=== PATIENT | male | born 1960 | race Hispanic/Latino ===

== ENCOUNTER 2016-10-03 23:22 | Emergency (ER) | payer MEDICAID ==
[2016-10-03 23:22] VITALS: BMI 39.0
[2016-10-03] MEDS ORDERED: Albuterol-Ipratrop 3 mg / 0.5 (3 ml) UD ONE (23:38)
[2016-10-03] MEDS ORDERED: Magnesium Sulfate 2 gm/50 ml 2 GM/50 ML BAG ONE (23:38)
[2016-10-03] MEDS ORDERED: Albuterol-Ipratrop 3 mg / 0.5 (3 ml) UD INH STA ×2 (23:39)
[2016-10-03] MEDS ORDERED: Magnesium Sulfate 2 gm/50 ml 2 GM/50 ML BAG IVPB ONE (23:44)
[2016-10-04 00:02] LABS: BASO # 0.1 K/uL (0.0-0.2); BASO % 1.3 % (0.0-2.0); EOS # 0.2 K/uL (0.0-0.7); EOS % 2.3 % (0.0-4.0); HEMOGLOBIN 15.8 g/dL (12.0-18.0); LYMPH # 2.9 K/uL (1.0-4.3); MEAN CELL VOLUME 84.5 fl (80.0-94.0); MEAN CORPUSCULAR HEMOGLOBIN 27.9 pg (27.0-31.0); MEAN PLATELET VOLUME 8.1 fl (7.2-11.7); MONO # 0.8 K/uL (0.0-0.8); MONO % 8.1 % (0.0-10.0); NEUT # 6.2 K/uL (1.8-7.0); NEUT % 60.3 % (50.0-75.0); RBC 5.65 Mil/uL (4.40-5.90); RED CELL DISTRIBUTION WIDTH 15.2 % (11.5-14.5); WHITE BLOOD COUNT 10.3 K/uL (4.8-10.8)
[2016-10-04 00:13] LABS: BLOOD UREA NITROGEN 13 mg/dl (9-20); CALCIUM 9.1 mg/dL (8.4-10.2); GFR AFRICAN-AMERICAN > 60; GFR NON-AFRICAN AMERICAN > 60
--- NOTE | 2016-10-04 00:47 | ED PDOC ---
HPI: SOB/CHF/COPD Time Seen by Provider: 10/03/16 23:32 Chief Complaint (Nursing): Respiratory Distress Chief Complaint (Provider): Respiratory Distress History/Exam Limitations: no limitations Current Symptoms Are (Timing): Still Present Additional Complaint(s): Juve Perez is a 56 year old male with previous medical history of emphysema and psychiatric illness, who presents to the emergency department with a complaint of exacerbation of his COPD associated with fever and chills since this morning. Denies any further medical complaints. Patient stated that he is a current smoker and does not get relief from inhaler use. PMD: Anabell Monreal MD Past Medical History Reviewed: Historical Data, Nursing Documentation, Vital Signs Vital Signs: Last Vital Signs Temp 99.6 F 10/03/16 23:24 Pulse 113 H 10/03/16 23:24 Resp 22 10/03/16 23:24 BP 151/83 H 10/03/16 23:24 Pulse Ox 98 10/04/16 00:59 - Medical History PMH: Anxiety, Asthma, Bipolar Disorder, CHF, COPD, Depression, Diabetes, Emphysema, HTN, Hypercholesterolemia, Personality Disorder, Schizophrenia, Sleep Apnea Denies: Hepatitis, HIV, Chronic Kidney Disease, Seizures, Sexually Transmitted Disease - Family History Family History: States: Unknown Family Hx - Social History Current smoker - smoking cessation education provided: Yes - Immunization History Hx Tetanus Toxoid Vaccination: Yes Hx Influenza Vaccination: Yes Hx Pneumococcal Vaccination: No - Home Medications Home Medications: Ambulatory Orders Medication Instructions Recorded Benztropine [Cogentin] 0.5 mg PO BID #60 tab 12/11/15 Gabapentin [Neurontin] 400 mg PO HS #60 cap 12/11/15 Gabapentin [Neurontin] 600 mg PO TID #90 tab 12/11/15 ARIPiprazole [Abilify] 20 mg PO HS #30 tab 01/22/16 Aspirin [Ecotrin] 81 mg PO DAILY #0 tabec 01/22/16 Carvedilol [Coreg] 12.5 mg PO BID #0 tab 01/22/16 Docusate [Colace] 100 mg PO DAILY #0 cap 01/22/16 Doxepin [Sinequan] 10 mg PO HS #30 cap 01/22/16 Folic Acid 1 mg PO DAILY #0 tab 01/22/16 Lactobacillus Acidophilus [Bacid 1 cap PO BID #0 cap 01/22/16 Acidophilus] Losartan [Cozaar] 50 mg PO DAILY #0 tab 01/22/16 Multimineral/Multivitamin 1 tab PO DAILY #0 tab 01/22/16 [Therapeutic-M Tab] Naproxen [Naprosyn Tab] 375 mg PO BID PRN #0 tab 01/22/16 OXcarbazepine [Trileptal] 300 mg PO BID #0 tab 01/22/16 Pramipexole [Mirapex] 1.5 mg PO BID #0 tab 01/22/16 Pravastatin Sodium [Pravachol] 40 mg PO HS #0 tab 01/22/16 Thiamine [Vitamin B1 Tab] 100 mg PO DAILY #0 tab 01/22/16 Venlafaxine [Effexor XR] 150 mg PO DAILY #30 cer 01/22/16 amLODIPine [Norvasc] 5 mg PO HS #0 tab 01/22/16 metFORMIN [glucOPHAGE] 500 mg PO DAILY #0 tab 01/22/16 predniSONE [predniSONE Tab] 60 mg PO DAILY #9 tab 10/04/16 - Allergies Allergies/Adverse Reactions: Allergies Allergy/AdvReac Type Severity Reaction Status Date / Time [place] And Derivatives Allergy ANGIOEDEMA Verified 08/25/15 18:21 Review of Systems ROS Statement: Except As Marked, All Systems Reviewed And Found Negative ( exacerbated) Constitutional: Positive for: Fever, Chills Respiratory: Positive for: Cough Physical Exam - Reviewed Nursing Documentation Reviewed: Yes Vital Signs Reviewed: Yes - Physical Exam Appears: Positive for: Well, Non-toxic, No Acute Distress Head Exam: Positive for: ATRAUMATIC, NORMAL INSPECTION, NORMOCEPHALIC Skin: Positive for: Normal Color, Warm, Dry Eye Exam: Positive for: Normal appearance Neck: Positive for: Normal, Painless ROM, Supple Cardiovascular/Chest: Positive for: Regular Rate, Rhythm Respiratory: Positive for: Wheezing (bilaterally), Respiratory Distress. Negative for: Normal Breath Sounds Gastrointestinal/Abdominal: Positive for: Normal Exam, Bowel Sounds, Soft, Other (obese abdomen). Negative for: Tenderness, Mass Back: Positive for: Normal Inspection. Negative for: L CVA Tenderness, R CVA Tenderness Extremity: Positive for: Normal ROM. Negative for: Pedal Edema Neurologic/Psych: Positive for: Alert, Oriented - Laboratory Results Result Diagrams: 10/03/16 23:42 10/03/16 23:42 - ECG O2 Sat by Pulse Oximetry: 98 (O2 mask) Pulse Ox Interpretation: Normal Medical Decision Making Medical Decision Making: Initial Impression: COPD with exacerbation Initial Plan: * EKG * Drug screen, urine * CXR * Duoneb 3ml INH * Xanax 1mg PO * Magnesium 2gm in 50ml IVPB * Solu-Medrol 125mg IVP * Blood culture * Peak flow pre/post [place] * Urinalysis * Reevaluate 1AM: Pt's wheezing has much improved, no longer c/o of wheezing. Will d/c home on prednisone, encourage f/u with PMD, strict return precautions given. Scribe Attestation: Documented by Palmira Ochoa, acting as a scribe for Raul Cruz MD. Provider Scribe Attestation: All medical record entries made by the Scribe were at my direction and personally dictated by me. I have reviewed the chart and agree that the record accurately reflects my personal performance of the history, physical exam, medical decision making, and the department course for this patient. I have also personally directed, reviewed, and agree with the discharge instructions and disposition. Disposition - Clinical Impression Clinical Impression: COPD (chronic obstructive pulmonary disease) - Patient ED Disposition Is Patient to be Admitted: No - Disposition Disposition: Routine/Home Disposition Time: 01:12 Condition: IMPROVED Prescriptions: predniSONE [predniSONE Tab] 60 mg PO DAILY #9 tab Instructions: Emphysema (ED)
[2016-10-04 01:20] VITALS: BP 136/89; PULSE 110; RESP 20; TEMP 98.7
[2016-10-04 01:23] VITALS: O2SAT 97
--- NOTE | 2016-10-04 07:40 | RAD ---
HISTORY: sob, emphysema COMPARISON: No prior. TECHNIQUE: Chest PA and lateral FINDINGS: LUNGS: No active pulmonary disease. PLEURA: No significant pleural effusion identified. No pneumothorax apparent. CARDIOVASCULAR: Normal. OSSEOUS STRUCTURES: No significant abnormalities. VISUALIZED UPPER ABDOMEN: Normal. OTHER FINDINGS: None. IMPRESSION: No active disease.
--- NOTE | 2016-10-06 07:00 | CARD ---
APPROVED REPORT EKG Measurement Heart [id number] <Conclusion> Sinus tachycardia Otherwise normal ECG
== END 2016-10-04 01:19 | disposition home or self-care (01) ==
LOC: H.ER 23:22
DX: J44.1 Chronic obstructive pulmonary disease with (acute) exacerbation (principal); Z79.84 Long term (current) use of oral hypoglycemic drugs; E11.9 Type 2 diabetes mellitus without complications; F20.9 Schizophrenia, unspecified; F31.9 Bipolar disorder, unspecified; I10 Essential (primary) hypertension

== ENCOUNTER 2016-10-09 02:02 | Inpatient (IN) | payer MEDICAID ==
[2016-10-09 02:02] VITALS: BMI 39.0
[2016-10-09] MEDS ORDERED: Albuterol-Ipratrop 3 mg / 0.5 (3 ml) UD INH STA ×4 (02:29→03:37)
[2016-10-09] MEDS ORDERED: Magnesium Sulfate 2 GM in Sodium Chloride 0.9% 100 ML IV STA (02:33)
[2016-10-09] MEDS ORDERED: Magnesium Sulfate 2 gm/50 ml 2 GM/50 ML BAG ONE (02:37)
--- NOTE | 2016-10-09 02:40 | ED PDOC ---
HPI: SOB/CHF/COPD Time Seen by Provider: 10/09/16 02:11 Chief Complaint (Nursing): Shortness Of Breath Chief Complaint (Provider): Shortness of Breath History Per: Patient History/Exam Limitations: no limitations Onset/Duration Of Symptoms: Days (x3) Current Symptoms Are (Timing): Still Present Quality: Tightness Current Respiratory Medications: Prednisone Associated Symptoms: Chest Pain (chest tightness), Other (wheezing) Recently: Seen In ED (x3 days ago) Additional Complaint(s): 56 year old male presents to ED with complaints of SOB x3 days and has a past medical history of COPD, bipolar disorder, HTN, and DM. States that he was seen in ED x3 days ago for the same complaint and was given multiple nebulizer treatments, magnesium, and steroids with modest improvements. Confirms that he takes prednisone at home but that symptoms still persist. (+) chest tightness and wheezing. PCP: Anabell Monreal Past Medical History Reviewed: Historical Data, Nursing Documentation, Vital Signs Vital Signs: Last Vital Signs Temp 97.8 F 10/10/16 00:33 Pulse 75 10/10/16 01:15 Resp 17 10/10/16 01:15 BP 146/87 10/10/16 01:15 Pulse Ox 95 10/10/16 01:15 - Medical History PMH: Anxiety, Asthma, Bipolar Disorder, CHF, COPD, Depression, Diabetes, Emphysema, HTN, Hypercholesterolemia, Personality Disorder, Schizophrenia, Sleep Apnea Denies: No Chronic Diseases, Hepatitis, HIV, Chronic Kidney Disease, Seizures , Sexually Transmitted Disease - Surgical History Surgical History: No Surg Hx - Family History Family History: States: No Known Family Hx - Social History Current smoker - smoking cessation education provided: Yes (2-3 cigarettes a day ) Ex-Smoker (has not smoked in the last 12 months): No Alcohol: Occasional - Immunization History Hx Tetanus Toxoid Vaccination: Yes Hx Influenza Vaccination: Yes Hx Pneumococcal Vaccination: No - Home Medications Home Medications: Ambulatory Orders Medication Instructions Recorded Benztropine [Cogentin] 0.5 mg PO BID #60 tab 12/11/15 Gabapentin [Neurontin] 400 mg PO HS #60 cap 12/11/15 Gabapentin [Neurontin] 600 mg PO TID #90 tab 12/11/15 ARIPiprazole [Abilify] 20 mg PO HS #30 tab 01/22/16 Aspirin [Ecotrin] 81 mg PO DAILY #0 tabec 01/22/16 Carvedilol [Coreg] 12.5 mg PO BID #0 tab 01/22/16 Docusate [Colace] 100 mg PO DAILY #0 cap 01/22/16 Doxepin [Sinequan] 10 mg PO HS #30 cap 01/22/16 Folic Acid 1 mg PO DAILY #0 tab 01/22/16 Lactobacillus Acidophilus [Bacid 1 cap PO BID #0 cap 01/22/16 Acidophilus] Losartan [Cozaar] 50 mg PO DAILY #0 tab 01/22/16 Multimineral/Multivitamin 1 tab PO DAILY #0 tab 01/22/16 [Therapeutic-M Tab] Naproxen [Naprosyn Tab] 375 mg PO BID PRN #0 tab 01/22/16 OXcarbazepine [Trileptal] 300 mg PO BID #0 tab 01/22/16 Pramipexole [Mirapex] 1.5 mg PO BID #0 tab 01/22/16 Pravastatin Sodium [Pravachol] 40 mg PO HS #0 tab 01/22/16 Thiamine [Vitamin B1 Tab] 100 mg PO DAILY #0 tab 01/22/16 Venlafaxine [Effexor XR] 150 mg PO DAILY #30 cer 01/22/16 amLODIPine [Norvasc] 5 mg PO HS #0 tab 01/22/16 metFORMIN [glucOPHAGE] 500 mg PO DAILY #0 tab 01/22/16 Albuterol 0.083% [Albuterol 0.083% 1 inh INH TID 10/09/16 Inhal Radha (2.5 mg/3 ml) UD] Albuterol HFA [Ventolin HFA 90 1 - 2 puff INH PRN PRN 10/09/16 mcg/actuation (8 g)] Albuterol/Ipratropium [Combivent 1 - 2 puff INH TID 10/09/16 Respimat] Fluticasone/Salmeterol [Advair 1 inh INH DAILY 10/09/16 250-50 Diskus] - Allergies Allergies/Adverse Reactions: Allergies Allergy/AdvReac Type Severity Reaction Status Date / Time [place] And Derivatives Allergy ANGIOEDEMA Verified 08/25/15 18:21 Curb-65 Severity Score - CURB-65 Severity Score Confusion: No Respiratory Rate greater than/equal to 30: No Systolic BP <90 or Diastolic BP less than/equal 60mmHg: No Age >64: No Curb-65 Score: 0 Percentage 30-day mortality: 0.6% Wells Criteria for PE - Wells Criteria for Pulmonary Embolism Clinical Signs and Symptoms of DVT: No P.E is #1 Diagnosis, or Equally Likely: No Heart Rate >100: Yes Immobilization at least 3 days;Surgery previous 4 weeks: No Previous, objectively diagnosed PE or DVT: No Hemoptysis: No Malignancy w/treatment within 6 months, or palliative: No Total Score: 1.5 Review of Systems ROS Statement: Except As Marked, All Systems Reviewed And Found Negative Cardiovascular: Positive for: Chest Pain (chest tightness) Respiratory: Positive for: Shortness of Breath, Wheezing Physical Exam - Reviewed Nursing Documentation Reviewed: Yes Vital Signs Reviewed: Yes - Physical Exam Appears: Positive for: Non-toxic, In Acute Distress (mild distress) Skin: Positive for: Normal Color, Warm, Dry Eye Exam: Positive for: Normal appearance ENT: Positive for: Normal ENT Inspection Neck: Positive for: Normal Cardiovascular/Chest: Positive for: Regular Rate, Rhythm, Tachycardia Respiratory: Positive for: Wheezing (bilateral diffuse expiratory wheezing), Other (decreased air entry). Negative for: Normal Breath Sounds, Respiratory Distress Gastrointestinal/Abdominal: Positive for: Normal Exam, Soft. Negative for: Tenderness Back: Positive for: Normal Inspection Extremity: Positive for: Normal ROM. Negative for: Deformity Neurologic/Psych: Positive for: Alert, Oriented. Negative for: Motor/Sensory Deficits - Laboratory Results Result Diagrams: 10/09/16 02:43 10/09/16 02:43 - ECG O2 Sat by Pulse Oximetry: 94 (RA) Pulse Ox Interpretation: Abnormal - Critical Care Total Time (In Min): 30 Medical Decision Making Medical Decision Makin Initial impression: COPD exacerbation and failure of outpatient treatment Initial plan: * EtOH serum * Labs * UDrug screen * Duonebs 3mL INH x3 * Magnesium Sulfate 2gm IV * Solumedrol 125mg IVP * BCx * Peak flow pre/post Tx x3 [id number] Admission OBS MED/SURG Patient will be admitted under Dr. Moore. 30 minutes of CCT documented. Scribe Attestation: Documented by Radha Orona acting as a scribe for Jin Rios MD. MD Scribe Attestation: All medical record entries made by the Ivy were at my direction and personally dictated by me. I have reviewed the chart and agree that the record accurately reflects my personal performance of the history, physical exam, medical decision making, and the department course for this patient. I have also personally directed, reviewed, and agree with the discharge instructions and disposition. Disposition - Clinical Impression Clinical Impression: COPD (chronic obstructive pulmonary disease) - Patient ED Disposition Is Patient to be Admitted: Yes Discussed With : Damaris Moore Doctor Will See Patient In The: Hospital - Disposition Disposition Time: 02:42 Condition: FAIR - Pt Status Changed To: Hospital Disposition Of: Observation (MED/SURG) - POA Present On Arrival: None
[2016-10-09 03:14] LABS: ALB/GLOB RATIO 1.3 (1.0-2.1); ALBUMIN 4.6 g/dL (3.5-5.0); ALT/SGPT 46 U/L (21-72); AST/SGOT 23 U/L (17-59); BLOOD UREA NITROGEN 13 mg/dl (9-20); CALCIUM 9.1 mg/dL (8.4-10.2); GFR AFRICAN-AMERICAN > 60; GFR NON-AFRICAN AMERICAN > 60
[2016-10-09 03:25] LABS: BASO # 0.1 K/uL (0.0-0.2); BASO % 0.6 % (0.0-2.0); EOS # 0.2 K/uL (0.0-0.7); EOS % 1.2 % (0.0-4.0); HEMOGLOBIN 15.4 g/dL (12.0-18.0); LYMPH # 3.1 K/uL (1.0-4.3); LYMPH % 20.8 % (20.0-40.0); MEAN CELL VOLUME 83.5 fl (80.0-94.0); MEAN CORPUSCULAR HEMOGLOBIN 27.4 pg (27.0-31.0); MEAN CORPUSCULAR HGB CONC 32.8 g/dL (33.0-37.0); MONO # 0.9 K/uL (0.0-0.8); MONO % 6.4 % (0.0-10.0); NEUT # 10.5 K/uL (1.8-7.0); NRBC % 0.1 % (0.0-0.0); RBC 5.63 Mil/uL (4.40-5.90); RED CELL DISTRIBUTION WIDTH 15.1 % (11.5-14.5); WHITE BLOOD COUNT 14.8 K/uL (4.8-10.8)
[2016-10-09] MEDS ORDERED: Albuterol-Ipratrop 3 mg / 0.5 (3 ml) UD ONE (04:12)
[2016-10-09] MEDS: methylPREDNISolone 60 MG in Sodium Chloride 0.9% 50 ML IV SCH ×4 (04:30→22:12)
[2016-10-09] MEDS: Albuterol-Ipratrop 3 mg / 0.5 (3 ml) UD INH SCH ×6 (04:30→23:52)
[2016-10-09] MEDS ORDERED: Albuterol-Ipratrop 3 mg / 0.5 (3 ml) UD INH SCH ×2 (09:00→14:00)
[2016-10-09] MEDS: Fluticasone-Salmeterol 250-50mcg Diskus INH SCH ×2 (09:19→16:51)
[2016-10-09] MEDS: Lactobacillus Acidophilus 500 MU Cap PO SCH ×2 (09:20→16:51)
[2016-10-09] MEDS: Multivitamin With Minerals Tab PO SCH (09:58)
[2016-10-09] MEDS: Venlafaxine 150 mg ER Cap PO SCH (09:58)
[2016-10-09] MEDS: levoFLOXacin 500 MG TAB PO SCH (10:00)
[2016-10-09] MEDS: Enoxaparin 40 mg Syringe SC SCH (10:01)
--- NOTE | 2016-10-09 11:32 | CP.PCM.HP ---
History of Present Illness - History of Present Illness History of Present Illness: CC: SOB History of Present Illness: 56 year old male presents to ED with complaints of SOB x3 days and has a past medical history of COPD, bipolar disorder, HTN, and DM. States that he was seen in ED x3 days ago for the same complaint and was given multiple nebulizer treatments, magnesium, and steroids with modest improvements. Confirms that he takes prednisone at home but that symptoms still persist. (+) chest tightness and wheezing. B/L Leg swellings. Present on Admission - Present on Admission Any Indicators Present on Admission: No History of DVT/PE: No History of Uncontrolled Diabetes: Yes Urinary Catheter: No Decubitus Ulcer Present: No Review of Systems - Review of Systems All systems: reviewed and no additional remarkable complaints except - Cardiovascular Cardiovascular: As Per HPI - Respiratory Respiratory: As Per HPI Past Patient History - Past Medical History & Family History Past Medical History?: Yes Past Family History: Reviewed and not pertinent - Past Social History Smoking Status: Light Smoker < 10 Cigarettes Daily Alcohol: Social Drugs: Denies - CARDIAC Hx Cardiac Disorders: Yes Hx Hypercholesterolemia: Yes Hx Hypertension: Yes - PULMONARY Hx Respiratory Disorders: Yes Hx Asthma: Yes Hx Chronic Obstructive Pulmonary Disease (COPD): Yes Hx Emphysema: Yes Hx Sleep Apnea: Yes - NEUROLOGICAL Hx Neurological Disorder: No Hx Seizures: No - HEENT Hx HEENT Problems: No - RENAL Hx Chronic Kidney Disease: No - ENDOCRINE/METABOLIC Hx Endocrine Disorders: Yes Hx Diabetes Mellitus Type 1: Yes - HEMATOLOGICAL/ONCOLOGICAL Hx Blood Disorders: No Hx AIDS: No Hx Human Immunodeficiency Virus (HIV): No - INTEGUMENTARY Hx Dermatological Problems: No - MUSCULOSKELETAL/RHEUMATOLOGICAL Hx Musculoskeletal Disorders: No Hx Falls: No - GASTROINTESTINAL Hx Gastrointestinal Disorders: No - GENITOURINARY/GYNECOLOGICAL Hx Genitourinary Disorders: No Hx Sexually Transmitted Disorders: No - PSYCHIATRIC Hx Psychophysiologic Disorder: Yes Hx Anxiety: Yes Hx Bipolar Disorder: Yes Hx Depression: Yes Hx Schizophrenia: Yes Hx Substance Use: No - SURGICAL HISTORY Hx Surgeries: No - ANESTHESIA Hx Anesthesia: No Hx Anesthesia Reactions: No Hx Malignant Hyperthermia: No Has any member of the family had a problem w/ anesthesia?: No Meds Allergies/Adverse Reactions: Allergies Allergy/AdvReac Type Severity Reaction Status Date / Time [place] And Derivatives Allergy ANGIOEDEMA Verified 08/25/15 18:21 Physical Exam - Constitutional Appears: Well, No Acute Distress - Head Exam Head Exam: ATRAUMATIC, NORMAL INSPECTION, NORMOCEPHALIC - Eye Exam Eye Exam: EOMI, Normal appearance, PERRL Pupil Exam: NORMAL ACCOMODATION, PERRL - ENT Exam ENT Exam: Mucous Membranes Moist, Normal Exam - Neck Exam Neck exam: Positive for: Full Rom, Normal Inspection - Respiratory Exam Respiratory Exam: Decreased Breath Sounds, Wheezes. absent: Rales - Cardiovascular Exam Cardiovascular Exam: Tachycardia, REGULAR RHYTHM, +S1, +S2 - GI/Abdominal Exam GI & Abdominal Exam: Normal Bowel Sounds, Soft. absent: Tenderness - Extremities Exam Extremities exam: Positive for: full ROM, normal inspection. Negative for: calf tenderness - Back Exam Back exam: FULL ROM, NORMAL INSPECTION - Neurological Exam Neurological exam: Alert, CN II-XII Intact, Normal Gait, Oriented x3, Reflexes Normal - Psychiatric Exam Psychiatric exam: Normal Affect, Normal Mood - Skin Skin Exam: Dry, Intact, Normal Color, Warm Results - Vital Signs Recent Vital Signs: Last Vital Signs Temp 98.2 F 10/09/16 07:47 Pulse 106 H 10/09/16 09:57 Resp 20 10/09/16 07:47 BP 112/62 10/09/16 09:57 Pulse Ox 100 10/09/16 07:47 - Labs Result Diagrams: 10/09/16 02:43 10/09/16 02:43 Labs: Laboratory Results - last 24 hr 10/09/16 10/09/16 10/09/16 02:43 02:43 10:37 WBC 14.8 H RBC 5.63 Hgb 15.4 Hct 47.0 MCV 83.5 MCH 27.4 MCHC 32.8 L RDW 15.1 H Plt Count 319 MPV 8.0 Neut % (Auto) 71.0 Lymph % (Auto) 20.8 [place] % (Auto) 6.4 Eos % (Auto) 1.2 Baso % (Auto) 0.6 Neut # 10.5 H Lymph # 3.1 [place] # 0.9 H Eos # 0.2 Baso # 0.1 Sodium 146 Potassium 3.6 Chloride 108 H Carbon Dioxide 22 Anion Gap 20 BUN 13 Creatinine 1.0 Est GFR ( Amer) > 60 Est GFR (Non-Af Amer) > 60 POC Glucose (mg/dL) 232 H Random Glucose 95 Calcium 9.1 Total Bilirubin 0.3 AST 23 ALT 46 Alkaline Phosphatase 87 Total Protein 8.1 Albumin 4.6 Globulin 3.5 Albumin/Globulin Ratio 1.3 Alcohol, Quantitative 162 H - Imaging and Cardiology Chest x-ray Status: Report reviewed by me Additional comment: 10/05/15 No Acute finding Assessment & Plan (1) COPD exacerbation Assessment and Plan: O2 Via NC Duoneb q4hrs RTC Solumedrol 60mg IV q6 Levaquin 50omg po daily Continue Flovent INH Pulmonary Consult Change Obs to admit Status: Acute
[2016-10-09 11:33] LABS: BARBITURATES, UR NEGATIVE (NEGATIVE); BENZODIAZEPINES, UR NEGATIVE (NEGATIVE); OPIATES, UR NEGATIVE (NEGATIVE); PHENCYCLIDINE, UR NEGATIVE (NEGATIVE)
[2016-10-09] MEDS: Insulin Lispro (humaLOG) 100 Units/ml Inj SC SCH ×3 (12:30→22:22)
[2016-10-09] MEDS ORDERED: Sodium Chloride 3% for Inhalation 4 ML VIAL.NEB IH PRN (13:17)
--- NOTE | 2016-10-09 15:17 | RAD ---
HISTORY: COPD. COMPARISON: 10/03/2016 TECHNIQUE: Chest PA and lateral FINDINGS: LUNGS: No active pulmonary disease. PLEURA: No significant pleural effusion identified. No pneumothorax apparent. CARDIOVASCULAR: Normal. OSSEOUS STRUCTURES: No significant abnormalities. VISUALIZED UPPER ABDOMEN: Normal. OTHER FINDINGS: None. IMPRESSION: No active disease. No significant interval change compared to the prior examination(s).
[2016-10-09] MEDS: Pravastatin Sodium 40 MG TAB PO SCH (22:13)
--- NOTE | 2016-10-09 22:59 | CP.PCM.CON ---
History of Present Illness - History of Present Illness History of Present Illness: 56 y/o PMHx of COPD, DM, HTN, recently in ER for pos sx of exacerbation; treated with nebulized treatments and CAESAR. Now comes in with increase in CHOI. ROS: neg fever, positive sputum, negative hemoptysis. Neg Chest pain. Pos audible wheezing. NKDA 50 pack year smoker. Still smokes 1/4 pack a day. VS See Below. Labs See Below. Head Neg Adeno Pos Cara. Heart RRR, ns1s2, Neg M Lungs: Distant bs, slight wheezing Bilateral No, c,c,e Neuro: GNF X-ray WNL a/p Acute Resp Insuf COPD Ex. Tracheobronchitis Chronic Medical Conditions. Cont Supp O2, maintain O2 Sat > 90. Avoid Hyperoxia. IV steroids with slow taper, abx, check wbc#, temp curve and CEASAR via nebs. Discussed smoking cessation. BiPap at night use. If patient is improved in next 48 hours, may dc on po steroids and po abx, and he can follow up with my at [facility] office: [address], [place] phone: [phone] Please reconsult PRN. Thank you very much for this consult. Past Patient History - Past Medical History & Family History Past Medical History?: Yes Past Family History: Reviewed and not pertinent - Past Social History Smoking Status: Light Smoker < 10 Cigarettes Daily Alcohol: Social Drugs: Denies - CARDIAC Hx Cardiac Disorders: Yes Hx Hypercholesterolemia: Yes Hx Hypertension: Yes - PULMONARY Hx Respiratory Disorders: Yes Hx Asthma: Yes Hx Chronic Obstructive Pulmonary Disease (COPD): Yes Hx Emphysema: Yes Hx Sleep Apnea: Yes - NEUROLOGICAL Hx Neurological Disorder: No Hx Seizures: No - HEENT Hx HEENT Problems: No - RENAL Hx Chronic Kidney Disease: No - ENDOCRINE/METABOLIC Hx Endocrine Disorders: Yes Hx Diabetes Mellitus Type 1: Yes - HEMATOLOGICAL/ONCOLOGICAL Hx Blood Disorders: No Hx AIDS: No Hx Human Immunodeficiency Virus (HIV): No - INTEGUMENTARY Hx Dermatological Problems: No - MUSCULOSKELETAL/RHEUMATOLOGICAL Hx Musculoskeletal Disorders: No Hx Falls: No - GASTROINTESTINAL Hx Gastrointestinal Disorders: No - GENITOURINARY/GYNECOLOGICAL Hx Genitourinary Disorders: No Hx Sexually Transmitted Disorders: No - PSYCHIATRIC Hx Psychophysiologic Disorder: Yes Hx Anxiety: Yes Hx Bipolar Disorder: Yes Hx Depression: Yes Hx Schizophrenia: Yes Hx Substance Use: No - SURGICAL HISTORY Hx Surgeries: No - ANESTHESIA Hx Anesthesia: No Hx Anesthesia Reactions: No Hx Malignant Hyperthermia: No Has any member of the family had a problem w/ anesthesia?: No Meds Allergies/Adverse Reactions: Allergies Allergy/AdvReac Type Severity Reaction Status Date / Time M[place]ulloch And Derivatives Allergy ANGIOEDEMA Verified 08/25/15 18:21 - Medications Medications: Current Medications Albuterol/Ipratropium (Duoneb 3 Mg/0.5 Mg (3 Ml) Ud) 3 ml INH RQ4 [facility] Last Admin: 10/09/16 19:22 Dose: 3 ml Amlodipine Besylate (Norvasc) 5 mg PO HS [facility] Last Admin: 10/09/16 22:32 Dose: 5 mg Aripiprazole (Abilify) 20 mg PO HS [facility] Last Admin: 10/09/16 22:13 Dose: 20 mg Aspirin (Ecotrin) 81 mg PO DAILY [facility] Last Admin: 10/09/16 09:17 Dose: 81 mg Benztropine Mesylate (Cogentin) 0.5 mg PO BID [facility] Last Admin: 10/09/16 16:52 Dose: 0.5 mg Carvedilol (Coreg) 12.5 mg PO BID [facility] Last Admin: 10/09/16 16:52 Dose: 12.5 mg Docusate Sodium (Colace) 100 mg PO DAILY [facility] Last Admin: 10/09/16 09:17 Dose: 100 mg Doxepin HCl (Sinequan) 10 mg PO HS [facility] Last Admin: 10/09/16 22:13 Dose: 10 mg Enoxaparin Sodium (Lovenox) 40 mg SC DAILY [facility] PRN Reason: Protocol Last Admin: 10/09/16 10:01 Dose: 40 mg Famotidine (Pepcid) 20 mg PO BID [facility] Last Admin: 10/09/16 16:54 Dose: 20 mg Folic Acid (Folic Acid) 1 mg PO DAILY [facility] Last Admin: 10/09/16 09:17 Dose: 1 mg Gabapentin (Neurontin) 400 mg PO HS [facility] Last Admin: 10/09/16 22:12 Dose: 400 mg Gabapentin (Neurontin) 600 mg PO TID [facility] Last Admin: 10/09/16 16:52 Dose: 600 mg Methylprednisolone 60 mg/ (Sodium Chloride) 50 mls @ 100 mls/hr IV Q6 [facility] Last Admin: 10/09/16 22:12 Dose: 100 mls/hr Insulin Human Lispro (Humalog) 0 units SC ACHS [facility] PRN Reason: Protocol Last Admin: 10/09/16 22:22 Dose: Not Given Lactobacillus Acidophilus (Bacid Acidophilus) 1 cap PO BID [facility] Last Admin: 10/09/16 16:51 Dose: 1 cap Levofloxacin (Levaquin) 500 mg PO DAILY [facility] Last Admin: 10/09/16 10:00 Dose: 500 mg Losartan Potassium (Cozaar) 50 mg PO DAILY [facility] Last Admin: 10/09/16 09:17 Dose: 50 mg Metformin HCl (Glucophage) 500 mg PO DAILY [facility] Last Admin: 10/09/16 10:01 Dose: 500 mg Multivitamins/Minerals (Therapeutic-M Tab) 1 tab PO DAILY [facility] Last Admin: 10/09/16 09:58 Dose: 1 tab Naproxen (Naprosyn Tab) 375 mg PO BID PRN PRN Reason: Pain, moderate (4-7) Nicotine (Nicoderm Cq) 1 patch TD DAILY [facility] Last Admin: 10/09/16 09:59 Dose: 1 patch Oxcarbazepine (Trileptal) 300 mg PO BID [facility] Last Admin: 10/09/16 16:53 Dose: 300 mg Pramipexole Dihydrochloride (Mirapex) 1.5 mg PO BID [facility] Last Admin: 10/09/16 17:15 Dose: 1.5 mg Pravastatin Sodium (Pravachol) 40 mg PO HS [facility] Last Admin: 10/09/16 22:13 Dose: 40 mg Fluticasone/Salmeterol (Advair Diskus 250/50) 1 puff INH BID [facility] Last Admin: 10/09/16 16:51 Dose: 1 puff Thiamine HCl (Vitamin B1 Tab) 100 mg PO DAILY [facility] Last Admin: 10/09/16 09:59 Dose: 100 mg Venlafaxine HCl (Effexor Xr) 150 mg PO DAILY [facility] Last Admin: 10/09/16 09:58 Dose: 150 mg Results - Vital Signs Recent Vital Signs: Last Vital Signs Temp 97.6 F 10/09/16 16:15 Pulse 76 10/09/16 22:32 Resp 20 10/09/16 16:15 BP 163/86 H 10/09/16 22:32 Pulse Ox 95 10/09/16 16:15 - Labs Result Diagrams: 10/09/16 02:43 10/09/16 02:43 Labs: Laboratory Results - last 24 hr 10/09/16 10/09/16 10/09/16 02:43 02:43 10:37 WBC 14.8 H RBC 5.63 Hgb 15.4 Hct 47.0 MCV 83.5 MCH 27.4 MCHC 32.8 L RDW 15.1 H Plt Count 319 MPV 8.0 Neut % (Auto) 71.0 Lymph % (Auto) 20.8 Gooding % (Auto) 6.4 Eos % (Auto) 1.2 Baso % (Auto) 0.6 Neut # 10.5 H Lymph # 3.1 Gooding # 0.9 H Eos # 0.2 Baso # 0.1 Sodium 146 Potassium 3.6 Chloride 108 H Carbon Dioxide 22 Anion Gap 20 BUN 13 Creatinine 1.0 Est GFR ( Amer) > 60 Est GFR (Non-Af Amer) > 60 POC Glucose (mg/dL) 232 H Random Glucose 95 Calcium 9.1 Total Bilirubin 0.3 AST 23 ALT 46 Alkaline Phosphatase 87 Total Protein 8.1 Albumin 4.6 Globulin 3.5 Albumin/Globulin Ratio 1.3 Urine Opiates Screen Urine Methadone Screen Ur Barbiturates Screen Ur Phencyclidine Scrn Ur Amphetamines Screen U Benzodiazepines Scrn U Oth Cocaine Metabols U Cannabinoids Screen Alcohol, Quantitative 162 H 10/09/16 10/09/16 10/09/16 10:59 16:39 22:06 WBC RBC Hgb Hct MCV MCH MCHC RDW Plt Count MPV Neut % (Auto) Lymph % (Auto) Gooding % (Auto) Eos % (Auto) Baso % (Auto) Neut # Lymph # Gooding # Eos # Baso # Sodium Potassium Chloride Carbon Dioxide Anion Gap BUN Creatinine Est GFR ( Amer) Est GFR (Non-Af Amer) POC Glucose (mg/dL) 108 169 H Random Glucose Calcium Total Bilirubin AST ALT Alkaline Phosphatase Total Protein Albumin Globulin Albumin/Globulin Ratio Urine Opiates Screen Negative Urine Methadone Screen Negative Ur Barbiturates Screen Negative Ur Phencyclidine Scrn Negative Ur Amphetamines Screen Negative U Benzodiazepines Scrn Negative U Oth Cocaine Metabols Negative U Cannabinoids Screen Negative Alcohol, Quantitative
[2016-10-10] MEDS: Albuterol-Ipratrop 3 mg / 0.5 (3 ml) UD INH SCH ×5 (04:32→19:31)
[2016-10-10] MEDS: methylPREDNISolone 60 MG in Sodium Chloride 0.9% 50 ML IV SCH ×4 (04:33→21:23)
[2016-10-10 06:55] LABS: BASO # 0.1 K/uL (0.0-0.2); BASO % 0.5 % (0.0-2.0); EOS % 0.1 % (0.0-4.0); HEMOGLOBIN 14.4 g/dL (12.0-18.0); MEAN CORPUSCULAR HEMOGLOBIN 27.5 pg (27.0-31.0); MEAN CORPUSCULAR HGB CONC 32.4 g/dL (33.0-37.0); MEAN PLATELET VOLUME 8.2 fl (7.2-11.7); MONO # 0.6 K/uL (0.0-0.8); MONO % 3.3 % (0.0-10.0); NEUT # 17.3 K/uL (1.8-7.0); NEUT % 91.1 % (50.0-75.0); PLATELET COUNT 274 K/uL (130-400); RBC 5.22 Mil/uL (4.40-5.90); RED CELL DISTRIBUTION WIDTH 15.2 % (11.5-14.5)
[2016-10-10 07:07] LABS: BLOOD UREA NITROGEN 18 mg/dl (9-20); GFR AFRICAN-AMERICAN > 60; GFR NON-AFRICAN AMERICAN > 60
[2016-10-10] MEDS: Insulin Lispro (humaLOG) 100 Units/ml Inj SC SCH ×4 (07:20→22:00)
[2016-10-10 09:10] LABS: LYMPHOCYTE 6 % (20-50); MONOCYTE 3 % (0-10); NEUTROPHIL 91 % (42-75); TOTAL CELLS COUNTED 100
[2016-10-10 09:11] LABS: PLATELET ESTIMATE NORMAL (NORMAL)
[2016-10-10] MEDS: Fluticasone-Salmeterol 250-50mcg Diskus INH SCH ×2 (09:17→17:16)
[2016-10-10] MEDS: Lactobacillus Acidophilus 500 MU Cap PO SCH ×2 (09:17→17:16)
[2016-10-10] MEDS: Multivitamin With Minerals Tab PO SCH (09:19)
[2016-10-10] MEDS: levoFLOXacin 500 MG TAB PO SCH (09:21)
[2016-10-10] MEDS: Venlafaxine 150 mg ER Cap PO SCH (09:21)
[2016-10-10] MEDS: Enoxaparin 40 mg Syringe SC SCH (09:22)
[2016-10-10 09:56] LABS: ABG ALLEN TEST YES; ARTERIAL BLOOD GAS HCO3 24.9 mmol/L (21-28); ARTERIAL BLOOD GAS HEMOGLOBIN 15.5 g/dL (11.7-17.4); ARTERIAL BLOOD GAS O2 CAPACITY 21.1 mL/dL (16-24); ARTERIAL BLOOD GAS O2 CONTENT 20.3 ML/dL (15-23); ARTERIAL BLOOD GAS O2 SAT 96.2 % (95-98); ARTERIAL BLOOD GAS PCO2 35 mm/Hg (35-45); ARTERIAL BLOOD GAS PH 7.44 (7.35-7.45); ARTERIAL BLOOD GAS PO2 69 mm/Hg (80-100); ARTERIAL BLOOD GAS TCO2 24.9 mmol/L (22-28)
--- NOTE | 2016-10-10 13:33 | CARD ---
APPROVED REPORT EXAM: Two-dimensional and M-mode echocardiogram with Doppler and color Doppler. Other Information Quality : FairRhythm : NSR Technically limited study due to body habitus.,COPD INDICATION Dyspnea 2D DIMENSIONS IVSd1.61 (0.7-1.1cm)LVDd4.27 (3.9-5.9cm) LVOT Diameter2.50 (1.8-2.4cm)PWd1.18 (0.7-1.1cm) IVSs1.75 (0.8-1.2cm)LVDs2.70 (2.5-4.0cm) FS (%) 36.8 %PWs1.12 (0.8-1.2cm) M-Mode DIMENSIONS Left Atrium (MM)2.81 (2.5-4.0cm)IVSd1.65 (0.7-1.1cm) Aortic Root4.00 (2.2-3.7cm)LVDd4.86 (4.0-5.6cm) Aortic Cusp Exc.2.55 (1.5-2.0cm)PWd1.19 (0.7-1.1cm) IVSs1.92 cmFS (%) 43 % LVDs2.78 (2.0-3.8cm)PWs1.75 cm Mitral Valve MV E Pvbpmhps22.2cm/sMV DECEL [id number] A Qulxijyw78.8cm/s MV [id number]/A ratio1.0MVA (PHT)3.03cm2 TDI E/Lateral E'0.0E/Medial E'0.0 LEFT VENTRICLE The left ventricle is normal size. There is normal left ventricular wall thickness. The left ventricular function is normal. The left ventricular ejection fraction is within the normal range. The Ejection Fraction is 55-60%. There is normal LV segmental wall motion. The left ventricular diastolic function is normal. No left ventricle thrombus noted on this study. There is no mass noted in the left ventricle. RIGHT VENTRICLE The right ventricle is normal size. There is normal right ventricular wall thickness. The right ventricular systolic function is normal. ATRIA The left atrium size is normal. The right atrium size is normal. The interatrial septum is intact with no evidence for an atrial septal defect. AORTIC VALVE The aortic valve is normal in structure and function. No aortic regurgitation is present. There is no aortic valvular stenosis. There is no aortic valvular vegetation. MITRAL VALVE The mitral valve is normal in structure and function. There is no evidence of mitral valve prolapse. There is no mitral valve stenosis. There is no mitral valve regurgitation noted. TRICUSPID VALVE The tricuspid valve is normal in structure and function. There is no tricuspid valve regurgitation noted. There is no tricuspid valve prolapse or vegetation. There is no tricuspid valve stenosis. PULMONIC VALVE The pulmonary valve is normal in structure and function. There is no pulmonic valvular regurgitation. There is no pulmonic valvular stenosis. GREAT VESSELS The aortic root is normal in size. The IVC is normal in size and collapses >50% with inspiration. PERICARDIAL EFFUSION The pericardium appears normal. There is no pleural effusion. <Conclusion> The left ventricle is normal size. The left ventricular function is normal. The left ventricular ejection fraction is within the normal range. The Ejection Fraction is 55-60%.
[2016-10-10] MEDS ORDERED: Acetylcysteine 10% 4 ML IH SCH (14:00)
[2016-10-10] MEDS: Acetylcysteine 10% 4 ML IH SCH (19:32)
[2016-10-10] MEDS: Pravastatin Sodium 40 MG TAB PO SCH (21:24)
[2016-10-11] MEDS: Albuterol-Ipratrop 3 mg / 0.5 (3 ml) UD INH SCH ×7 (00:15→23:31)
[2016-10-11] MEDS: methylPREDNISolone 60 MG in Sodium Chloride 0.9% 50 ML IV SCH ×4 (04:27→21:26)
[2016-10-11] MEDS: Insulin Lispro (humaLOG) 100 Units/ml Inj SC SCH ×4 (07:30→21:35)
[2016-10-11] MEDS: Acetylcysteine 10% 4 ML IH SCH ×2 (07:54→19:59)
[2016-10-11 08:17] LABS: HEMOGLOBIN 14.1 g/dL (12.0-18.0); MEAN CELL VOLUME 85.4 fl (80.0-94.0); MEAN CORPUSCULAR HEMOGLOBIN 27.6 pg (27.0-31.0); MEAN CORPUSCULAR HGB CONC 32.3 g/dL (33.0-37.0); RBC 5.13 Mil/uL (4.40-5.90); RED CELL DISTRIBUTION WIDTH 14.7 % (11.5-14.5); WHITE BLOOD COUNT 18.2 K/uL (4.8-10.8)
[2016-10-11] MEDS: Fluticasone-Salmeterol 250-50mcg Diskus INH SCH ×2 (08:49→16:21)
[2016-10-11] MEDS: Lactobacillus Acidophilus 500 MU Cap PO SCH ×2 (08:51→16:21)
[2016-10-11] MEDS: Multivitamin With Minerals Tab PO SCH (08:56)
[2016-10-11] MEDS: Enoxaparin 40 mg Syringe SC SCH (09:01)
[2016-10-11] MEDS: levoFLOXacin 500 MG TAB PO SCH (09:01)
[2016-10-11] MEDS: Venlafaxine 150 mg ER Cap PO SCH (09:04)
[2016-10-11] MEDS: Pravastatin Sodium 40 MG TAB PO SCH (21:25)
--- NOTE | 2016-10-11 23:49 | CP.PCM.PN ---
Subjective - Date & Time of Evaluation Date of Evaluation: 10/11/16 Time of Evaluation: 19:00 - Subjective Subjective: Seen and examined at the bed side. Still c/O Dyspnea at rest and wheezing. Denies chest pain or fever. Denies chest pain or Palpitation. Objective - Vital Signs/Intake and Output Vital Signs (last 24 hours): Temp Pulse Resp BP Pulse Ox 97.5 F L 79 20 137/81 93 L 10/11/16 16:58 10/11/16 23:32 10/11/16 16:58 10/11/16 21:26 10/11/16 16:58 - Medications Medications: Current Medications Acetylcysteine (Mucomyst 10% 4ml) 3 ml IH [id number]@0200,0700,1900 [facility] Last Admin: 10/11/16 19:59 Dose: 3 ml Albuterol/Ipratropium (Duoneb 3 Mg/0.5 Mg (3 Ml) Ud) 3 ml INH RQ4 [facility] Last Admin: 10/11/16 23:31 Dose: 3 ml Amlodipine Besylate (Norvasc) 5 mg PO HS [facility] Last Admin: 10/11/16 21:26 Dose: 5 mg Aripiprazole (Abilify) 20 mg PO HS [facility] Last Admin: 10/11/16 21:25 Dose: 20 mg Aspirin (Ecotrin) 81 mg PO DAILY [facility] Last Admin: 10/11/16 08:55 Dose: 81 mg Benztropine Mesylate (Cogentin) 0.5 mg PO BID [facility] Last Admin: 10/11/16 16:23 Dose: 0.5 mg Carvedilol (Coreg) 12.5 mg PO BID [facility] Last Admin: 10/11/16 16:22 Dose: 12.5 mg Docusate Sodium (Colace) 100 mg PO DAILY [facility] Last Admin: 10/11/16 08:56 Dose: 100 mg Doxepin HCl (Sinequan) 10 mg PO HS [facility] Last Admin: 10/11/16 21:25 Dose: 10 mg Enoxaparin Sodium (Lovenox) 40 mg SC DAILY [facility] PRN Reason: Protocol Last Admin: 10/11/16 09:01 Dose: 40 mg Famotidine (Pepcid) 20 mg PO BID [facility] Last Admin: 10/11/16 16:22 Dose: 20 mg Folic Acid (Folic Acid) 1 mg PO DAILY [facility] Last Admin: 10/11/16 09:01 Dose: 1 mg Gabapentin (Neurontin) 400 mg PO HS [facility] Last Admin: 10/11/16 21:26 Dose: 400 mg Gabapentin (Neurontin) 600 mg PO TID [facility] Last Admin: 10/11/16 16:25 Dose: 600 mg Methylprednisolone 60 mg/ (Sodium Chloride) 50 mls @ 100 mls/hr IV Q6 [facility] Last Admin: 10/11/16 21:26 Dose: 100 mls/hr Insulin Human Lispro (Humalog) 0 units SC ACHS [facility] PRN Reason: Protocol Last Admin: 10/11/16 21:35 Dose: Not Given Lactobacillus Acidophilus (Bacid Acidophilus) 1 cap PO BID [facility] Last Admin: 10/11/16 16:21 Dose: 1 cap Levofloxacin (Levaquin) 500 mg PO DAILY [facility] Last Admin: 10/11/16 09:01 Dose: 500 mg Losartan Potassium (Cozaar) 50 mg PO DAILY [facility] Last Admin: 10/11/16 08:53 Dose: 50 mg Metformin HCl (Glucophage) 500 mg PO DAILY [facility] Last Admin: 10/11/16 08:53 Dose: 500 mg Multivitamins/Minerals (Therapeutic-M Tab) 1 tab PO DAILY [facility] Last Admin: 10/11/16 08:56 Dose: 1 tab Naproxen (Naprosyn Tab) 375 mg PO BID PRN PRN Reason: Pain, moderate (4-7) Nicotine (Nicoderm Cq) 1 patch TD DAILY [facility] Last Admin: 10/11/16 08:53 Dose: 1 patch Oxcarbazepine (Trileptal) 300 mg PO BID [facility] Last Admin: 10/11/16 16:27 Dose: 300 mg Pramipexole Dihydrochloride (Mirapex) 1.5 mg PO BID [facility] Last Admin: 10/11/16 16:23 Dose: 1.5 mg Pravastatin Sodium (Pravachol) 40 mg PO HS [facility] Last Admin: 10/11/16 21:25 Dose: 40 mg Fluticasone/Salmeterol (Advair Diskus 250/50) 1 puff INH BID [facility] Last Admin: 10/11/16 16:21 Dose: 1 puff Thiamine HCl (Vitamin B1 Tab) 100 mg PO DAILY [facility] Last Admin: 10/11/16 09:03 Dose: 100 mg Venlafaxine HCl (Effexor Xr) 150 mg PO DAILY [facility] Last Admin: 10/11/16 09:04 Dose: 150 mg - Labs Labs: 10/11/16 06:00 - Constitutional Appears: In Acute Distress - Head Exam Head Exam: ATRAUMATIC - Eye Exam Eye Exam: EOMI, Normal appearance, PERRL Pupil Exam: NORMAL ACCOMODATION, PERRL - ENT Exam ENT Exam: Mucous Membranes Moist, Normal Exam - Neck Exam Neck Exam: Full ROM, Normal Inspection. absent: Lymphadenopathy - Respiratory Exam Respiratory Exam: Accessory Muscle Use, Prolonged Expiratory Phase, Wheezes, NORMAL BREATHING PATTERN. absent: Rales - Cardiovascular Exam Cardiovascular Exam: REGULAR RHYTHM, +S1, +S2. absent: Murmur - GI/Abdominal Exam GI & Abdominal Exam: Soft, Normal Bowel Sounds. absent: Tenderness - Extremities Exam Extremities Exam: Full ROM, Normal Capillary Refill, Normal Inspection. absent : Joint Swelling, Pedal Edema - Back Exam Back Exam: NORMAL INSPECTION - Neurological Exam Neurological Exam: Alert, Awake, CN II-XII Intact, Normal Gait, Oriented x3 Neuro motor strength exam: Left Upper Extremity: 5, Right Upper Extremity: 5, Left Lower Extremity: 5, Right Lower Extremity: 5 - Psychiatric Exam Psychiatric exam: Normal Affect, Normal Mood - Skin Skin Exam: Dry, Intact, Normal Color, Warm Assessment and Plan (1) COPD exacerbation Assessment & Plan: O2 Via NC Duoneb q4hrs RTC Solumedrol 60mg IV q6 Levaquin 500 mg po daily Continue Flovent INH Pulmonary input appreciated. Mucomyst NEB q6hrs PRN Status: Acute
[2016-10-12] MEDS: methylPREDNISolone 60 MG in Sodium Chloride 0.9% 50 ML IV SCH ×4 (04:50→21:38)
[2016-10-12] MEDS: Albuterol-Ipratrop 3 mg / 0.5 (3 ml) UD INH SCH ×6 (04:56→23:24)
[2016-10-12] MEDS: Insulin Lispro (humaLOG) 100 Units/ml Inj SC SCH ×3 (07:30→18:05)
[2016-10-12] MEDS: Acetylcysteine 10% 4 ML IH SCH ×2 (07:57→20:55)
[2016-10-12] MEDS: Fluticasone-Salmeterol 250-50mcg Diskus INH SCH ×2 (08:27→18:03)
[2016-10-12] MEDS: Lactobacillus Acidophilus 500 MU Cap PO SCH ×2 (08:27→18:04)
[2016-10-12] MEDS: levoFLOXacin 500 MG TAB PO SCH (08:32)
[2016-10-12] MEDS: Multivitamin With Minerals Tab PO SCH (08:32)
[2016-10-12] MEDS: Venlafaxine 150 mg ER Cap PO SCH (08:33)
--- NOTE | 2016-10-12 16:51 | CP.PCM.PN ---
Subjective - Date & Time of Evaluation Date of Evaluation: 10/12/16 Time of Evaluation: 16:50 - Subjective Subjective: Seen and examined at the bed side. Still c/O Dyspnea at rest and wheezing. Denies chest pain or fever. Denies chest pain or Palpitation. Objective - Vital Signs/Intake and Output Vital Signs (last 24 hours): Temp Pulse Resp BP Pulse Ox 98.5 F 70 20 140/85 94 L 10/12/16 07:50 10/12/16 07:50 10/12/16 07:50 10/12/16 07:50 10/12/16 07:50 - Medications Medications: Current Medications Acetylcysteine (Mucomyst 10% 4ml) 3 ml IH RTID@0200,0700,1900 [facility] Last Admin: 10/12/16 07:57 Dose: 3 ml Albuterol/Ipratropium (Duoneb 3 Mg/0.5 Mg (3 Ml) Ud) 3 ml INH RQ4 [facility] Last Admin: 10/12/16 16:45 Dose: 3 ml Amlodipine Besylate (Norvasc) 5 mg PO [facility] Last Admin: 10/11/16 21:26 Dose: 5 mg Aripiprazole (Abilify) 20 mg PO [facility] Last Admin: 10/11/16 21:25 Dose: 20 mg Aspirin (Ecotrin) 81 mg PO DAILY [facility] Last Admin: 10/12/16 08:32 Dose: 81 mg Benztropine Mesylate (Cogentin) 0.5 mg PO BID [facility] Last Admin: 10/12/16 08:32 Dose: 0.5 mg Carvedilol (Coreg) 12.5 mg PO BID [facility] Last Admin: 10/12/16 08:28 Dose: 12.5 mg Docusate Sodium (Colace) 100 mg PO DAILY [facility] Last Admin: 10/12/16 08:33 Dose: Not Given Doxepin HCl (Sinequan) 10 mg PO [facility] Last Admin: 10/11/16 21:25 Dose: 10 mg Famotidine (Pepcid) 20 mg PO BID [facility] Last Admin: 10/12/16 08:31 Dose: 20 mg Folic Acid (Folic Acid) 1 mg PO DAILY [facility] Last Admin: 10/12/16 08:31 Dose: 1 mg Gabapentin (Neurontin) 400 mg PO [facility] Last Admin: 10/11/16 21:26 Dose: 400 mg Gabapentin (Neurontin) 600 mg PO TID [facility] Last Admin: 10/12/16 12:26 Dose: 600 mg Methylprednisolone 60 mg/ (Sodium Chloride) 50 mls @ 100 mls/hr IV Q6 [facility] Last Admin: 10/12/16 09:00 Dose: 100 mls/hr Insulin Human Lispro (Humalog) 0 units SC ACHS [facility] PRN Reason: Protocol Last Admin: 10/12/16 12:26 Dose: 1 units Lactobacillus Acidophilus (Bacid Acidophilus) 1 cap PO BID [facility] Last Admin: 10/12/16 08:27 Dose: 1 cap Levofloxacin (Levaquin) 500 mg PO DAILY [facility] Last Admin: 10/12/16 08:32 Dose: 500 mg Losartan Potassium (Cozaar) 50 mg PO DAILY [facility] Last Admin: 10/12/16 08:32 Dose: 50 mg Metformin HCl (Glucophage) 500 mg PO DAILY [facility] Last Admin: 10/12/16 08:31 Dose: 500 mg Multivitamins/Minerals (Therapeutic-M Tab) 1 tab PO DAILY [facility] Last Admin: 10/12/16 08:32 Dose: 1 tab Naproxen (Naprosyn Tab) 375 mg PO BID PRN PRN Reason: Pain, moderate (4-7) Nicotine (Nicoderm Cq) 1 patch TD DAILY [facility] Last Admin: 10/12/16 08:28 Dose: 1 patch Oxcarbazepine (Trileptal) 300 mg PO BID [facility] Last Admin: 10/12/16 08:32 Dose: 300 mg Pramipexole Dihydrochloride (Mirapex) 1.5 mg PO BID [facility] Last Admin: 10/12/16 08:31 Dose: 1.5 mg Pravastatin Sodium (Pravachol) 40 mg PO HS [facility] Last Admin: 10/11/16 21:25 Dose: 40 mg Fluticasone/Salmeterol (Advair Diskus 250/50) 1 puff INH BID [facility] Last Admin: 10/12/16 08:27 Dose: 1 puff Thiamine HCl (Vitamin B1 Tab) 100 mg PO DAILY [facility] Last Admin: 10/12/16 08:34 Dose: 100 mg Venlafaxine HCl (Effexor Xr) 150 mg PO DAILY [facility] Last Admin: 10/12/16 08:33 Dose: 150 mg - Labs Labs: 10/11/16 06:00 - Constitutional Appears: Well, In Acute Distress - Head Exam Head Exam: ATRAUMATIC, NORMAL INSPECTION, NORMOCEPHALIC - Eye Exam Eye Exam: EOMI, Normal appearance, PERRL Pupil Exam: NORMAL ACCOMODATION, PERRL - ENT Exam ENT Exam: Mucous Membranes Dry, Normal Exam - Neck Exam Neck Exam: Full ROM, Normal Inspection. absent: Lymphadenopathy - Respiratory Exam Respiratory Exam: Decreased Breath Sounds, Prolonged Expiratory Phase, Wheezes - Cardiovascular Exam Cardiovascular Exam: Tachycardia, REGULAR RHYTHM, +S1, +S2. absent: Murmur - GI/Abdominal Exam GI & Abdominal Exam: Soft, Normal Bowel Sounds. absent: Tenderness - Extremities Exam Extremities Exam: Full ROM, Normal Capillary Refill, Normal Inspection. absent : Joint Swelling, Pedal Edema - Back Exam Back Exam: CVA tenderness (R), Full ROM, NORMAL INSPECTION - Neurological Exam Neurological Exam: Alert, Awake, CN II-XII Intact, Normal Gait, Oriented x3 Neuro motor strength exam: Left Upper Extremity: 5, Right Upper Extremity: 5, Left Lower Extremity: 5, Right Lower Extremity: 5 - Psychiatric Exam Psychiatric exam: Normal Affect, Normal Mood - Skin Skin Exam: Dry, Intact, Normal Color, Warm Assessment and Plan (1) COPD exacerbation Assessment & Plan: O2 Via [place] Duoneb q4hrs RTC Solumedrol 60mg IV q6 Levaquin 500 mg po daily Continue Flovent INH Pulmonary input appreciated. Mucomyst NEB q6hrs PRN Status: Acute
[2016-10-12] MEDS: Pravastatin Sodium 40 MG TAB PO SCH (21:36)
[2016-10-13] MEDS: Insulin Lispro (humaLOG) 100 Units/ml Inj SC SCH ×4 (00:20→18:43)
[2016-10-13] MEDS: Albuterol-Ipratrop 3 mg / 0.5 (3 ml) UD INH SCH ×6 (03:55→23:50)
[2016-10-13] MEDS: methylPREDNISolone 60 MG in Sodium Chloride 0.9% 50 ML IV SCH ×4 (04:36→21:43)
[2016-10-13] MEDS: Acetylcysteine 10% 4 ML IH SCH ×2 (07:56→19:06)
[2016-10-13] MEDS: Fluticasone-Salmeterol 250-50mcg Diskus INH SCH (10:35)
[2016-10-13] MEDS: levoFLOXacin 500 MG TAB PO SCH (10:40)
[2016-10-13] MEDS: Multivitamin With Minerals Tab PO SCH (10:42)
[2016-10-13] MEDS: Venlafaxine 150 mg ER Cap PO SCH (10:43)
--- NOTE | 2016-10-13 10:54 | PQF GENQUE ---
Dr. Moore, Is there an associated diagnosis(es) to go along with the following clinical lab and V/S findings? Pulse:114-> 104->104->104->106->106->106 WBC:14.8->19.0->18.2 OR: Disagree OR: Other explanation of clinical finding ER: COPD exacerbation and failure of outpatient treatment H and P:PMH:COPD, bipolar disorder, HTN, and DM; seen in ED x3 days ago for the same complaint: multiple nebulizer treatments, magnesium, and steroids with modest improvements: takes prednisone at home but that symptoms still persist. ( +) chest tightness and wheezing. B/L Leg swellings. Imp:(1) COPD exacerbation :O2 Via NC Duoneb q4hrs RTC Solumedrol 60mg IV q6 Levaquin 50omg po daily Continue Flovent INH Pulmonary Consult Pulmonary consult:Acute Resp Insuf ,COPD Ex.,Tracheobronchitis ,Chronic Medical Conditions. Cont Supp O2, maintain O2 Sat > 90. Avoid Hyperoxia. IV steroids with slow taper , abx, check wbc#,temp curve and CEASAR via nebs. Discussed smoking cessation. BiPap at night use. Blood culture;prelim: x 4 days:no growth sputum: final:normal saprophytic cyndie This form is a permanent part of the medical record Clarification of your documentation is requested to better reflect the severity of illness and intensity of treatment of your patient. Indicators present [] Specify: [] [] Specify: [] [] Specify: [] [] Specify: [] Location in the medical record that reflects the above clinical findings: [] Treatment Provided: [] PHYSICIAN'S RESPONSE Based on your medical judgment of the clinical indicators outlined above please clarify the following: [] Practitioner response [] If unable to determine, please check the box, sign and date. Present On Admission (POA) Indicator: [] Present at the time of admission [] Not present at the time of admission [] Clinically Undetermined In responding to this query, please exercise your independent professional judgment. The fact that a question is asked does not imply that any particular answer is desired or expected. Thank you for your clarification on this documentation. If you have any questions please call. * Thank you, Helen Bell RN BSN ext. #[phone] (ext. #[phone] temporarily out of service) [place]ELY[place]
--- NOTE | 2016-10-13 11:11 | PQF GENQUE ---
Dr. Garcia, Acute or Chronic:Tracheobronchitis? if known OR: Unable to determine OR: Other explanation of clinical finding Pulmonary consult: Acute Resp Insuf ,COPD Ex.,Tracheobronchitis ,Chronic Medical Conditions. Cont Supp O2, maintain O2 Sat > 90. Avoid Hyperoxia.,IV steroids with slow taper , abx, check wbc#, temp curve and CEASAR via nebs.Discussed smoking cessation. BiPap at night use. If patient is improved in next 48 hours, may dc on po steroids and po abx, and he can follow up This form is a permanent part of the medical record Clarification of your documentation is requested to better reflect the severity of illness and intensity of treatment of your patient. Indicators present [] Specify: [] [] Specify: [] [] Specify: [] [] Specify: [] Location in the medical record that reflects the above clinical findings: [] Treatment Provided: [] PHYSICIAN'S RESPONSE Based on your medical judgment of the clinical indicators outlined above please clarify the following: [] Practitioner response [] If unable to determine, please check the box, sign and date. Present On Admission (POA) Indicator: [] Present at the time of admission [] Not present at the time of admission [] Clinically Undetermined In responding to this query, please exercise your independent professional judgment. The fact that a question is asked does not imply that any particular answer is desired or expected. Thank you for your clarification on this documentation. If you have any questions please call. * Thank you, Helen Bell RN BSN ext. #[phone] (ext. [phone] temporarily out of service) EVELYN
--- NOTE | 2016-10-13 11:20 | PQF GENQUE ---
Dr. Moore, In agreement wIth the BMI:41.6; listed in the EMR? if yes: (1) Please include the BMI in the next progress note (2) Are there any associated dxs. to go along with the BMI? OR:Disagree OR: Other explanation of clinical finding EMR:BMI:41.1 6 FT 305 LBS. This form is a permanent part of the medical record Clarification of your documentation is requested to better reflect the severity of illness and intensity of treatment of your patient. Indicators present [] Specify: [] [] Specify: [] [] Specify: [] [] Specify: [] Location in the medical record that reflects the above clinical findings: [] Treatment Provided: [] PHYSICIAN'S RESPONSE Based on your medical judgment of the clinical indicators outlined above please clarify the following: [] Practitioner response [] If unable to determine, please check the box, sign and date. Present On Admission (POA) Indicator: [] Present at the time of admission [] Not present at the time of admission [] Clinically Undetermined In responding to this query, please exercise your independent professional judgment. The fact that a question is asked does not imply that any particular answer is desired or expected. Thank you for your clarification on this documentation. If you have any questions please call. * Thank you, Helen Bell RN BSN ext. #[phone] (ext. #[phone] temporarily out of service) EVELYN
--- NOTE | 2016-10-13 11:36 | PQF GENQUE ---
Dr. Moore In agreement with ER dx.:hx. CHF?; versus other Acuity/Type of CHF?; versus: Disagree? OR: Other explanation of clinical findings Current Echo: The left ventricle is normal size. The left ventricular function is normal. The left ventricular ejection fraction is within the normal range. The Ejection Fraction is 55-60%; see the full report in the EMR receiving coreg: other current dxs. include: HTN This form is a permanent part of the medical record Clarification of your documentation is requested to better reflect the severity of illness and intensity of treatment of your patient. Indicators present [] Specify: [] [] Specify: [] [] Specify: [] [] Specify: [] Location in the medical record that reflects the above clinical findings: [] Treatment Provided: [] PHYSICIAN'S RESPONSE Based on your medical judgment of the clinical indicators outlined above please clarify the following: [] Practitioner response [] If unable to determine, please check the box, sign and date. Present On Admission (POA) Indicator: [] Present at the time of admission [] Not present at the time of admission [] Clinically Undetermined In responding to this query, please exercise your independent professional judgment. The fact that a question is asked does not imply that any particular answer is desired or expected. Thank you for your clarification on this documentation. If you have any questions please call. * Thank you, Helen Bell RN BSN ext. #[phone] (ext. #[phone] temporarily out of service) EVELYN
[2016-10-13] MEDS ORDERED: Sodium Chloride 3% for Inhalation 4 ML VIAL.NEB IH PRN (11:54)
[2016-10-13] MEDS: Lactobacillus Acidophilus 500 MU Cap PO SCH ×2 (14:12→18:41)
--- NOTE | 2016-10-13 17:55 | CP.PCM.PN ---
Subjective - Date & Time of Evaluation Date of Evaluation: 10/13/16 Time of Evaluation: 17:20 - Subjective Subjective: Seen and examined at the bed side. Still C/O SOB with Minimal exertion. +cough. Nic chest pain. Worsening Leukocytosis. Objective - Vital Signs/Intake and Output Vital Signs (last 24 hours): Temp Pulse Resp BP Pulse Ox 97.3 F L 78 18 162/92 H 93 L 10/13/16 16:59 10/13/16 16:59 10/13/16 16:59 10/13/16 16:59 10/13/16 16:59 - Medications Medications: Current Medications Acetylcysteine (Mucomyst 10% 4ml) 3 ml IH RTID@0200,0700,1900 [facility] Last Admin: 10/13/16 07:56 Dose: 3 ml Albuterol/Ipratropium (Duoneb 3 Mg/0.5 Mg (3 Ml) Ud) 3 ml INH RQ4 [facility] Last Admin: 10/13/16 15:19 Dose: 3 ml Amlodipine Besylate (Norvasc) 5 mg PO HS [facility] Last Admin: 10/12/16 21:34 Dose: 5 mg Aripiprazole (Abilify) 20 mg PO HS [facility] Last Admin: 10/12/16 21:33 Dose: 20 mg Aspirin (Ecotrin) 81 mg PO DAILY [facility] Last Admin: 10/13/16 10:38 Dose: 81 mg Benztropine Mesylate (Cogentin) 0.5 mg PO BID [facility] Last Admin: 10/13/16 10:35 Dose: 0.5 mg Carvedilol (Coreg) 12.5 mg PO BID [facility] Last Admin: 10/13/16 10:37 Dose: 12.5 mg Docusate Sodium (Colace) 100 mg PO DAILY [facility] Last Admin: 10/13/16 10:36 Dose: 100 mg Doxepin HCl (Sinequan) 10 mg PO HS [facility] Last Admin: 10/12/16 21:36 Dose: 10 mg Famotidine (Pepcid) 20 mg PO BID [facility] Last Admin: 10/13/16 10:41 Dose: 20 mg Folic Acid (Folic Acid) 1 mg PO DAILY [facility] Last Admin: 10/13/16 10:39 Dose: 1 mg Gabapentin (Neurontin) 400 mg PO HS [facility] Last Admin: 10/12/16 21:34 Dose: 400 mg Gabapentin (Neurontin) 600 mg PO TID [facility] Last Admin: 10/13/16 14:14 Dose: 600 mg Methylprednisolone 60 mg/ (Sodium Chloride) 50 mls @ 100 mls/hr IV Q6 [facility] Last Admin: 10/13/16 10:41 Dose: 100 mls/hr Insulin Human Lispro (Humalog) 0 units SC ACHS [facility] PRN Reason: Protocol Last Admin: 10/13/16 14:13 Dose: 1 units Lactobacillus Acidophilus (Bacid Acidophilus) 1 cap PO BID [facility] Last Admin: 10/13/16 14:12 Dose: 1 cap Levofloxacin (Levaquin) 500 mg PO DAILY [facility] Last Admin: 10/13/16 10:40 Dose: 500 mg Losartan Potassium (Cozaar) 50 mg PO DAILY [facility] Last Admin: 10/13/16 10:37 Dose: 50 mg Metformin HCl (Glucophage) 500 mg PO DAILY [facility] Last Admin: 10/13/16 10:39 Dose: 500 mg Multivitamins/Minerals (Therapeutic-M Tab) 1 tab PO DAILY [facility] Last Admin: 10/13/16 10:42 Dose: 1 tab Naproxen (Naprosyn Tab) 375 mg PO BID PRN PRN Reason: Pain, moderate (4-7) Nicotine (Nicoderm Cq) 1 patch TD DAILY [facility] Last Admin: 10/13/16 10:40 Dose: 1 patch Oxcarbazepine (Trileptal) 300 mg PO BID [facility] Last Admin: 10/13/16 10:42 Dose: 300 mg Pramipexole Dihydrochloride (Mirapex) 1.5 mg PO BID [facility] Last Admin: 10/13/16 10:40 Dose: 1.5 mg Pravastatin Sodium (Pravachol) 40 mg PO HS [facility] Last Admin: 10/12/16 21:36 Dose: 40 mg Fluticasone/Salmeterol (Advair Diskus 250/50) 1 puff INH BID [facility] Last Admin: 10/13/16 10:35 Dose: 1 puff Thiamine HCl (Vitamin B1 Tab) 100 mg PO DAILY [facility] Last Admin: 10/13/16 10:42 Dose: 100 mg Venlafaxine HCl (Effexor Xr) 150 mg PO DAILY [facility] Last Admin: 10/13/16 10:43 Dose: 150 mg - Labs Labs: 10/11/16 06:00 - Constitutional Appears: Well, In Acute Distress - Head Exam Head Exam: ATRAUMATIC, NORMAL INSPECTION, NORMOCEPHALIC - Eye Exam Eye Exam: EOMI, Normal appearance, PERRL Pupil Exam: NORMAL ACCOMODATION, PERRL - ENT Exam ENT Exam: Mucous Membranes Moist, Normal Exam - Neck Exam Neck Exam: Full ROM, Normal Inspection. absent: Lymphadenopathy - Respiratory Exam Respiratory Exam: Decreased Breath Sounds, Prolonged Expiratory Phase, Wheezes - Cardiovascular Exam Cardiovascular Exam: REGULAR RHYTHM, +S1, +S2. absent: Murmur - GI/Abdominal Exam GI & Abdominal Exam: Soft, Normal Bowel Sounds. absent: Tenderness - Extremities Exam Extremities Exam: Full ROM, Normal Capillary Refill, Normal Inspection. absent : Joint Swelling, Pedal Edema - Back Exam Back Exam: NORMAL INSPECTION - Neurological Exam Neurological Exam: Alert, Awake, CN II-XII Intact, Normal Gait, Oriented x3 Neuro motor strength exam: Left Upper Extremity: 5, Right Upper Extremity: 5, Left Lower Extremity: 5, Right Lower Extremity: 5 - Psychiatric Exam Psychiatric exam: Normal Affect, Normal Mood - Skin Skin Exam: Dry, Intact, Normal Color, Warm Assessment and Plan (1) COPD exacerbation Assessment & Plan: Worsening Leukocytosis O2 Via NC Duoneb q4hrs RTC Solumedrol 60mg IV q6 Levaquin 500 mg po daily Continue Flovent INH Mucomyst NEB q6hrs PRN CT Chest with IV Contrast Status: Acute
[2016-10-13] MEDS ORDERED: Iohexol 300 100 ML IJ ONE (18:13)
[2016-10-13] MEDS ORDERED: Sodium Chloride 0.9% 50 ML IV ONE (18:14)
--- NOTE | 2016-10-13 19:03 | CT ---
PROCEDURE: CT Chest with contrast (Pulmonary Angiogram) HISTORY: Shortness of breath. COMPARISON: October 03, 2016 and October 09, 2016 chest radiographs TECHNIQUE: Axial computed tomography images were obtained of the chest in the pulmonary arterial phase of enhancement. Coronal and sagittal reformatted images were created and reviewed. Maximum intensity projection (MIP) reconstructed images in the following planes: Axial only Intravenous contrast dose: 95 cc Omnipaque 300 Mean Hounsfield unit values in the main pulmonary artery: 282.03 Radiation dose: Total exam DLP = 462.95 mGy-cm. This CT exam was performed using one or more of the following dose reduction techniques: Automated exposure control, adjustment of the mA and/or kV according to patient size, and/or use of iterative reconstruction technique. FINDINGS: PULMONARY ARTERIES: Unremarkable. No pulmonary embolism. AORTA: Aneurysmal dilatation ascending aorta 3.8 x 4 cm. Unremarkable arch and descending aorta without evidence of dissection. The origin of the great vessels is unremarkable. LUNGS: Multifocal airspace disease upper lobe perihilar distribution likely pulmonary edema. PLEURAL SPACES: Unremarkable. No effusion or pneuomothorax. HEART: Unremarkable. No cardiomegaly. No significant pericardial effusion. LYMPH NODES: No lymphadenopathy. BONES, CHEST WALL: Unremarkable. No fracture or destructive lesion OTHER FINDINGS: Unremarkable. IMPRESSION: Unremarkable CT pulmonary angiogram. No pulmonary embolus. Mild pulmonary edema.
[2016-10-14] MEDS: Pravastatin Sodium 40 MG TAB PO SCH (00:30)
[2016-10-14] MEDS: Insulin Lispro (humaLOG) 100 Units/ml Inj SC SCH ×3 (00:40→12:06)
[2016-10-14 01:37] VITALS: RESP 20
[2016-10-14] MEDS: methylPREDNISolone 60 MG in Sodium Chloride 0.9% 50 ML IV SCH ×2 (04:29→09:02)
[2016-10-14] MEDS: Albuterol-Ipratrop 3 mg / 0.5 (3 ml) UD INH SCH ×4 (05:08→15:28)
[2016-10-14] MEDS: Acetylcysteine 10% 4 ML IH SCH (07:42)
[2016-10-14] MEDS: Multivitamin With Minerals Tab PO SCH (08:43)
[2016-10-14] MEDS: Venlafaxine 150 mg ER Cap PO SCH (08:44)
[2016-10-14] MEDS: levoFLOXacin 500 MG TAB PO SCH (08:45)
[2016-10-14] MEDS: Lactobacillus Acidophilus 500 MU Cap PO SCH (08:54)
[2016-10-14] MEDS ORDERED: levoFLOXacin 500 mg in D5W 500 MG/100 ML BAG IVPB SCH (11:15)
[2016-10-14 11:38] LABS: MEAN CELL VOLUME 84.1 fl (80.0-94.0); MEAN CORPUSCULAR HEMOGLOBIN 27.6 pg (27.0-31.0); MEAN CORPUSCULAR HGB CONC 32.8 g/dL (33.0-37.0); RBC 5.45 Mil/uL (4.40-5.90); RED CELL DISTRIBUTION WIDTH 15.2 % (11.5-14.5); WHITE BLOOD COUNT 24.6 K/uL (4.8-10.8)
--- NOTE | 2016-10-14 14:49 | CP.PCM.DIS ---
Provider - Provider Date of Admission: 10/10/16 08:58 Attending physician: Damaris Moore MD Primary care physician: Anabell Monreal MD Time Spent in preparation of Discharge (in minutes): 30 Diagnosis - Discharge Diagnosis (1) COPD exacerbation Status: Acute Hospital Course - Lab Results Lab Results: Micro Results 10/10/16 15:47 Sputum Gram Stain - Final 10/10/16 15:47 Sputum Sputum Culture - Final NORMAL SAPROPHYTIC JAX Most Recent Lab Values WBC 24.6 K/uL (4.8-10.8) H 10/14/16 11:20 RBC 5.45 Mil/uL (4.40-5.90) 10/14/16 11:20 Hgb 15.0 g/dL (12.0-18.0) 10/14/16 11:20 Hct 45.9 % (35.0-51.0) 10/14/16 11:20 MCV 84.1 fl (80.0-94.0) 10/14/16 11:20 MCH 27.6 pg (27.0-31.0) 10/14/16 11:20 MCHC 32.8 g/dL (33.0-37.0) L 10/14/16 11:20 RDW 15.2 % (11.5-14.5) H 10/14/16 11:20 Plt Count 280 K/uL (130-400) 10/14/16 11:20 MPV 8.2 fl (7.2-11.7) 10/10/16 06:15 Neut % (Auto) 91.1 % (50.0-75.0) H 10/10/16 06:15 Lymph % (Auto) 5.0 % (20.0-40.0) L 10/10/16 06:15 [place] % (Auto) 3.3 % (0.0-10.0) 10/10/16 06:15 Eos % (Auto) 0.1 % (0.0-4.0) 10/10/16 06:15 Baso % (Auto) 0.5 % (0.0-2.0) 10/10/16 06:15 Neut # 17.3 K/uL (1.8-7.0) H 10/10/16 06:15 Lymph # 1.0 K/uL (1.0-4.3) 10/10/16 06:15 [place] # 0.6 K/uL (0.0-0.8) 10/10/16 06:15 Eos # 0.0 K/uL (0.0-0.7) 10/10/16 06:15 Baso # 0.1 K/uL (0.0-0.2) 10/10/16 06:15 Neutrophils % (Manual) 91 % (42-75) H 10/10/16 06:15 Lymphocytes % (Manual) 6 % (20-50) L 10/10/16 06:15 Monocytes % (Manual) 3 % (0-10) 10/10/16 06:15 Platelet Estimate Normal (NORMAL) 10/10/16 06:15 RBC Morphology Normal (NORMAL) 10/10/16 06:15 pCO2 35 mm/Hg (35-45) 10/10/16 08:58 pO2 69 mm/Hg (80-100) L 10/10/16 08:58 HCO3 24.9 mmol/L (21-28) 10/10/16 08:58 ABG pH 7.44 (7.35-7.45) 10/10/16 08:58 ABG Total CO2 24.9 mmol/L (22-28) 10/10/16 08:58 ABG O2 Saturation 96.2 % (95-98) 10/10/16 08:58 ABG O2 Content 20.3 ML/dL (15-23) 10/10/16 08:58 ABG Base Excess 0.2 mmol/L (-2.0-3.0) 10/10/16 08:58 ABG Hemoglobin 15.5 g/dL (11.7-17.4) 10/10/16 08:58 ABG Carboxyhemoglobin 1.7 % (0.5-1.5) H 10/10/16 08:58 POC ABG HHb (Measured) 3.7 % (0.0-5.0) 10/10/16 08:58 ABG Methemoglobin 1.6 % (0.0-3.0) 10/10/16 08:58 ABG O2 Capacity 21.1 mL/dL (16-24) 10/10/16 08:58 Gaurav Test Yes 10/10/16 08:58 A-a O2 Difference 87.0 mm/Hg 10/10/16 08:58 Hgb O2 Saturation 93.0 % (95.0-98.0) L 10/10/16 08:58 Liter Flow 2 10/10/16 08:58 Vent Mode Nc 10/10/16 08:58 FiO2 28.0 % 10/10/16 08:58 Sodium 137 mmol/l (132-148) 10/10/16 06:15 Potassium 4.2 MMOL/L (3.6-5.0) 10/10/16 06:15 Chloride 104 mmol/L (98-107) 10/10/16 06:15 Carbon Dioxide 23 mmol/L (22-30) 10/10/16 06:15 Anion Gap 15 (10-20) 10/10/16 06:15 BUN 18 mg/dl (9-20) 10/10/16 06:15 Creatinine 0.8 mg/dL (0.8-1.5) 10/10/16 06:15 Est GFR ( Amer) > 60 10/10/16 06:15 Est GFR (Non-Af Amer) > 60 10/10/16 06:15 POC Glucose (mg/dL) 132 mg/dL (65-110) H 10/14/16 11:44 Random Glucose 163 mg/dL (75-110) H 10/10/16 06:15 Hemoglobin A1c 6.2 % (4.2-6.5) 10/10/16 06:15 Calcium 9.0 mg/dL (8.4-10.2) 10/10/16 06:15 Total Bilirubin 0.3 mg/dl (0.2-1.3) 10/09/16 02:43 AST 23 U/L (17-59) 10/09/16 02:43 ALT 46 U/L (21-72) 10/09/16 02:43 Alkaline Phosphatase 87 U/L (38-126) 10/09/16 02:43 Total Protein 8.1 G/DL (6.3-8.2) 10/09/16 02:43 Albumin 4.6 g/dL (3.5-5.0) 10/09/16 02:43 Globulin 3.5 gm/dL (2.2-3.9) 10/09/16 02:43 Albumin/Globulin Ratio 1.3 (1.0-2.1) 10/09/16 02:43 Urine Opiates Screen Negative (NEGATIVE) 10/09/16 10:59 Urine Methadone Screen Negative (NEGATIVE) 10/09/16 10:59 Ur Barbiturates Screen Negative (NEGATIVE) 10/09/16 10:59 Ur Phencyclidine Scrn Negative (NEGATIVE) 10/09/16 10:59 Ur Amphetamines Screen Negative (NEGATIVE) 10/09/16 10:59 U Benzodiazepines Scrn Negative (NEGATIVE) 10/09/16 10:59 U Oth Cocaine Metabols Negative (NEGATIVE) 10/09/16 10:59 U Cannabinoids Screen Negative (NEGATIVE) 10/09/16 10:59 Alcohol, Quantitative 162 mg/dl (0-10) H 10/09/16 02:43 Discharge Exam - Head Exam Head Exam: ATRAUMATIC, NORMAL INSPECTION, NORMOCEPHALIC - Eye Exam Eye Exam: EOMI, Normal appearance, PERRL Pupil Exam: NORMAL ACCOMODATION, PERRL - ENT Exam ENT Exam: Mucous Membranes Moist - Neck Exam Neck exam: Full Rom, Normal Inspection - Respiratory Exam Respiratory Exam: Clear to PA & Lateral, Prolonged Expiratory Phase, Wheezes, NORMAL BREATHING PATTERN - Cardiovascular Exam Cardiovascular Exam: REGULAR RHYTHM, +S1, +S2 - GI/Abdominal Exam GI & Abdominal Exam: Firm, Normal Bowel Sounds - Extremities Exam Extremities exam: full ROM, normal capillary refill - Back Exam Back exam: NORMAL INSPECTION. absent: CVA tenderness (L), CVA tenderness (R) - Neurological Exam Neurological exam: Alert, CN II-XII Intact, Normal Gait, Oriented x3, Reflexes Normal - Psychiatric Exam Psychiatric exam: Normal Affect, Normal Mood - Skin Skin Exam: Dry, Intact, Normal Color, Warm Discharge Plan - Discharge Medications Prescriptions: levoFLOXacin 500 mg in D5W [Levaquin 500MG] 500 mg IVPB DAILY #7 bag cefTRIAXone 1 gm [Rocephin 1 gram IVPB] 1 gm IVPB DAILY #7 bag methylPREDNISolone [Solu-MEDROL] 40 mg IV Q8 #9 ml - Follow Up Plan Condition: FAIR Disposition: REHAB FACILITY/REHAB UNIT Instructions: Diabetes Mellitus Type 2 in Adults (DC), COPD (Chronic Obstructive Pulmonary Disease) (DC), Hypertension (DC), Hypertension (GEN) Additional Instructions: patient cleared for discharge to TCU today cleared by / f/u with , , cont. Rocephin/ Levaquin, solumedrol taper f/u cxray Referrals: Keanu Armas MD [Staff Provider] - Darrell Herbert MD [Staff Provider] - Anabell Monreal MD [Primary Care Provider] -
[2016-10-14 16:10] VITALS: BP 152/80; PULSE 90; TEMP 97.5; O2SAT 95
[2016-10-14] MEDS ORDERED: methylPREDNISolone 60 MG in Sodium Chloride 0.9% 50 ML IV SCH (17:00)
--- NOTE | 2016-10-15 10:06 | CARD ---
APPROVED REPORT EKG Measurement Heart [id number] <Conclusion> Sinus tachycardia Otherwise normal ECG
== END 2016-10-14 17:03 | DRG 88 ==
LOC: H.ER 02:02 → H.ERHOLD 02:42 → H.MEDSURG1 05:07 → OBSVTOIN 10-10 08:58
PROVIDERS: ADMIT Internal Medicine; ATTEND Internal Medicine
PROC: 5A09457 Assistance with Respiratory Ventilation, 24-96 Consecutive Hours, Continuous Positive Airway Pressure (ICD-10-PCS; principal; 2016-10-10)
DX: J44.1 Chronic obstructive pulmonary disease with (acute) exacerbation (principal); I10 Essential (primary) hypertension; Z68.41 Body mass index [BMI] 40.0-44.9, adult; F31.9 Bipolar disorder, unspecified; D72.829 Elevated white blood cell count, unspecified; E10.9 Type 1 diabetes mellitus without complications; E66.01 Morbid (severe) obesity due to excess calories; J40 Bronchitis, not specified as acute or chronic; T38.0X5A Adverse effect of glucocorticoids and synthetic analogues, initial encounter

== ENCOUNTER 2016-10-14 15:59 | Inpatient (IN) | payer MEDICAID ==
[2016-10-14 16:59] VITALS: BMI 41.3
[2016-10-14] MEDS ORDERED: Sodium Chloride 3% for Inhalation 4 ML VIAL.NEB IH PRN (17:01)
[2016-10-14 17:28] VITALS: RESP 20
[2016-10-14] MEDS: Albuterol-Ipratrop 3 mg / 0.5 (3 ml) UD INH SCH ×2 (19:22→23:21)
[2016-10-14] MEDS: Pravastatin Sodium 40 MG TAB PO SCH (21:12)
[2016-10-15] MEDS: methylPREDNISolone 40 MG in Sodium Chloride 0.9% 50 ML IVPB SCH ×3 (00:03→16:40)
[2016-10-15] MEDS ORDERED: MethylPREDNISolone 40 mg Vial IV SCH (01:00)
[2016-10-15] MEDS: Albuterol-Ipratrop 3 mg / 0.5 (3 ml) UD INH SCH ×6 (04:55→23:52)
[2016-10-15] MEDS: Fluticasone-Salmeterol 250-50mcg Diskus INH SCH (08:27)
[2016-10-15] MEDS: Lactobacillus Acidophilus 500 MU Cap PO SCH ×2 (08:28→17:23)
[2016-10-15] MEDS: Venlafaxine 150 mg ER Cap PO SCH (08:30)
[2016-10-15] MEDS: levoFLOXacin 500 mg in D5W 500 MG/100 ML BAG IVPB SCH ×2 (08:31→16:40)
[2016-10-15] MEDS: Multivitamin With Minerals Tab PO SCH (08:32)
[2016-10-15] MEDS ORDERED: ALBUTEROL INH SCH (09:00)
[2016-10-15] MEDS ORDERED: cefTRIAXone IV 1 gm in Dextros 50 ML BAG IVPB SCH (09:00)
[2016-10-15] MEDS ORDERED: IPRATROPIUM INH SCH (09:00)
[2016-10-15] MEDS: Pravastatin Sodium 40 MG TAB PO SCH (21:56)
[2016-10-16] MEDS: methylPREDNISolone 40 MG in Sodium Chloride 0.9% 50 ML IVPB SCH ×3 (00:20→17:20)
[2016-10-16] MEDS: Albuterol-Ipratrop 3 mg / 0.5 (3 ml) UD INH SCH ×5 (04:49→19:36)
--- NOTE | 2016-10-16 08:25 | CP.PCM.HP ---
History of Present Illness - History of Present Illness History of Present Illness: CC: Shortness of breath, Wheezing and Worsening Leukocytosis History of Present Illness: A 56 year old male admitted from ED for COPD Exacerbation, and treated with High dose of steroid, Duoneb Neb RTC, steroid INH and IV antibiotics. Slight Improvement but still unable to ambulate more than 4-5 step. (+) chest tightness and wheezing. Denies fever or chills. Present on Admission - Present on Admission Any Indicators Present on Admission: No History of DVT/PE: No History of Uncontrolled Diabetes: Yes Urinary Catheter: No Decubitus Ulcer Present: No Review of Systems - Review of Systems All systems: reviewed and no additional remarkable complaints except Past Patient History - Infectious Disease Hx of Infectious Diseases: None - Past Medical History & Family History Past Medical History?: Yes Past Family History: Reviewed and not pertinent - Past Social History Smoking Status: Former Smoker Alcohol: Occasional Drugs: Denies - CARDIAC Hx Congestive Heart Failure: Yes Hx Hypercholesterolemia: Yes Hx Hypertension: Yes - PULMONARY Hx Chronic Obstructive Pulmonary Disease (COPD): Yes - NEUROLOGICAL Hx Seizures: No - HEENT Hx HEENT Problems: No - RENAL Hx Chronic Kidney Disease: No - ENDOCRINE/METABOLIC Hx Endocrine Disorders: Yes Hx Diabetes Mellitus Type 1: Yes - HEMATOLOGICAL/ONCOLOGICAL Hx Human Immunodeficiency Virus (HIV): No - INTEGUMENTARY Hx Dermatological Problems: No - MUSCULOSKELETAL/RHEUMATOLOGICAL Hx Musculoskeletal Disorders: No Hx Falls: No - GASTROINTESTINAL Hx Gastrointestinal Disorders: No - GENITOURINARY/GYNECOLOGICAL Hx Sexually Transmitted Disorders: No - PSYCHIATRIC Hx Anxiety: Yes Hx Bipolar Disorder: Yes Hx Depression: Yes Hx Schizophrenia: Yes - SURGICAL HISTORY Hx Surgeries: No - ANESTHESIA Hx Anesthesia: No Hx Anesthesia Reactions: No Hx Malignant Hyperthermia: No Has any member of the family had a problem w/ anesthesia?: No Meds Allergies/Adverse Reactions: Allergies Allergy/AdvReac Type Severity Reaction Status Date / Time [place] And Derivatives Allergy ANGIOEDEMA Verified 08/25/15 18:21 Physical Exam - Constitutional Appears: No Acute Distress, Older Than Stated Age - Head Exam Head Exam: ATRAUMATIC, NORMAL INSPECTION, NORMOCEPHALIC - Eye Exam Eye Exam: EOMI, Normal appearance, PERRL Pupil Exam: NORMAL ACCOMODATION, PERRL - ENT Exam ENT Exam: Mucous Membranes Moist, Normal Exam - Neck Exam Neck exam: Positive for: Normal Inspection - Respiratory Exam Respiratory Exam: Decreased Breath Sounds, Prolonged Expiratory Phase, Wheezes. absent: Rales - Cardiovascular Exam Cardiovascular Exam: REGULAR RHYTHM, +S1, +S2 - GI/Abdominal Exam GI & Abdominal Exam: Normal Bowel Sounds, Soft. absent: Guarding, Tenderness - Extremities Exam Extremities exam: Positive for: full ROM, normal capillary refill, normal inspection - Back Exam Back exam: NORMAL INSPECTION. absent: CVA tenderness (L), CVA tenderness (R) - Neurological Exam Neurological exam: Alert, CN II-XII Intact, Normal Gait, Oriented x3, Reflexes Normal - Psychiatric Exam Psychiatric exam: Normal Affect, Normal Mood - Skin Skin Exam: Dry, Intact, Normal Color, Warm Results - Vital Signs Recent Vital Signs: Last Vital Signs Temp 97.7 F 10/15/16 21:47 Pulse 66 10/16/16 04:52 Resp 20 10/15/16 21:47 BP 125/79 10/15/16 21:55 Pulse Ox 95 10/15/16 21:47 - Labs Labs: Laboratory Results - last 24 hr 10/15/16 10/15/16 10/15/16 10:49 16:17 21:02 POC Glucose (mg/dL) 120 H 131 H 143 H 10/16/16 04:50 POC Glucose (mg/dL) 138 H - Imaging and Cardiology CT Chest Angio (10/13/16): Status: Report reviewed by me Additional comment: IMPRESSION: Unremarkable CT pulmonary angiogram. No pulmonary embolus. Mild pulmonary edema. Echocardiogram: Status: Report reviewed by me Additional comment: Normal study with EF 55-60%. Assessment & Plan (1) COPD exacerbation Assessment and Plan: Acute Bronchitis Morbid Obesity with Possible BEE and Hypoventilation Syndrome Continue Duoneb RTC Solumedrol IV IV Levaquin and IV Rocephin 2L O2 Via NC Status: Acute (2) Morbid obesity Assessment and Plan: Counselled about weight Loss Status: Chronic (3) Schizoaffective disorder Assessment and Plan: Continue Home Medications Status: Chronic
[2016-10-16] MEDS: Fluticasone-Salmeterol 250-50mcg Diskus INH SCH (08:37)
[2016-10-16] MEDS: Lactobacillus Acidophilus 500 MU Cap PO SCH ×2 (08:38→17:22)
[2016-10-16] MEDS: Venlafaxine 150 mg ER Cap PO SCH (08:40)
[2016-10-16] MEDS: Multivitamin With Minerals Tab PO SCH (08:41)
--- NOTE | 2016-10-16 15:20 | CP.PCM.CON ---
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 due to persistent leukocytosis in the setting of COPD on steroids PMH- Depression, obesity, HTN, obstructive sleep apnea, OA, COPD SH- current smoker x many yrs FH - + Ca lung allergy- citrus Review of Systems - Constitutional Constitutional: Daytime Sleepiness, Fatigue, Lethargy, Snoring, Sleep Apnea - EENT Eyes: absent: As Per HPI, Blind Spots, Blurred Vision, Change in Vision, Decreased Night Vision, Diplopia, Discharge, Dry Eye, Exophthalmos, Floaters, Irritation, Itchy Eyes, Loss of Peripheral Vision, Pain, Photophobia, Requires Corrective Lenses, Sees Flashes, Spots in Vision, Tunnel Vision, Other Visual Disturbances, Loss of Vision, Other Ears: absent: As Per HPI, Decreased Hearing, Ear Discharge, Ear Pain, Tinnitus, Abnormal Hearing, Disequilibrium, Dizziness, Other Nose/Mouth/Throat: absent: As Per HPI, Epistaxis, Nasal Congestion, Nasal Discharge, Nasal Obstruction, Nasal Trauma, Nose Pain, Post Nasal Drip, Sinus Pain, Sinus Pressure, Bleeding Gums, Change in Voice, Dental Pain, Dry Mouth, Dysphagia, Halitosis, Hoarsness, Lip Swelling, Mouth Lesions, Mouth Pain, Odynophagia, Sore Throat, Throat Swelling, Tongue Swelling, Facial Pain, Neck Pain, Neck Mass, Other - Cardiovascular Cardiovascular: absent: As Per HPI, Acrocyanosis, Chest Pain, Chest Pain at Rest , Chest Pain with Activity, Claudication, Diaphoresis, Dyspnea, Dyspnea on Exertion, Edema, Irregular Heart Rhythm, Pain Radiating to Arm/Neck/Jaw, Leg Edema, Leg Ulcers, Lightheadedness, Orthopnea, Palpitations, Paroxysmal Nocturnal Dyspnea, Pedal Edema, Radiating Pain, Rapid Heart Rate, Slow Heart Rate, Syncope, Other - Respiratory Respiratory: As Per HPI, Cough, Dyspnea, Dyspnea on Exertion, Wheezing, Snoring , Chest Congestion. absent: Hemoptysis - Gastrointestinal Gastrointestinal: absent: As Per HPI, Abdominal Pain, Belching, Bloating, Change in Bowel Habits, Change in Stool Character, Coffee Ground Emesis, Constipation, Cramping, Diarrhea, Dyspepsia, Dysphagia, Early Satiety, Excessive Flatus, Fecal Incontinence, Heartburn, Hematemesis, Hematochezia, Loose Stools, Melena, Nausea, Odynophagia, Temesmus, Vomiting, Other - Musculoskeletal Musculoskeletal: absent: As Per HPI, Abnormal Gait, Arthralgias, Atrophy, Back Pain, Deformity, Joint Swelling, Limited Range of Motion, Loss of Height, Muscle Cramps, Muscle Weakness, Myalgias, Neck Pain, Numbness, Radiating Pain into Limb, Stiffness, Tingling, Other - Integumentary Integumentary: absent: As Per HPI, Acne, Alopecia, Bleeding Lesions, Change in Hair, Change in Nails, Change in Pigmentation, Changing Lesions, Dry Skin, Erythema, Furuncle, Hirsutism, Lesions, New Lesions, Non-Healing Lesions, Photosensitivity, Pruritus, Rash, Skin Pain, Skin Ulcer, Sores, Striae, Swelling , Unusual Bruising, Wounds, Jaundice, Other - Neurological Neurological: absent: As Per HPI, Abnormal Gait, Abnormal Hearing, Abnormal Movements, Abnormal Speech, Behavioral Changes, Burning Sensations, Confusion, Convulsions, Disequilibrium, Dizziness, Numbness, Focal Weakness, Frequent Falls , Headaches, Lack of Coordination, Loss of Vision, Memory Loss, Paresthesias, Radicular Pain, Restless Legs, Sensory Deficit, Syncope, Tingling, Tremor, Vertigo, Weakness, Other Visual Disturbances, Other - Psychiatric Psychiatric: absent: As Per HPI, Abnormal Sleep Pattern, Anhedonia, Anxiety, Auditory Hallucinations, Behavioral Changes, Change in Appetite, Change in Libido, Confusion, Depression, Difficulty Concentrating, Hallucinations, Homicidal Ideation, Hopelessness, Irritability, Memory Loss, Mood Swings, Panic Attacks, Paranoia, Suicidal Ideation, Visual Hallucinations, Tactile Hallucinations, Other - Endocrine Endocrine: absent: As Per HPI, Change in Body Appearance, Change in Libido, Cold Intolorance, Deepening of Voice, Excessive Sweating, Fatigue, Flushing, Heat Intolorance, Increase in Ring/Shoe/Hat Size, Palpitations, Polydipsia, Polyphagia, Polyuria, Other - Hematologic/Lymphatic Hematologic: As Per HPI Past Patient History - Infectious Disease Hx of Infectious Diseases: None - Past Medical History & Family History Past Medical History?: Yes Past Family History: Reviewed and not pertinent - Past Social History Smoking Status: Former Smoker Alcohol: Occasional Drugs: Denies - CARDIAC Hx Congestive Heart Failure: Yes Hx Hypercholesterolemia: Yes Hx Hypertension: Yes - PULMONARY Hx Chronic Obstructive Pulmonary Disease (COPD): Yes - NEUROLOGICAL Hx Seizures: No - HEENT Hx HEENT Problems: No - RENAL Hx Chronic Kidney Disease: No - ENDOCRINE/METABOLIC Hx Endocrine Disorders: Yes Hx Diabetes Mellitus Type 1: Yes - HEMATOLOGICAL/ONCOLOGICAL Hx Human Immunodeficiency Virus (HIV): No - INTEGUMENTARY Hx Dermatological Problems: No - MUSCULOSKELETAL/RHEUMATOLOGICAL Hx Musculoskeletal Disorders: No Hx Falls: No - GASTROINTESTINAL Hx Gastrointestinal Disorders: No - GENITOURINARY/GYNECOLOGICAL Hx Sexually Transmitted Disorders: No - PSYCHIATRIC Hx Anxiety: Yes Hx Bipolar Disorder: Yes Hx Depression: Yes Hx Schizophrenia: Yes - SURGICAL HISTORY Hx Surgeries: No - ANESTHESIA Hx Anesthesia: No Hx Anesthesia Reactions: No Hx Malignant Hyperthermia: No Has any member of the family had a problem w/ anesthesia?: No Meds Allergies/Adverse Reactions: Allergies Allergy/AdvReac Type Severity Reaction Status Date / Time [place] And Derivatives Allergy ANGIOEDEMA Verified 08/25/15 18:21 - Medications Medications: Current Medications Albuterol/Ipratropium (Duoneb 3 Mg/0.5 Mg (3 Ml) Ud) 3 ml INH RQ4 [facility] Last Admin: 10/16/16 11:15 Dose: 3 ml Amlodipine Besylate (Norvasc) 5 mg PO HS [facility] Last Admin: 10/15/16 21:55 Dose: 5 mg Aripiprazole (Abilify) 20 mg PO HS [facility] Last Admin: 10/15/16 21:53 Dose: 20 mg Aspirin (Ecotrin) 81 mg PO DAILY [facility] Last Admin: 10/16/16 08:39 Dose: 81 mg Benztropine Mesylate (Cogentin) 0.5 mg PO BID [facility] Last Admin: 10/16/16 08:38 Dose: 0.5 mg Carvedilol (Coreg) 12.5 mg PO BID [facility] Last Admin: 10/16/16 08:39 Dose: 12.5 mg Docusate Sodium (Colace) 100 mg PO DAILY [facility] Last Admin: 10/16/16 08:39 Dose: 100 mg Doxepin HCl (Sinequan) 10 mg PO HS [facility] Last Admin: 10/15/16 21:56 Dose: 10 mg Famotidine (Pepcid) 20 mg PO BID [facility] Last Admin: 10/16/16 08:41 Dose: 20 mg Folic Acid (Folic Acid) 1 mg PO DAILY [facility] Last Admin: 10/16/16 08:40 Dose: 1 mg Gabapentin (Neurontin) 400 mg PO HS [facility] Last Admin: 10/15/16 22:47 Dose: 400 mg Gabapentin (Neurontin) 600 mg PO TID [facility] Last Admin: 10/16/16 12:36 Dose: 600 mg Ceftriaxone Sodium 1 gm/ (Sodium Chloride) 100 mls @ 100 mls/hr IVPB DAILY@ 1700 [facility] Last Admin: 10/15/16 16:40 Dose: 100 mls/hr Levofloxacin/Dextrose (Levaquin 500mg) 500 mg in 100 mls @ 100 mls/hr IVPB DAILY@1700 [facility] Last Admin: 10/15/16 16:40 Dose: 100 mls/hr Methylprednisolone 40 mg/ (Sodium Chloride) 50 mls @ 100 mls/hr IVPB Q8H [facility] Last Admin: 10/16/16 08:41 Dose: 100 mls/hr Lactobacillus Acidophilus (Bacid Acidophilus) 1 cap PO BID [facility] Last Admin: 10/16/16 08:38 Dose: 1 cap Losartan Potassium (Cozaar) 50 mg PO DAILY [facility] Last Admin: 10/16/16 08:39 Dose: 50 mg Metformin HCl (Glucophage) 500 mg PO DAILY [facility] Last Admin: 10/16/16 08:40 Dose: 500 mg Multivitamins/Minerals (Therapeutic-M Tab) 1 tab PO DAILY [facility] Last Admin: 10/16/16 08:41 Dose: 1 tab Naproxen (Naprosyn Tab) 375 mg PO BID PRN PRN Reason: Pain, moderate (4-7) Nicotine (Nicoderm Cq) 1 patch TD DAILY [facility] Last Admin: 10/16/16 08:40 Dose: 1 patch Oxcarbazepine (Trileptal) 300 mg PO BID [facility] Last Admin: 10/16/16 08:41 Dose: 300 mg Pramipexole Dihydrochloride (Mirapex) 1.5 mg PO BID [facility] Last Admin: 10/16/16 08:40 Dose: 1.5 mg Pravastatin Sodium (Pravachol) 40 mg PO [facility] Last Admin: 10/15/16 21:56 Dose: 40 mg Fluticasone/Salmeterol (Advair Diskus 250/50) 1 puff INH DAILY [facility] Last Admin: 10/16/16 08:37 Dose: 1 puff Thiamine HCl (Vitamin B1 Tab) 100 mg PO DAILY [facility] Last Admin: 10/16/16 08:41 Dose: 100 mg Venlafaxine HCl (Effexor Xr) 150 mg PO DAILY [facility] Last Admin: 10/16/16 08:40 Dose: 150 mg Physical Exam - Constitutional Appears: Non-toxic, Chronically Ill - Head Exam Head Exam: ATRAUMATIC, NORMAL INSPECTION, NORMOCEPHALIC - Eye Exam Eye Exam: EOMI, PERRL. absent: Scleral icterus Pupil Exam: NORMAL ACCOMODATION - ENT Exam ENT Exam: Mucous Membranes Dry, Normal External Ear Exam, Normal Oropharynx - Neck Exam Neck exam: Negative for: Lymphadenopathy, Thyromegaly - Respiratory Exam Respiratory Exam: Decreased Breath Sounds, Prolonged Expiratory Phase, Rhonchi, Wheezes - Cardiovascular Exam Cardiovascular Exam: REGULAR RHYTHM, +S1, +S2. absent: Systolic Murmur - GI/Abdominal Exam GI & Abdominal Exam: Diminished Bowel Sounds, Distended, Soft. absent: Tenderness - Rectal Exam Rectal Exam: Deferred - Exam Exam: NORMAL INSPECTION - Extremities Exam Extremities exam: Positive for: pedal pulses present. Negative for: calf tenderness, pedal edema, tenderness - Back Exam Back exam: absent: CVA tenderness (L), CVA tenderness (R), paraspinal tenderness - Neurological Exam Neurological exam: Alert, CN II-XII Intact, Oriented x3, Reflexes Normal - Psychiatric Exam Psychiatric exam: Normal Mood - Skin Skin Exam: Dry, Intact Results - Vital Signs Recent Vital Signs: Last Vital Signs Temp 96.8 F L 10/16/16 08:34 Pulse 67 10/16/16 08:39 Resp 20 10/16/16 08:34 BP 140/79 10/16/16 08:39 Pulse Ox 94 L 10/16/16 08:34 - Labs Labs: Laboratory Results - last 24 hr 10/15/16 10/15/16 10/16/16 16:17 21:02 04:50 POC Glucose (mg/dL) 131 H 143 H 138 H 10/16/16 11:19 POC Glucose (mg/dL) 132 H Assessment & Plan (1) Morbid obesity Status: Chronic (2) Alcohol abuse Status: Acute (3) Bipolar 1 disorder Status: Acute (4) COPD (chronic obstructive pulmonary disease) Status: Acute (5) Depression Status: Acute (6) Hypertension Status: Acute - Assessment and Plan (Free Text) Assessment: leukocytosis likely multifactorial will repeat cultures if pt spikes will need smoking cessation cont resp rx bronchodilators poor prognosis
[2016-10-16] MEDS: levoFLOXacin 500 mg in D5W 500 MG/100 ML BAG IVPB SCH (17:22)
--- NOTE | 2016-10-16 23:45 | CP.PCM.PN ---
Subjective - Date & Time of Evaluation Date of Evaluation: 10/16/16 Time of Evaluation: 16:15 - Subjective Subjective: Still C/O dyspnea with Minimal exertion and generalized weakness. +cough but less. Denies fever or chills. Objective - Vital Signs/Intake and Output Vital Signs (last 24 hours): Temp Pulse Resp BP Pulse Ox 97.5 F L 65 20 132/68 98 10/16/16 21:31 10/16/16 21:31 10/16/16 21:31 10/16/16 21:57 10/16/16 21:31 - Medications Medications: Current Medications Albuterol/Ipratropium (Duoneb 3 Mg/0.5 Mg (3 Ml) Ud) 3 ml INH RQ4 [facility] Last Admin: 10/16/16 19:36 Dose: 3 ml Amlodipine Besylate (Norvasc) 5 mg PO HS [facility] Last Admin: 10/16/16 21:57 Dose: 5 mg Aripiprazole (Abilify) 20 mg PO [facility] Last Admin: 10/16/16 21:56 Dose: 20 mg Aspirin (Ecotrin) 81 mg PO DAILY [facility] Last Admin: 10/16/16 08:39 Dose: 81 mg Benztropine Mesylate (Cogentin) 0.5 mg PO BID [facility] Last Admin: 10/16/16 17:22 Dose: 0.5 mg Carvedilol (Coreg) 12.5 mg PO BID [facility] Last Admin: 10/16/16 17:23 Dose: 12.5 mg Docusate Sodium (Colace) 100 mg PO DAILY [facility] Last Admin: 10/16/16 08:39 Dose: 100 mg Doxepin HCl (Sinequan) 10 mg PO [facility] Last Admin: 10/15/16 21:56 Dose: 10 mg Famotidine (Pepcid) 20 mg PO BID [facility] Last Admin: 10/16/16 17:24 Dose: 20 mg Folic Acid (Folic Acid) 1 mg PO DAILY [facility] Last Admin: 10/16/16 08:40 Dose: 1 mg Gabapentin (Neurontin) 400 mg PO HS [facility] Last Admin: 10/16/16 21:55 Dose: 400 mg Gabapentin (Neurontin) 600 mg PO TID [facility] Last Admin: 10/16/16 17:23 Dose: 600 mg Ceftriaxone Sodium 1 gm/ (Sodium Chloride) 100 mls @ 100 mls/hr IVPB DAILY@ 1700 [facility] Last Admin: 10/16/16 17:21 Dose: 100 mls/hr Levofloxacin/Dextrose (Levaquin 500mg) 500 mg in 100 mls @ 100 mls/hr IVPB DAILY@1700 [facility] Last Admin: 10/16/16 17:22 Dose: 100 mls/hr Methylprednisolone 40 mg/ (Sodium Chloride) 50 mls @ 100 mls/hr IVPB Q8H [facility] Last Admin: 10/16/16 17:20 Dose: 100 mls/hr Lactobacillus Acidophilus (Bacid Acidophilus) 1 cap PO BID [facility] Last Admin: 10/16/16 17:22 Dose: 1 cap Losartan Potassium (Cozaar) 50 mg PO DAILY [facility] Last Admin: 10/16/16 08:39 Dose: 50 mg Metformin HCl (Glucophage) 500 mg PO DAILY [facility] Last Admin: 10/16/16 08:40 Dose: 500 mg Multivitamins/Minerals (Therapeutic-M Tab) 1 tab PO DAILY [facility] Last Admin: 10/16/16 08:41 Dose: 1 tab Naproxen (Naprosyn Tab) 375 mg PO BID PRN PRN Reason: Pain, moderate (4-7) Last Admin: 10/16/16 22:00 Dose: 375 mg Nicotine (Nicoderm Cq) 1 patch TD DAILY [facility] Last Admin: 10/16/16 08:40 Dose: 1 patch Oxcarbazepine (Trileptal) 300 mg PO BID [facility] Last Admin: 10/16/16 17:24 Dose: 300 mg Pramipexole Dihydrochloride (Mirapex) 1.5 mg PO BID [facility] Last Admin: 10/16/16 17:23 Dose: 1.5 mg Pravastatin Sodium (Pravachol) 40 mg PO HS [facility] Last Admin: 10/15/16 21:56 Dose: 40 mg Fluticasone/Salmeterol (Advair Diskus 250/50) 1 puff INH DAILY [facility] Last Admin: 10/16/16 08:37 Dose: 1 puff Thiamine HCl (Vitamin B1 Tab) 100 mg PO DAILY [facility] Last Admin: 10/16/16 08:41 Dose: 100 mg Venlafaxine HCl (Effexor Xr) 150 mg PO DAILY [facility] Last Admin: 10/16/16 08:40 Dose: 150 mg - Constitutional Appears: Well - Head Exam Head Exam: ATRAUMATIC, NORMAL INSPECTION, NORMOCEPHALIC - Eye Exam Eye Exam: EOMI, Normal appearance, PERRL Pupil Exam: NORMAL ACCOMODATION, PERRL - ENT Exam ENT Exam: Mucous Membranes Moist, Normal Exam - Neck Exam Neck Exam: Full ROM, Normal Inspection. absent: Lymphadenopathy - Respiratory Exam Respiratory Exam: Decreased Breath Sounds, Prolonged Expiratory Phase, Wheezes - Cardiovascular Exam Cardiovascular Exam: REGULAR RHYTHM, +S1, +S2. absent: Murmur - GI/Abdominal Exam GI & Abdominal Exam: Soft, Normal Bowel Sounds. absent: Tenderness Additional comments: obese - Exam External exam: NORMAL EXTERNAL EXAM Speculum exam: NORMAL SPECULUM EXAM - Extremities Exam Extremities Exam: Full ROM, Normal Capillary Refill, Normal Inspection. absent : Joint Swelling, Pedal Edema - Back Exam Back Exam: NORMAL INSPECTION - Neurological Exam Neurological Exam: Alert, Awake, CN II-XII Intact, Normal Gait, Oriented x3 - Psychiatric Exam Psychiatric exam: Normal Affect, Normal Mood - Skin Skin Exam: Dry, Intact, Normal Color, Warm Assessment and Plan (1) COPD exacerbation Assessment & Plan: Acute Bronchitis Morbid Obesity with Possible BEE and Hypoventilation Syndrome Continue Duoneb RTC Solumedrol IV IV Levaquin and IV Rocephin 2L O2 Via [place] Status: Acute (2) Morbid obesity Assessment and Plan: Counselled about weight Loss Status: Chronic (3) Schizoaffective disorder Assessment and Plan: Continue Home Medications Status: Acute
[2016-10-17] MEDS: Albuterol-Ipratrop 3 mg / 0.5 (3 ml) UD INH SCH ×6 (00:09→20:31)
[2016-10-17] MEDS: Pravastatin Sodium 40 MG TAB PO SCH ×2 (00:50→22:01)
[2016-10-17] MEDS: methylPREDNISolone 40 MG in Sodium Chloride 0.9% 50 ML IVPB SCH ×3 (02:17→20:42)
[2016-10-17 06:45] LABS: BASO % 0.1 % (0.0-2.0); EOS % 0.1 % (0.0-4.0); HEMOGLOBIN 15.1 g/dL (12.0-18.0); LYMPH # 1.1 K/uL (1.0-4.3); MEAN CELL VOLUME 85.6 fl (80.0-94.0); MEAN CORPUSCULAR HEMOGLOBIN 27.4 pg (27.0-31.0); MEAN PLATELET VOLUME 7.9 fl (7.2-11.7); MONO # 0.9 K/uL (0.0-0.8); MONO % 4.5 % (0.0-10.0); NEUT # 19.2 K/uL (1.8-7.0); NEUT % 90.3 % (50.0-75.0); PLATELET COUNT 275 K/uL (130-400); RBC 5.51 Mil/uL (4.40-5.90); WHITE BLOOD COUNT 21.2 K/uL (4.8-10.8)
[2016-10-17 07:00] LABS: ALB/GLOB RATIO 1.2 (1.0-2.1); ALBUMIN 3.5 g/dL (3.5-5.0); ALT/SGPT 36 U/L (21-72); AST/SGOT 18 U/L (17-59); BLOOD UREA NITROGEN 23 mg/dl (9-20); CALCIUM 8.9 mg/dL (8.4-10.2); GFR AFRICAN-AMERICAN > 60; GFR NON-AFRICAN AMERICAN > 60
[2016-10-17 09:21] LABS: EOSINOPHIL 1 % (0-7); LYMPHOCYTE 9 % (20-50); MONOCYTE 3 % (0-10); NEUTROPHIL 87 % (42-75); TOTAL CELLS COUNTED 100
[2016-10-17 09:24] LABS: ANISOCYTOSIS SLIGHT; PLATELET ESTIMATE NORMAL (NORMAL); TEARDROP CELLS SLIGHT
[2016-10-17] MEDS: Multivitamin With Minerals Tab PO SCH (09:36)
[2016-10-17] MEDS: Fluticasone-Salmeterol 250-50mcg Diskus INH SCH (09:36)
[2016-10-17] MEDS: Venlafaxine 150 mg ER Cap PO SCH (09:37)
[2016-10-17] MEDS: Lactobacillus Acidophilus 500 MU Cap PO SCH ×2 (09:42→17:27)
--- NOTE | 2016-10-17 12:53 | CP.PCM.PN ---
Subjective - Date & Time of Evaluation Date of Evaluation: 10/17/16 Time of Evaluation: 08:00 - Subjective Subjective: iv rx in progress wbc elevated still will folllow Objective - Vital Signs/Intake and Output Vital Signs (last 24 hours): Temp Pulse Resp BP Pulse Ox 97.9 F 64 20 146/87 98 10/17/16 08:24 10/17/16 09:38 10/17/16 08:24 10/17/16 09:38 10/17/16 08:24 - Medications Medications: Current Medications Albuterol/Ipratropium (Duoneb 3 Mg/0.5 Mg (3 Ml) Ud) 3 ml INH RQ4 [facility] Last Admin: 10/17/16 11:27 Dose: 3 ml Amlodipine Besylate (Norvasc) 5 mg PO HS [facility] Last Admin: 10/16/16 21:57 Dose: 5 mg Aripiprazole (Abilify) 20 mg PO HS [facility] Last Admin: 10/16/16 21:56 Dose: 20 mg Aspirin (Ecotrin) 81 mg PO DAILY [facility] Last Admin: 10/17/16 09:38 Dose: 81 mg Benztropine Mesylate (Cogentin) 0.5 mg PO BID [facility] Last Admin: 10/17/16 09:38 Dose: 0.5 mg Carvedilol (Coreg) 12.5 mg PO BID [facility] Last Admin: 10/17/16 09:38 Dose: 12.5 mg Docusate Sodium (Colace) 100 mg PO DAILY [facility] Last Admin: 10/17/16 09:38 Dose: 100 mg Doxepin HCl (Sinequan) 10 mg PO HS [facility] Last Admin: 10/17/16 00:52 Dose: 10 mg Famotidine (Pepcid) 20 mg PO BID [facility] Last Admin: 10/17/16 09:39 Dose: 20 mg Folic Acid (Folic Acid) 1 mg PO DAILY [facility] Last Admin: 10/17/16 09:37 Dose: 1 mg Gabapentin (Neurontin) 400 mg PO HS [facility] Last Admin: 10/16/16 21:55 Dose: 400 mg Gabapentin (Neurontin) 600 mg PO TID [facility] Last Admin: 10/17/16 09:37 Dose: 600 mg Ceftriaxone Sodium 1 gm/ (Sodium Chloride) 100 mls @ 100 mls/hr IVPB DAILY@ 1700 [facility] Last Admin: 10/16/16 17:21 Dose: 100 mls/hr Levofloxacin/Dextrose (Levaquin 500mg) 500 mg in 100 mls @ 100 mls/hr IVPB DAILY@1700 [facility] Last Admin: 10/16/16 17:22 Dose: 100 mls/hr Methylprednisolone 40 mg/ (Sodium Chloride) 50 mls @ 100 mls/hr IVPB Q12 [facility] Lactobacillus Acidophilus (Bacid Acidophilus) 1 cap PO BID [facility] Last Admin: 10/17/16 09:42 Dose: 1 cap Losartan Potassium (Cozaar) 50 mg PO DAILY [facility] Last Admin: 10/17/16 09:37 Dose: 50 mg Metformin HCl (Glucophage) 500 mg PO DAILY [facility] Last Admin: 10/17/16 09:37 Dose: 500 mg Multivitamins/Minerals (Therapeutic-M Tab) 1 tab PO DAILY [facility] Last Admin: 10/17/16 09:36 Dose: 1 tab Naproxen (Naprosyn Tab) 375 mg PO BID PRN PRN Reason: Pain, moderate (4-7) Last Admin: 10/16/16 22:00 Dose: 375 mg Nicotine (Nicoderm Cq) 1 patch TD DAILY [facility] Last Admin: 10/17/16 09:37 Dose: 1 patch Oxcarbazepine (Trileptal) 300 mg PO BID [facility] Last Admin: 10/17/16 09:36 Dose: 300 mg Pramipexole Dihydrochloride (Mirapex) 1.5 mg PO BID [facility] Last Admin: 10/17/16 09:36 Dose: 1.5 mg Pravastatin Sodium (Pravachol) 40 mg PO HS [facility] Last Admin: 10/17/16 00:50 Dose: 40 mg Fluticasone/Salmeterol (Advair Diskus 250/50) 1 puff INH DAILY [facility] Last Admin: 10/17/16 09:36 Dose: 1 puff Thiamine HCl (Vitamin B1 Tab) 100 mg PO DAILY [facility] Last Admin: 10/17/16 09:36 Dose: 100 mg Venlafaxine HCl (Effexor Xr) 150 mg PO DAILY [facility] Last Admin: 10/17/16 09:37 Dose: 150 mg - Labs Labs: 10/17/16 05:30 10/17/16 05:30 Assessment and Plan (1) Morbid obesity Status: Chronic (2) Alcohol abuse Status: Acute (3) Bipolar 1 disorder Status: Acute (4) COPD (chronic obstructive pulmonary disease) Status: Acute (5) Depression Status: Acute (6) Hypertension Status: Acute
[2016-10-17] MEDS: levoFLOXacin 500 mg in D5W 500 MG/100 ML BAG IVPB SCH (17:25)
--- NOTE | 2016-10-17 23:45 | CP.PCM.PN ---
Subjective - Date & Time of Evaluation Date of Evaluation: 10/17/16 Time of Evaluation: 23:45 - Subjective Subjective: Seen and examined at the bed side. states feeling better but has similar complaint. Objective - Vital Signs/Intake and Output Vital Signs (last 24 hours): Temp Pulse Resp BP Pulse Ox 97.5 F L 72 20 140/71 96 10/17/16 21:26 10/17/16 22:02 10/17/16 21:26 10/17/16 22:02 10/17/16 21:26 - Medications Medications: Current Medications Albuterol/Ipratropium (Duoneb 3 Mg/0.5 Mg (3 Ml) Ud) 3 ml INH RQ4 [facility] Last Admin: 10/17/16 20:31 Dose: 3 ml Amlodipine Besylate (Norvasc) 5 mg PO HS [facility] Last Admin: 10/17/16 22:02 Dose: 5 mg Aripiprazole (Abilify) 20 mg PO HS [facility] Last Admin: 10/17/16 22:02 Dose: 20 mg Aspirin (Ecotrin) 81 mg PO DAILY [facility] Last Admin: 10/17/16 09:38 Dose: 81 mg Benztropine Mesylate (Cogentin) 0.5 mg PO BID [facility] Last Admin: 10/17/16 17:26 Dose: 0.5 mg Carvedilol (Coreg) 12.5 mg PO BID [facility] Last Admin: 10/17/16 17:27 Dose: 12.5 mg Docusate Sodium (Colace) 100 mg PO DAILY [facility] Last Admin: 10/17/16 09:38 Dose: 100 mg Doxepin HCl (Sinequan) 10 mg PO HS [facility] Last Admin: 10/17/16 22:02 Dose: 10 mg Famotidine (Pepcid) 20 mg PO BID [facility] Last Admin: 10/17/16 17:26 Dose: 20 mg Folic Acid (Folic Acid) 1 mg PO DAILY [facility] Last Admin: 10/17/16 09:37 Dose: 1 mg Gabapentin (Neurontin) 400 mg PO HS [facility] Last Admin: 10/17/16 22:01 Dose: 400 mg Gabapentin (Neurontin) 600 mg PO TID [facility] Last Admin: 10/17/16 17:24 Dose: 600 mg Ceftriaxone Sodium 1 gm/ (Sodium Chloride) 100 mls @ 100 mls/hr IVPB DAILY@ 1700 [facility] Last Admin: 10/17/16 17:27 Dose: 100 mls/hr Levofloxacin/Dextrose (Levaquin 500mg) 500 mg in 100 mls @ 100 mls/hr IVPB DAILY@1700 [facility] Last Admin: 10/17/16 17:25 Dose: 100 mls/hr Methylprednisolone 40 mg/ (Sodium Chloride) 50 mls @ 100 mls/hr IVPB Q12 [facility] Last Admin: 10/17/16 20:42 Dose: 100 mls/hr Lactobacillus Acidophilus (Bacid Acidophilus) 1 cap PO BID [facility] Last Admin: 10/17/16 17:27 Dose: 1 cap Losartan Potassium (Cozaar) 50 mg PO DAILY [facility] Last Admin: 10/17/16 09:37 Dose: 50 mg Metformin HCl (Glucophage) 500 mg PO DAILY [facility] Last Admin: 10/17/16 09:37 Dose: 500 mg Multivitamins/Minerals (Therapeutic-M Tab) 1 tab PO DAILY [facility] Last Admin: 10/17/16 09:36 Dose: 1 tab Naproxen (Naprosyn Tab) 375 mg PO BID PRN PRN Reason: Pain, moderate (4-7) Last Admin: 10/16/16 22:00 Dose: 375 mg Nicotine (Nicoderm Cq) 1 patch TD DAILY [facility] Last Admin: 10/17/16 09:37 Dose: 1 patch Oxcarbazepine (Trileptal) 300 mg PO BID [facility] Last Admin: 10/17/16 17:26 Dose: 300 mg Pramipexole Dihydrochloride (Mirapex) 1.5 mg PO BID [facility] Last Admin: 10/17/16 17:25 Dose: 1.5 mg Pravastatin Sodium (Pravachol) 40 mg PO HS [facility] Last Admin: 10/17/16 22:01 Dose: 40 mg Fluticasone/Salmeterol (Advair Diskus 250/50) 1 puff INH DAILY [facility] Last Admin: 10/17/16 09:36 Dose: 1 puff Thiamine HCl (Vitamin B1 Tab) 100 mg PO DAILY [facility] Last Admin: 10/17/16 09:36 Dose: 100 mg Venlafaxine HCl (Effexor Xr) 150 mg PO DAILY [facility] Last Admin: 10/17/16 09:37 Dose: 150 mg - Labs Labs: 10/17/16 05:30 10/17/16 05:30 - Head Exam Head Exam: ATRAUMATIC, NORMAL INSPECTION, NORMOCEPHALIC - Eye Exam Eye Exam: EOMI, Normal appearance, PERRL Pupil Exam: NORMAL ACCOMODATION, PERRL - ENT Exam ENT Exam: Mucous Membranes Moist, Normal Exam - Neck Exam Neck Exam: Full ROM, Normal Inspection. absent: Lymphadenopathy - Respiratory Exam Respiratory Exam: Clear to Ausculation Bilateral, NORMAL BREATHING PATTERN - Cardiovascular Exam Cardiovascular Exam: REGULAR RHYTHM, +S1, +S2. absent: Murmur - GI/Abdominal Exam GI & Abdominal Exam: Soft, Normal Bowel Sounds. absent: Tenderness - Extremities Exam Extremities Exam: Full ROM, Normal Capillary Refill, Normal Inspection. absent : Joint Swelling, Pedal Edema - Back Exam Back Exam: NORMAL INSPECTION - Neurological Exam Neurological Exam: Alert, Awake, CN II-XII Intact, Normal Gait, Oriented x3 - Psychiatric Exam Psychiatric exam: Normal Affect, Normal Mood - Skin Skin Exam: Dry, Intact, Normal Color, Warm Assessment and Plan (1) COPD exacerbation Assessment & Plan: Acute Bronchitis Morbid Obesity with Possible BEE and Hypoventilation Syndrome Continue Duoneb RTC Solumedrol IV IV Levaquin and IV Rocephin 2L O2 Via [place] Status: Acute (2) Morbid obesity Assessment and Plan: Counselled about weight Loss Status: Chronic (3) Schizoaffective disorder Assessment and Plan: Continue Home Medications Status: Acute
[2016-10-18] MEDS: Albuterol-Ipratrop 3 mg / 0.5 (3 ml) UD INH SCH ×7 (00:01→23:32)
[2016-10-18] MEDS: Multivitamin With Minerals Tab PO SCH (09:25)
[2016-10-18] MEDS: Lactobacillus Acidophilus 500 MU Cap PO SCH ×2 (09:27→17:11)
[2016-10-18] MEDS: Venlafaxine 150 mg ER Cap PO SCH (09:28)
[2016-10-18] MEDS: Fluticasone-Salmeterol 250-50mcg Diskus INH SCH (09:28)
[2016-10-18] MEDS: methylPREDNISolone 40 MG in Sodium Chloride 0.9% 50 ML IVPB SCH ×2 (10:14→21:16)
[2016-10-18 15:06] LABS: BASO % 0.2 % (0.0-2.0); EOS # 0.1 K/uL (0.0-0.7); EOS % 0.3 % (0.0-4.0); HEMOGLOBIN 14.8 g/dL (12.0-18.0); LYMPH # 1.2 K/uL (1.0-4.3); LYMPH % 5.8 % (20.0-40.0); MEAN CORPUSCULAR HEMOGLOBIN 27.5 pg (27.0-31.0); MEAN CORPUSCULAR HGB CONC 32.3 g/dL (33.0-37.0); MEAN PLATELET VOLUME 7.6 fl (7.2-11.7); MONO # 1.4 K/uL (0.0-0.8); MONO % 6.9 % (0.0-10.0); NEUT # 17.2 K/uL (1.8-7.0); NEUT % 86.8 % (50.0-75.0); NRBC % 0.1 % (0.0-0.0); RBC 5.39 Mil/uL (4.40-5.90); RED CELL DISTRIBUTION WIDTH 14.9 % (11.5-14.5); WHITE BLOOD COUNT 19.8 K/uL (4.8-10.8)
[2016-10-18 15:20] LABS: BLOOD UREA NITROGEN 22 mg/dl (9-20); CALCIUM 8.7 mg/dL (8.4-10.2); GFR AFRICAN-AMERICAN > 60; GFR NON-AFRICAN AMERICAN > 60
[2016-10-18] MEDS: levoFLOXacin 500 mg in D5W 500 MG/100 ML BAG IVPB SCH (17:13)
[2016-10-18] MEDS: Pravastatin Sodium 40 MG TAB PO SCH (21:20)
--- NOTE | 2016-10-18 23:18 | CP.PCM.PN ---
Subjective - Date & Time of Evaluation Date of Evaluation: 10/18/16 Time of Evaluation: 22:00 - Subjective Subjective: Seen and examined at the bed side. CHOI. +Cough, occasional. Objective - Vital Signs/Intake and Output Vital Signs (last 24 hours): Temp Pulse Resp BP Pulse Ox 97.3 F L 71 20 131/73 94 L 10/18/16 19:55 10/18/16 21:21 10/18/16 19:55 10/18/16 21:21 10/18/16 19:55 - Medications Medications: Current Medications Albuterol/Ipratropium (Duoneb 3 Mg/0.5 Mg (3 Ml) Ud) 3 ml INH RQ4 [facility] Last Admin: 10/18/16 19:01 Dose: 3 ml Amlodipine Besylate (Norvasc) 5 mg PO HS [facility] Last Admin: 10/18/16 21:21 Dose: 5 mg Aripiprazole (Abilify) 20 mg PO HS [facility] Last Admin: 10/18/16 21:19 Dose: 20 mg Aspirin (Ecotrin) 81 mg PO DAILY [facility] Last Admin: 10/18/16 09:26 Dose: 81 mg Benztropine Mesylate (Cogentin) 0.5 mg PO BID [facility] Last Admin: 10/18/16 17:14 Dose: 0.5 mg Carvedilol (Coreg) 12.5 mg PO BID [facility] Last Admin: 10/18/16 17:11 Dose: 12.5 mg Docusate Sodium (Colace) 100 mg PO DAILY [facility] Last Admin: 10/18/16 09:27 Dose: 100 mg Doxepin HCl (Sinequan) 10 mg PO HS [facility] Last Admin: 10/18/16 21:20 Dose: 10 mg Famotidine (Pepcid) 20 mg PO BID [facility] Last Admin: 10/18/16 17:12 Dose: 20 mg Folic Acid (Folic Acid) 1 mg PO DAILY [facility] Last Admin: 10/18/16 09:27 Dose: 1 mg Gabapentin (Neurontin) 400 mg PO HS [facility] Last Admin: 10/18/16 21:19 Dose: 400 mg Gabapentin (Neurontin) 600 mg PO TID [facility] Last Admin: 10/18/16 17:11 Dose: 600 mg Ceftriaxone Sodium 1 gm/ (Sodium Chloride) 100 mls @ 100 mls/hr IVPB DAILY@ 1700 [facility] Last Admin: 10/18/16 17:12 Dose: 100 mls/hr Levofloxacin/Dextrose (Levaquin 500mg) 500 mg in 100 mls @ 100 mls/hr IVPB DAILY@1700 [facility] Last Admin: 10/18/16 17:13 Dose: 100 mls/hr Methylprednisolone 40 mg/ (Sodium Chloride) 50 mls @ 100 mls/hr IVPB Q12 [facility] Last Admin: 10/18/16 21:16 Dose: 100 mls/hr Lactobacillus Acidophilus (Bacid Acidophilus) 1 cap PO BID [facility] Last Admin: 10/18/16 17:11 Dose: 1 cap Losartan Potassium (Cozaar) 50 mg PO DAILY [facility] Last Admin: 10/18/16 09:28 Dose: 50 mg Metformin HCl (Glucophage) 500 mg PO DAILY [facility] Last Admin: 10/18/16 09:28 Dose: 500 mg Multivitamins/Minerals (Therapeutic-M Tab) 1 tab PO DAILY [facility] Last Admin: 10/18/16 09:25 Dose: 1 tab Naproxen (Naprosyn Tab) 375 mg PO BID PRN PRN Reason: Pain, moderate (4-7) Last Admin: 10/16/16 22:00 Dose: 375 mg Nicotine (Nicoderm Cq) 1 patch TD DAILY [facility] Last Admin: 10/18/16 09:26 Dose: 1 patch Oxcarbazepine (Trileptal) 300 mg PO BID [facility] Last Admin: 10/18/16 17:11 Dose: 300 mg Pramipexole Dihydrochloride (Mirapex) 1.5 mg PO BID [facility] Last Admin: 10/18/16 17:14 Dose: 1.5 mg Pravastatin Sodium (Pravachol) 40 mg PO HS [facility] Last Admin: 10/18/16 21:20 Dose: 40 mg Fluticasone/Salmeterol (Advair Diskus 250/50) 1 puff INH DAILY [facility] Last Admin: 10/18/16 09:28 Dose: 1 puff Thiamine HCl (Vitamin B1 Tab) 100 mg PO DAILY [facility] Last Admin: 10/18/16 09:27 Dose: 100 mg Venlafaxine HCl (Effexor Xr) 150 mg PO DAILY [facility] Last Admin: 10/18/16 09:28 Dose: 150 mg - Labs Labs: 10/18/16 14:10 10/18/16 14:10 - Constitutional Appears: No Acute Distress - Head Exam Head Exam: ATRAUMATIC, NORMAL INSPECTION, NORMOCEPHALIC - Eye Exam Eye Exam: EOMI, Normal appearance, PERRL Pupil Exam: NORMAL ACCOMODATION, PERRL - ENT Exam ENT Exam: Mucous Membranes Moist, Normal Exam - Neck Exam Neck Exam: Full ROM, Normal Inspection. absent: Lymphadenopathy - Respiratory Exam Respiratory Exam: Decreased Breath Sounds, Prolonged Expiratory Phase, Wheezes - Cardiovascular Exam Cardiovascular Exam: REGULAR RHYTHM, +S1, +S2. absent: Murmur - GI/Abdominal Exam GI & Abdominal Exam: Soft, Normal Bowel Sounds. absent: Tenderness - Extremities Exam Extremities Exam: Full ROM, Normal Capillary Refill, Normal Inspection. absent : Joint Swelling, Pedal Edema - Back Exam Back Exam: NORMAL INSPECTION - Neurological Exam Neurological Exam: Alert, Awake, CN II-XII Intact, Normal Gait, Oriented x3 - Psychiatric Exam Psychiatric exam: Normal Affect, Normal Mood - Skin Skin Exam: Dry, Intact, Normal Color, Warm Assessment and Plan (1) COPD exacerbation Assessment & Plan: Acute Bronchitis Morbid Obesity with Possible BEE and Hypoventilation Syndrome Continue Duoneb RTC Solumedrol IV IV Levaquin and IV Rocephin 2L O2 Via [place] Status: Acute (2) Morbid obesity Assessment and Plan: Counselled about weight Loss Status: Chronic (3) Schizoaffective disorder Assessment and Plan: Continue Home Medications Status: Acute
[2016-10-19] MEDS: Albuterol-Ipratrop 3 mg / 0.5 (3 ml) UD INH SCH ×6 (04:50→23:35)
[2016-10-19] MEDS: Fluticasone-Salmeterol 250-50mcg Diskus INH SCH (08:31)
[2016-10-19] MEDS: Multivitamin With Minerals Tab PO SCH (08:32)
[2016-10-19] MEDS: Venlafaxine 150 mg ER Cap PO SCH (08:32)
[2016-10-19] MEDS: Lactobacillus Acidophilus 500 MU Cap PO SCH ×2 (08:38→17:08)
[2016-10-19] MEDS: methylPREDNISolone 40 MG in Sodium Chloride 0.9% 50 ML IVPB SCH ×2 (08:39→21:39)
[2016-10-19] MEDS: levoFLOXacin 500 mg in D5W 500 MG/100 ML BAG IVPB SCH (17:09)
[2016-10-19] MEDS: Pravastatin Sodium 40 MG TAB PO SCH (21:40)
--- NOTE | 2016-10-19 23:42 | CP.PCM.PN ---
Subjective - Date & Time of Evaluation Date of Evaluation: 10/19/16 Time of Evaluation: 12:50 - Subjective Subjective: States feeling better. Tolerating exertion better. Only occasional cough. Objective - Vital Signs/Intake and Output Vital Signs (last 24 hours): Temp Pulse Resp BP Pulse Ox 97.7 F 76 20 130/68 95 10/19/16 21:45 10/19/16 21:45 10/19/16 21:45 10/19/16 21:45 10/19/16 21:45 - Medications Medications: Current Medications Albuterol/Ipratropium (Duoneb 3 Mg/0.5 Mg (3 Ml) Ud) 3 ml INH RQ4 [facility] Last Admin: 10/19/16 23:35 Dose: 3 ml Amlodipine Besylate (Norvasc) 5 mg PO HS [facility] Last Admin: 10/19/16 21:40 Dose: 5 mg Aripiprazole (Abilify) 20 mg PO HS [facility] Last Admin: 10/19/16 21:39 Dose: 20 mg Aspirin (Ecotrin) 81 mg PO DAILY [facility] Last Admin: 10/19/16 08:33 Dose: 81 mg Benztropine Mesylate (Cogentin) 0.5 mg PO BID [facility] Last Admin: 10/19/16 17:07 Dose: 0.5 mg Carvedilol (Coreg) 12.5 mg PO BID [facility] Last Admin: 10/19/16 17:07 Dose: 12.5 mg Docusate Sodium (Colace) 100 mg PO DAILY [facility] Last Admin: 10/19/16 08:34 Dose: 100 mg Doxepin HCl (Sinequan) 10 mg PO HS [facility] Last Admin: 10/19/16 21:39 Dose: 10 mg Famotidine (Pepcid) 20 mg PO BID [facility] Last Admin: 10/19/16 17:07 Dose: 20 mg Folic Acid (Folic Acid) 1 mg PO DAILY [facility] Last Admin: 10/19/16 08:32 Dose: 1 mg Gabapentin (Neurontin) 400 mg PO HS [facility] Last Admin: 10/19/16 21:39 Dose: 400 mg Gabapentin (Neurontin) 600 mg PO TID [facility] Last Admin: 10/19/16 17:07 Dose: 600 mg Ceftriaxone Sodium 1 gm/ (Sodium Chloride) 100 mls @ 100 mls/hr IVPB DAILY@ 1700 [facility] Last Admin: 10/19/16 17:08 Dose: 100 mls/hr Levofloxacin/Dextrose (Levaquin 500mg) 500 mg in 100 mls @ 100 mls/hr IVPB DAILY@1700 [facility] Last Admin: 10/19/16 17:09 Dose: 100 mls/hr Methylprednisolone 40 mg/ (Sodium Chloride) 50 mls @ 100 mls/hr IVPB Q12 [facility] Last Admin: 10/19/16 21:39 Dose: 100 mls/hr Lactobacillus Acidophilus (Bacid Acidophilus) 1 cap PO BID [facility] Last Admin: 10/19/16 17:08 Dose: 1 cap Losartan Potassium (Cozaar) 50 mg PO DAILY [facility] Last Admin: 10/19/16 08:33 Dose: 50 mg Metformin HCl (Glucophage) 500 mg PO DAILY [facility] Last Admin: 10/19/16 08:32 Dose: 500 mg Multivitamins/Minerals (Therapeutic-M Tab) 1 tab PO DAILY [facility] Last Admin: 10/19/16 08:32 Dose: 1 tab Naproxen (Naprosyn Tab) 375 mg PO BID PRN PRN Reason: Pain, moderate (4-7) Last Admin: 10/16/16 22:00 Dose: 375 mg Nicotine (Nicoderm Cq) 1 patch TD DAILY [facility] Last Admin: 10/19/16 08:31 Dose: 1 patch Oxcarbazepine (Trileptal) 300 mg PO BID [facility] Last Admin: 10/19/16 17:07 Dose: 300 mg Pramipexole Dihydrochloride (Mirapex) 1.5 mg PO BID [facility] Last Admin: 10/19/16 17:07 Dose: 1.5 mg Pravastatin Sodium (Pravachol) 40 mg PO HS [facility] Last Admin: 10/19/16 21:40 Dose: 40 mg Fluticasone/Salmeterol (Advair Diskus 250/50) 1 puff INH DAILY [facility] Last Admin: 10/19/16 08:31 Dose: 1 puff Thiamine HCl (Vitamin B1 Tab) 100 mg PO DAILY [facility] Last Admin: 10/19/16 08:34 Dose: 100 mg Venlafaxine HCl (Effexor Xr) 150 mg PO DAILY [facility] Last Admin: 10/19/16 08:32 Dose: 150 mg - Labs Labs: 10/18/16 14:10 10/18/16 14:10 - Constitutional Appears: Well - Head Exam Head Exam: ATRAUMATIC, NORMAL INSPECTION, NORMOCEPHALIC - Eye Exam Eye Exam: EOMI, Normal appearance, PERRL Pupil Exam: NORMAL ACCOMODATION, PERRL - ENT Exam ENT Exam: Mucous Membranes Moist, Normal Exam - Neck Exam Neck Exam: Full ROM, Normal Inspection. absent: Lymphadenopathy - Respiratory Exam Respiratory Exam: Decreased Breath Sounds, NORMAL BREATHING PATTERN - Cardiovascular Exam Cardiovascular Exam: REGULAR RHYTHM, +S1, +S2. absent: Murmur - GI/Abdominal Exam GI & Abdominal Exam: Soft, Normal Bowel Sounds. absent: Tenderness - Extremities Exam Extremities Exam: Full ROM, Normal Capillary Refill, Normal Inspection. absent : Joint Swelling, Pedal Edema - Back Exam Back Exam: NORMAL INSPECTION - Neurological Exam Neurological Exam: Alert, Awake, CN II-XII Intact, Normal Gait, Oriented x3 - Psychiatric Exam Psychiatric exam: Normal Affect, Normal Mood - Skin Skin Exam: Dry, Intact, Normal Color, Warm Assessment and Plan (1) COPD exacerbation Assessment & Plan: Acute Bronchitis- Improving Morbid Obesity with Possible BEE and Hypoventilation Syndrome Continue Duoneb RTC Solumedrol IV IV Levaquin and IV Rocephin 2L O2 Via [place] For Possible D/C in 2 days Status: Acute (2) Morbid obesity Assessment and Plan: Counselled about weight Loss Status: Chronic (3) Schizoaffective disorder Assessment and Plan: Continue Home Medications Status: Acute
[2016-10-20] MEDS: Albuterol-Ipratrop 3 mg / 0.5 (3 ml) UD INH SCH ×5 (04:50→19:21)
[2016-10-20] MEDS: methylPREDNISolone 40 MG in Sodium Chloride 0.9% 50 ML IVPB SCH ×2 (08:13→21:00)
[2016-10-20] MEDS: Fluticasone-Salmeterol 250-50mcg Diskus INH SCH (08:14)
[2016-10-20] MEDS: Venlafaxine 150 mg ER Cap PO SCH (08:18)
[2016-10-20] MEDS: Multivitamin With Minerals Tab PO SCH (08:20)
[2016-10-20] MEDS: Lactobacillus Acidophilus 500 MU Cap PO SCH ×2 (08:29→17:29)
[2016-10-20] MEDS: levoFLOXacin 500 mg in D5W 500 MG/100 ML BAG IVPB SCH (17:32)
[2016-10-20] MEDS: Pravastatin Sodium 40 MG TAB PO SCH (22:19)
--- NOTE | 2016-10-20 23:11 | CP.PCM.PN ---
Subjective - Date & Time of Evaluation Date of Evaluation: 10/20/16 Time of Evaluation: 14:45 - Subjective Subjective: States feeling better. Tolerating exertion better. Only occasional cough. Objective - Vital Signs/Intake and Output Vital Signs (last 24 hours): Temp Pulse Resp BP Pulse Ox 98.8 F 83 20 130/74 96 10/20/16 21:09 10/20/16 22:18 10/20/16 21:09 10/20/16 22:18 10/20/16 21:09 - Medications Medications: Current Medications Albuterol/Ipratropium (Duoneb 3 Mg/0.5 Mg (3 Ml) Ud) 3 ml INH RQ4 [facility] Last Admin: 10/20/16 19:21 Dose: 3 ml Amlodipine Besylate (Norvasc) 5 mg PO HS [facility] Last Admin: 10/20/16 22:18 Dose: 5 mg Aripiprazole (Abilify) 20 mg PO HS [facility] Last Admin: 10/20/16 22:17 Dose: 20 mg Aspirin (Ecotrin) 81 mg PO DAILY [facility] Last Admin: 10/20/16 08:21 Dose: 81 mg Benztropine Mesylate (Cogentin) 0.5 mg PO BID [facility] Last Admin: 10/20/16 17:30 Dose: 0.5 mg Carvedilol (Coreg) 12.5 mg PO BID [facility] Last Admin: 10/20/16 17:30 Dose: 12.5 mg Docusate Sodium (Colace) 100 mg PO DAILY [facility] Last Admin: 10/20/16 08:21 Dose: 100 mg Doxepin HCl (Sinequan) 10 mg PO HS [facility] Last Admin: 10/20/16 22:19 Dose: 10 mg Famotidine (Pepcid) 20 mg PO BID [facility] Last Admin: 10/20/16 17:30 Dose: 20 mg Folic Acid (Folic Acid) 1 mg PO DAILY [facility] Last Admin: 10/20/16 08:18 Dose: 1 mg Gabapentin (Neurontin) 400 mg PO HS [facility] Last Admin: 10/20/16 22:17 Dose: 400 mg Gabapentin (Neurontin) 600 mg PO TID [facility] Last Admin: 10/20/16 17:31 Dose: 600 mg Levofloxacin/Dextrose (Levaquin 500mg) 500 mg in 100 mls @ 100 mls/hr IVPB DAILY@1700 [facility] Last Admin: 10/20/16 17:32 Dose: 100 mls/hr Methylprednisolone 40 mg/ (Sodium Chloride) 50 mls @ 100 mls/hr IVPB Q12 [facility] Last Admin: 10/20/16 21:00 Dose: 100 mls/hr Lactobacillus Acidophilus (Bacid Acidophilus) 1 cap PO BID [facility] Last Admin: 10/20/16 17:29 Dose: 1 cap Losartan Potassium (Cozaar) 50 mg PO DAILY [facility] Last Admin: 10/20/16 08:20 Dose: 50 mg Metformin HCl (Glucophage) 500 mg PO DAILY [facility] Last Admin: 10/20/16 08:20 Dose: 500 mg Multivitamins/Minerals (Therapeutic-M Tab) 1 tab PO DAILY [facility] Last Admin: 10/20/16 08:20 Dose: 1 tab Naproxen (Naprosyn Tab) 375 mg PO BID PRN PRN Reason: Pain, moderate (4-7) Last Admin: 10/16/16 22:00 Dose: 375 mg Nicotine (Nicoderm Cq) 1 patch TD DAILY [facility] Last Admin: 10/20/16 08:20 Dose: 1 patch Oxcarbazepine (Trileptal) 300 mg PO BID [facility] Last Admin: 10/20/16 17:30 Dose: 300 mg Pramipexole Dihydrochloride (Mirapex) 1.5 mg PO BID [facility] Last Admin: 10/20/16 17:30 Dose: 1.5 mg Pravastatin Sodium (Pravachol) 40 mg PO HS [facility] Last Admin: 10/20/16 22:19 Dose: 40 mg Fluticasone/Salmeterol (Advair Diskus 250/50) 1 puff INH DAILY [facility] Last Admin: 10/20/16 08:14 Dose: 1 puff Thiamine HCl (Vitamin B1 Tab) 100 mg PO DAILY [facility] Last Admin: 10/20/16 08:18 Dose: 100 mg Venlafaxine HCl (Effexor Xr) 150 mg PO DAILY [facility] Last Admin: 10/20/16 08:18 Dose: 150 mg - Labs Labs: 10/18/16 14:10 10/18/16 14:10 - Constitutional Appears: No Acute Distress - Head Exam Head Exam: ATRAUMATIC, NORMAL INSPECTION, NORMOCEPHALIC - Eye Exam Eye Exam: EOMI, Normal appearance, PERRL Pupil Exam: NORMAL ACCOMODATION, PERRL - ENT Exam ENT Exam: Mucous Membranes Moist, Normal Exam - Neck Exam Neck Exam: Full ROM, Normal Inspection. absent: Lymphadenopathy - Respiratory Exam Respiratory Exam: Decreased Breath Sounds, NORMAL BREATHING PATTERN. absent: Rales, Wheezes - Cardiovascular Exam Cardiovascular Exam: REGULAR RHYTHM, +S1, +S2. absent: Murmur - GI/Abdominal Exam GI & Abdominal Exam: Soft, Normal Bowel Sounds. absent: Tenderness - Extremities Exam Extremities Exam: Full ROM, Normal Capillary Refill, Normal Inspection. absent : Joint Swelling, Pedal Edema - Back Exam Back Exam: NORMAL INSPECTION - Neurological Exam Neurological Exam: Alert, Awake, CN II-XII Intact, Normal Gait, Oriented x3 - Psychiatric Exam Psychiatric exam: Normal Affect, Normal Mood - Skin Skin Exam: Dry, Intact, Normal Color, Warm Assessment and Plan (1) COPD exacerbation Assessment & Plan: Acute Bronchitis- Improved Morbid Obesity with Possible BEE and Hypoventilation Syndrome Continue Duoneb q6hrs PRN Solumedrol IV IV Levaquin and IV Rocephin 2L O2 Via [place] Status: Acute (2) Morbid obesity Assessment and Plan: Counselled about weight Loss Status: Chronic (3) Schizoaffective disorder Assessment and Plan: Continue Home Medications Status: Acute
[2016-10-21] MEDS: Albuterol-Ipratrop 3 mg / 0.5 (3 ml) UD INH SCH ×4 (00:33→11:05)
[2016-10-21 07:59] VITALS: BP 125/74; PULSE 92; TEMP 97.2; O2SAT 95
[2016-10-21] MEDS: Multivitamin With Minerals Tab PO SCH (09:14)
[2016-10-21] MEDS: Fluticasone-Salmeterol 250-50mcg Diskus INH SCH (09:16)
[2016-10-21] MEDS: Venlafaxine 150 mg ER Cap PO SCH (09:16)
[2016-10-21] MEDS: Lactobacillus Acidophilus 500 MU Cap PO SCH (09:17)
[2016-10-21] MEDS: methylPREDNISolone 40 MG in Sodium Chloride 0.9% 50 ML IVPB SCH (09:18)
--- NOTE | 2016-10-21 16:51 | CP.PCM.DIS ---
Provider - Provider Date of Admission: 10/14/16 16:59 Attending physician: Damaris Moore MD Primary care physician: Anabell Monreal MD Time Spent in preparation of Discharge (in minutes): 20 Diagnosis - Discharge Diagnosis (1) COPD exacerbation Status: Resolved Hospital Course - Lab Results Lab Results: Most Recent Lab Values WBC 19.8 K/uL (4.8-10.8) H 10/18/16 14:10 RBC 5.39 Mil/uL (4.40-5.90) 10/18/16 14:10 Hgb 14.8 g/dL (12.0-18.0) 10/18/16 14:10 Hct 45.9 % (35.0-51.0) 10/18/16 14:10 MCV 85.0 fl (80.0-94.0) 10/18/16 14:10 MCH 27.5 pg (27.0-31.0) 10/18/16 14:10 MCHC 32.3 g/dL (33.0-37.0) L 10/18/16 14:10 RDW 14.9 % (11.5-14.5) H 10/18/16 14:10 Plt Count 282 K/uL (130-400) 10/18/16 14:10 MPV 7.6 fl (7.2-11.7) 10/18/16 14:10 Neut % (Auto) 86.8 % (50.0-75.0) H 10/18/16 14:10 Lymph % (Auto) 5.8 % (20.0-40.0) L 10/18/16 14:10 Pettis % (Auto) 6.9 % (0.0-10.0) 10/18/16 14:10 Eos % (Auto) 0.3 % (0.0-4.0) 10/18/16 14:10 Baso % (Auto) 0.2 % (0.0-2.0) 10/18/16 14:10 Neut # 17.2 K/uL (1.8-7.0) H 10/18/16 14:10 Lymph # 1.2 K/uL (1.0-4.3) 10/18/16 14:10 Pettis # 1.4 K/uL (0.0-0.8) H 10/18/16 14:10 Eos # 0.1 K/uL (0.0-0.7) 10/18/16 14:10 Baso # 0.0 K/uL (0.0-0.2) 10/18/16 14:10 Neutrophils % (Manual) 87 % (42-75) H 10/17/16 05:30 Lymphocytes % (Manual) 9 % (20-50) L 10/17/16 05:30 Monocytes % (Manual) 3 % (0-10) 10/17/16 05:30 Eosinophils % (Manual) 1 % (0-7) 10/17/16 05:30 Platelet Estimate Normal (NORMAL) 10/17/16 05:30 Anisocytosis (manual) Slight 10/17/16 05:30 Tear Drop Cells Slight 10/17/16 05:30 Sodium 138 mmol/l (132-148) 10/18/16 14:10 Potassium 4.3 MMOL/L (3.6-5.0) 10/18/16 14:10 Chloride 100 mmol/L (98-107) 10/18/16 14:10 Carbon Dioxide 31 mmol/L (22-30) H 10/18/16 14:10 Anion Gap 11 (10-20) 10/18/16 14:10 BUN 22 mg/dl (9-20) H 10/18/16 14:10 Creatinine 0.8 mg/dL (0.8-1.5) 10/18/16 14:10 Est GFR ( Amer) > 60 10/18/16 14:10 Est GFR (Non-Af Amer) > 60 10/18/16 14:10 POC Glucose (mg/dL) 116 mg/dL (65-110) H 10/21/16 11:00 Random Glucose 111 mg/dL (75-110) H 10/18/16 14:10 Calcium 8.7 mg/dL (8.4-10.2) 10/18/16 14:10 Total Bilirubin 0.5 mg/dl (0.2-1.3) 10/17/16 05:30 AST 18 U/L (17-59) 10/17/16 05:30 ALT 36 U/L (21-72) 10/17/16 05:30 Alkaline Phosphatase 72 U/L (38-126) 10/17/16 05:30 Total Protein 6.4 G/DL (6.3-8.2) 10/17/16 05:30 Albumin 3.5 g/dL (3.5-5.0) D 10/17/16 05:30 Globulin 2.9 gm/dL (2.2-3.9) 10/17/16 05:30 Albumin/Globulin Ratio 1.2 (1.0-2.1) 10/17/16 05:30 - Hospital Course Hospital Course: Improved with IV Levaquin, Rocephin and Solumedrol, and Duoneb and Rehab, and discharged on Medrol Pack and Patient's Home Medication Discharge Exam - Head Exam Head Exam: ATRAUMATIC, NORMAL INSPECTION, NORMOCEPHALIC - Eye Exam Eye Exam: EOMI, Normal appearance, PERRL Pupil Exam: NORMAL ACCOMODATION, PERRL - ENT Exam ENT Exam: Mucous Membranes Moist, Normal Exam - Neck Exam Neck exam: Full Rom, Normal Inspection - GI/Abdominal Exam GI & Abdominal Exam: Normal Bowel Sounds - Rectal Exam Rectal Exam: NORMAL INSPECTION - Exam Exam: Circumcision, NORMAL INSPECTION External exam: NORMAL EXTERNAL EXAM Speculum exam: NORMAL SPECULUM EXAM Bimanual exam: NORMAL BIMANUAL EXAM - Neurological Exam Neurological exam: Alert, CN II-XII Intact, Normal Gait, Oriented x3, Reflexes Normal - Psychiatric Exam Psychiatric exam: Normal Affect, Normal Mood - Skin Skin Exam: Dry, Intact, Normal Color, Warm Discharge Plan - Discharge Medications Prescriptions: Methylprednisolone [Medrol] 4 mg PO DAILY #21 tab - Follow Up Plan Condition: GOOD Disposition: HOME/ ROUTINE Instructions: COPD (Chronic Obstructive Pulmonary Disease) (DC), Fall Prevention (DC), Heart Failure (DC), Heart Failure (GEN), Pacemaker (DC), Pacemaker (GEN), Pulmonary Edema (DC), Pulmonary Edema (GEN), Ascites (DC), Ascites (GEN), Depression (DC), Obesity (DC), Obesity (GEN), Weakness (GEN) Additional Instructions: discharge patient home today, followup Dr. Moore, call for appointment. Referrals: Anabell Monreal MD [Primary Care Provider] -
== END 2016-10-21 13:40 | disposition home or self-care (01) | DRG 88 ==
LOC: H.TCU 16:59
PROVIDERS: ADMIT Internal Medicine; ATTEND Internal Medicine
PROC: 3E0F7GC Introduction of Other Therapeutic Substance into Respiratory Tract, Via Natural or Artificial Opening (ICD-10-PCS; principal; 2016-10-14)
PROC: F08Z4FZ Home Management Treatment using Assistive, Adaptive, Supportive or Protective Equipment (ICD-10-PCS; 2016-10-15)
PROC: F07M6FZ Therapeutic Exercise Treatment of Musculoskeletal System - Whole Body using Assistive, Adaptive, Supportive or Protective Equipment (ICD-10-PCS; 2016-10-15)
DX: J44.0 Chronic obstructive pulmonary disease with (acute) lower respiratory infection (principal); I11.0 Hypertensive heart disease with heart failure; I50.9 Heart failure, unspecified; F25.9 Schizoaffective disorder, unspecified; E66.01 Morbid (severe) obesity due to excess calories; E10.9 Type 1 diabetes mellitus without complications; Z79.4 Long term (current) use of insulin; E78.00 Pure hypercholesterolemia, unspecified; F10.10 Alcohol abuse, uncomplicated; F17.200 Nicotine dependence, unspecified, uncomplicated; F31.9 Bipolar disorder, unspecified; G47.33 Obstructive sleep apnea (adult) (pediatric); J20.9 Acute bronchitis, unspecified; J44.1 Chronic obstructive pulmonary disease with (acute) exacerbation; Z85.118 Personal history of other malignant neoplasm of bronchus and lung; F41.9 Anxiety disorder, unspecified; Z68.39 Body mass index [BMI] 39.0-39.9, adult

== ENCOUNTER 2016-11-01 18:53 | Emergency (ER) | payer MEDICAID ==
[2016-11-01 18:53] VITALS: BMI 41.3
[2016-11-01 18:58] VITALS: BP 136/85; PULSE 127; RESP 16; TEMP 99.6; O2SAT 95
[2016-11-01] MEDS ORDERED: Albuterol-Ipratrop 3 mg / 0.5 (3 ml) UD INH STA (19:36)
[2016-11-01 19:59] LABS: BASO # 0.1 K/uL (0.0-0.2); BASO % 0.8 % (0.0-2.0); EOS # 0.2 K/uL (0.0-0.7); EOS % 2.4 % (0.0-4.0); HEMATOCRIT 42.4 % (35.0-51.0); LYMPH # 2.5 K/uL (1.0-4.3); LYMPH % 26.8 % (20.0-40.0); MEAN CELL VOLUME 84.3 fl (80.0-94.0); MEAN CORPUSCULAR HEMOGLOBIN 27.7 pg (27.0-31.0); MEAN CORPUSCULAR HGB CONC 32.9 g/dL (33.0-37.0); MEAN PLATELET VOLUME 7.6 fl (7.2-11.7); MONO # 0.5 K/uL (0.0-0.8); MONO % 5.4 % (0.0-10.0); NEUT # 6.1 K/uL (1.8-7.0); NEUT % 64.6 % (50.0-75.0); RED CELL DISTRIBUTION WIDTH 15.2 % (11.5-14.5); WHITE BLOOD COUNT 9.4 K/uL (4.8-10.8)
[2016-11-01 20:08] LABS: BLOOD UREA NITROGEN 9 mg/dl (9-20); CALCIUM 8.9 mg/dL (8.4-10.2); CARBON DIOXIDE 23 mmol/L (22-30); CHLORIDE 110 mmol/L (98-107); GFR AFRICAN-AMERICAN > 60; GLUCOSE,RANDOM 102 mg/dL (75-110); POTASSIUM 3.5 MMOL/L (3.6-5.0); SODIUM 143 mmol/l (132-148)
--- NOTE | 2016-11-01 21:40 | ED PDOC ---
HPI: SOB/CHF/COPD Time Seen by Provider: 11/01/16 19:13 Chief Complaint (Nursing): Chest Pain Chief Complaint (Provider): Difficulty Breathing History/Exam Limitations: no limitations Current Symptoms Are (Timing): Constant Additional Complaint(s): Juve Perez, a 56 year old male, who has a past medical history of COPD presents to the ED complaining of difficulty breathing x5 days. The patient also states that she is experiencing some radiating chest pain that started today. Patient states she is coughing more than usual. Denies fevers. Patient states she is currently taking CPAP and using nebulizer but is not getting nay better. PMD: Jennifer Blair Past Medical History Reviewed: Historical Data, Nursing Documentation, Vital Signs Vital Signs: Last Vital Signs Temp 99.6 F 11/01/16 18:55 Pulse 127 H 11/01/16 18:55 Resp 16 11/01/16 18:55 BP 136/85 11/01/16 18:55 Pulse Ox 95 11/01/16 21:44 - Medical History PMH: Anxiety, Asthma, Bipolar Disorder, CHF, COPD, Depression, Diabetes, Emphysema, HTN, Hypercholesterolemia, Personality Disorder, Schizophrenia, Sleep Apnea Denies: HIV, Chronic Kidney Disease, Seizures, Sexually Transmitted Disease - Surgical History Surgical History: No Surg Hx - Family History Family History: States: Unknown Family Hx - Immunization History Hx Tetanus Toxoid Vaccination: Yes Hx Influenza Vaccination: Yes Hx Pneumococcal Vaccination: No - Home Medications Home Medications: Ambulatory Orders Medication Instructions Recorded Benztropine [Cogentin] 0.5 mg PO BID #60 tab 12/11/15 Gabapentin [Neurontin] 400 mg PO HS #60 cap 12/11/15 Gabapentin [Neurontin] 600 mg PO TID #90 tab 12/11/15 ARIPiprazole [Abilify] 20 mg PO HS #30 tab 01/22/16 Aspirin [Ecotrin] 81 mg PO DAILY #0 tabec 01/22/16 Carvedilol [Coreg] 12.5 mg PO BID #0 tab 01/22/16 Docusate [Colace] 100 mg PO DAILY #0 cap 01/22/16 Doxepin [Sinequan] 10 mg PO HS #30 cap 01/22/16 Folic Acid 1 mg PO DAILY #0 tab 01/22/16 Lactobacillus Acidophilus [Bacid 1 cap PO BID #0 cap 01/22/16 Acidophilus] Losartan [Cozaar] 50 mg PO DAILY #0 tab 01/22/16 Multimineral/Multivitamin 1 tab PO DAILY #0 tab 01/22/16 [Therapeutic-M Tab] Naproxen [Naprosyn Tab] 375 mg PO BID PRN #0 tab 01/22/16 OXcarbazepine [Trileptal] 300 mg PO BID #0 tab 01/22/16 Pramipexole [Mirapex] 1.5 mg PO BID #0 tab 01/22/16 Pravastatin Sodium [Pravachol] 40 mg PO HS #0 tab 01/22/16 Thiamine [Vitamin B1 Tab] 100 mg PO DAILY #0 tab 01/22/16 Venlafaxine [Effexor XR] 150 mg PO DAILY #30 cer 01/22/16 amLODIPine [Norvasc] 5 mg PO HS #0 tab 01/22/16 metFORMIN [glucOPHAGE] 500 mg PO DAILY #0 tab 01/22/16 Albuterol/Ipratropium [Combivent 1 - 2 puff INH TID 10/09/16 Respimat] Fluticasone/Salmeterol [Advair 1 inh INH DAILY 10/09/16 250-50 Diskus] Albuterol/Ipratropium [Duoneb 3 3 ml INH RQ4 10/14/16 mg/0.5 mg (3 ml) UD] Famotidine [Pepcid] 20 mg PO BID tab 10/14/16 Nicotine 21 mg/24 hr [Nicoderm Cq] 1 patch TD DAILY patch 10/14/16 Sodium Chloride for Inhalation 4 ml IH ONCE PRN 10/14/16 [Sodium Chloride 3% for Inhalation] Sodium Chloride for Inhalation 4 ml IH ONCE PRN 10/14/16 [Sodium Chloride 3% for Inhalation] levoFLOXacin 500 mg in D5W 500 mg IVPB DAILY #7 bag 10/14/16 [Levaquin 500MG] Methylprednisolone [Medrol] 4 mg PO DAILY #21 tab 10/21/16 Montelukast Sodium [Singulair] 10 mg PO DAILY #30 tablet 10/29/16 predniSONE [predniSONE Tab] 2 tab PO DAILY #10 tab 10/29/16 Albuterol HFA [Ventolin HFA 90 2 puff IH Q4 PRN #1 inh 11/01/16 mcg/actuation (8 g)] Prednisone 50 mg PO DAILY #5 tab 11/01/16 - Allergies Allergies/Adverse Reactions: Allergies Allergy/AdvReac Type Severity Reaction Status Date / Time [place] And Derivatives Allergy ANGIOEDEMA Verified 11/01/16 18:54 Review of Systems ROS Statement: Except As Marked, All Systems Reviewed And Found Negative Constitutional: Negative for: Fever Cardiovascular: Positive for: Chest Pain (Radiating chest pain) Respiratory: Positive for: Cough, Other (Difficulty breathing) Physical Exam - Reviewed Nursing Documentation Reviewed: Yes Vital Signs Reviewed: Yes - Physical Exam Appears: Positive for: Non-toxic, No Acute Distress Head Exam: Positive for: ATRAUMATIC, NORMAL INSPECTION, NORMOCEPHALIC Skin: Positive for: Normal Color, Warm, Dry Eye Exam: Positive for: Normal appearance, EOMI, PERRL ENT: Positive for: Normal ENT Inspection Neck: Positive for: Normal, Painless ROM, Supple Cardiovascular/Chest: Positive for: Regular Rate, Rhythm, Chest Non Tender. Negative for: Tachycardia Respiratory: Positive for: Wheezing (Wheezing bilaterally.). Negative for: Respiratory Distress Gastrointestinal/Abdominal: Positive for: Normal Exam Back: Positive for: Normal Inspection Extremity: Positive for: Normal ROM. Negative for: Pedal Edema, Deformity, Swelling Neurologic/Psych: Positive for: Alert, Oriented, Gait - Laboratory Results Result Diagrams: 11/01/16 19:55 11/01/16 19:55 - ECG O2 Sat by Pulse Oximetry: 95 (RA) Pulse Ox Interpretation: Normal Medical Decision Making Medical Decision Makin Initial Impression: 56 year old male presenting with COPD exacerbation Initial Plan: * ABG * EKG * B-type natriuretic peptide * Basic Metabolic Panel * Troponin * CBC * D-dimer * Chest Xray * Duoneb 3ml INH * Solu-medrol 125 mg IVP * Peak flow pre/post tx .pre/post treatment * Reevaluation Scribe Attestation Documented by Adeline Su acting as a scribe for Dre Singletary MD. Provider Attestation All medical record entries made by the Scribe were at my direction and personally dictated by me. I have reviewed the chart and agree that the record accurately reflects my personal performance of the history, physical exam, medical decision making, and the department course for this patient. I have also personally directed, reviewed, and agree with the discharge instructions and disposition. Disposition - Clinical Impression Clinical Impression: Chest pain, COPD (chronic obstructive pulmonary disease), Left against medical advice - Patient ED Disposition Is Patient to be Admitted: No Counseled Patient/Family Regarding: Studies Performed, Diagnosis - Disposition Referrals: Anabell Monreal MD [Family Provider] - Disposition: Against Medical Advice Disposition Time: 21:00 Condition: GOOD Additional Instructions: Follow up with your PCP in 2-3 days. Return for worsening. Prescriptions: Albuterol HFA [Ventolin HFA 90 mcg/actuation (8 g)] 2 puff IH Q4 PRN #1 inh PRN Reason: Wheezing Prednisone 50 mg PO DAILY #5 tab Instructions: COPD (Chronic Obstructive Pulmonary Disease) (ED), Against Medical Advice (ED) Forms: Auth0 (Yoruba)
--- NOTE | 2016-11-02 09:40 | RAD ---
PROCEDURE: CHEST RADIOGRAPH, 1 VIEW HISTORY: dyspnea COMPARISON: None available. FINDINGS: LUNGS: Clear. PLEURA: No pneumothorax or pleural fluid seen. CARDIOVASCULAR: Normal. OSSEOUS STRUCTURES: No significant abnormalities. VISUALIZED UPPER ABDOMEN: Normal. OTHER FINDINGS: None. IMPRESSION: No active disease.
--- NOTE | 2016-11-02 13:13 | CARD ---
APPROVED REPORT EKG Measurement Heart [id number] <Conclusion> Sinus tachycardia Nonspecific T wave abnormality Abnormal ECG
== END 2016-11-01 21:21 | disposition left against medical advice (07) ==
LOC: H.ER 18:53
DX: J44.1 Chronic obstructive pulmonary disease with (acute) exacerbation (principal); E11.9 Type 2 diabetes mellitus without complications; E78.00 Pure hypercholesterolemia, unspecified; F20.9 Schizophrenia, unspecified; F31.9 Bipolar disorder, unspecified; F41.9 Anxiety disorder, unspecified; I11.0 Hypertensive heart disease with heart failure; I50.9 Heart failure, unspecified; Z79.82 Long term (current) use of aspirin; Z79.84 Long term (current) use of oral hypoglycemic drugs

== ENCOUNTER 2017-03-09 11:06 | Inpatient (IN) | payer MEDICAID ==
[2017-03-09] MEDS ORDERED: Albuterol-Ipratrop 3 mg / 0.5 (3 ml) UD IH STA ×3 (11:29→12:28)
--- NOTE | 2017-03-09 11:33 | ED PDOC ---
HPI: SOB/CHF/COPD Time Seen by Provider: 03/09/17 11:11 History Per: Patient Onset/Duration Of Symptoms: Days (3) Current Symptoms Are (Timing): Still Present Current Respiratory Medications: See Home Med List Severity: Moderate Pain Scale Rating Of: 1 Associated Symptoms: Leg/Calf Pain, Ankle/Leg Swelling. denies: Fever Additional Complaint(s): SOB, wheezing assoc with nonproductive cough x 3days. No fever or chest pain. H/ o COPD. still smokes. Also with swelling LLE x 1 weeks. No trauma. Past Medical History Vital Signs: Last Vital Signs Temp 98.1 F 03/09/17 11:32 Pulse 85 03/09/17 11:32 Resp 18 03/09/17 13:00 BP 150/84 03/09/17 11:32 Pulse Ox 97 03/09/17 12:52 - Medical History PMH: Anxiety, Asthma, Bipolar Disorder, CHF, COPD, Depression, Diabetes, Emphysema, HTN, Hypercholesterolemia, Personality Disorder, Schizophrenia, Sleep Apnea Denies: HIV, Chronic Kidney Disease, Seizures, Sexually Transmitted Disease - Family History Family History: States: Unknown Family Hx - Immunization History Hx Tetanus Toxoid Vaccination: Yes Hx Influenza Vaccination: Yes Hx Pneumococcal Vaccination: No - Home Medications Home Medications: Ambulatory Orders Medication Instructions Recorded Benztropine [Cogentin] 0.5 mg PO BID #60 tab 12/11/15 Gabapentin [Neurontin] 400 mg PO HS #60 cap 12/11/15 Gabapentin [Neurontin] 600 mg PO TID #90 tab 12/11/15 ARIPiprazole [Abilify] 20 mg PO HS #30 tab 01/22/16 Aspirin [Ecotrin] 81 mg PO DAILY #0 tabec 01/22/16 Carvedilol [Coreg] 12.5 mg PO BID #0 tab 01/22/16 Docusate [Colace] 100 mg PO DAILY #0 cap 01/22/16 Doxepin [Sinequan] 10 mg PO HS #30 cap 01/22/16 Folic Acid 1 mg PO DAILY #0 tab 01/22/16 Lactobacillus Acidophilus [Bacid 1 cap PO BID #0 cap 01/22/16 Acidophilus] Losartan [Cozaar] 50 mg PO DAILY #0 tab 01/22/16 Multimineral/Multivitamin 1 tab PO DAILY #0 tab 01/22/16 [Therapeutic-M Tab] Naproxen [Naprosyn Tab] 375 mg PO BID PRN #0 tab 01/22/16 OXcarbazepine [Trileptal] 300 mg PO BID #0 tab 01/22/16 Pramipexole [Mirapex] 1.5 mg PO BID #0 tab 01/22/16 Pravastatin Sodium [Pravachol] 40 mg PO HS #0 tab 01/22/16 Thiamine [Vitamin B1 Tab] 100 mg PO DAILY #0 tab 01/22/16 Venlafaxine [Effexor XR] 150 mg PO DAILY #30 cer 01/22/16 amLODIPine [Norvasc] 5 mg PO HS #0 tab 01/22/16 metFORMIN [glucOPHAGE] 500 mg PO DAILY #0 tab 01/22/16 Albuterol/Ipratropium [Combivent 1 - 2 puff INH TID 10/09/16 Respimat] Fluticasone/Salmeterol [Advair 1 inh INH DAILY 10/09/16 250-50 Diskus] Albuterol/Ipratropium [Duoneb 3 3 ml INH RQ4 10/14/16 mg/0.5 mg (3 ml) UD] Famotidine [Pepcid] 20 mg PO BID tab 10/14/16 Nicotine 21 mg/24 hr [Nicoderm Cq] 1 patch TD DAILY patch 10/14/16 Sodium Chloride for Inhalation 4 ml IH ONCE PRN 10/14/16 [Sodium Chloride 3% for Inhalation] Sodium Chloride for Inhalation 4 ml IH ONCE PRN 10/14/16 [Sodium Chloride 3% for Inhalation] levoFLOXacin 500 mg in D5W 500 mg IVPB DAILY #7 bag 10/14/16 [Levaquin 500MG] Methylprednisolone [Medrol] 4 mg PO DAILY #21 tab 10/21/16 Montelukast Sodium [Singulair] 10 mg PO DAILY #30 tablet 10/29/16 predniSONE [predniSONE Tab] 2 tab PO DAILY #10 tab 10/29/16 Albuterol HFA [Ventolin HFA 90 2 puff IH Q4 PRN #1 inh 11/01/16 mcg/actuation (8 g)] Prednisone 50 mg PO DAILY #5 tab 11/01/16 - Allergies Allergies/Adverse Reactions: Allergies Allergy/AdvReac Type Severity Reaction Status Date / Time [place] And Derivatives Allergy ANGIOEDEMA Verified 11/01/16 18:54 Review of Systems ROS Statement: Except As Marked, All Systems Reviewed And Found Negative Constitutional: Negative for: Fever Respiratory: Positive for: Cough, Shortness of Breath, Wheezing Musculoskeletal: Positive for: Leg Pain Physical Exam - Reviewed Nursing Documentation Reviewed: Yes Vital Signs Reviewed: Yes - Physical Exam Appears: Positive for: Non-toxic, No Acute Distress Head Exam: Positive for: ATRAUMATIC, NORMAL INSPECTION, NORMOCEPHALIC Skin: Positive for: Normal Color, Warm, DRY Eye Exam: Positive for: EOMI, Normal appearance, PERRL ENT: Positive for: Normal ENT Inspection Neck: Positive for: Normal, Painless ROM Cardiovascular/Chest: Positive for: Regular Rate, Rhythm Respiratory: Positive for: Rhonchi, Wheezing. Negative for: Respiratory Distress Pulses-Post. Tibialis (L): 1+ Pulses-Post. Tibialis (R): 1+ Gastrointestinal/Abdominal: Positive for: Normal Exam, Bowel Sounds, Soft Back: Positive for: Normal Inspection Extremity: Positive for: Calf Tenderness, Swelling, Other (Erythema distal fibula with mild swelling. No calf tenderness. No warmth) Neurologic/Psych: Positive for: Alert, Oriented - Laboratory Results Result Diagrams: 03/09/17 11:46 03/09/17 11:46 Disposition - Clinical Impression Clinical Impression: COPD exacerbation, Cellulitis - Patient ED Disposition Is Patient to be Admitted: Yes - Disposition Disposition Time: 15:10 Condition: FAIR - Pt Status Changed To: Hospital Disposition Of: Observation - POA Present On Arrival: None
[2017-03-09 11:51] LABS: BASO # 0.1 K/uL (0.0-0.2); EOS # 0.2 K/uL (0.0-0.7); EOS % 1.5 % (0.0-4.0); HEMATOCRIT 43.7 % (35.0-51.0); LYMPH # 1.7 K/uL (1.0-4.3); LYMPH % 17.5 % (20.0-40.0); MEAN CELL VOLUME 81.3 fl (80.0-94.0); MEAN CORPUSCULAR HEMOGLOBIN 26.7 pg (27.0-31.0); MEAN CORPUSCULAR HGB CONC 32.9 g/dL (33.0-37.0); MEAN PLATELET VOLUME 7.8 fl (7.2-11.7); MONO # 0.6 K/uL (0.0-0.8); MONO % 6.4 % (0.0-10.0); NEUT # 7.3 K/uL (1.8-7.0); NEUT % 73.6 % (50.0-75.0); NRBC % 0.1 % (0.0-0.0); RED CELL DISTRIBUTION WIDTH 14.8 % (11.5-14.5); WHITE BLOOD COUNT 9.9 K/uL (4.8-10.8)
[2017-03-09 11:54] LABS: VENOUS BLOOD GAS BASE EXCESS 2.9 mmol/L (0.0-2.0); VENOUS BLOOD GAS PCO2 54 mmHg (40-60); VENOUS BLOOD PH 7.35 (7.32-7.43)
[2017-03-09] MEDS ORDERED: Albuterol-Ipratrop 3 mg / 0.5 (3 ml) UD ONE (11:56)
[2017-03-09 12:03] LABS: ALB/GLOB RATIO 1.5 (1.0-2.1); ALKALINE PHOSPHATASE 96 U/L (38-126); ALT/SGPT 36 U/L (21-72); AST/SGOT 21 U/L (17-59); BILIRUBIN,TOTAL 0.2 mg/dl (0.2-1.3); BLOOD UREA NITROGEN 8 mg/dl (9-20); CALCIUM 8.7 mg/dL (8.4-10.2); CARBON DIOXIDE 27 mmol/L (22-30); CHLORIDE 103 mmol/L (98-107); GFR AFRICAN-AMERICAN > 60; GLUCOSE,RANDOM 109 mg/dL (75-110); POTASSIUM 3.9 MMOL/L (3.6-5.0); SODIUM 141 mmol/l (132-148); TOTAL PROTEIN 7.1 G/DL (6.3-8.2)
--- NOTE | 2017-03-09 14:13 | US ---
HISTORY: swollen left LLE . PRIORS: None. FINDINGS: 2-D, color and duplex Doppler analysis of the lower extremity venous circulation using routine protocol from the femoral veins through the popliteal veins. Venous compressibility: Normal. Flow and augmentation patterns: Normal. Visualized veins upper third of calf: Normal. Maxwell cyst: None. IMPRESSION: No sonographic or Doppler evidence for DVT in left lower extremity.
--- NOTE | 2017-03-09 14:59 | RAD ---
HISTORY: SOB COMPARISON: 11/01/2016 TECHNIQUE: Chest PA and lateral FINDINGS: LUNGS: No active pulmonary disease. PLEURA: No significant pleural effusion identified. No pneumothorax apparent. CARDIOVASCULAR: No radiographic findings to suggest acute or significant cardiovascular disease. OSSEOUS STRUCTURES: No significant abnormalities. VISUALIZED UPPER ABDOMEN: Normal. OTHER FINDINGS: None. IMPRESSION: No active disease. No significant interval change compared to the prior examination(s).
[2017-03-09] MEDS: Clindamycin 600mg/50ml NS 600 MG/50 ML BAG IVPB SCH (17:00)
[2017-03-09] MEDS ORDERED: Albuterol-Ipratrop 3 mg / 0.5 (3 ml) UD INH PRN (18:27)
[2017-03-09] MEDS ORDERED: Potassium Chloride 20 MEQ in Sodium Chloride 0.45% 1,000 ML IV SCH ×2 (20:30→21:00)
[2017-03-09] MEDS: Pravastatin Sodium 40 MG TAB PO SCH (23:03)
[2017-03-10] MEDS: Fluticasone-Salmeterol 250-50mcg Diskus IH SCH ×3 (00:05→22:02)
[2017-03-10] MEDS: HCTZ/Losartan 12.5/50 Tab PO SCH ×2 (00:28→08:45)
[2017-03-10] MEDS: Albuterol-Ipratrop 3 mg / 0.5 (3 ml) UD INH SCH ×4 (01:05→19:21)
[2017-03-10] MEDS: Clindamycin 600mg/50ml NS 600 MG/50 ML BAG IVPB SCH ×3 (01:55→16:21)
[2017-03-10 05:40] LABS: BASO % 0.2 % (0.0-2.0); EOS % 0.1 % (0.0-4.0); HEMATOCRIT 45.9 % (35.0-51.0); LYMPH # 0.7 K/uL (1.0-4.3); LYMPH % 4.7 % (20.0-40.0); MEAN CELL VOLUME 83.1 fl (80.0-94.0); MEAN CORPUSCULAR HEMOGLOBIN 26.5 pg (27.0-31.0); MEAN CORPUSCULAR HGB CONC 31.9 g/dL (33.0-37.0); MEAN PLATELET VOLUME 8.3 fl (7.2-11.7); MONO # 0.2 K/uL (0.0-0.8); MONO % 1.4 % (0.0-10.0); NEUT # 13.6 K/uL (1.8-7.0); NEUT % 93.6 % (50.0-75.0); NRBC % 0.1 % (0.0-0.0); PLATELET COUNT 293 K/uL (130-400); RED CELL DISTRIBUTION WIDTH 14.6 % (11.5-14.5); WHITE BLOOD COUNT 14.6 K/uL (4.8-10.8)
[2017-03-10 06:18] LABS: BLOOD UREA NITROGEN 11 mg/dl (9-20); CALCIUM 9.1 mg/dL (8.4-10.2); CARBON DIOXIDE 27 mmol/L (22-30); CHLORIDE 104 mmol/L (98-107); GFR AFRICAN-AMERICAN > 60; GLUCOSE,RANDOM 144 mg/dL (75-110); POTASSIUM 4.6 MMOL/L (3.6-5.0); SODIUM 141 mmol/l (132-148)
[2017-03-10] MEDS ORDERED: Pneumococcal 23-Valent Vaccine IM ONE (07:42)
[2017-03-10] MEDS: Enoxaparin 40 mg Syringe SC SCH (08:45)
--- NOTE | 2017-03-10 10:18 | CP.PCM.CON ---
History of Present Illness - History of Present Illness History of Present Illness: Psychiatry consult CC: "I need to get back on my medicines." HPI: 56 yo male w/ history of schizoaffective disorder and multiple previous psychiatric admissions, presented w/ SOB, wheezing and non-productive cough x 3 days, also w/ LLE swelling x 1 week. Patient reports that he has been non- compliant w/ any psychiatric treatment for a year. He reports that he feels that he is decompensating. He reports mood lability, irritability, intermittent feelings of depression and anxiety as well as intermittent auditory hallucinations, last heard 1 day ago. He reports that they has been command in nature in the past, but he denies current ideation to harm himself or others. Patient would like to restart Abilify and Effexor and is agreeable to inpatient psychiatric admission at this time. PPHx: History of multiple psychiatric admissions for schizoaffective disorder, last on 01/19. He has not followed up with psychiatric care since that time. He was discharged on Abilify 20 mg PO Daily, Effexor XR 150 mg PO Daily, Neurontin 400 mg PO TID, Doxepin 10 mg PO HS, Trileptal 300 mg PO BID PMHx: Anxiety, Asthma, Bipolar Disorder, CHF, COPD, Depression, Diabetes, Emphysema, HTN, Hypercholesterolemia, Sleep Apnea ALL: [place] and derivatives SHx: +Alcohol use, last drank "a few beers" 3 days ago, denies current alcohol abuse, denies drug abuse, smokes 1-2 cig per day and would like nicotine replacement. MSE: A + O x 3, calm, cooperative, mood "irritable", affect "broad", thought process-linear/coherent, thought content- no delusions, +Recent AH, denies current AH, no VH, no paranoia, I/J fair, NO SI/HI. Impression: 56 yo male w/ schizoaffective disorder acutely decompensated in the context of non-compliance w/ medications. Patient would benefit from inpatient psychiatric admission when he is medically stable. -Start Abilify 10 mg PO Daily -Start Effexor XR 75 mg PO Daily -Nicotine patch 7 mg Past Patient History - Infectious Disease Hx of Infectious Diseases: None - Past Medical History & Family History Past Medical History?: Yes - Past Social History Smoking Status: Light Smoker < 10 Cigarettes Daily - CARDIAC Hx Cardiac Disorders: Yes (HTN, HIGH CHOLESTEROL) - PULMONARY Hx Respiratory Disorders: Yes (ASTHMA, EMPHYSEMA, COPD, SLEEP APNEA) - NEUROLOGICAL Hx Seizures: No - HEENT Hx HEENT Problems: No - RENAL Hx Chronic Kidney Disease: No - ENDOCRINE/METABOLIC Hx Endocrine Disorders: Yes Hx Diabetes Mellitus Type 1: Yes - HEMATOLOGICAL/ONCOLOGICAL Hx Human Immunodeficiency Virus (HIV): No - INTEGUMENTARY Hx Dermatological Problems: No - MUSCULOSKELETAL/RHEUMATOLOGICAL Hx Musculoskeletal Disorders: No Hx Falls: No - GASTROINTESTINAL Hx Gastrointestinal Disorders: No - GENITOURINARY/GYNECOLOGICAL Hx Sexually Transmitted Disorders: No - PSYCHIATRIC Hx Psychophysiologic Disorder: Yes (ANXIETY, SCHIZO, BIPOLAR,DEPRESSION) - SURGICAL HISTORY Hx Surgeries: No - ANESTHESIA Hx Anesthesia: No Hx Anesthesia Reactions: No Hx Malignant Hyperthermia: No Meds Allergies/Adverse Reactions: Allergies Allergy/AdvReac Type Severity Reaction Status Date / Time [place] And Derivatives Allergy ANGIOEDEMA Verified 11/01/16 18:54 - Medications Medications: Current Medications Acetaminophen (Tylenol 325mg Tab) 650 mg PO Q6 PRN PRN Reason: Pain, Mild (1-3) Albuterol/Ipratropium (Duoneb 3 Mg/0.5 Mg (3 Ml) Ud) 3 ml INH RQ4 PRN PRN Reason: Shortness of Breath Albuterol/Ipratropium (Duoneb 3 Mg/0.5 Mg (3 Ml) Ud) 3 ml INH RQ6 ANNE Last Admin: 03/10/17 08:19 Dose: 3 ml Amlodipine Besylate (Norvasc) 5 mg PO DAILY [facility] Last Admin: 03/10/17 08:48 Dose: 5 mg Aspirin (Aspirin Chewable) 81 mg PO DAILY [facility] Last Admin: 03/10/17 08:43 Dose: 81 mg Docusate Sodium (Colace) 100 mg PO DAILY [facility] Last Admin: 03/10/17 08:44 Dose: 100 mg Enoxaparin Sodium (Lovenox) 40 mg SC DAILY [facility] PRN Reason: Protocol Last Admin: 03/10/17 08:45 Dose: 40 mg Famotidine (Pepcid) 20 mg IVP BID PRN PRN Reason: Indigestion / Heartburn Gabapentin (Neurontin) 200 mg PO [facility] Last Admin: 03/10/17 00:02 Dose: 200 mg HCTZ/Losartan Potassium (Hyzaar 12.5 Mg-50 Mg) 1 tab PO DAILY [facility] Last Admin: 03/10/17 08:45 Dose: 1 tab Clindamycin Phosphate (Cleocin In Normal Saline) 600 mg in 50 mls @ 50 mls/hr IVPB Q8 ANNE PRN Reason: Protocol Last Admin: 03/10/17 08:43 Dose: 50 mls/hr Potassium Chloride 20 meq/ (Sodium Chloride) 1,010 mls @ 75 mls/hr IV .[id number] ANNE Stop: 03/10/17 20:47 Last Admin: 03/10/17 00:32 Dose: 75 mls/hr Metformin HCl (Glucophage) 500 mg PO BID [facility] Methylprednisolone (Solu-Medrol) 125 mg IVP Q6 [facility] Last Admin: 03/10/17 04:10 Dose: 125 mg Pramipexole Dihydrochloride (Mirapex) 1.5 mg PO BID [facility] Last Admin: 03/10/17 08:46 Dose: 1.5 mg Pravastatin Sodium (Pravachol) 40 mg PO HS [facility] Last Admin: 03/09/17 23:03 Dose: 40 mg Fluticasone/Salmeterol (Advair Diskus 250/50) 1 puff IH Q12 [facility] Last Admin: 03/10/17 00:05 Dose: Not Given Zolpidem Tartrate (Ambien) 5 mg PO HS PRN PRN Reason: Insomnia Last Admin: 03/10/17 00:03 Dose: 5 mg Results - Vital Signs Recent Vital Signs: Last Vital Signs Temp 97.3 F L 03/10/17 08:00 Pulse 98 H 03/10/17 08:00 Resp 18 03/10/17 08:00 BP 130/87 03/10/17 08:00 Pulse Ox 95 03/10/17 08:00 - Labs Result Diagrams: 03/10/17 04:15 03/10/17 04:15 Labs: Laboratory Results - last 24 hr 03/09/17 03/09/17 03/09/17 11:45 11:46 11:46 WBC 9.9 RBC 5.37 Hgb 14.4 Hct 43.7 MCV 81.3 D MCH 26.7 L MCHC 32.9 L RDW 14.8 H Plt Count 285 MPV 7.8 Neut % (Auto) 73.6 Lymph % (Auto) 17.5 L [place] % (Auto) 6.4 Eos % (Auto) 1.5 Baso % (Auto) 1.0 Neut # 7.3 H Lymph # 1.7 [place] # 0.6 Eos # 0.2 Baso # 0.1 D-Dimer, Quantitative pO2 26 L VBG pH 7.35 VBG pCO2 54 VBG HCO3 25.7 VBG Total CO2 31.5 H VBG O2 Sat (Calc) 54.2 VBG Base Excess 2.9 H VBG Potassium 4.1 Sodium 134.0 141 Chloride 102.0 103 Glucose 109 Lactate 1.9 FiO2 21.0 Potassium 3.9 Carbon Dioxide 27 Anion Gap 15 BUN 8 L Creatinine 0.8 Est GFR ( Amer) > 60 Est GFR (Non-Af Amer) > 60 POC Glucose (mg/dL) Random Glucose 109 Calcium 8.7 Total Bilirubin 0.2 AST 21 ALT 36 Alkaline Phosphatase 96 Total Protein 7.1 Albumin 4.2 Globulin 2.9 Albumin/Globulin Ratio 1.5 Venous Blood Potassium 4.1 03/09/17 03/10/17 03/10/17 11:46 04:15 04:15 WBC 14.6 H RBC 5.53 Hgb 14.6 Hct 45.9 MCV 83.1 MCH 26.5 L MCHC 31.9 L RDW 14.6 H Plt Count 293 MPV 8.3 Neut % (Auto) 93.6 H Lymph % (Auto) 4.7 L [place] % (Auto) 1.4 Eos % (Auto) 0.1 Baso % (Auto) 0.2 Neut # 13.6 H Lymph # 0.7 L [place] # 0.2 Eos # 0.0 Baso # 0.0 D-Dimer, Quantitative 334 H pO2 VBG pH VBG pCO2 VBG HCO3 VBG Total CO2 VBG O2 Sat (Calc) VBG Base Excess VBG Potassium Sodium 141 Chloride 104 Glucose Lactate FiO2 Potassium 4.6 Carbon Dioxide 27 Anion Gap 15 BUN 11 Creatinine 0.8 Est GFR ( Amer) > 60 Est GFR (Non-Af Amer) > 60 POC Glucose (mg/dL) Random Glucose 144 H Calcium 9.1 Total Bilirubin AST ALT Alkaline Phosphatase Total Protein Albumin Globulin Albumin/Globulin Ratio Venous Blood Potassium 03/10/17 06:50 WBC RBC Hgb Hct MCV MCH MCHC RDW Plt Count MPV Neut % (Auto) Lymph % (Auto) [place] % (Auto) Eos % (Auto) Baso % (Auto) Neut # Lymph # [place] # Eos # Baso # D-Dimer, Quantitative pO2 VBG pH VBG pCO2 VBG HCO3 VBG Total CO2 VBG O2 Sat (Calc) VBG Base Excess VBG Potassium Sodium Chloride Glucose Lactate FiO2 Potassium Carbon Dioxide Anion Gap BUN Creatinine Est GFR ( Amer) Est GFR (Non-Af Amer) POC Glucose (mg/dL) 138 H Random Glucose Calcium Total Bilirubin AST ALT Alkaline Phosphatase Total Protein Albumin Globulin Albumin/Globulin Ratio Venous Blood Potassium
--- NOTE | 2017-03-10 11:08 | CARD ---
APPROVED REPORT EKG Measurement Heart [id number] <Conclusion> Normal sinus rhythm Normal ECG
[2017-03-10 12:13] LABS: NEUTROPHIL 90 % (42-75); TOTAL CELLS COUNTED 100
[2017-03-10] MEDS: Venlafaxine 75 mg ER Cap PO SCH (13:34)
[2017-03-10] MEDS: MethylPREDNISolone 40 mg Vial IVP SCH ×2 (16:14→22:04)
[2017-03-10 17:16] LABS: RBC URINE < 1 /hpf (0-3); URINE BILIRUBIN NEGATIVE (NEGATIVE); URINE BLOOD NEGATIVE (NEGATIVE); URINE COLOR STRAW (YELLOW); URINE GLUCOSE (UA) NEG (Normal); URINE KETONE NEGATIVE (NEGATIVE); URINE LEUKOCYTE ESTERASE NEG Leu/uL (Negative); URINE PROTEIN NEGATIVE (NEGATIVE); URINE UROBILINOGEN 0.2-1.0 mg/dL (0.2-1.0); WBC URINE < 1 /hpf (0-5)
[2017-03-10] MEDS: Pravastatin Sodium 40 MG TAB PO SCH (22:03)
--- NOTE | 2017-03-10 23:43 | CP.PCM.PN ---
Subjective - Date & Time of Evaluation Date of Evaluation: 03/10/17 Time of Evaluation: 14:00 - Subjective Subjective: Patient c/o 6/10 SOB on exertion but less wheezing today; c/o left heel pain on ambulation Vital Signs Stable Lungs- dec. breath sounds b/l with expiratory wheeze Heart- regular S1, S2, 1/6 mulu Abd.- +BS, soft, nontender Ext.- erythema of LLE to mid severino; tenderness left heel; + distal pulses 1. COPD exacerbation 2. Cellulitis 3. HTN 4. Pre-diabetic 5. Restless leg syndrome Solumedrol decreases to 60mg tid; continue Duoneb treatments qid; responding to clindamycin 600mg iv tid; CBC and comprehensive metabolic panel ordered for AM Objective - Vital Signs/Intake and Output Vital Signs (last 24 hours): Temp Pulse Resp BP Pulse Ox 97.5 F L 93 H 16 116/70 92 L 03/10/17 20:00 03/10/17 21:00 03/10/17 20:00 03/10/17 20:00 03/10/17 20:00 Intake and Output: 03/10/17 03/11/17 18:59 06:59 Intake Total 2400 Balance 2400 - Medications Medications: Current Medications Acetaminophen (Tylenol 325mg Tab) 650 mg PO Q6 PRN PRN Reason: Pain, Mild (1-3) Last Admin: 03/10/17 13:39 Dose: 650 mg Albuterol/Ipratropium (Duoneb 3 Mg/0.5 Mg (3 Ml) Ud) 3 ml INH RQ4 PRN PRN Reason: Shortness of Breath Albuterol/Ipratropium (Duoneb 3 Mg/0.5 Mg (3 Ml) Ud) 3 ml INH RQ6 ANNE Last Admin: 03/10/17 19:21 Dose: 3 ml Amlodipine Besylate (Norvasc) 5 mg PO DAILY [facility] Last Admin: 03/10/17 08:48 Dose: 5 mg Aripiprazole (Abilify) 10 mg PO DAILY ANEN Last Admin: 03/10/17 13:33 Dose: 10 mg Aspirin (Aspirin Chewable) 81 mg PO DAILY [facility] Last Admin: 03/10/17 08:43 Dose: 81 mg Docusate Sodium (Colace) 100 mg PO DAILY [facility] Last Admin: 03/10/17 08:44 Dose: 100 mg Enoxaparin Sodium (Lovenox) 40 mg SC DAILY ANNE PRN Reason: Protocol Last Admin: 03/10/17 08:45 Dose: 40 mg Famotidine (Pepcid) 20 mg IVP BID PRN PRN Reason: Indigestion / Heartburn Gabapentin (Neurontin) 200 mg PO HS@1999 [facility] Last Admin: 03/10/17 22:02 Dose: 200 mg HCTZ/Losartan Potassium (Hyzaar 12.5 Mg-50 Mg) 1 tab PO DAILY [facility] Last Admin: 03/10/17 08:45 Dose: 1 tab Clindamycin Phosphate (Cleocin In Normal Saline) 600 mg in 50 mls @ 50 mls/hr IVPB Q8 [facility] PRN Reason: Protocol Last Admin: 03/10/17 16:21 Dose: 50 mls/hr Lactulose (Enulose) 20 gm PO DAILY [facility] Last Admin: 03/10/17 22:03 Dose: Not Given Metformin HCl (Glucophage) 500 mg PO BID [facility] Last Admin: 03/10/17 16:13 Dose: 500 mg Methylprednisolone (Solu-Medrol) 80 mg IVP Q6 [facility] Last Admin: 03/10/17 22:04 Dose: 80 mg Nicotine (Nicoderm Cq) 1 patch TD DAILY [facility] Last Admin: 03/10/17 13:35 Dose: 1 patch Pramipexole Dihydrochloride (Mirapex) 1.5 mg PO BID@0900,1999 [facility] Last Admin: 03/10/17 22:03 Dose: 1.5 mg Pravastatin Sodium (Pravachol) 40 mg PO HS [facility] Last Admin: 03/10/17 22:03 Dose: 40 mg Fluticasone/Salmeterol (Advair Diskus 250/50) 1 puff IH Q12 [facility] Last Admin: 03/10/17 22:02 Dose: 1 puff Venlafaxine HCl (Effexor Xr) 75 mg PO DAILY [facility] Last Admin: 03/10/17 13:34 Dose: 75 mg Zolpidem Tartrate (Ambien) 5 mg PO HS PRN PRN Reason: Insomnia Last Admin: 03/10/17 00:03 Dose: 5 mg - Labs Labs: 03/10/17 04:15 03/10/17 04:15
[2017-03-11] MEDS: Albuterol-Ipratrop 3 mg / 0.5 (3 ml) UD INH SCH ×4 (01:01→19:17)
[2017-03-11] MEDS: Clindamycin 600mg/50ml NS 600 MG/50 ML BAG IVPB SCH ×3 (01:14→17:04)
[2017-03-11] MEDS: MethylPREDNISolone 40 mg Vial IVP SCH ×4 (04:06→17:02)
[2017-03-11] MEDS: Fluticasone-Salmeterol 250-50mcg Diskus IH SCH ×2 (10:00→21:47)
[2017-03-11] MEDS: Venlafaxine 75 mg ER Cap PO SCH (10:15)
[2017-03-11] MEDS: Enoxaparin 40 mg Syringe SC SCH (10:16)
[2017-03-11] MEDS: HCTZ/Losartan 12.5/50 Tab PO SCH (10:16)
[2017-03-11 11:45] LABS: BLOOD UREA NITROGEN 18 mg/dl (9-20); CALCIUM 9.2 mg/dL (8.4-10.2); CARBON DIOXIDE 28 mmol/L (22-30); CHLORIDE 98 mmol/L (98-107); GFR AFRICAN-AMERICAN > 60; GLUCOSE,RANDOM 157 mg/dL (75-110); POTASSIUM 4.1 MMOL/L (3.6-5.0); SODIUM 138 mmol/l (132-148)
[2017-03-11] MEDS: Pravastatin Sodium 40 MG TAB PO SCH (21:47)
--- NOTE | 2017-03-11 23:04 | CP.PCM.PN ---
Subjective - Date & Time of Evaluation Date of Evaluation: 03/11/17 Time of Evaluation: 10:00 - Subjective Subjective: Patient feels better today; less SOB and wheezing; notes decreased redness of LLE with improved ambulation Vital Signs Stable Lungs- decreased breath sounds b/l Heart- regular S1, S2, 1/6 mulu Abd.- +BS, soft, NT Ext.- fading erythema LLE from mid severino to foot; + distal pulses 1. Exacerbation of COPD 2. Cellulitis 3. Pre-diabetes 4. HTN reduced solumedrol to 60mg iv tid; plan to switch to prednisone in AM; will also discontinue clindamycin in AM and switch to augmentin 875mg bid for 7 more days Objective - Vital Signs/Intake and Output Vital Signs (last 24 hours): Temp Pulse Resp BP Pulse Ox 98.2 F 104 H 16 138/79 93 L 03/11/17 20:32 03/11/17 20:32 03/11/17 20:32 03/11/17 20:32 03/11/17 20:32 Intake and Output: 03/11/17 03/12/17 18:59 06:59 Intake Total 1400 Balance 1400 - Medications Medications: Current Medications Acetaminophen (Tylenol 325mg Tab) 650 mg PO Q6 PRN PRN Reason: Pain, Mild (1-3) Last Admin: 03/10/17 13:39 Dose: 650 mg Albuterol/Ipratropium (Duoneb 3 Mg/0.5 Mg (3 Ml) Ud) 3 ml INH RQ4 PRN PRN Reason: Shortness of Breath Albuterol/Ipratropium (Duoneb 3 Mg/0.5 Mg (3 Ml) Ud) 3 ml INH RQ6 ANNE Last Admin: 03/11/17 19:17 Dose: 3 ml Amlodipine Besylate (Norvasc) 5 mg PO DAILY [facility] Last Admin: 03/11/17 10:17 Dose: 5 mg Aripiprazole (Abilify) 10 mg PO DAILY [facility] Last Admin: 03/11/17 10:00 Dose: 10 mg Aspirin (Aspirin Chewable) 81 mg PO DAILY [facility] Last Admin: 03/11/17 10:00 Dose: 81 mg Docusate Sodium (Colace) 100 mg PO DAILY [facility] Last Admin: 03/11/17 10:00 Dose: 100 mg Enoxaparin Sodium (Lovenox) 40 mg SC DAILY ANNE PRN Reason: Protocol Last Admin: 03/11/17 10:16 Dose: 40 mg Famotidine (Pepcid) 20 mg IVP BID PRN PRN Reason: Indigestion / Heartburn Gabapentin (Neurontin) 200 mg PO HS@1999 [facility] Last Admin: 03/11/17 21:46 Dose: 200 mg HCTZ/Losartan Potassium (Hyzaar 12.5 Mg-50 Mg) 1 tab PO DAILY [facility] Last Admin: 03/11/17 10:16 Dose: 1 tab Clindamycin Phosphate (Cleocin In Normal Saline) 600 mg in 50 mls @ 50 mls/hr IVPB Q8 ANNE PRN Reason: Protocol Last Admin: 03/11/17 17:04 Dose: 50 mls/hr Lactulose (Enulose) 20 gm PO DAILY [facility] Last Admin: 03/11/17 10:15 Dose: Not Given Metformin HCl (Glucophage) 500 mg PO BID [facility] Last Admin: 03/11/17 17:02 Dose: 500 mg Methylprednisolone (Solu-Medrol) 60 mg IVP TID [facility] Last Admin: 03/11/17 17:02 Dose: 60 mg Nicotine (Nicoderm Cq) 1 patch TD DAILY [facility] Last Admin: 03/11/17 10:16 Dose: 1 patch Pramipexole Dihydrochloride (Mirapex) 1.5 mg PO BID@0900,1999 [facility] Last Admin: 03/11/17 21:46 Dose: 1.5 mg Pravastatin Sodium (Pravachol) 40 mg PO HS [facility] Last Admin: 03/11/17 21:47 Dose: 40 mg Fluticasone/Salmeterol (Advair Diskus 250/50) 1 puff IH Q12 [facility] Last Admin: 03/11/17 21:47 Dose: 1 puff Venlafaxine HCl (Effexor Xr) 75 mg PO DAILY [facility] Last Admin: 03/11/17 10:15 Dose: 75 mg Zolpidem Tartrate (Ambien) 5 mg PO HS PRN PRN Reason: Insomnia Last Admin: 03/11/17 21:47 Dose: 5 mg - Labs Labs: 03/10/17 04:15 03/11/17 10:50
[2017-03-12] MEDS: Albuterol-Ipratrop 3 mg / 0.5 (3 ml) UD INH SCH ×4 (01:01→19:09)
[2017-03-12] MEDS: Clindamycin 600mg/50ml NS 600 MG/50 ML BAG IVPB SCH ×3 (01:27→17:29)
[2017-03-12] MEDS: Fluticasone-Salmeterol 250-50mcg Diskus IH SCH (09:01)
[2017-03-12] MEDS: Venlafaxine 75 mg ER Cap PO SCH (09:02)
[2017-03-12] MEDS: HCTZ/Losartan 12.5/50 Tab PO SCH (09:02)
[2017-03-12] MEDS: Enoxaparin 40 mg Syringe SC SCH (09:03)
[2017-03-12 15:59] VITALS: BP 153/84; PULSE 104; RESP 20; TEMP 97.9; O2SAT 92
--- NOTE | 2017-03-13 08:47 | HP ---
DATE: CHIEF COMPLAINT: Increasing shortness of breath with persistent cough and hoarseness of voice as well as painful left lower extremity at mid-severino to foot. HISTORY OF PRESENT ILLNESS: This is a 56-year-old white male who complained of increasing shortness of breath with persistent cough and hoarseness for 2 weeks prior to admission. He also experienced increased swelling of his left lower extremity for 1 week prior to admission. He also noted increasing redness of his left lower extremity from the mid-severino to his foot with increasing pain on ambulation. He denied any chest pain or palpitations. PAST MEDICAL HISTORY: COPD, abnormal fasting glucose, hypertension, hypercholesterolemia, restless legs syndrome, bipolar disorder. ALLERGIES: NO KNOWN DRUG ALLERGIES. MEDICATIONS: Advair 250/50 one inhalation twice daily, Combivent Respimat one inhalation 4 times daily, Ventolin HFA 1 to 2 inhalations every 4 to 6 hours as needed, aspirin 81 mg daily, carvedilol 12.5 mg twice daily, Avapro 150 mg daily, amlodipine 10 mg daily, pramipexole dihydrochloride 1.5 mg twice daily, pravastatin 40 mg daily, metformin ER 500 mg daily, gabapentin 200 mg at bedtime. SOCIAL HISTORY: The patient has a history of smoking 1 to 2 packs of cigarettes daily for 35 years. He recently has reduced his smoking to approximately 5 cigarettes daily in the last 2 months. He has a history of alcohol abuse. FAMILY HISTORY: Father at the age of 65 due to lung cancer, he was a heavy smoker. Mother has a history of coronary artery disease, S/P coronary artery bypass graft. She has no history of smoking. The patient has 2 sisters who are healthy. The patient also has 6 brothers who are also healthy. REVIEW OF SYSTEMS: Unremarkable except as mentioned above. PHYSICAL EXAMINATION: GENERAL: This is a 56-year-old white male complaining of increasing shortness of breath on exertion with persistent cough productive of white sputum as well as hoarseness of voice. VITAL SIGNS: Blood pressure 150/84 mmHg, pulse rate 85 beats per minute, respirations 18 respirations per minute, pulse ox is 96% on 2 L nasal cannula. SKIN: Warm, dry. HEENT: Atraumatic, normocephalic. Anicteric sclerae. Pupils equal, round, reactive to light and accommodation. Erythema of oropharynx. NECK: Supple. No jugular venous distention. No lymphadenopathy. Full range of motion. LUNGS: Decreased breath sounds bilaterally with inspiratory and expiratory wheeze. HEART: Regular S1, S2, I/ systolic ejection murmur. ABDOMEN: Distended, positive bowel sounds, soft, nontender. EXTREMITIES: No cyanosis, clubbing or edema. 1 to 2+ edema of left lower extremity below the knee with erythema from mid-severino to foot. LABORATORY DATA: WBC 9.9, hemoglobin 14.4, hematocrit 43.7, platelets 285. Sodium 141, potassium 3.9, chloride 103, CO2 of 27, BUN 8, creatinine 0.8, blood sugar 109. ASSESSMENT: 1. Exacerbation of chronic obstructive pulmonary disease. 2. Cellulitis. 3. Hypertension. 4. Abnormal fasting glucose. 5. Hypercholesterolemia. 6. Restless legs syndrome. 7. Bipolar disorder. PLAN: The patient has been started on clindamycin 600 mg IV q. 8 hours. IV hydration with half normal saline plus 20 mEq of KCl 100 mL per hour has also been ordered. Psychiatric consultation has also been ordered for management of bipolar disorder. Venous Doppler of the lower extremities has been ordered to rule out DVT of the left lower extremity. DuoNeb treatments every 6 hours with pre and post peak flow has been ordered. Solu-Medrol 125 mg IV q. 6 hours has been ordered and will be tapered as needed. The patient will continue on 2 L O2 nasal cannula to keep O2 saturation above 90. CBC and comp metabolic panel has been ordered for the a.m. Anabell Monreal MD
== END 2017-03-12 19:20 | DRG 88 ==
LOC: H.ER 11:06 → INTOOBSV 15:11 → UNDOADMIN 15:11 → H.ERHOLD 15:11 → H.TEL 17:28 → OBSVTOIN 03-10 13:27
PROVIDERS: ADMIT Family Medicine Adult Medicine; ATTEND Family Medicine Adult Medicine
PROC: 3E0234Z Introduction of Serum, Toxoid and Vaccine into Muscle, Percutaneous Approach (ICD-10-PCS; principal; 2017-03-10)
DX: J44.1 Chronic obstructive pulmonary disease with (acute) exacerbation (principal); I11.0 Hypertensive heart disease with heart failure; I50.9 Heart failure, unspecified; L03.116 Cellulitis of left lower limb; Z23 Encounter for immunization; Z91.19 Patient's noncompliance with other medical treatment and regimen; Z91.14 Patient's other noncompliance with medication regimen; F31.9 Bipolar disorder, unspecified; G25.81 Restless legs syndrome; E78.00 Pure hypercholesterolemia, unspecified; F17.210 Nicotine dependence, cigarettes, uncomplicated; G47.30 Sleep apnea, unspecified; J45.909 Unspecified asthma, uncomplicated; F41.9 Anxiety disorder, unspecified; R73.09 Other abnormal glucose

== ENCOUNTER 2017-03-12 10:57 | Inpatient (IN) | payer MEDICAID ==
[2017-03-12 20:15] VITALS: BMI 38.0
[2017-03-12] MEDS ORDERED: Magnesium Hydroxide Susp 30 ml UD PO PRN (20:24)
[2017-03-12] MEDS ORDERED: DiphenhydrAMINE 50 mg/ml Inj IM PRN (20:24)
[2017-03-12] MEDS ORDERED: Alum-Mag Hydrox-Simethicone Susp (30 mL) PO PRN (20:24)
--- NOTE | 2017-03-12 20:47 | PCM.BM ---
<Eugene Del Rosario - Last Filed: 03/12/17 20:46> Treatment Plan Problems - Problems identified on initial assessmt Auditory Hallucinations Date Initiated: 03/12/17 Time Initiated: 20:46 Assessment reference: NA Status: Active Medication nonadherence Date Initiated: 03/12/17 Time Initiated: 20:46 Assessment reference: NA Status: Active Treatment assets and liabiliti Patient Assests: cooperative, ADL independent, negotiates basic needs, cognitively intact Patient Liabilities: live alone, financial problems, medical problems - Milieu Protocol Maintain good personal hygiene: daily Encourage regular showers, daily Remind patient to perform daily oral care Conduct patient checks and document Observation sheet: Q15 minutes Maintain personal safety: every shift Educate patient to report safety concerns to staff, every shift Monitor environment for contraband/sharps Medication safety: Monitor for expected outcome, potential side effects: every shift, Assess barriers to learning: every shift, Assess readiness for medication education: every shift <Gauri Jordan - Last Filed: 03/16/17 17:03> Treatment assets and liabiliti Patient Assests: adapts well, cooperative, insightful, resourceful, self-reliant , ADL independent, negotiates basic needs, cognitively intact, good interpersonal skills Patient Liabilities: live alone (couch surfing- homelessness), poor support system, medical problems Family Contact Family involvement: Famliy/SO not involved Family contact: Patient declines to allow family contact at present - Goals for Treatment Patient goals for treatment: Patient to continue stabilization on 3NP through medication management and group/supportive therapy. Patient to be encouraged to attend groups regularly to promote self-awareness, sobriety, and improve insight , coping skills and self-esteem. Patient to be provided with referral for appropriate level of aftercare to reduce risk of future hospitalizations and ensure safety in the community. Discharge/Continuing Care - Education Needs Education Needs: Patient Medication, Patient Coping Skills, Patient Community resources, Patient Aftercare Safety Plan - Discharge Discharge Criteria: Tolerates medication w/o severe side effects, Free of Suicidal thoughts, Normal sleep pattern, Ability to care for self, No longer exhibiting s/s of withdrawal, Reduction of target symptoms Discharge to:: Other - Treatment Team Participation Discussed with Family/SO: Yes Was Patient/Family/SO present at Treatment Team Meeting: Yes <Badr,Amel A - Last Filed: 03/17/17 13:48> - Diagnosis (1) Bipolar 1 disorder, depressed Status: Acute Interventions: 03/17/17 13:48 psychotherapy, pharmacotherapy
[2017-03-12] MEDS: Pravastatin Sodium 40 MG TAB PO SCH (21:38)
[2017-03-12] MEDS: Fluticasone-Salmeterol 250-50mcg Diskus IH SCH (21:39)
[2017-03-13] MEDS: Fluticasone-Salmeterol 250-50mcg Diskus IH SCH ×2 (08:55→21:10)
[2017-03-13] MEDS: Venlafaxine 75 mg ER Cap PO SCH (08:56)
[2017-03-13] MEDS: HCTZ/Losartan 12.5/50 Tab PO SCH (08:57)
[2017-03-13 09:43] LABS: T4 9.71 ug/dl (5.5-11.0)
[2017-03-13 09:57] LABS: THYROID STIMULATING HORMONE 0.68 mIU/ML (0.46-4.68)
[2017-03-13] MEDS: Albuterol-Ipratrop 3 mg / 0.5 (3 ml) UD INH PRN (13:34)
--- NOTE | 2017-03-13 17:37 | PCM.PSYCH ---
Initial Psychiatric Evaluation - Initial Psychiatric Evaluation Type of Admission: Voluntary Legal Status: Capacity Chief Complaint (in patient's own words): i am depressed because I stopped my medicine Patient's Reaction to Hospitalization: pt requested help History of Present Illness and Precipitating Events: 6 yo male w/ history of schizoaffective disorder and multiple previous psychiatric admissions, admitted to medicine due to SOB, wheezing and non- productive cough x 3 days, also w/ LLE swelling x 1 week. Patient reports that he has been non-compliant w/ any psychiatric treatment for a year. He reports that he feels that he is decompensating. He reports mood lability, irritability , intermittent feelings of depression and anxiety as well as intermittent auditory hallucinations,and poor sleep, he denies current ideation to harm himself or others. Patient would like to restart Abilify and Effexor Current Medications: Active Medications Generic Name Dose Route Start Last Admin Trade Name Freq PRN Reason Stop Dose Admin Acetaminophen 650 mg 03/12/17 20:24 Tylenol 325mg Tab PO Q4 PRN pain level 4-7 Al Hydrox/Mg Hydrox/Simethicone 30 ml 03/12/17 20:24 Maalox Plus 30 Ml PO Q4 PRN Dyspepsia Albuterol/Ipratropium 3 ml 03/12/17 20:26 03/13/17 13:34 Duoneb 3 Mg/0.5 Mg (3 Ml) Ud INH 3 ml RQ6 PRN Administration Shortness of Breath Amlodipine Besylate 5 mg 03/13/17 09:00 03/13/17 08:57 Norvasc PO 5 mg DAILY ANNE Administration Aripiprazole 10 mg 03/13/17 09:00 03/13/17 08:55 Abilify PO 10 mg DAILY ANNE Administration Aspirin 81 mg 03/13/17 09:00 03/13/17 08:56 Aspirin Chewable PO 81 mg DAILY ANNE Administration Diphenhydramine HCl 50 mg 03/12/17 20:24 Benadryl IM Q6 PRN Extrapyramidal S/S Unable PO Diphenhydramine HCl 50 mg 03/12/17 20:24 Benadryl PO Q6 PRN Extrapyramidal Symptoms Diphenhydramine HCl 50 mg 03/12/17 20:26 03/12/17 21:43 Benadryl PO 50 mg HS PRN Administration Sleep Docusate Sodium 100 mg 03/13/17 09:00 03/13/17 08:54 Colace PO 100 mg DAILY ANNE Administration Gabapentin 100 mg 03/13/17 13:00 03/13/17 13:32 Neurontin PO 100 mg TID ANNE Administration HCTZ/Losartan Potassium 1 tab 03/13/17 09:00 03/13/17 08:57 Hyzaar 12.5 Mg-50 Mg PO 1 tab DAILY ANNE Administration Haloperidol 5 mg 03/12/17 20:24 Haldol PO Q4 PRN Agitation Haloperidol Lactate 5 mg 03/12/17 20:24 Haldol IM Q4 PRN Agitation, Unable to Take PO Lorazepam 2 mg 03/12/17 20:24 Ativan IM Q4 PRN Anxiety/Agitation,Unable PO Lorazepam 2 mg 03/12/17 20:24 Ativan PO Q4 PRN Anxiety/Agitation Magnesium Hydroxide 30 ml 03/12/17 20:24 Milk Of Magnesia PO HS PRN Constipation Metformin HCl 500 mg 03/13/17 09:00 03/13/17 08:56 Glucophage PO 500 mg BID ANNE Administration Nicotine 1 patch 03/13/17 09:00 03/13/17 08:55 Nicoderm Cq TD 1 patch DAILY ANNE Administration Pramipexole Dihydrochloride 1.5 mg 03/13/17 09:00 03/13/17 08:57 Mirapex PO 1.5 mg BID ANNE Administration Pravastatin Sodium 40 mg 03/12/17 22:00 03/12/17 21:38 Pravachol PO 40 mg HS ANNE Administration Fluticasone/Salmeterol 1 puff 03/12/17 21:00 03/13/17 08:55 Advair Diskus 250/50 IH 1 puff Q12 ANNE Administration Venlafaxine HCl 75 mg 03/13/17 09:00 03/13/17 08:56 Effexor Xr PO 75 mg DAILY ANNE Administration Past Psychiatric History - Past Psychiatric History Explanation of prior treatment: History of multiple psychiatric admissions for schizoaffective disorder, last on 01/19. He has not followed up with psychiatric care since that time. He was discharged on Abilify 20 mg PO Daily, Effexor XR 150 mg PO Daily, Neurontin 400 mg PO TID, Doxepin 10 mg PO HS, Trileptal 300 mg PO BID History of Abuse: denied History of ETOH/Drug Use: history of alcohol use, reported currently abstinent History of Family Illness: denied Pertinent Medical Hx (Current Medical&Sleep Prob, Allergies): Allergies Allergy/AdvReac Type Severity Reaction Status Date / Time Exira And Derivatives Allergy ANGIOEDEMA Verified 11/01/16 18:54 Albuterol 0.042% [Albuterol 0.042% Inhal Radha (1.25mg/3ml) UD] 3 ml IH Q8H PRN Albuterol HFA [Ventolin HFA 90 mcg/actuation (8 g)] 2 puff IH Q4H PRN 03/09/17 Albuterol/Ipratropium [Combivent Respimat] 1 puff IH Q6H PRN 03/09/17 Fluticasone Nasal [Flonase] 1 spray ESTUARDO BID PRN 03/09/17 Fluticasone/Salmeterol [Airduo Respiclick 232-14 Mcg] 1 puff IH Q12H 03/09/17 Gabapentin [Neurontin] 100 mg PO BID 03/09/17 Gabapentin [Neurontin] 200 mg PO HS 03/09/17 Irbesartan 150 mg PO DAILY 03/09/17 Metformin ER [Glucophage XR] 500 mg PO DAILY 03/09/17 Pramipexole Di-HCl [Mirapex] 1.5 mg PO Q12H 03/09/17 amLODIPine [Norvasc] 5 mg PO DAILY 03/09/17 ARIPiprazole [Abilify] 10 mg PO DAILY tab 03/12/17 Amoxicillin/Clavulanate [Augmentin 875 MG-125 MG] 1 tab PO Q12 #10 tab 03/12/17 Aspirin [Aspirin Chewable] 81 mg PO DAILY chew 03/12/17 Enoxaparin [Lovenox] 40 mg SC DAILY syr 03/12/17 HCTZ/Losartan Potassium [Hyzaar 12.5 mg-50 mg] 1 tab PO DAILY tab 03/12/17 Lactulose [Enulose] 20 gm PO DAILY udc 03/12/17 Pravastatin Sodium [Pravachol] 40 mg PO HS tab 03/12/17 Venlafaxine [Effexor XR] 75 mg PO DAILY cer 03/12/17 Zolpidem [Ambien] 5 mg PO HS PRN tab 03/12/17 predniSONE [predniSONE Tab] 60 mg PO DAILY #10 tab 03/12/17 Mental Status Examination - Personal Presentation Personal Presentation: Looks stated age, Looks older than stated age - Affect Affect: Constricted, Depressed - Motor Activity Motor Activity: Calm - Reliability in Providing Information Reliability in Providing Information: Fair - Speech Speech: Relevant - Mood Mood: Depressed, Anxious - Formal Thought Process Formal Thought Process: Circumstantial - Hallucinations/Delusions Additional comments: reported non command auditory hallucinations - Obsessions/Compulsions Obsessions: No Compulsions: No - Cognitive Functions Orientation: Person, Place Sensorium: Alert Attention/Concentration: Attentive Judgement: Imparied, as evidence by: Poor judgement, Imparied, as evidence by: Lack of insight into illness Memory: Recent intact, as evidence by: Ability to recall events of the day - Risk Risk: Suicidal, Diminished functioning - Strength & Assets Inventory Strength & Assets Inventory: Life experience - Limitations Additional comments: poor compliance DSM 5 DX - DSM 5 DSM 5 Diagnosis: schizoaffective disorder depressed - Recommended/Plan of Treatment Projected ELOS: 7 days Prognosis: guarded Discharge Plan and Discharge Criteria: pt mood stable
[2017-03-13] MEDS: Pravastatin Sodium 40 MG TAB PO SCH (21:09)
[2017-03-14] MEDS: Fluticasone-Salmeterol 250-50mcg Diskus IH SCH ×2 (09:18→21:15)
[2017-03-14] MEDS: HCTZ/Losartan 12.5/50 Tab PO SCH (09:20)
[2017-03-14] MEDS: Venlafaxine 75 mg ER Cap PO SCH (09:20)
--- NOTE | 2017-03-14 10:59 | PCM.PYCHPN ---
Psychiatric Progress Note - Psychiatric Progress Note Patient seen today, length of contact: pt seen and evaluated. Patient Chief Complaint: pt remains depressed and anxious and still has been hallucnating and still has poor insight about his depression. DSM 5 Symptoms Update: schizoaffective disorder,depressed type Medication Change: No Medical Record Reviewed: Yes Mental Status Examination - Cognitive Function Orientation: Person, Place Memory: Intact Attention: Poor Concentration: Poor - Mood Mood: Depressed, Anxious - Affect Affect: Constricted, Depressed - Formal Thought Process Formal Thought Process: Hallucinations, Circumstantial - Suicidal Ideation Suicidal Ideation: No - Homicidal Ideation Homicidal Ideation: No Goal/Treatment Plan - Goal/Treatment Plan Progress Toward Problem(s) and Goals/Treatment Plan: will continue to stabilize the pt with abilify and effexor and engage pt in therapy and groups. Disposition planning as per dr monge.
[2017-03-14] MEDS: Albuterol-Ipratrop 3 mg / 0.5 (3 ml) UD INH PRN (14:48)
[2017-03-14] MEDS: Pravastatin Sodium 40 MG TAB PO SCH (21:16)
[2017-03-15] MEDS: Venlafaxine 75 mg ER Cap PO SCH (09:01)
[2017-03-15] MEDS: HCTZ/Losartan 12.5/50 Tab PO SCH (09:02)
[2017-03-15] MEDS: Fluticasone-Salmeterol 250-50mcg Diskus IH SCH ×2 (09:02→21:02)
--- NOTE | 2017-03-15 12:54 | PCM.PYCHPN ---
Psychiatric Progress Note - Psychiatric Progress Note Patient seen today, length of contact: pt seen and evaluated. Patient Chief Complaint: pt remains depressed and anxious and still has been hallucnating and still has poor insight about his depression. Medication Change: No Medical Record Reviewed: Yes Mental Status Examination - Cognitive Function Orientation: Person, Place Memory: Intact Attention: Poor Concentration: Poor - Mood Mood: Depressed, Anxious - Affect Affect: Constricted, Depressed - Formal Thought Process Formal Thought Process: Hallucinations, Circumstantial - Suicidal Ideation Suicidal Ideation: No - Homicidal Ideation Homicidal Ideation: No Goal/Treatment Plan - Goal/Treatment Plan Progress Toward Problem(s) and Goals/Treatment Plan: will continue to stabilize the pt with abilify and effexor and engage pt in therapy and groups. Disposition planning as per dr monge.
[2017-03-15] MEDS: Pravastatin Sodium 40 MG TAB PO SCH (21:02)
[2017-03-16] MEDS: Venlafaxine 75 mg ER Cap PO SCH (09:13)
[2017-03-16] MEDS: HCTZ/Losartan 12.5/50 Tab PO SCH (09:13)
[2017-03-16] MEDS: Fluticasone-Salmeterol 250-50mcg Diskus IH SCH ×2 (09:16→21:04)
[2017-03-16 11:28] LABS: BASO % 0.2 % (0.0-2.0); EOS # 0.3 K/uL (0.0-0.7); EOS % 1.8 % (0.0-4.0); HEMATOCRIT 50.3 % (35.0-51.0); LYMPH # 2.3 K/uL (1.0-4.3); LYMPH % 14.7 % (20.0-40.0); MEAN CELL VOLUME 80.3 fl (80.0-94.0); MEAN CORPUSCULAR HEMOGLOBIN 26.6 pg (27.0-31.0); MEAN CORPUSCULAR HGB CONC 33.1 g/dL (33.0-37.0); MEAN PLATELET VOLUME 7.9 fl (7.2-11.7); MONO # 1.4 K/uL (0.0-0.8); NEUT # 11.7 K/uL (1.8-7.0); NEUT % 74.3 % (50.0-75.0); WHITE BLOOD COUNT 15.8 K/uL (4.8-10.8)
[2017-03-16 11:46] LABS: ALB/GLOB RATIO 1.3 (1.0-2.1); ALKALINE PHOSPHATASE 89 U/L (38-126); ALT/SGPT 46 U/L (21-72); AST/SGOT 25 U/L (17-59); BILIRUBIN,TOTAL 0.9 mg/dl (0.2-1.3); BLOOD UREA NITROGEN 15 mg/dl (9-20); CALCIUM 9.1 mg/dL (8.4-10.2); CARBON DIOXIDE 31 mmol/L (22-30); CHLORIDE 97 mmol/L (98-107); GFR AFRICAN-AMERICAN > 60; GLUCOSE,RANDOM 91 mg/dL (75-110); POTASSIUM 3.7 MMOL/L (3.6-5.0); SODIUM 137 mmol/l (132-148); TOTAL PROTEIN 7.6 G/DL (6.3-8.2)
--- NOTE | 2017-03-16 13:31 | PCM.PYCHPN ---
Psychiatric Progress Note - Psychiatric Progress Note Patient seen today, length of contact: pt seen and evaluated.discussed with team Patient Chief Complaint: I am still depressed Problems Identified/Issues Discussed: pt on evaluation reported partial clearing off of the auditory hallucinations, continues to hear vague non command voices. continues to fel down, denied any current S/H I denied side effects of medications, attending groups DSM 5 Symptoms Update: schizoaffective disorder alcohol use disorder Medication Change: Yes (increase effexor) Medical Record Reviewed: Yes Mental Status Examination - Cognitive Function Orientation: Person, Place Memory: Intact Attention: WNL Concentration: WNL Association: WNL Fund of Knowledge: Poor - Mood Mood: Depressed, Anxious - Affect Affect: Constricted, Depressed - Formal Thought Process Formal Thought Process: Hallucinations, Circumstantial Psychotic Thoughts and Behaviors: pt reported non command auditory hallucinations - Suicidal Ideation Suicidal Ideation: No - Homicidal Ideation Homicidal Ideation: No Goal/Treatment Plan - Goal/Treatment Plan Need for Continued Stay: Severe depression anxiety Progress Toward Problem(s) and Goals/Treatment Plan: increase effexor to 150mg daily continue abilify 10mg with plan to uptitrate neurontin and trazodone group and supportive theraapy Estimated Date of D/C: 03/20/17
[2017-03-16] MEDS: Albuterol-Ipratrop 3 mg / 0.5 (3 ml) UD INH PRN (16:46)
[2017-03-16] MEDS: Pravastatin Sodium 40 MG TAB PO SCH (21:05)
[2017-03-16] MEDS: Amoxicillin-Clav 875-125 mg Tab PO SCH (21:05)
[2017-03-17] MEDS: HCTZ/Losartan 12.5/50 Tab PO SCH (08:44)
[2017-03-17] MEDS: Amoxicillin-Clav 875-125 mg Tab PO SCH ×2 (08:46→21:25)
[2017-03-17] MEDS: Venlafaxine 150 mg ER Cap PO SCH (08:47)
[2017-03-17] MEDS: Fluticasone-Salmeterol 250-50mcg Diskus IH SCH ×2 (09:01→21:23)
--- NOTE | 2017-03-17 13:55 | PCM.PYCHPN ---
Psychiatric Progress Note - Psychiatric Progress Note Patient seen today, length of contact: pt seen and evaluated.discussed with team Patient Chief Complaint: I am feeling better today Problems Identified/Issues Discussed: pt on evaluation reported , better mood, affect appears brighter, partial clearing off of the auditory hallucinations, continues to hear vague non command voices. denied any current S/H I denied side effects of medications, attending groups Medical Problems: hypertension DSM 5 Symptoms Update: alcohol use disorder alcohol induced mood disorder depression hx of bipolar disorder depressed Medication Change: Yes (increase effexor) Medical Record Reviewed: Yes Mental Status Examination - Cognitive Function Orientation: Person, Place Memory: Intact Attention: WNL Concentration: WNL Association: WNL Fund of Knowledge: Poor - Mood Mood: Depressed, Anxious - Affect Affect: Constricted, Depressed - Formal Thought Process Formal Thought Process: Hallucinations, Circumstantial Psychotic Thoughts and Behaviors: pt reported non command auditory hallucinations, with clearing off - Suicidal Ideation Suicidal Ideation: No - Homicidal Ideation Homicidal Ideation: No Goal/Treatment Plan - Goal/Treatment Plan Need for Continued Stay: Severe depression anxiety Progress Toward Problem(s) and Goals/Treatment Plan: continue effexor 150mg daily continue abilify 10mg with plan to uptitrate neurontin and trazodone group and supportive theraapy Estimated Date of D/C: 03/20/17
[2017-03-17] MEDS: Pravastatin Sodium 40 MG TAB PO SCH (21:25)
[2017-03-18] MEDS: Fluticasone-Salmeterol 250-50mcg Diskus IH SCH ×2 (08:44→21:02)
[2017-03-18] MEDS: Amoxicillin-Clav 875-125 mg Tab PO SCH ×2 (08:44→21:01)
[2017-03-18] MEDS: HCTZ/Losartan 12.5/50 Tab PO SCH (08:45)
[2017-03-18] MEDS: Venlafaxine 150 mg ER Cap PO SCH (08:46)
--- NOTE | 2017-03-18 09:48 | CON ---
CHIEF COMPLAINT: Increasing cough, productive of yellow-green sputum. HISTORY OF PRESENT ILLNESS: This is a 56-year-old male complaining of increasing cough productive of green-yellow sputum for a few days. He denies any shortness breath or wheezing today. He was recently discharged from the medical floor at [address] [place] [address] following treatment for exacerbation of COPD as well as cellulitis of the left lower extremity. He had received clindamycin 600 mg IV q. 8 hours for 3 days. Today, it is noted that the redness and swelling of his left lower extremity below the knee has resolved. He denies any pain of his lower extremities on ambulation. Venous Doppler studies of his lower extremities were negative for DVT. The patient denies any chest pain or palpitations. PAST MEDICAL HISTORY: Exacerbation of COPD, cellulitis of the left lower extremity, hypertension, hypercholesterolemia, restless leg syndrome, schizoaffective disorder, abnormal fasting glucose. ALLERGIES: NO KNOWN DRUG ALLERGIES. MEDICATIONS: Advair 250/50 one inhalation twice daily, Combivent one inhalation four times daily, amlodipine 5 mg daily, Avapro 150 mg daily, aspirin 81 mg daily, pramipexole 1.5 mg twice daily, pravastatin 40 mg at bedtime, metformin ER 500 mg daily, albuterol sulfate 1.25 mg/3mL via nebulizer three times a day as needed, carvedilol 12.5 mg twice daily. SOCIAL HISTORY: The patient has a history of smoking 1 to 2 packs of cigarettes daily for approximately 30 years. He has recently reduced his smoking to less than half a pack daily. He has a history of alcohol abuse. FAMILY HISTORY: His father at the age of 50 due to lung cancer; he was a heavy smoker. Mother has a history of coronary artery disease status post coronary artery bypass graft. She has no history of smoking. The patient has three sisters who are healthy and six half brothers who are also healthy. REVIEW OF SYSTEMS: Unremarkable except as mentioned above. PHYSICAL EXAMINATION: GENERAL: This is a 56-year-old white male who is cooperative and pleasant, complaining of cough productive of yellow-green sputum. VITAL SIGNS: Blood pressure 136/84, pulse rate 84 beats per minute, respirations 16 respirations per minute, afebrile. SKIN: Warm, dry. HEENT: Atraumatic, normocephalic. Anicteric sclerae. Pupils equal, round, reactive to light and accommodation. Erythema, oropharynx. NECK: Supple. No jugular venous distention. No lymphadenopathy. LUNGS: Decreased breath sounds bilaterally. HEART: Regular S1, S2, 1/6 systolic ejection murmur. ABDOMEN: Distended, positive bowel sounds, soft, nontender. EXTREMITIES: No cyanosis, clubbing, or edema. IMPRESSION: 1. Upper respiratory tract infection. 2. Chronic obstructive pulmonary disease. 3. Abnormal fasting glucose. 4. Hypertension. 5. Hypercholesterolemia. 6. Restless leg syndrome. 7. Schizoaffective disorder. PLAN: The patient has been started on Augmentin 875 mg twice daily for seven days. DuoNeb nebulizer treatment every 6 hours has been ordered as needed. The patient will continue Advair 250/50 one inhalation twice daily. CBC and comprehensive metabolic panel have been ordered as well as urinalysis, culture and sensitivity. Anabell Monreal MD
--- NOTE | 2017-03-18 13:31 | PCM.PYCHPN ---
Psychiatric Progress Note - Psychiatric Progress Note Patient seen today, length of contact: pt seen and evaluated.discussed with team Patient Chief Complaint: I am feeling a little anxious today Problems Identified/Issues Discussed: pt on evaluation reported , feeling anxious, presenting with restlessness and anxious affect, encouraged pt to attend groups and discussed starting neurontin for anxiety, pt agreed denied any current suicidal or homicidal ideations and reported clearing off of the auditory hallucinations Medical Problems: hypertension, obesity DSM 5 Symptoms Update: schizoaffective disorder bipolar Medication Change: Yes (start neurontin) Medical Record Reviewed: Yes Mental Status Examination - Cognitive Function Orientation: Person, Place Memory: Intact Attention: WNL Concentration: WNL Association: WNL Fund of Knowledge: Poor - Mood Mood: Depressed, Anxious - Affect Affect: Constricted, Depressed - Formal Thought Process Formal Thought Process: Hallucinations, Circumstantial Psychotic Thoughts and Behaviors: pt reported clearing off of the auditory hallucinations - Suicidal Ideation Suicidal Ideation: No - Homicidal Ideation Homicidal Ideation: No Goal/Treatment Plan - Goal/Treatment Plan Need for Continued Stay: Severe depression anxiety Progress Toward Problem(s) and Goals/Treatment Plan: continue effexor 150mg daily continue abilify 10mg with plan to uptitrate start neurontin 100 mg neurontin and trazodone group and supportive theraapy Estimated Date of D/C: 03/20/17
[2017-03-18] MEDS: Pravastatin Sodium 40 MG TAB PO SCH (21:01)
[2017-03-19] MEDS: Amoxicillin-Clav 875-125 mg Tab PO SCH ×2 (09:29→21:06)
[2017-03-19] MEDS: Venlafaxine 150 mg ER Cap PO SCH (09:30)
[2017-03-19] MEDS: HCTZ/Losartan 12.5/50 Tab PO SCH (09:30)
[2017-03-19] MEDS: Fluticasone-Salmeterol 250-50mcg Diskus IH SCH ×2 (09:34→21:06)
--- NOTE | 2017-03-19 11:38 | PCM.PYCHPN ---
Psychiatric Progress Note - Psychiatric Progress Note Patient seen today, length of contact: pt seen and evaluated.discussed with team Patient Chief Complaint: I am feeling a little anxious today Problems Identified/Issues Discussed: pt on evaluation reported , feeling anxious, , worried , indicated early insomnia, mood reported faair, constricted affect, attending groups, no reported side effects of medications denied any current suicidal or homicidal ideations denied perceptual disturbances Medical Problems: hypertension, obesity DSM 5 Symptoms Update: schizoaffective disorder Medication Change: Yes (increase neurontin) Medical Record Reviewed: Yes Mental Status Examination - Cognitive Function Orientation: Person, Place Memory: Intact Attention: WNL Concentration: WNL Association: WN Fund of Knowledge: Poor - Mood Mood: Anxious, Neutral - Affect Affect: Constricted, Depressed - Speech Speech: Soft - Formal Thought Process Formal Thought Process: Circumstantial Psychotic Thoughts and Behaviors: pt reported clearing off of the auditory hallucinations - Suicidal Ideation Suicidal Ideation: No - Homicidal Ideation Homicidal Ideation: No Goal/Treatment Plan - Goal/Treatment Plan Need for Continued Stay: Severe depression anxiety Progress Toward Problem(s) and Goals/Treatment Plan: continue effexor 150mg daily continue abilify 10mg with plan to uptitrate increase neurontin 100 mg po tid prn for anxiety trazodone for insomnia group and supportive theraapy Estimated Date of D/C: 03/20/17
[2017-03-19] MEDS: Pravastatin Sodium 40 MG TAB PO SCH (21:06)
[2017-03-20] MEDS: Amoxicillin-Clav 875-125 mg Tab PO SCH (09:20)
[2017-03-20] MEDS: HCTZ/Losartan 12.5/50 Tab PO SCH (09:20)
[2017-03-20 09:21] VITALS: BP 135/78; PULSE 90; RESP 20; TEMP 97.7
[2017-03-20] MEDS: Venlafaxine 150 mg ER Cap PO SCH (09:21)
[2017-03-20] MEDS: Fluticasone-Salmeterol 250-50mcg Diskus IH SCH (10:06)
--- NOTE | 2017-03-20 11:23 | PCM.PYCHDC ---
Mental Status Examination - Mental Status Examination Orientation: Person, Place, Situation Memory: Intact Mood: Neutral Affect: Broad Speech: Appropriate Attention: WNL Concentration: WNL Association: WNL Fund of Knowledge: Poor Formal Thought Process: No Impairment Description of patient's judgement and insight: partial insight , and fair judgement Psychotic Thoughts and Behaviors: pt at current mental status denied any perceptual disturbances, non elicited Suicidal Ideation: No Current Homicidal Ideation?: No Discharge Summary - Discharge Note Reason for Hospitalization: 56 yo male w/ history of schizoaffective disorder and multiple previous psychiatric admissions, admitted to medicine due to SOB, wheezing and non- productive cough x 3 days, also w/ LLE swelling x 1 week. Patient reports that he has been non-compliant w/ any psychiatric treatment for a year. He reports that he feels that he is decompensating. He reports mood lability, irritability , intermittent feelings of depression and anxiety as well as intermittent auditory hallucinations,and poor sleep, he denies current ideation to harm himself or others. Patient would like to restart Abilify and Effexor Psychiatric History (includes Medical, Family, Personal Hx): mutiple inpatient hospitalizations partial compliance with treatmet Consultations:: List each consultation separately and include: 1. Reason for request. 2. Findings. 3. Follow-up Consultations: family practice for cellulitis and hypertension Summary of Hospital Course include:: 1. Description of specific treatment plan utilized for patients during their course of treatmen. 2. Summarize the time- course for resolution of acute symptoms and/or regressed behaviors. 3. Describe issues identified and worked on during hospitalization. 4. Describe medication utilized. 5. Describe medical problems identified and treated. 6. Reassessment of suicide risk Summary of Hospital Course: pt on admission was restarted on abilify for psychosis and effexor for depression, neurontin for anxiety and trazodone for insomnia Group and supportive therapy were provided, pt denied any side effects of medications, attended groups, gradually presented with brighter mood and affect on discharge pt denied any perceptual disturbances, denied s/h i , mental status was stable pt was scheduled to follow up at [facility] [employer] [facility] - Diagnosis (1) Bipolar 1 disorder, depressed Current Visit: No Status: Acute - Final Diagnosis (DSM 5) Condition upon Discharge: GOOD DSM 5: schizoaffective disorderr depressed alcohol use disorder in remission Disposition: HOME/ ROUTINE Follow-up Treatment Plan: continue effexor 150mg daily continue abilify 10mg with plan to uptitrate increase neurontin 100 mg po tid prn for anxiety trazodone for insomnia group and supportive theraapy Prescriptions/Medication Reconciliation: ARIPiprazole [Abilify] 15 mg PO DAILY 30 Days #90 tab Gabapentin [Neurontin] 100 mg PO TID PRN 30 Days #90 cap PRN Reason: Anxiety traZODone [Desyrel] 50 mg PO HS 30 Days #30 tab Venlafaxine [Effexor XR] 150 mg PO DAILY 30 Days #30 cer - Antipsychotic Medications Pt discharged on 2 or more routine antipsychotic medications: No
== END 2017-03-20 12:02 | disposition home or self-care (01) | DRG 430 ==
LOC: H.PSYCH 20:14
PROVIDERS: ADMIT Psychiatry & Neurology Psychiatry; ATTEND Psychiatry & Neurology Psychiatry
PROC: GZHZZZZ Group Psychotherapy (ICD-10-PCS; principal; 2017-03-12)
PROC: GZ58ZZZ Individual Psychotherapy, Cognitive-Behavioral (ICD-10-PCS; 2017-03-12)
PROC: HZ52ZZZ Individual Psychotherapy for Substance Abuse Treatment, Cognitive-Behavioral (ICD-10-PCS; 2017-03-12)
DX: F25.1 Schizoaffective disorder, depressive type (principal); F10.14 Alcohol abuse with alcohol-induced mood disorder; J44.9 Chronic obstructive pulmonary disease, unspecified; Z91.19 Patient's noncompliance with other medical treatment and regimen; E66.9 Obesity, unspecified; F31.9 Bipolar disorder, unspecified; F41.9 Anxiety disorder, unspecified; J06.9 Acute upper respiratory infection, unspecified; G25.81 Restless legs syndrome; G47.00 Insomnia, unspecified; I10 Essential (primary) hypertension; E78.00 Pure hypercholesterolemia, unspecified; Z68.38 Body mass index [BMI] 38.0-38.9, adult; F17.210 Nicotine dependence, cigarettes, uncomplicated

== ENCOUNTER 2017-04-24 22:41 | Emergency (ER) | payer MEDICAID ==
[2017-04-24 23:01] VITALS: BP 159/94; RESP 18; TEMP 96.8
[2017-04-25] MEDS ORDERED: Albuterol-Ipratrop 3 mg / 0.5 (3 ml) UD INH STA ×2 (00:14→02:05)
[2017-04-25 00:25] VITALS: O2SAT 97
[2017-04-25] MEDS ORDERED: Albuterol-Ipratrop 3 mg / 0.5 (3 ml) UD ONE ×3 (00:49→02:43)
--- NOTE | 2017-04-25 01:04 | ED PDOC ---
HPI: SOB/CHF/COPD Time Seen by Provider: 04/24/17 23:59 Chief Complaint (Nursing): Shortness Of Breath Chief Complaint (Provider): bilaterally History Per: Patient History/Exam Limitations: no limitations Onset/Duration Of Symptoms: Days (x2-3) Current Symptoms Are (Timing): Still Present Additional Complaint(s): 56 year old male with previous medical history of COPD, hypertension and asthma , who presents to the emergency department with a complaint of worsening wheezing associated with shortness of breath ongoing for 2-3 days. Denied any fever, chills, bloody cough and chest pain. Patient reported using nebulizer at home without relief of symptoms. PMD: Anabell Murry MD Past Medical History Reviewed: Historical Data, Nursing Documentation, Vital Signs Vital Signs: Last Vital Signs Temp 96.8 F L 04/24/17 22:58 Pulse 107 H 04/24/17 22:58 Resp 18 04/24/17 22:58 BP 159/94 H 04/24/17 22:58 Pulse Ox 97 04/25/17 02:10 - Medical History PMH: Anxiety, Asthma, Bipolar Disorder, CHF, COPD, Depression, Diabetes, Emphysema, HTN, Hypercholesterolemia, Personality Disorder, Schizophrenia, Sleep Apnea Denies: HIV, Chronic Kidney Disease, Seizures, Sexually Transmitted Disease - Surgical History Surgical History: No Surg Hx - Family History Family History: States: Unknown Family Hx - Social History Current smoker - smoking cessation education provided: Yes Alcohol: > 2 Drinks/Day - Immunization History Hx Tetanus Toxoid Vaccination: Yes Hx Influenza Vaccination: Yes Hx Pneumococcal Vaccination: No - Home Medications Home Medications: Ambulatory Orders Medication Instructions Recorded Albuterol 0.042% [Albuterol 0.042% 3 ml IH Q8H PRN 03/09/17 Inhal Radha (1.25mg/3ml) UD] Albuterol HFA [Ventolin HFA 90 2 puff IH Q4H PRN 03/09/17 mcg/actuation (8 g)] Albuterol/Ipratropium [Combivent 1 puff IH Q6H PRN 03/09/17 Respimat] Fluticasone Nasal [Flonase] 1 spray ESTUARDO BID PRN 03/09/17 Fluticasone/Salmeterol [Airduo 1 puff IH Q12H 12/04/17 Respiclick 232-14 Mcg] Irbesartan 150 mg PO DAILY 03/09/17 Metformin ER [Glucophage XR] 500 mg PO DAILY 03/09/17 Pramipexole Di-HCl [Mirapex] 1.5 mg PO Q12H 03/09/17 amLODIPine [Norvasc] 5 mg PO DAILY 03/09/17 Amoxicillin/Clavulanate [Augmentin 1 tab PO Q12 #10 tab 03/12/17 875 MG-125 MG Tab] Aspirin [Aspirin Chewable] 81 mg PO DAILY chew 03/12/17 Enoxaparin [Lovenox] 40 mg SC DAILY syr 03/12/17 HCTZ/Losartan Potassium [Hyzaar 1 tab PO DAILY tab 03/12/17 12.5 mg-50 mg] Lactulose [Enulose] 20 gm PO DAILY udc 03/12/17 Pravastatin Sodium [Pravachol] 40 mg PO HS tab 03/12/17 predniSONE [predniSONE Tab] 60 mg PO DAILY #10 tab 03/12/17 ARIPiprazole [Abilify] 15 mg PO DAILY 30 Days #90 tab 03/20/17 Albuterol/Ipratropium [Duoneb 3 3 ml INH RQ6 PRN neb 03/20/17 mg/0.5 mg (3 ml) UD] Amoxicillin/Clavulanate [Augmentin 1 tab PO Q12 tab 03/20/17 875 MG-125 MG Tab] Aspirin [Aspirin Chewable] 81 mg PO DAILY chew 03/20/17 Fluticasone/Salmeterol 250/50 1 puff IH Q12 puff 03/20/17 [Advair Diskus 250/50] Gabapentin [Neurontin] 100 mg PO TID PRN 30 Days #90 cap 03/20/17 HCTZ/Losartan Potassium [Hyzaar 1 tab PO DAILY tab 03/20/17 12.5 mg-50 mg] Pramipexole [Mirapex] 1.5 mg PO BID tab 03/20/17 Pravastatin Sodium [Pravachol] 40 mg PO HS tab 03/20/17 Venlafaxine [Effexor XR] 150 mg PO DAILY 30 Days #30 cer 03/20/17 amLODIPine [Norvasc] 5 mg PO DAILY tab 03/20/17 metFORMIN [glucOPHAGE] 500 mg PO BID tab 03/20/17 traZODone [Desyrel] 50 mg PO HS 30 Days #30 tab 03/20/17 Methylprednisolone [Medrol Dose 4 mg PO DAILY #21 mg 04/25/17 Pack (21 tabs)] - Allergies Allergies/Adverse Reactions: Allergies Allergy/AdvReac Type Severity Reaction Status Date / Time [place] And Derivatives Allergy ANGIOEDEMA Verified 11/01/16 18:54 Review of Systems ROS Statement: Except As Marked, All Systems Reviewed And Found Negative Constitutional: Negative for: Fever, Chills Cardiovascular: Negative for: Chest Pain Respiratory: Positive for: Shortness of Breath, Wheezing. Negative for: Hemoptysis Physical Exam - Reviewed Nursing Documentation Reviewed: Yes Vital Signs Reviewed: Yes - Physical Exam Appears: Positive for: No Acute Distress Head Exam: Positive for: ATRAUMATIC, NORMAL INSPECTION, NORMOCEPHALIC Skin: Positive for: Normal Color Eye Exam: Positive for: Normal appearance ENT: Positive for: Normal ENT Inspection Neck: Positive for: Normal, Painless ROM. Negative for: Decreased ROM Cardiovascular/Chest: Positive for: Regular Rate, Rhythm, Chest Non Tender Respiratory: Positive for: Decreased Breath Sounds, Wheezing (moderate expiratory wheezing bilaterally ). Negative for: Normal Breath Sounds, Accessory Muscle Use, Respiratory Distress Gastrointestinal/Abdominal: Positive for: Normal Exam, Soft. Negative for: Tenderness Extremity: Positive for: Normal ROM (upper/lower). Negative for: Pedal Edema ( bilateral) Neurologic/Psych: Positive for: Alert (x3), Oriented, Other (speaking full sentences). Negative for: Aphasia - Laboratory Results Result Diagrams: 04/25/17 01:10 04/25/17 01:10 - ECG ECG: Positive for: Interpreted By Me ECG Rhythm: Positive for: Sinus Tachycardia. Negative for: ST/T Changes Rate: 102 O2 Sat by Pulse Oximetry: 97 (RA) Pulse Ox Interpretation: Normal - Radiology X-Ray: Interpreted by Me (CXR) X-Ray Interpretation: No Acute Disease Medical Decision Making Medical Decision Making: Initial Impression: COPD exacerbation Initial Plan: * EKG * CMP * Troponin I * CBC * Cxr * Duoneb 9ml INH * Solu-Medrol 60mg IVP On re-evaluation, pt. reports feeling better. Initial peak flow: 180; post peak flow 360. Pt. still with wheezing. Additional duonebs ordered. Pt. requesting that his PMD, Dr. Murry be contacted. Case d/w Dr. Murry who knows patient very well who agrees pt. can be dc'd. Pt. informed of plan and agrees. States he is feeling much better and will f/u with his PMD. Scribe Attestation: Documented by Palmira Ochoa, acting as a scribe for Marcos Ma PA-C. Provider Scribe Attestation: All medical record entries made by the Scribe were at my direction and personally dictated by me. I have reviewed the chart and agree that the record accurately reflects my personal performance of the history, physical exam, medical decision making, and the department course for this patient. I have also personally directed, reviewed, and agree with the discharge instructions and disposition. Disposition - Clinical Impression Clinical Impression: COPD exacerbation - Patient ED Disposition Is Patient to be Admitted: No - Disposition Referrals: Anabell Murry MD [Staff Provider] - [facility] [Outside] Disposition: Routine/Home Disposition Time: 05:15 Condition: IMPROVED Additional Instructions: FOLLOW UP WITH DR. MURRY WITHOUT FAIL. Prescriptions: Methylprednisolone [Medrol Dose Pack (21 tabs)] 4 mg PO DAILY #21 mg Instructions: COPD (Chronic Obstructive Pulmonary Disease) (ED) Forms: [employer] (Chinese) Print Language: CANADIAN
[2017-04-25 01:15] LABS: BASO # 0.1 K/uL (0.0-0.2); BASO % 0.9 % (0.0-2.0); EOS # 0.3 K/uL (0.0-0.7); EOS % 2.2 % (0.0-4.0); HEMOGLOBIN 14.8 g/dL (12.0-18.0); LYMPH # 2.4 K/uL (1.0-4.3); LYMPH % 20.7 % (20.0-40.0); MEAN CELL VOLUME 81.3 fl (80.0-94.0); MEAN CORPUSCULAR HEMOGLOBIN 26.7 pg (27.0-31.0); MEAN CORPUSCULAR HGB CONC 32.9 g/dL (33.0-37.0); MEAN PLATELET VOLUME 7.7 fl (7.2-11.7); MONO # 0.8 K/uL (0.0-0.8); MONO % 7.3 % (0.0-10.0); NEUT % 68.9 % (50.0-75.0); NRBC % 0.1 % (0.0-0.0); RBC 5.53 Mil/uL (4.40-5.90); RED CELL DISTRIBUTION WIDTH 16.5 % (11.5-14.5); WHITE BLOOD COUNT 11.6 K/uL (4.8-10.8)
[2017-04-25 01:29] LABS: ALB/GLOB RATIO 1.3 (1.0-2.1); ALBUMIN 4.6 g/dL (3.5-5.0); ALT/SGPT 36 U/L (21-72); AST/SGOT 26 U/L (17-59); BLOOD UREA NITROGEN 9 mg/dl (9-20); CALCIUM 9.4 mg/dL (8.4-10.2); GFR AFRICAN-AMERICAN > 60; GFR NON-AFRICAN AMERICAN > 60
[2017-04-25 05:15] VITALS: PULSE 102
--- NOTE | 2017-04-25 10:10 | RAD ---
HISTORY: cough COMPARISON: Chest radiographs 03/09/2017. TECHNIQUE: Chest PA and lateral FINDINGS: LUNGS: No active pulmonary disease. PLEURA: No significant pleural effusion identified. No pneumothorax apparent. CARDIOVASCULAR: Normal. OSSEOUS STRUCTURES: No significant abnormalities. VISUALIZED UPPER ABDOMEN: Normal. OTHER FINDINGS: None. IMPRESSION: No interval acute cardiopulmonary disease appreciated.
== END 2017-04-25 05:55 | disposition home or self-care (01) ==
LOC: H.ER 22:41
DX: J44.1 Chronic obstructive pulmonary disease with (acute) exacerbation (principal); E11.9 Type 2 diabetes mellitus without complications; F31.9 Bipolar disorder, unspecified; I11.0 Hypertensive heart disease with heart failure; Z79.84 Long term (current) use of oral hypoglycemic drugs; Z79.82 Long term (current) use of aspirin
CPT/HCPCS: 71046; 80053; 84484; 85025; 94150; 94640; 96374; 99283; J2930

== ENCOUNTER 2018-02-21 06:45 | Emergency (ER) | payer MEDICAID ==
--- NOTE | 2018-02-21 08:43 | ED PDOC ---
Lower Extremity Pain/Injury Time Seen by Provider: 02/21/18 08:17 Chief Complaint (Nursing): Abnormal Skin Integrity Chief Complaint (Provider): Leg pain History Per: Patient History/Exam Limitations: no limitations Onset/Duration Of Symptoms: Other (x1 month) Current Symptoms Are (Timing): Still Present Additional Complaint(s): 57 year old male, with a past medical history of Hypertension and diabetes, presents to the ED complaining of bilateral leg pain, swelling, and drainage for 1 month. Patient reports that neurologist took him off a medication and legs began swelling. He states his PMD gave him cream, antibiotics, and ointment which did not work. He states both legs are painful. Denies fever. PMD: Anabell Bocanegra Past Medical History Reviewed: Historical Data, Nursing Documentation, Vital Signs Vital Signs: Last Vital Signs Temp 97.8 F 02/21/18 07:18 Pulse 110 H 02/21/18 07:18 Resp 22 02/21/18 07:18 BP 152/82 H 02/21/18 07:18 Pulse Ox 98 02/21/18 07:18 - Medical History PMH: Anxiety, Asthma, Bipolar Disorder, CHF, COPD, Depression, Diabetes, Emphysema, HTN, Personality Disorder, Schizophrenia, Sleep Apnea Denies: HIV, Hypercholesterolemia (PT DENIES), Chronic Kidney Disease, Seizures, Sexually Transmitted Disease - Surgical History Surgical History: No Surg Hx - Family History Family History: States: Unknown Family Hx - Immunization History Hx Tetanus Toxoid Vaccination: Yes Hx Influenza Vaccination: Yes Hx Pneumococcal Vaccination: No - Home Medications Home Medications: Ambulatory Orders Medication Instructions Recorded RX: Albuterol HFA [Ventolin HFA 90 2 puff IH Q4H PRN 03/09/17 mcg/actuation (8 g)] RX: Fluticasone/Salmeterol [Airduo 1 puff IH Q12H 03/09/17 Respiclick 232-14 Mcg] RX: MetFORMIN ER [Glucophage XR] 500 mg PO DAILY 03/09/17 RX: Pramipexole Di-HCl [Mirapex] 1.5 mg PO Q12H 03/09/17 RX: Albuterol/Ipratropium 1 puff IH Q6 PRN 06/17/17 [Combivent Respimat] RX: Irbesartan [Avapro] 150 mg PO DAILY 06/17/17 RX: amLODIPine [Norvasc] 10 mg PO DAILY 06/17/17 Carvedilol [Coreg] 25 mg PO Q12 02/22/18 Furosemide [Lasix] 20 mg PO DAILY 02/22/18 Mupirocin 2% Ointment [Bactroban 1 appl TOP Q8 02/22/18 Ointment] RX: Aspirin [Ecotrin] 81 mg PO DAILY 02/22/18 RX: traZODone [Desyrel] 50 mg PO HS 02/22/18 - Allergies Allergies/Adverse Reactions: Allergies Allergy/AdvReac Type Severity Reaction Status Date / Time [place] And Derivatives Allergy ANGIOEDEMA Verified 02/22/18 09:18 Review of Systems ROS Statement: Except As Marked, All Systems Reviewed And Found Negative Constitutional: Negative for: Fever Musculoskeletal: Positive for: Leg Pain (bilateral leg pain with swelling and drainage) Physical Exam - Reviewed Nursing Documentation Reviewed: Yes Vital Signs Reviewed: Yes - Physical Exam Appears: Positive for: Non-toxic, No Acute Distress. Negative for: Uncomfortable Head Exam: Positive for: ATRAUMATIC, NORMOCEPHALIC Skin: Positive for: Normal Color, Warm, Dry Eye Exam: Positive for: Normal appearance Neck: Positive for: Normal, Painless ROM Cardiovascular/Chest: Positive for: Regular Rate, Rhythm Respiratory: Positive for: Normal Breath Sounds. Negative for: Wheezing, Respiratory Distress Extremity: Positive for: Swelling (bilateral lower legs, below the knee and in the feet; ), Other (Erythema that is spread below the knee that continues to the feet. Skin is weeping with clear discharge from the skin from both legs. Honey crust lesions; superficial wounds on feet and lower legs. Mild tenderness on palpation.) Neurologic/Psych: Positive for: Alert, Oriented. Negative for: Motor/Sensory Deficits - Laboratory Results Result Diagrams: 02/21/18 08:30 02/21/18 08:30 - ECG O2 Sat by Pulse Oximetry: 98 (RA) Pulse Ox Interpretation: Normal Medical Decision Making Medical Decision Making: Initial Impression: leg swelling and dermatitis Differetal include cellulitis and dependent edema Initial Plan: --BMP --CBC --Erythrocyte stat --Albuterol 3mL INH --Morphine 2 mg IV --Vancomycin --Blood culture --Peak flow Scribe Attestation: Documented by Abad Gastelum acting as a scribe for Dre Singletary MD. Provider Scribe Attestation: All medical record entries made by the Scribe were at my direction and personally dictated by me. I have reviewed the chart and agree that the record accurately reflects my personal performance of the history, physical exam, medical decision making, and the department course for this patient. I have also personally directed, reviewed, and agree with the discharge instructions and disposition. Disposition - Clinical Impression Clinical Impression: Bilateral lower leg cellulitis - Patient ED Disposition Is Patient to be Admitted: No Doctor Will See Patient In The: Office Counseled Patient/Family Regarding: Studies Performed, Diagnosis, Need For Followup - Disposition Referrals: Anabell Monreal MD [Family Provider] - Disposition: Routine/Home Disposition Time: 13:56 Condition: GOOD Additional Instructions: Return tomorrow within 24 hours without fail for recheck. LIZBAETH VICTORIA, thank you for letting us take care of you today. Your provider was Dre Singletary MD and you were treated for B/L LEG PAIN. The emergency medical care you received today was directed at your acute symptoms. If you were prescribed any medication, please fill it and take as directed. It may take several days for your symptoms to resolve. Return to the Emergency Department if your symptoms worsen, do not improve, or if you have any other problems. Please contact your doctor or call one of the physicians/clinics you have been referred to that are listed on the Patient Visit Information form that is included in your discharge packet. Bring any paperwork you were given at discharge with you along with any medications you are taking to your follow up visit. Our treatment cannot replace ongoing medical care by a primary care provider outside of the emergency department. Thank you for allowing the [facility] team to be part of your care today. If you had an X-Ray or CT scan: A Radiologist will review the ED reading if any change in treatment is needed we will contact you. If you had a blood, urine, or wound culture: It will take several days for the results, if any change in treatment is needed we will contact you. If you had an STI test: It will take 48 hours for the results. Please call after 1 week if you have not heard back. Instructions: Cellulitis (Skin Infection), Adult (DC)
[2018-02-21] MEDS ORDERED: Morphine 4 MG/ML VIAL IVP ONE (09:00)
[2018-02-21] MEDS ORDERED: Albuterol-Ipratrop 3 mg / 0.5 (3 ml) UD INH STA (09:01)
[2018-02-21] MEDS ORDERED: Vancomycin 1 g Inj ONE (09:01)
[2018-02-21] MEDS ORDERED: Albuterol-Ipratrop 3 mg / 0.5 (3 ml) UD ONE (09:01)
[2018-02-21 09:11] LABS: BASO # 0.1 K/uL (0.0-0.2); BASO % 0.9 % (0.0-2.0); EOS # 0.3 K/uL (0.0-0.7); EOS % 2.7 % (0.0-4.0); HEMOGLOBIN 14.3 g/dL (12.0-18.0); LYMPH # 1.4 K/uL (1.0-4.3); LYMPH % 11.7 % (20.0-40.0); MEAN CORPUSCULAR HEMOGLOBIN 25.9 pg (27.0-31.0); MEAN CORPUSCULAR HGB CONC 32.3 g/dL (33.0-37.0); MEAN PLATELET VOLUME 7.1 fl (7.2-11.7); MONO % 7.9 % (0.0-10.0); NEUT # 9.3 K/uL (1.8-7.0); NEUT % 76.8 % (50.0-75.0); RBC 5.54 Mil/uL (4.40-5.90); RED CELL DISTRIBUTION WIDTH 16.5 % (11.5-14.5); WHITE BLOOD COUNT 12.1 K/uL (4.8-10.8)
[2018-02-21 09:20] LABS: BLOOD UREA NITROGEN 10 mg/dl (9-20); CALCIUM 9.4 mg/dL (8.4-10.2); GFR NON-AFRICAN AMERICAN > 60
[2018-02-21 14:23] VITALS: BP 149/88; PULSE 101; RESP 20; TEMP 97.6
--- NOTE | 2018-02-22 09:11 | CP.PCM.CON ---
History of Present Illness - History of Present Illness History of Present Illness: Podiatry consult note for Dr. Woodruff 57 yo male with pmhx of HTN and diabetes seen and evaluated for bilateral lower extremity cellulitis and wounds. States that he has never had this problem before and he presented to his primary care doctor who gave him antibiotics but they did not help with the redness or swelling in his legs. States that he was diagnosed with depression a while ago and that he has gained about 150 pounds over the past 4 years. States that his legs are painful and describes the pain as burning in nature. States that his legs have been draining a lot recently. He was instructed by his PCP to wear compression stockings at night and leave his legs open to air during the day which he states have just caused his legs to weep during the day. Denies N/V/F/C/SOB/CP and has no other pedal complaints today. PMHx - HTN, DM, depression PSHx - denies All - citrus Past Patient History - Infectious Disease Hx of Infectious Diseases: None - Past Medical History & Family History Past Medical History?: Yes - Past Social History Smoking Status: Never Smoked - CARDIAC Hx Congestive Heart Failure: Yes Hx Hypercholesterolemia: No (PT DENIES) Hx Hypertension: Yes - PULMONARY Hx Asthma: Yes Hx Chronic Obstructive Pulmonary Disease (COPD): Yes Hx Emphysema: Yes Hx Sleep Apnea: Yes - NEUROLOGICAL Hx Seizures: No - HEENT Hx HEENT Problems: No - RENAL Hx Chronic Kidney Disease: No - ENDOCRINE/METABOLIC Hx Endocrine Disorders: Yes Hx Diabetes Mellitus Type 1: No (PT DENIES) Hx Diabetes Mellitus Type 2: Yes Other/Comment: REPORTS "I'M BORDERLINE DIABETIC - HEMATOLOGICAL/ONCOLOGICAL Hx Human Immunodeficiency Virus (HIV): No - INTEGUMENTARY Hx Dermatological Problems: No - MUSCULOSKELETAL/RHEUMATOLOGICAL Hx Musculoskeletal Disorders: Yes Hx Falls: Yes - GASTROINTESTINAL Hx Gastrointestinal Disorders: No - GENITOURINARY/GYNECOLOGICAL Hx Sexually Transmitted Disorders: No - PSYCHIATRIC Hx Anxiety: Yes Hx Bipolar Disorder: Yes Hx Depression: Yes Hx Schizophrenia: Yes - SURGICAL HISTORY Hx Surgeries: No - ANESTHESIA Hx Anesthesia: No Hx Anesthesia Reactions: No Hx Malignant Hyperthermia: No Meds Allergies/Adverse Reactions: Allergies Allergy/AdvReac Type Severity Reaction Status Date / Time [place] And Derivatives Allergy ANGIOEDEMA Verified 06/17/17 09:11 Physical Exam - Constitutional Appears: Well, Non-toxic, No Acute Distress - Head Exam Head Exam: ATRAUMATIC, NORMOCEPHALIC - Extremities Exam Additional comments: Vasc: DP and PT pulses palpable; cap refill <3 seconds to all digits; temp gradient warm to warm from proximal to distal; nonpitting moderate edema noted to b/l LE with associated erythema Derm: b/l lower extremities evidence of cellulitis from rearfoot to proximal lower leg appreciated; left LE has superficial wound present, granular tissue, no pus or purulent drainage appreciated on the anterior leg; right LE has similar wound present, superificial with no purulent drainage , no tunneling or tracking, on lateral aspect of LE Ortho: pain on palpation to b/l LE secondary to cellulitis and superficial wounds Neuro: gross and protective sensation intact b/l - Neurological Exam Neurological exam: Alert, Oriented x3 Results - Vital Signs Recent Vital Signs: Last Vital Signs Temp 97.6 F 02/21/18 14:22 Pulse 101 H 02/21/18 14:22 Resp 20 02/21/18 14:22 BP 149/88 02/21/18 14:22 Pulse Ox 96 02/21/18 14:22 - Labs Result Diagrams: 02/21/18 08:30 02/21/18 08:30 Labs: Laboratory Results - last 24 hr 02/21/18 02/21/18 08:30 08:30 WBC 12.1 H RBC 5.54 Hgb 14.3 Hct 44.3 MCV 80.0 MCH 25.9 L MCHC 32.3 L RDW 16.5 H Plt Count 365 MPV 7.1 L Neut % (Auto) 76.8 H Lymph % (Auto) 11.7 L [place] % (Auto) 7.9 Eos % (Auto) 2.7 Baso % (Auto) 0.9 Neut # (Auto) 9.3 H Lymph # (Auto) 1.4 Luna # (Auto) 1.0 H Eos # (Auto) 0.3 Baso # (Auto) 0.1 ESR 21 H Sodium 140 Potassium 4.0 Chloride 99 Carbon Dioxide 31 H Anion Gap 14 BUN 10 Creatinine 0.8 Est GFR ( Amer) > 60 Est GFR (Non-Af Amer) > 60 Random Glucose 109 Calcium 9.4 Assessment & Plan - Assessment and Plan (Free Text) Assessment: 57 yo male with pmhx of HTN, DM, and depression with b/l LE cellulits and superficial wounds Plan: Patient seen and evaluated Discussed in detail with Dr. Woodruff Afebrile and WBC 12.1 Wounds dressed with xeroform, DSD, and light [place] compression Patient given dose of vanco in the ED Patients primary care physician was not available during the day so patient elected to come in tomorrow for admission to hospital for IV abx treatment Will follow patient on admission tomorrow Thank you for the consult - Date & Time Date: 02/21/18 Time: 12:20
[2018-02-23 00:53] VITALS: O2SAT 98
== END 2018-02-21 14:23 | disposition home or self-care (01) ==
LOC: H.ER 06:45
DX: L03.115 Cellulitis of right lower limb (principal); L03.116 Cellulitis of left lower limb; E11.9 Type 2 diabetes mellitus without complications; I11.0 Hypertensive heart disease with heart failure; Z79.84 Long term (current) use of oral hypoglycemic drugs
CPT/HCPCS: 80048; 85025; 85651; 87040; 87070; 87181; 94640; 96374; 96375; 99283; J1885

== ENCOUNTER 2018-02-22 08:59 | Inpatient (IN) | payer MEDICAID ==
[2018-02-22 09:04] VITALS: BMI 34.3
[2018-02-22] MEDS ORDERED: Morphine 4 MG/ML VIAL IVP ONE (09:44)
[2018-02-22] MEDS ORDERED: Vancomycin 1 g Inj ONE (10:17)
[2018-02-22 11:05] LABS: BASO # 0.1 K/uL (0.0-0.2); BASO % 0.5 % (0.0-2.0); EOS # 0.3 K/uL (0.0-0.7); EOS % 2.6 % (0.0-4.0); HEMOGLOBIN 13.7 g/dL (12.0-18.0); LYMPH # 1.3 K/uL (1.0-4.3); LYMPH % 10.2 % (20.0-40.0); MEAN CELL VOLUME 82.6 fl (80.0-94.0); MEAN CORPUSCULAR HEMOGLOBIN 25.5 pg (27.0-31.0); MEAN CORPUSCULAR HGB CONC 30.8 g/dL (33.0-37.0); MEAN PLATELET VOLUME 7.4 fl (7.2-11.7); MONO # 0.8 K/uL (0.0-0.8); MONO % 6.6 % (0.0-10.0); NEUT # 10.3 K/uL (1.8-7.0); NEUT % 80.1 % (50.0-75.0); RBC 5.39 Mil/uL (4.40-5.90); RED CELL DISTRIBUTION WIDTH 16.7 % (11.5-14.5); WHITE BLOOD COUNT 12.8 K/uL (4.8-10.8)
--- NOTE | 2018-02-22 14:03 | ED PDOC ---
Lower Extremity Pain/Injury Time Seen by Provider: 02/22/18 09:29 Chief Complaint (Provider): Bilateral leg Pain History Per: Patient History/Exam Limitations: no limitations Onset/Duration Of Symptoms: Days (x1 month) Current Symptoms Are (Timing): Still Present Additional Complaint(s): Juve Perez is a 57 year old male with a past medical history of cellulitis, HTN and obesity, who presents to the emergency department complaining of bilateral leg pain, swelling and drainage, onset x1 month. Patient states that the pain got worse last week. He has been diagnosed with cellulitis of the legs and has been given two courses of abx. Patient reports that the redness in the lower legs is spreading and getting worse. PMD: Rah Velázquez Past Medical History Reviewed: Historical Data, Nursing Documentation, Vital Signs Vital Signs: Last Vital Signs Temp 97.5 F L 02/22/18 09:04 Pulse 115 H 02/22/18 09:04 Resp 20 02/22/18 09:04 BP 139/81 02/22/18 09:04 Pulse Ox 97 02/22/18 09:04 - Medical History PMH: Anxiety, Asthma, Bipolar Disorder, CHF, COPD, Depression, Diabetes, Emphysema, HTN, Personality Disorder, Schizophrenia, Sleep Apnea Denies: HIV, Hypercholesterolemia (PT DENIES), Chronic Kidney Disease, Seizures, Sexually Transmitted Disease - Surgical History Surgical History: No Surg Hx - Family History Family History: States: Unknown Family Hx - Immunization History Hx Tetanus Toxoid Vaccination: Yes Hx Influenza Vaccination: Yes Hx Pneumococcal Vaccination: No - Home Medications Home Medications: Ambulatory Orders Medication Instructions Recorded RX: Albuterol HFA [Ventolin HFA 90 2 puff IH Q4H PRN 03/09/17 mcg/actuation (8 g)] RX: Fluticasone/Salmeterol [Airduo 1 puff IH Q12H 03/09/17 Respiclick 232-14 Mcg] RX: MetFORMIN ER [Glucophage XR] 500 mg PO DAILY 03/09/17 RX: Pramipexole Di-HCl [Mirapex] 1.5 mg PO Q12H 03/09/17 RX: Albuterol/Ipratropium 1 puff IH Q6 PRN 06/17/17 [Combivent Respimat] RX: Irbesartan [Avapro] 150 mg PO DAILY 06/17/17 RX: amLODIPine [Norvasc] 10 mg PO DAILY 06/17/17 Carvedilol [Coreg] 25 mg PO Q12 02/22/18 Furosemide [Lasix] 20 mg PO DAILY 02/22/18 Mupirocin 2% Ointment [Bactroban 1 appl TOP Q8 02/22/18 Ointment] RX: Aspirin [Ecotrin] 81 mg PO DAILY 02/22/18 RX: traZODone [Desyrel] 50 mg PO HS 02/22/18 - Allergies Allergies/Adverse Reactions: Allergies Allergy/AdvReac Type Severity Reaction Status Date / Time [place] And Derivatives Allergy ANGIOEDEMA Verified 02/22/18 09:18 Review of Systems ROS Statement: Except As Marked, All Systems Reviewed And Found Negative Musculoskeletal: Positive for: Leg Pain (bilateral leg pain) Physical Exam - Reviewed Nursing Documentation Reviewed: Yes Vital Signs Reviewed: Yes - Physical Exam Appears: Positive for: Non-toxic, No Acute Distress. Negative for: Uncomfortable Head Exam: Positive for: ATRAUMATIC, NORMOCEPHALIC Skin: Positive for: Normal Color, Warm, Dry Eye Exam: Positive for: Normal appearance Neck: Positive for: Normal, Painless ROM Cardiovascular/Chest: Positive for: Regular Rate, Rhythm. Negative for: Murmur Respiratory: Positive for: Normal Breath Sounds. Negative for: Wheezing, Respiratory Distress Extremity: Positive for: Swelling (bilateral lower legs, below the knee and in the feet; ), Other (Erythema that is spread below the knee that continues to the feet. Skin is weeping with clear discharge from the skin from both legs. Honey crust lesions; superficial wounds on feet and lower legs. Mild TTP ) Neurologic/Psych: Positive for: Alert, Oriented (x3). Negative for: Motor/Sensory Deficits - Laboratory Results Result Diagrams: 02/22/18 10:45 - ECG O2 Sat by Pulse Oximetry: 97 (RA) Pulse Ox Interpretation: Normal Medical Decision Making Medical Decision Making: Impression: Leg cellulitis Plan: 09:42 --Morphine 4 mg IVP --Vancomycin 1 gm IV 10:45 --CBC with differential 11:02 --Podiatry consultation --Infectious disease consultation 11:13 --Admitted to hospital Podiatry was consulted today and yesterday. Case discussed with Dr. Monreal who requested Dr. Armas for infectious diseases. Patient was seen by Podiatry in ED. ------ Scribe Attestation: Documented by Marko Donnelly, acting as a scribe for Dre Singletary MD. Provider Scribe Attestation: All medical record entries made by the Scribe were at my direction and person ally dictated by me. I have reviewed the chart and agree that the record accurately reflects my personal performance of the history, physical exam, medical decision making, and the department course for this patient. I have also personally directed, reviewed, and agree with the discharge instructions and disposition. Disposition - Clinical Impression Clinical Impression: Cellulitis - Patient ED Disposition Is Patient to be Admitted: Yes Discussed With DrSmooth: Anabell Monreal Doctor Will See Patient In The: Hospital - Disposition Disposition Time: 10:00 Condition: FAIR - Pt Status Changed To: Hospital Disposition Of: Inpatient - Admit Certification Admit to Inpatient:: After my assessment, the patient will require hospitalization for at least two midnights. This is because of the severity of symptoms shown, intensity of services needed, and/or the medical risk in this patient being treated as an outpatient. - POA Present On Arrival: Poor Glycemic Control
[2018-02-22 14:28] LABS: VANCOMYCIN PEAK 12.3 ug/mL (30.0-40.0); VANCOMYCIN TROUGH < 5.0 ug/mL (5.0-10.0)
[2018-02-22] MEDS ORDERED: Piperacillin/Tazobact 3.375 GM in Sodium Chloride 0.9% 100 ML IVPB STA (14:38)
[2018-02-22] MEDS ORDERED: Piperacillin/Tazobact 3.375 gm Inj IVPB ONE (14:40)
[2018-02-22] MEDS ORDERED: Albuterol-Ipratrop 3 mg / 0.5 (3 ml) UD INH STA (15:05)
[2018-02-22] MEDS ORDERED: Albuterol-Ipratrop 3 mg / 0.5 (3 ml) UD ONE (15:13)
[2018-02-22] MEDS ORDERED: Oxycodone/Acetaminophen 5/325 mg Tab ONE (18:25)
[2018-02-22] MEDS: Oxycodone/Acetaminophen 5/325 mg Tab PO PRN (18:30)
--- NOTE | 2018-02-22 18:42 | CP.PCM.CON ---
History of Present Illness - History of Present Illness History of Present Illness: Podiatry consult note for Dr. Woodruff 57 yo male with pmhx of HTN and diabetes seen and evaluated for bilateral lower extremity cellulitis and wounds. States that he has never had this problem before and he presented to his primary care doctor who gave him antibiotics but they did not help with the redness or swelling in his legs. States that he was diagnosed with depression a while ago and that he has gained about 150 pounds over the past 4 years. States that his legs are painful and describes the pain as burning in nature. States that his legs have been draining a lot recently. He was instructed by his PCP to wear compression stockings at night and leave his legs open to air during the day which he states have just caused his legs to weep during the day. He was present yesterday but his primary care was unavailable so he was instructed to return to the ED today and will be admitted under his PCP. Denies N/V/F/C/SOB/CP and has no other pedal complaints today. PMHx - HTN, DM, depression PSHx - denies All - citrus Past Patient History - Infectious Disease Hx of Infectious Diseases: None - Past Medical History & Family History Past Medical History?: Yes - Past Social History Smoking Status: Never Smoked - CARDIAC Hx Cardiac Disorders: (HTN) - PULMONARY Hx Respiratory Disorders: Yes (COPD, asthma) - NEUROLOGICAL Hx Seizures: No - HEENT Hx HEENT Problems: No - RENAL Hx Chronic Kidney Disease: No - ENDOCRINE/METABOLIC Hx Endocrine Disorders: Yes (DM) - HEMATOLOGICAL/ONCOLOGICAL Hx Human Immunodeficiency Virus (HIV): No - INTEGUMENTARY Hx Dermatological Problems: Yes (Cellulitis) - MUSCULOSKELETAL/RHEUMATOLOGICAL Hx Musculoskeletal Disorders: Yes Hx Falls: Yes - GASTROINTESTINAL Hx Gastrointestinal Disorders: No - GENITOURINARY/GYNECOLOGICAL Hx Sexually Transmitted Disorders: No - PSYCHIATRIC Hx Anxiety: Yes Hx Bipolar Disorder: Yes Hx Depression: Yes Hx Schizophrenia: Yes - SURGICAL HISTORY Hx Surgeries: No - ANESTHESIA Hx Anesthesia: No Hx Anesthesia Reactions: No Hx Malignant Hyperthermia: No Meds Allergies/Adverse Reactions: Allergies Allergy/AdvReac Type Severity Reaction Status Date / Time [place] And Derivatives Allergy ANGIOEDEMA Verified 02/22/18 09:18 - Medications Medications: Current Medications Albuterol/Ipratropium (Duoneb 3 Mg/0.5 Mg (3 Ml) Ud) 3 ml INH RQID ANNE Amlodipine Besylate (Norvasc) 10 mg PO DAILY [facility] Aspirin (Aspirin Chewable) 81 mg PO DAILY [facility] Carvedilol (Coreg) 25 mg PO Q12 [facility] Enoxaparin Sodium (Lovenox) 40 mg SC DAILY [facility]; Protocol Home Med (Pramipexole Di-Hcl [Mirapex]) 1.5 mg PO Q12H [facility] Piperacillin Sod/Tazobactam (Sod 3.375 gm/ Sodium Chloride) 100 mls @ 100 mls/hr IVPB Q6 [facility]; Protocol Ibuprofen (Motrin Tab) 600 mg PO Q8 PRN PRN Reason: Pain, Mild (1-3) Losartan Potassium (Cozaar) 50 mg PO DAILY [facility] Metformin HCl (Glucophage) 250 mg PO BIDWM [facility] Oxycodone/Acetaminophen (Percocet 5/325 Mg Tab) 1 tab PO Q6 PRN PRN Reason: Pain, severe (8-10) Stop: 02/25/18 18:08 Physical Exam - Constitutional Appears: Well, Non-toxic, No Acute Distress - Head Exam Head Exam: ATRAUMATIC, NORMOCEPHALIC - Extremities Exam Additional comments: Vasc: DP and PT pulses palpable; cap refill <3 seconds to all digits; temp gradient warm to warm from proximal to distal; nonpitting moderate edema noted to b/l LE with associated erythema Derm: b/l lower extremities evidence of cellulitis from rearfoot to proximal lower leg appreciated; left LE has superficial wound present, granular tissue, no pus or purulent drainage appreciated on the anterior leg; right LE has similar wound present, superificial with no purulent drainage , no tunneling or tracking, on lateral aspect of LE Ortho: pain on palpation to b/l LE secondary to cellulitis and superficial wounds Neuro: gross and protective sensation intact b/l - Neurological Exam Neurological exam: Alert, Oriented x3 - Psychiatric Exam Psychiatric exam: Normal Affect, Normal Mood Results - Vital Signs Recent Vital Signs: Last Vital Signs Temp 98 F 02/22/18 18:34 Pulse 103 H 02/22/18 18:34 Resp 20 02/22/18 18:34 BP 145/65 02/22/18 18:34 Pulse Ox 96 02/22/18 18:33 - Labs Result Diagrams: 02/22/18 10:45 Labs: Laboratory Results - last 24 hr 02/22/18 02/22/18 10:45 13:00 WBC 12.8 H RBC 5.39 Hgb 13.7 Hct 44.5 MCV 82.6 D MCH 25.5 L MCHC 30.8 L RDW 16.7 H Plt Count 359 MPV 7.4 Neut % (Auto) 80.1 H Lymph % (Auto) 10.2 L [place] % (Auto) 6.6 Eos % (Auto) 2.6 Baso % (Auto) 0.5 Neut # (Auto) 10.3 H Lymph # (Auto) 1.3 [place] # (Auto) 0.8 Eos # (Auto) 0.3 Baso # (Auto) 0.1 Vancomycin Peak 12.3 L Vancomycin Trough < 5.0 L Assessment & Plan - Assessment and Plan (Free Text) Assessment: 57 yo male with pmhx of HTN, DM, and depression with b/l LE cellulits and superficial wounds Plan: Patient seen and evaluated Discussed in detail with Dr. Woodruff Afebrile and WBC 12.8 Wound cultures taken - f/u results Dress with DSD and RODGER Continue medications per ID ID on board, recs appreciated Will follow patient while in house Thank you for the consult - Date & Time Date: 02/22/18 Time: 12:10
[2018-02-22] MEDS: Albuterol-Ipratrop 3 mg / 0.5 (3 ml) UD INH SCH (20:45)
[2018-02-22] MEDS: Piperacillin/Tazobact 3.375 GM in Sodium Chloride 0.9% 100 ML IVPB SCH (21:16)
[2018-02-23] MEDS: Oxycodone/Acetaminophen 5/325 mg Tab PO PRN ×4 (00:03→22:21)
[2018-02-23] MEDS: Piperacillin/Tazobact 3.375 GM in Sodium Chloride 0.9% 100 ML IVPB SCH ×4 (04:34→22:09)
[2018-02-23] MEDS ORDERED: Influenza Vaccine (5 YR UP)/PF 60 MCG/0.5 ML SYR IM ONE (04:49)
[2018-02-23] MEDS ORDERED: Pneumococcal 23-Valent Vaccine IM ONE (06:00)
[2018-02-23] MEDS: Albuterol-Ipratrop 3 mg / 0.5 (3 ml) UD INH SCH ×4 (07:55→19:39)
[2018-02-23] MEDS: Enoxaparin 40 mg Syringe SC SCH (09:10)
[2018-02-23] MEDS ORDERED: Morphine 4 MG/ML VIAL IVP ONE (09:45)
--- NOTE | 2018-02-23 09:57 | CP.PCM.PN ---
Subjective - Date & Time of Evaluation Date of Evaluation: 02/23/18 Time of Evaluation: 09:55 - Subjective Subjective: Podiatry progress note for Dr. Woodruff 57 yo male seen and evaluated at bedside. Seen in mild respiratory distress. States his breathing has been giving him problems since he came into the hospital yesterday. States that he has mild pain in his legs but they are draining. He denies N/V/F/C/SOB/CP at this time and has no other pedal complaints. Objective - Vital Signs/Intake and Output Vital Signs (last 24 hours): Temp Pulse Resp BP Pulse Ox 97.5 F L 108 H 21 162/76 H 94 L 02/23/18 07:59 02/23/18 09:09 02/23/18 07:59 02/23/18 09:09 02/23/18 07:59 - Medications Medications: Current Medications Albuterol/Ipratropium (Duoneb 3 Mg/0.5 Mg (3 Ml) Ud) 3 ml INH RQID [facility] Last Admin: 02/23/18 07:55 Dose: 3 ml Amlodipine Besylate (Norvasc) 10 mg PO DAILY [facility] Last Admin: 02/23/18 09:09 Dose: 10 mg Aspirin (Aspirin Chewable) 81 mg PO DAILY [facility] Last Admin: 02/23/18 09:08 Dose: 81 mg Carvedilol (Coreg) 25 mg PO Q12 [facility] Last Admin: 02/23/18 09:08 Dose: 25 mg Enoxaparin Sodium (Lovenox) 40 mg SC DAILY [facility]; Protocol Last Admin: 02/23/18 09:10 Dose: 40 mg Piperacillin Sod/Tazobactam (Sod 3.375 gm/ Sodium Chloride) 100 mls @ 100 mls/hr IVPB Q6 [facility]; Protocol Last Admin: 02/23/18 04:34 Dose: 100 mls/hr Ibuprofen (Motrin Tab) 600 mg PO Q8 PRN PRN Reason: Pain, Mild (1-3) Losartan Potassium (Cozaar) 50 mg PO DAILY [facility] Last Admin: 02/23/18 09:09 Dose: 50 mg Metformin HCl (Glucophage) 250 mg PO BIDWM [facility] Last Admin: 02/23/18 09:09 Dose: 250 mg Oxycodone/Acetaminophen (Percocet 5/325 Mg Tab) 1 tab PO Q6 PRN PRN Reason: Pain, severe (8-10) Stop: 02/25/18 18:08 Last Admin: 02/23/18 05:50 Dose: 1 tab Pramipexole Dihydrochloride (Mirapex) 1.5 mg PO Q12 [facility] Last Admin: 02/23/18 09:10 Dose: 1.5 mg - Labs Labs: 02/22/18 10:45 - Constitutional Appears: Well, Non-toxic, No Acute Distress - Head Exam Head Exam: ATRAUMATIC, NORMOCEPHALIC - Extremities Exam Additional comments: Vasc: DP and PT pulses palpable; cap refill <3 seconds to all digits; temp gradient warm to warm from proximal to distal; nonpitting moderate edema noted to b/l LE with associated erythema Derm: b/l lower extremities evidence of cellulitis from rearfoot to proximal lower leg appreciated; left LE has superficial wound present, granular tissue, no pus or purulent drainage appreciated on the anterior leg; right LE has similar wound present, superificial with no purulent drainage , no tunneling or tracking, on lateral aspect of LE Ortho: pain on palpation to b/l LE secondary to cellulitis and superficial wounds Neuro: gross and protective sensation intact b/l - Neurological Exam Neurological Exam: Alert, Awake, Oriented x3 - Psychiatric Exam Psychiatric exam: Normal Affect, Normal Mood Assessment and Plan - Assessment and Plan (Free Text) Assessment: 57M with b/l LE cellulits and superficial wounds Plan: Patient seen and evaluated Discussed in detail with Dr. Woodruff Afebrile and WBC 12.8 (02/22) Wound cultures taken - f/u results Dress with xeroform, DSD and RODGER Arterial duplex studies ordered - f/u results Continue medications per ID ID on board, recs appreciated Will follow patient while in house
--- NOTE | 2018-02-23 10:54 | CP.PCM.CON ---
History of Present Illness - History of Present Illness History of Present Illness: 57 year old male with a past medical history of cellulitis, HTN and obesity, who presents to the emergency department complaining of bilateral leg pain, swelling and drainage, onset x1 month. failed out pt rx for cellulitis - Medical History PMH: Anxiety, Asthma, Bipolar Disorder, CHF, COPD, Depression, Diabetes, Emphysema, HTN, Personality Disorder, Schizophrenia, Sleep Apnea Denies: HIV, Hypercholesterolemia (PT DENIES), Chronic Kidney Disease, Seizures, Sexually Transmitted Disease Review of Systems - Review of Systems All systems: reviewed and no additional remarkable complaints except - Constitutional Constitutional: As Per HPI - EENT Eyes: absent: As Per HPI, Blind Spots, Blurred Vision, Change in Vision, Decreased Night Vision, Diplopia, Discharge, Dry Eye, Exophthalmos, Floaters, Irritation, Itchy Eyes, Loss of Peripheral Vision, Pain, Photophobia, Requires Corrective Lenses, Sees Flashes, Spots in Vision, Tunnel Vision, Other Visual Disturbances, Loss of Vision, Other Ears: absent: As Per HPI, Decreased Hearing, Ear Discharge, Ear Pain, Tinnitus, Abnormal Hearing, Disequilibrium, Dizziness, Other Nose/Mouth/Throat: absent: As Per HPI, Epistaxis, Nasal Congestion, Nasal Discharge, Nasal Obstruction, Nasal Trauma, Nose Pain, Post Nasal Drip, Sinus Pain, Sinus Pressure, Bleeding Gums, Change in Voice, Dental Pain, Dry Mouth, Dysphagia, Halitosis, Hoarsness, Lip Swelling, Mouth Lesions, Mouth Pain, Odynophagia, Sore Throat, Throat Swelling, Tongue Swelling, Facial Pain, Neck Pain, Neck Mass, Other - Cardiovascular Cardiovascular: As Per HPI - Respiratory Respiratory: As Per HPI, Dyspnea - Gastrointestinal Gastrointestinal: absent: As Per HPI, Abdominal Pain, Belching, Bloating, Change in Bowel Habits, Change in Stool Character, Coffee Ground Emesis, Constipation, Cramping, Diarrhea, Dyspepsia, Dysphagia, Early Satiety, Excessive Flatus, Fecal Incontinence, Heartburn, Hematemesis, Hematochezia, Loose Stools, Melena, Nausea, Odynophagia, Temesmus, Vomiting, Other - Genitourinary Genitourinary: absent: As Per HPI, Change in Urinary Stream, Difficulty Urinating, Dysuria, Flank Pain, Hematuria, Pyuria, Nocturia, Urinary Incontinence, Urinary Frequency, Urinary Hesitance, Urinary Urgency, Voiding Freq/Small Amts, Freq UTI, Hx Renal/Bladder Calculi, Hx /Renal Surgery, Bladder Distension, Other - Musculoskeletal Musculoskeletal: As Per HPI - Integumentary Integumentary: As Per HPI - Neurological Neurological: absent: As Per HPI, Abnormal Gait, Abnormal Hearing, Abnormal Movements, Abnormal Speech, Behavioral Changes, Burning Sensations, Confusion, Convulsions, Disequilibrium, Dizziness, Numbness, Focal Weakness, Frequent Falls, Headaches, Lack of Coordination, Loss of Vision, Memory Loss, Paresthesias, Radicular Pain, Restless Legs, Sensory Deficit, Syncope, Tingling, Tremor, Vertigo, Weakness, Other Visual Disturbances, Other - Psychiatric Psychiatric: absent: As Per HPI, Abnormal Sleep Pattern, Anhedonia, Anxiety, Auditory Hallucinations, Behavioral Changes, Change in Appetite, Change in Libido, Confusion, Depression, Difficulty Concentrating, Hallucinations, Homicidal Ideation, Hopelessness, Irritability, Memory Loss, Mood Swings, Panic Attacks, Paranoia, Suicidal Ideation, Visual Hallucinations, Tactile Hallucinations, Other - Endocrine Endocrine: absent: As Per HPI, Change in Body Appearance, Change in Libido, Cold Intolorance, Deepening of Voice, Excessive Sweating, Fatigue, Flushing, Heat Intolorance, Increase in Ring/Shoe/Hat Size, Palpitations, Polydipsia, Polyphagia, Polyuria, Other - Hematologic/Lymphatic Hematologic: absent: As Per HPI, Easy Bleeding, Easy Bruising, Lymphadenopathy, Other Past Patient History - Infectious Disease Hx of Infectious Diseases: None - Past Medical History & Family History Past Medical History?: Yes - Past Social History Smoking Status: Current Some Days Smoker - CARDIAC Hx Cardiac Disorders: (HTN) Hx Hypertension: Yes - PULMONARY Hx Respiratory Disorders: Yes (COPD, asthma) Hx Asthma: Yes Hx Chronic Obstructive Pulmonary Disease (COPD): Yes Hx Emphysema: Yes Hx Sleep Apnea: Yes - NEUROLOGICAL Hx Seizures: No - HEENT Hx HEENT Problems: No - RENAL Hx Chronic Kidney Disease: No - ENDOCRINE/METABOLIC Hx Endocrine Disorders: No - HEMATOLOGICAL/ONCOLOGICAL Hx Human Immunodeficiency Virus (HIV): No - INTEGUMENTARY Hx Dermatological Problems: Yes (Cellulitis) Hx Cellulitis: Yes - MUSCULOSKELETAL/RHEUMATOLOGICAL Hx Musculoskeletal Disorders: Yes Hx Falls: Yes - GASTROINTESTINAL Hx Gastrointestinal Disorders: No - GENITOURINARY/GYNECOLOGICAL Hx Sexually Transmitted Disorders: No - PSYCHIATRIC Hx Anxiety: Yes Hx Bipolar Disorder: Yes Hx Depression: Yes Hx Schizophrenia: Yes Hx Substance Use: No - SURGICAL HISTORY Hx Surgeries: No - ANESTHESIA Hx Anesthesia: Yes Hx Anesthesia Reactions: No Hx Malignant Hyperthermia: No Meds Allergies/Adverse Reactions: Allergies Allergy/AdvReac Type Severity Reaction Status Date / Time Marissa And Derivatives Allergy ANGIOEDEMA Verified 02/22/18 09:18 - Medications Medications: Current Medications Albuterol/Ipratropium (Duoneb 3 Mg/0.5 Mg (3 Ml) Ud) 3 ml INH RQID [facility] Last Admin: 02/23/18 07:55 Dose: 3 ml Amlodipine Besylate (Norvasc) 10 mg PO DAILY [facility] Last Admin: 02/23/18 09:09 Dose: 10 mg Aspirin (Aspirin Chewable) 81 mg PO DAILY [facility] Last Admin: 02/23/18 09:08 Dose: 81 mg Carvedilol (Coreg) 25 mg PO Q12 [facility] Last Admin: 02/23/18 09:08 Dose: 25 mg Enoxaparin Sodium (Lovenox) 40 mg SC DAILY [facility]; Protocol Last Admin: 02/23/18 09:10 Dose: 40 mg Piperacillin Sod/Tazobactam (Sod 3.375 gm/ Sodium Chloride) 100 mls @ 100 m ls/hr IVPB Q6 [facility]; Protocol Last Admin: 02/23/18 04:34 Dose: 100 mls/hr Ibuprofen (Motrin Tab) 600 mg PO Q8 PRN PRN Reason: Pain, Mild (1-3) Losartan Potassium (Cozaar) 50 mg PO DAILY [facility] Last Admin: 02/23/18 09:09 Dose: 50 mg Metformin HCl (Glucophage) 250 mg PO BIDWM [facility] Last Admin: 02/23/18 09:09 Dose: 250 mg Oxycodone/Acetaminophen (Percocet 5/325 Mg Tab) 1 tab PO Q6 PRN PRN Reason: Pain, severe (8-10) Stop: 02/25/18 18:08 Last Admin: 02/23/18 05:50 Dose: 1 tab Pramipexole Dihydrochloride (Mirapex) 1.5 mg PO Q12 [facility] Last Admin: 02/23/18 09:10 Dose: 1.5 mg Physical Exam - Constitutional Appears: Non-toxic, Chronically Ill - Head Exam Head Exam: NORMOCEPHALIC - Eye Exam Eye Exam: absent: Scleral icterus - ENT Exam ENT Exam: Mucous Membranes Dry - Neck Exam Neck exam: Negative for: Lymphadenopathy - Respiratory Exam Respiratory Exam: Decreased Breath Sounds, Clear to Auscultation Bilateral - Cardiovascular Exam Cardiovascular Exam: REGULAR RHYTHM, +S1, +S2 - GI/Abdominal Exam GI & Abdominal Exam: Diminished Bowel Sounds - Rectal Exam Rectal Exam: Deferred - Extremities Exam Extremities exam: Positive for: pedal edema, tenderness, pedal pulses present. Negative for: calf tenderness, joint swelling, normal inspection - Back Exam Back exam: absent: CVA tenderness (L), CVA tenderness (R) - Neurological Exam Neurological exam: Alert, CN II-XII Intact, Oriented x3, Reflexes Normal Results - Vital Signs Recent Vital Signs: Last Vital Signs Temp 97.5 F L 02/23/18 07:59 Pulse 108 H 02/23/18 09:09 Resp 21 02/23/18 07:59 BP 162/76 H 02/23/18 09:09 Pulse Ox 94 L 02/23/18 07:59 - Labs Result Diagrams: 02/22/18 10:45 Labs: Laboratory Results - last 24 hr 02/22/18 02/22/18 10:45 13:00 WBC 12.8 H RBC 5.39 Hgb 13.7 Hct 44.5 MCV 82.6 D MCH 25.5 L MCHC 30.8 L RDW 16.7 H Plt Count 359 MPV 7.4 Neut % (Auto) 80.1 H Lymph % (Auto) 10.2 L Simpson % (Auto) 6.6 Eos % (Auto) 2.6 Baso % (Auto) 0.5 Neut # (Auto) 10.3 H Lymph # (Auto) 1.3 Simpson # (Auto) 0.8 Eos # (Auto) 0.3 Baso # (Auto) 0.1 Vancomycin Peak 12.3 L Vancomycin Trough < 5.0 L Assessment & Plan (1) Bilateral lower leg cellulitis Status: Acute (2) Bipolar 1 disorder Status: Acute (3) CHF (congestive heart failure) Status: Acute (4) COPD (chronic obstructive pulmonary disease) Status: Acute (5) Cellulitis Status: Acute - Assessment and Plan (Free Text) Assessment: severe cellulitis resp insuff COPD ? right sided heart failure agree with IV antibiotics wound care await cultures vascular eval recommended
[2018-02-23 18:29] LABS: URINE BILIRUBIN NEGATIVE (NEGATIVE); URINE BLOOD NEGATIVE (NEGATIVE); URINE CLARITY CLEAR (Clear); URINE COLOR YELLOW (YELLOW); URINE GLUCOSE (UA) NEG (Normal); URINE LEUKOCYTE ESTERASE NEG Leu/uL (Negative); URINE PROTEIN NEGATIVE (NEGATIVE); URINE UROBILINOGEN 0.2-1.0 mg/dL (0.2-1.0)
[2018-02-23] MEDS ORDERED: Albuterol-Ipratrop 3 mg / 0.5 (3 ml) UD INH PRN (23:43)
--- NOTE | 2018-02-23 23:45 | CP.PCM.PN ---
Subjective - Date & Time of Evaluation Date of Evaluation: 02/23/18 Time of Evaluation: 23:22 - Subjective Subjective: Patient c/o LE pain this afternoon; SOB on exertion earlier today VSS Heart- regular S1, S2, 1/6 mulu Lungs- dec. br. sounds b/l; expiratory wheeze Abd.- distended, + BS, soft, NT Ext.- 2 - 3 + edema b/l LE's with erythema below the knees; bandages in place 1. Bilateral lower extremity cellulitis 2. HTN- controlled 3. COPD- DuoNeb resp. treatment qid; cxr 4. Morbiid obesity 5. Abnormal glucose- metformin 500mg daily 6. Restless leg syndrome 7. Bipolar disorder Continue Zosyn 3.375g iv q 6 hrs and vancomycin 1g iv q 12 hrs; awaiting culture results Objective - Vital Signs/Intake and Output Vital Signs (last 24 hours): Temp Pulse Resp BP Pulse Ox 97.5 F L 97 H 20 129/80 97 02/23/18 17:00 02/23/18 22:09 02/23/18 17:00 02/23/18 22:09 02/23/18 21:08 - Medications Medications: Current Medications Albuterol/Ipratropium (Duoneb 3 Mg/0.5 Mg (3 Ml) Ud) 3 ml INH RQID [facility] Last Admin: 02/23/18 19:39 Dose: 3 ml Amlodipine Besylate (Norvasc) 10 mg PO DAILY [facility] Last Admin: 02/23/18 09:09 Dose: 10 mg Aspirin (Aspirin Chewable) 81 mg PO DAILY [facility] Last Admin: 02/23/18 09:08 Dose: 81 mg Carvedilol (Coreg) 25 mg PO Q12 [facility] Last Admin: 02/23/18 22:09 Dose: 25 mg Enoxaparin Sodium (Lovenox) 40 mg SC DAILY [facility]; Protocol Last Admin: 02/23/18 09:10 Dose: 40 mg Piperacillin Sod/Tazobactam (Sod 3.375 gm/ Sodium Chloride) 100 mls @ 100 mls/hr IVPB Q6 [facility]; Protocol Last Admin: 02/23/18 22:09 Dose: 100 mls/hr Vancomycin HCl 1 gm/ Sodium (Chloride) 250 mls @ 166.667 mls/hr IVPB Q12 [facility]; Protocol Last Admin: 02/23/18 13:03 Dose: 166.667 mls/hr Ibuprofen (Motrin Tab) 600 mg PO Q8 PRN PRN Reason: Pain, Mild (1-3) Losartan Potassium (Cozaar) 50 mg PO DAILY [facility] Last Admin: 02/23/18 09:09 Dose: 50 mg Metformin HCl (Glucophage) 250 mg PO BIDWM [facility] Last Admin: 02/23/18 17:23 Dose: 250 mg Nicotine (Nicoderm Cq) 1 patch TD DAILY [facility] Oxycodone/Acetaminophen (Percocet 5/325 Mg Tab) 1 tab PO Q4 PRN PRN Reason: Pain, severe (8-10) Stop: 02/26/18 17:01 Last Admin: 02/23/18 22:21 Dose: 1 tab Pramipexole Dihydrochloride (Mirapex) 1.5 mg PO Q12 [facility] Last Admin: 02/23/18 22:10 Dose: 1.5 mg Trazodone HCl (Desyrel) 50 mg PO HS [facility] Last Admin: 02/23/18 22:10 Dose: 50 mg - Labs Labs: 02/22/18 10:45
[2018-02-24] MEDS: Piperacillin/Tazobact 3.375 GM in Sodium Chloride 0.9% 100 ML IVPB SCH ×4 (03:56→22:45)
[2018-02-24] MEDS: Oxycodone/Acetaminophen 5/325 mg Tab PO PRN ×4 (03:56→20:03)
[2018-02-24 06:23] LABS: BASO # 0.1 K/uL (0.0-0.2); BASO % 0.7 % (0.0-2.0); EOS # 0.3 K/uL (0.0-0.7); HEMOGLOBIN 12.4 g/dL (12.0-18.0); LYMPH # 0.9 K/uL (1.0-4.3); LYMPH % 10.8 % (20.0-40.0); MEAN CELL VOLUME 80.4 fl (80.0-94.0); MEAN CORPUSCULAR HEMOGLOBIN 25.9 pg (27.0-31.0); MEAN CORPUSCULAR HGB CONC 32.2 g/dL (33.0-37.0); MEAN PLATELET VOLUME 7.4 fl (7.2-11.7); MONO # 0.7 K/uL (0.0-0.8); MONO % 8.6 % (0.0-10.0); NEUT # 6.3 K/uL (1.8-7.0); NEUT % 75.9 % (50.0-75.0); RBC 4.8 Mil/uL (4.40-5.90); RED CELL DISTRIBUTION WIDTH 16.2 % (11.5-14.5); WHITE BLOOD COUNT 8.3 K/uL (4.8-10.8)
[2018-02-24 06:43] LABS: ALB/GLOB RATIO 1.1 (1.0-2.1); ALBUMIN 3.6 g/dL (3.5-5.0); ALT/SGPT 32 U/L (21-72); AST/SGOT 25 U/L (17-59); BLOOD UREA NITROGEN 16 mg/dl (9-20); CALCIUM 8.4 mg/dL (8.4-10.2); GFR NON-AFRICAN AMERICAN > 60
[2018-02-24] MEDS: Albuterol-Ipratrop 3 mg / 0.5 (3 ml) UD INH SCH ×4 (07:16→19:20)
[2018-02-24] MEDS: Enoxaparin 40 mg Syringe SC SCH (09:05)
--- NOTE | 2018-02-24 10:38 | RAD ---
Date of service: 02/24/2018 HISTORY: shortnes of breath COMPARISON: 04/30/2017 TECHNIQUE: Chest PA and lateral FINDINGS: LUNGS: No active pulmonary disease. PLEURA: No significant pleural effusion identified. No pneumothorax apparent. CARDIOVASCULAR: There is presence of aortic atherosclerotic calcification on x-ray. Top normal appearing heart size para no pulmonary vascular congestion. OSSEOUS STRUCTURES: Mild thoracic spondylosis. Bilateral shoulder arthrosis VISUALIZED UPPER ABDOMEN: Normal. OTHER FINDINGS: None. IMPRESSION: No interval pathology noted.
--- NOTE | 2018-02-24 11:39 | US ---
Date of service: 02/24/2018 PROCEDURE: Bilateral lower extremity venous duplex Doppler. HISTORY: r/o dvt; bilateral swelling COMPARISON: None available. TECHNIQUE: Bilateral common femoral, superficial femoral, popliteal and posterior tibial veins were evaluated. Flow was assessed with color Doppler, compressibility, assessment of phasic flow and augmentation response. The posterior tibial veins are not visualized due to edema and bandages. FINDINGS: COMMON FEMORAL VEIN: Right CFV: Unremarkable. Left CFV: Unremarkable. SUPERFICIAL FEMORAL VEIN: Right SFV: Unremarkable. Left SFV: Unremarkable. POPLITEAL VEIN: Right Popliteal: Unremarkable. Left Popliteal: Unremarkable. POSTERIOR TIBIAL VEIN: Right PTV: Not visualized. Left PTV: Not visualized. OTHER FINDINGS: There is diffuse subcutaneous edema. IMPRESSION: No evidence of deep venous thrombosis in the visualized deep venous system.
--- NOTE | 2018-02-24 12:34 | CP.PCM.PN ---
Subjective - Date & Time of Evaluation Date of Evaluation: 02/24/18 Time of Evaluation: 12:32 - Subjective Subjective: Podiatry progress note for Dr. Woodruff 57 yo male seen and evaluated at bedside. Seen in mild respiratory distress. States breathing is improving. States that he has mild pain in his legs but they are draining. Had arterial studies performed yesterday. He denies N/V/F/C/SOB/CP at this time and has no other pedal complaints. Objective - Vital Signs/Intake and Output Vital Signs (last 24 hours): Temp Pulse Resp BP Pulse Ox 97.3 F L 99 H 20 131/74 95 02/24/18 08:33 02/24/18 08:33 02/24/18 08:33 02/24/18 08:33 02/24/18 08:33 - Medications Medications: Current Medications Albuterol/Ipratropium (Duoneb 3 Mg/0.5 Mg (3 Ml) Ud) 3 ml INH RQID [facility] Last Admin: 02/24/18 11:05 Dose: 3 ml Albuterol/Ipratropium (Duoneb 3 Mg/0.5 Mg (3 Ml) Ud) 3 ml INH RQ6 PRN PRN Reason: Shortness of Breath Last Admin: 02/24/18 04:09 Dose: 3 ml Amlodipine Besylate (Norvasc) 10 mg PO DAILY [facility] Last Admin: 02/24/18 09:07 Dose: 10 mg Aspirin (Aspirin Chewable) 81 mg PO DAILY [facility] Last Admin: 02/24/18 09:07 Dose: 81 mg Carvedilol (Coreg) 25 mg PO Q12 [facility] Last Admin: 02/24/18 09:07 Dose: 25 mg Enoxaparin Sodium (Lovenox) 40 mg SC DAILY [facility]; Protocol Last Admin: 02/24/18 09:05 Dose: 40 mg Piperacillin Sod/Tazobactam (Sod 3.375 gm/ Sodium Chloride) 100 mls @ 100 mls/hr IVPB Q6 [facility]; Protocol Last Admin: 02/24/18 09:02 Dose: 100 mls/hr Vancomycin HCl 1 gm/ Sodium (Chloride) 250 mls @ 166.667 mls/hr IVPB Q12 [facility]; Protocol Last Admin: 02/24/18 09:02 Dose: 166.667 mls/hr Ibuprofen (Motrin Tab) 600 mg PO Q8 PRN PRN Reason: Pain, Mild (1-3) Losartan Potassium (Cozaar) 50 mg PO DAILY [facility] Last Admin: 02/24/18 09:06 Dose: 50 mg Metformin HCl (Glucophage) 500 mg PO DAILY [facility] Last Admin: 02/24/18 09:01 Dose: 500 mg Nicotine (Nicoderm Cq) 1 patch TD DAILY [facility] Last Admin: 02/24/18 08:57 Dose: 1 patch Oxycodone/Acetaminophen (Percocet 5/325 Mg Tab) 1 tab PO Q4 PRN PRN Reason: Pain, severe (8-10) Stop: 02/26/18 17:01 Last Admin: 02/24/18 09:15 Dose: 1 tab Pramipexole Dihydrochloride (Mirapex) 1.5 mg PO Q12 [facility] Last Admin: 02/24/18 09:06 Dose: 1.5 mg Trazodone HCl (Desyrel) 50 mg PO HS [facility] Last Admin: 02/23/18 22:10 Dose: 50 mg - Labs Labs: 02/24/18 05:25 02/24/18 05:25 - Constitutional Appears: Well, Non-toxic, No Acute Distress - Head Exam Head Exam: ATRAUMATIC, NORMOCEPHALIC - Extremities Exam Additional comments: Vasc: DP and PT pulses palpable; cap refill <3 seconds to all digits; temp gradient warm to warm from proximal to distal; nonpitting moderate edema noted to b/l LE with associated erythema Derm: b/l lower extremities evidence of cellulitis from rearfoot to proximal lower leg appreciated; left LE has superficial wound present, granular tissue, no pus or purulent drainage appreciated on the anterior leg; right LE has similar wound present, superificial with no purulent drainage , no tunneling or tracking, on lateral aspect of LE Ortho: pain on palpation to b/l LE secondary to cellulitis and superficial wounds Neuro: gross and protective sensation intact b/l - Neurological Exam Neurological Exam: Alert, Awake, Oriented x3 - Psychiatric Exam Psychiatric exam: Normal Affect, Normal Mood Assessment and Plan - Assessment and Plan (Free Text) Assessment: 57M with b/l LE cellulits and superficial wounds Plan: Patient seen and evaluated Discussed in detail with Dr. Woodruff Afebrile and absent leukocytosis Wound cultures taken - f/u results Per ED - blood cx taken - gram negative delia Dress with xeroform, DSD and RODGER Arterial duplex studies taken - read pending Continue medications per ID ID on board, recs appreciated Will follow patient while in house
--- NOTE | 2018-02-24 13:10 | CP.PCM.PN ---
Subjective - Date & Time of Evaluation Date of Evaluation: 02/24/18 Time of Evaluation: 10:00 - Subjective Subjective: 57 year old male with a past medical history of cellulitis, HTN and obesity, who presents to the emergency department complaining of bilateral leg pain, swelling and drainage, onset x1 month. Objective - Vital Signs/Intake and Output Vital Signs (last 24 hours): Temp Pulse Resp BP Pulse Ox 97.3 F L 99 H 20 131/74 95 02/24/18 08:33 02/24/18 08:33 02/24/18 08:33 02/24/18 08:33 02/24/18 08:33 - Medications Medications: Current Medications Albuterol/Ipratropium (Duoneb 3 Mg/0.5 Mg (3 Ml) Ud) 3 ml INH RQID [facility] Last Admin: 02/24/18 11:05 Dose: 3 ml Albuterol/Ipratropium (Duoneb 3 Mg/0.5 Mg (3 Ml) Ud) 3 ml INH RQ6 PRN PRN Reason: Shortness of Breath Last Admin: 02/24/18 04:09 Dose: 3 ml Amlodipine Besylate (Norvasc) 10 mg PO DAILY [facility] Last Admin: 02/24/18 09:07 Dose: 10 mg Aspirin (Aspirin Chewable) 81 mg PO DAILY [facility] Last Admin: 02/24/18 09:07 Dose: 81 mg Carvedilol (Coreg) 25 mg PO Q12 [facility] Last Admin: 02/24/18 09:07 Dose: 25 mg Enoxaparin Sodium (Lovenox) 40 mg SC DAILY [facility]; Protocol Last Admin: 02/24/18 09:05 Dose: 40 mg Piperacillin Sod/Tazobactam (Sod 3.375 gm/ Sodium Chloride) 100 mls @ 100 mls/hr IVPB Q6 [facility]; Protocol Last Admin: 02/24/18 09:02 Dose: 100 mls/hr Vancomycin HCl 1 gm/ Sodium (Chloride) 250 mls @ 166.667 mls/hr IVPB Q12 [facility]; Protocol Last Admin: 02/24/18 09:02 Dose: 166.667 mls/hr Ibuprofen (Motrin Tab) 600 mg PO Q8 PRN PRN Reason: Pain, Mild (1-3) Losartan Potassium (Cozaar) 50 mg PO DAILY [facility] Last Admin: 02/24/18 09:06 Dose: 50 mg Metformin HCl (Glucophage) 500 mg PO DAILY [facility] Last Admin: 02/24/18 09:01 Dose: 500 mg Nicotine (Nicoderm Cq) 1 patch TD DAILY [facility] Last Admin: 02/24/18 08:57 Dose: 1 patch Oxycodone/Acetaminophen (Percocet 5/325 Mg Tab) 1 tab PO Q4 PRN PRN Reason: Pain, severe (8-10) Stop: 02/26/18 17:01 Last Admin: 02/24/18 09:15 Dose: 1 tab Pramipexole Dihydrochloride (Mirapex) 1.5 mg PO Q12 [facility] Last Admin: 02/24/18 09:06 Dose: 1.5 mg Trazodone HCl (Desyrel) 50 mg PO HS [facility] Last Admin: 02/23/18 22:10 Dose: 50 mg - Labs Labs: 02/24/18 05:25 02/24/18 05:25 - Constitutional Appears: Non-toxic, Chronically Ill - Head Exam Head Exam: NORMOCEPHALIC - Eye Exam Eye Exam: absent: Scleral icterus - ENT Exam ENT Exam: Mucous Membranes Dry - Neck Exam Neck Exam: absent: Lymphadenopathy - Respiratory Exam Respiratory Exam: Decreased Breath Sounds - Cardiovascular Exam Cardiovascular Exam: REGULAR RHYTHM - GI/Abdominal Exam GI & Abdominal Exam: Distended, Soft - Rectal Exam Rectal Exam: Deferred - Exam Exam: NORMAL INSPECTION - Extremities Exam Extremities Exam: Pedal Edema - Back Exam Back Exam: absent: CVA tenderness (L), CVA tenderness (R) Assessment and Plan (1) Bilateral lower leg cellulitis Status: Acute (2) Bipolar 1 disorder Status: Acute (3) CHF (congestive heart failure) Status: Acute (4) COPD (chronic obstructive pulmonary disease) Status: Acute (5) Cellulitis Status: Acute - Assessment and Plan (Free Text) Assessment: IV rx renewed
--- NOTE | 2018-02-24 21:37 | CP.PCM.PN ---
Subjective - Date & Time of Evaluation Date of Evaluation: 02/24/18 Time of Evaluation: 21:22 - Subjective Subjective: Patient c/o less pain of LE's today; less SOB but still wheezing; getting respiratory treatment with DuoNeb q 6 hrs VSS Heart- regular S1, S2, 1/6 mulu Lungs- dec. breath sounds b/l with expiratory wheeze Abd.- distended, + BS, soft, NT Ext.- 2 + edema of LE's with erythema below the knees; bandages in place Chest X-ray- No acute pulmonary disease noted; No CHF; atherosclerosis noted 1. Bilateral LE cellulitis 2. HTN- controlled 3. COPD- cont. resp. treatment; will order incentive spirometry 4. Hypercholesterolemia- pravastatin 40 mg q HS 5. Atherosclerosis 6. Morbid obesity 7. Abnormal glucose 8. Restless Leg Syndrome- mirapex 1.5mg bid 9. Diffuse epidural lipomatosis- encouraging weight loss 10. Bipolar disorder Continue Zosyn 3.375g iv q 6 hrs and vancomycin 1g iv q 12 hrs; wound culture result pending Objective - Vital Signs/Intake and Output Vital Signs (last 24 hours): Temp Pulse Resp BP Pulse Ox 97.3 F L 83 20 127/77 96 02/24/18 15:46 02/24/18 15:46 02/24/18 15:46 02/24/18 15:46 02/24/18 15:46 - Medications Medications: Current Medications Albuterol/Ipratropium (Duoneb 3 Mg/0.5 Mg (3 Ml) Ud) 3 ml INH RQID [facility] Last Admin: 02/24/18 19:20 Dose: 3 ml Albuterol/Ipratropium (Duoneb 3 Mg/0.5 Mg (3 Ml) Ud) 3 ml INH RQ6 PRN PRN Reason: Shortness of Breath Last Admin: 02/24/18 04:09 Dose: 3 ml Amlodipine Besylate (Norvasc) 10 mg PO DAILY [facility] Last Admin: 02/24/18 09:07 Dose: 10 mg Aspirin (Aspirin Chewable) 81 mg PO DAILY [facility] Last Admin: 02/24/18 09:07 Dose: 81 mg Carvedilol (Coreg) 25 mg PO Q12 [facility] Last Admin: 02/24/18 09:07 Dose: 25 mg Enoxaparin Sodium (Lovenox) 40 mg SC DAILY [facility]; Protocol Last Admin: 02/24/18 09:05 Dose: 40 mg Piperacillin Sod/Tazobactam (Sod 3.375 gm/ Sodium Chloride) 100 mls @ 100 mls/hr IVPB Q6 [facility]; Protocol Last Admin: 02/24/18 15:00 Dose: 100 mls/hr Vancomycin HCl 1 gm/ Sodium (Chloride) 250 mls @ 166.667 mls/hr IVPB Q12 [facility]; Protocol Last Admin: 02/24/18 20:35 Dose: 166.667 mls/hr Ibuprofen (Motrin Tab) 600 mg PO Q8 PRN PRN Reason: Pain, Mild (1-3) Losartan Potassium (Cozaar) 50 mg PO DAILY [facility] Last Admin: 02/24/18 09:06 Dose: 50 mg Metformin HCl (Glucophage) 500 mg PO DAILY [facility] Last Admin: 02/24/18 09:01 Dose: 500 mg Nicotine (Nicoderm Cq) 1 patch TD DAILY [facility] Last Admin: 02/24/18 08:57 Dose: 1 patch Oxycodone/Acetaminophen (Percocet 5/325 Mg Tab) 1 tab PO Q4 PRN PRN Reason: Pain, severe (8-10) Stop: 02/26/18 17:01 Last Admin: 02/24/18 20:03 Dose: 1 tab Pramipexole Dihydrochloride (Mirapex) 1.5 mg PO Q12 [facility] Last Admin: 02/24/18 09:06 Dose: 1.5 mg Trazodone HCl (Desyrel) 50 mg PO HS [facility] Last Admin: 02/23/18 22:10 Dose: 50 mg - Labs Labs: 02/24/18 05:25 02/24/18 05:25
[2018-02-25] MEDS: Oxycodone/Acetaminophen 5/325 mg Tab PO PRN ×4 (00:10→19:38)
[2018-02-25] MEDS: Piperacillin/Tazobact 3.375 GM in Sodium Chloride 0.9% 100 ML IVPB SCH ×4 (04:42→23:03)
[2018-02-25 06:20] LABS: HEMOGLOBIN 12.7 g/dL (12.0-18.0); MEAN CELL VOLUME 80.8 fl (80.0-94.0); MEAN CORPUSCULAR HEMOGLOBIN 25.8 pg (27.0-31.0); RBC 4.91 Mil/uL (4.40-5.90); RED CELL DISTRIBUTION WIDTH 16.2 % (11.5-14.5); WHITE BLOOD COUNT 8.4 K/uL (4.8-10.8)
[2018-02-25 06:29] LABS: ALB/GLOB RATIO 1.1 (1.0-2.1); ALBUMIN 3.7 g/dL (3.5-5.0); ALT/SGPT 31 U/L (21-72); AST/SGOT 30 U/L (17-59); BLOOD UREA NITROGEN 13 mg/dl (9-20); CALCIUM 8.6 mg/dL (8.4-10.2); GFR NON-AFRICAN AMERICAN > 60
[2018-02-25] MEDS: Albuterol-Ipratrop 3 mg / 0.5 (3 ml) UD INH SCH ×4 (07:26→19:05)
[2018-02-25] MEDS: Enoxaparin 40 mg Syringe SC SCH (09:45)
--- NOTE | 2018-02-25 10:13 | CP.PCM.PN ---
Subjective - Date & Time of Evaluation Date of Evaluation: 02/25/18 Time of Evaluation: 10:11 - Subjective Subjective: Podiatry progress note for Dr. Woodruff 57 yo male seen and evaluated at bedside. Seen in mild respiratory distress. States breathing is improving. States that he has burning pain in his legs. Is seen sitting on the chair. He denies N/V/F/C/SOB/CP at this time and has no other pedal complaints. Objective - Vital Signs/Intake and Output Vital Signs (last 24 hours): Temp Pulse Resp BP Pulse Ox 97.3 F L 92 H 20 158/80 H 95 02/25/18 09:16 02/25/18 09:46 02/25/18 09:16 02/25/18 09:46 02/25/18 09:16 - Medications Medications: Current Medications Albuterol/Ipratropium (Duoneb 3 Mg/0.5 Mg (3 Ml) Ud) 3 ml INH RQID [facility] Last Admin: 02/25/18 07:26 Dose: 3 ml Albuterol/Ipratropium (Duoneb 3 Mg/0.5 Mg (3 Ml) Ud) 3 ml INH RQ6 PRN PRN Reason: Shortness of Breath Last Admin: 02/24/18 04:09 Dose: 3 ml Amlodipine Besylate (Norvasc) 10 mg PO DAILY [facility] Last Admin: 02/25/18 09:46 Dose: 10 mg Aspirin (Aspirin Chewable) 81 mg PO DAILY [facility] Last Admin: 02/25/18 09:45 Dose: 81 mg Carvedilol (Coreg) 25 mg PO Q12 [facility] Last Admin: 02/25/18 09:44 Dose: 25 mg Enoxaparin Sodium (Lovenox) 40 mg SC DAILY [facility]; Protocol Last Admin: 02/25/18 09:45 Dose: 40 mg Piperacillin Sod/Tazobactam (Sod 3.375 gm/ Sodium Chloride) 100 mls @ 100 mls/hr IVPB Q6 [facility]; Protocol Last Admin: 02/25/18 04:42 Dose: 100 mls/hr Vancomycin HCl 1 gm/ Sodium (Chloride) 250 mls @ 166.667 mls/hr IVPB Q12 [facility]; Protocol Last Admin: 02/25/18 09:43 Dose: 166.667 mls/hr Ibuprofen (Motrin Tab) 600 mg PO Q8 PRN PRN Reason: Pain, Mild (1-3) Losartan Potassium (Cozaar) 50 mg PO DAILY [facility] Last Admin: 02/25/18 09:45 Dose: 50 mg Metformin HCl (Glucophage) 500 mg PO DAILY [facility] Last Admin: 02/25/18 09:45 Dose: 500 mg Nicotine (Nicoderm Cq) 1 patch TD DAILY [facility] Last Admin: 02/25/18 09:45 Dose: 1 patch Oxycodone/Acetaminophen (Percocet 5/325 Mg Tab) 1 tab PO Q4 PRN PRN Reason: Pain, severe (8-10) Stop: 02/26/18 17:01 Last Admin: 02/25/18 09:43 Dose: 1 tab Pramipexole Dihydrochloride (Mirapex) 1.5 mg PO Q12 [facility] Last Admin: 02/25/18 09:45 Dose: 1.5 mg Trazodone HCl (Desyrel) 50 mg PO HS [facility] Last Admin: 02/24/18 21:52 Dose: 50 mg - Labs Labs: 02/25/18 06:00 02/25/18 06:00 - Constitutional Appears: Well, Non-toxic - Head Exam Head Exam: ATRAUMATIC - Extremities Exam Additional comments: Dressing clean dry and intact Vasc: DP and PT pulses palpable; cap refill <3 seconds to all digits; temp gradient warm to warm from proximal to distal; nonpitting moderate edema noted to b/l LE with associated erythema Derm: b/l lower extremities evidence of cellulitis from rearfoot to proximal lower leg appreciated; left LE has superficial wound present, granular tissue, no pus or purulent drainage appreciated on the anterior leg; right LE has similar wound present, superificial with no purulent drainage , no tunneling or tracking, on lateral aspect of LE Ortho: pain on palpation to b/l LE secondary to cellulitis and superficial wounds Neuro: gross and protective sensation intact b/l - Neurological Exam Neurological Exam: Alert, Normal Gait - Psychiatric Exam Psychiatric exam: Normal Affect - Skin Skin Exam: Normal Color Assessment and Plan - Assessment and Plan (Free Text) Assessment: 57M with b/l LE cellulits and superficial wounds Plan: Patient seen and evaluated Discussed in detail with Dr. Woodruff Afebrile and absent leukocytosis Wound cultures taken - pseudomonas Per ED - blood cx taken - Dress with xeroform, DSD and RODGER Arterial duplex studies taken - read pending no DVT per duplex Continue medications per ID ID on board, recs appreciated Will follow patient while in house
--- NOTE | 2018-02-25 10:23 | US ---
Date of service: 02/23/2018 PROCEDURE: Duplex ultrasound of the bilateral lower extremity arteries. HISTORY: b/l lower leg wounds COMPARISON: None available. TECHNIQUE: Grayscale and duplex Doppler evaluation of the bilateral common femoral, superficial femoral, popliteal, posterior tibial and dorsalis pedis arteries was performed.. FINDINGS: RIGHT LOWER EXTREMITY: RIGHT COMMON FEMORAL ARTERY: Widely patent. Maximal flow velocity of 139.8 cm/s. RIGHT SUPERFICIAL FEMORAL ARTERY: Widely patent. Maximal flow velocity of 164.9 cm/s. RIGHT POPLITEAL ARTERY:Widely patent. Maximal flow velocity of 67.0 cm/s. RIGHT POSTERIOR TIBIAL ARTERY: Widely patent. Maximal flow velocity of 78.8 cm/s. RIGHT DORSALIS PEDIS ARTERY: Widely patent. Maximal flow velocity of 62.4 cm/s. LEFT LOWER EXTREMITY: LEFT COMMON FEMORAL ARTERY: Widely patent. Maximal flow velocity of 176.1 cm/s. LEFT SUPERFICIAL FEMORAL ARTERY: Widely patent. Maximal flow velocity of 145.8 cm/s. LEFT POPLITEAL ARTERY:Widely patent. Maximal flow velocity of 73.8 cm/s. LEFT POSTERIOR TIBIAL ARTERY: Widely patent. Maximal flow velocity of 19.2 cm/s. LEFT DORSALIS PEDIS ARTERY: Widely patent. Maximal flow velocity of 122.7 cm/s. OTHER FINDINGS: Left inguinal mass 2.2 x 2.8 x 5.6 cm. Right inguinal mass 1.6 x 2.7 x 6 cm. IMPRESSION: 1. Inflow disease bilaterally manifest is elevated peak systolic velocities in the femoral arteries bilaterally. 2. Elevated peak systolic velocities in the superficial femoral arteries bilaterally. 3. Diminished flow to the left ankle and foot. 4. Bilateral inguinal masses likely enlarged lymph nodes. Follow-up recommended.
--- NOTE | 2018-02-25 10:39 | CP.PCM.CON ---
History of Present Illness - History of Present Illness History of Present Illness: pt is a 57 yo male with history of schizoaffective disorder bipolar type, curently non compliant with medications or follow up, admitted to medicine due to SOB, wheezing and cellulitis of the lower limbs Patient reports that he f eels that he is decompensating. He reports mood lability, irritability, intermittent feelings of depression, sadness low motivation and anxiety as well as intermittent auditory hallucinations,and poor sleep,, denied command hallucinations, denied suicidal or homicidal ideation denied substance use Past Patient History - Infectious Disease Hx of Infectious Diseases: None - Past Medical History & Family History Past Medical History?: Yes - Past Social History Smoking Status: Current Some Days Smoker - CARDIAC Hx Congestive Heart Failure: Yes Hx Hypercholesterolemia: No (PT DENIES) Hx Hypertension: Yes - PULMONARY Hx Asthma: Yes Hx Chronic Obstructive Pulmonary Disease (COPD): Yes Hx Emphysema: Yes Hx Sleep Apnea: Yes - NEUROLOGICAL Hx Seizures: No - HEENT Hx HEENT Problems: No - RENAL Hx Chronic Kidney Disease: No - ENDOCRINE/METABOLIC Hx Endocrine Disorders: No - HEMATOLOGICAL/ONCOLOGICAL Hx Human Immunodeficiency Virus (HIV): No - INTEGUMENTARY Hx Dermatological Problems: Yes (Cellulitis) Hx Cellulitis: Yes - MUSCULOSKELETAL/RHEUMATOLOGICAL Hx Musculoskeletal Disorders: Yes Hx Falls: Yes - GASTROINTESTINAL Hx Gastrointestinal Disorders: No - GENITOURINARY/GYNECOLOGICAL Hx Sexually Transmitted Disorders: No - PSYCHIATRIC Hx Anxiety: Yes Hx Bipolar Disorder: Yes Hx Depression: Yes Hx Schizophrenia: Yes - SURGICAL HISTORY Hx Surgeries: No - ANESTHESIA Hx Anesthesia: Yes Hx Anesthesia Reactions: No Hx Malignant Hyperthermia: No Meds Allergies/Adverse Reactions: Allergies Allergy/AdvReac Type Severity Reaction Status Date / Time [place] And Derivatives Allergy ANGIOEDEMA Verified 02/22/18 09:18 - Medications Medications: Current Medications Albuterol/Ipratropium (Duoneb 3 Mg/0.5 Mg (3 Ml) Ud) 3 ml INH RQID [facility] Last Admin: 02/25/18 07:26 Dose: 3 ml Albuterol/Ipratropium (Duoneb 3 Mg/0.5 Mg (3 Ml) Ud) 3 ml INH RQ6 PRN PRN Reason: Shortness of Breath Last Admin: 02/24/18 04:09 Dose: 3 ml Amlodipine Besylate (Norvasc) 10 mg PO DAILY [facility] Last Admin: 02/25/18 09:46 Dose: 10 mg Aspirin (Aspirin Chewable) 81 mg PO DAILY [facility] Last Admin: 02/25/18 09:45 Dose: 81 mg Carvedilol (Coreg) 25 mg PO Q12 [facility] Last Admin: 02/25/18 09:44 Dose: 25 mg Enoxaparin Sodium (Lovenox) 40 mg SC DAILY [facility]; Protocol Last Admin: 02/25/18 09:45 Dose: 40 mg Piperacillin Sod/Tazobactam (Sod 3.375 gm/ Sodium Chloride) 100 mls @ 100 mls/hr IVPB Q6 [facility]; Protocol Last Admin: 02/25/18 04:42 Dose: 100 mls/hr Vancomycin HCl 1 gm/ Sodium (Chloride) 250 mls @ 166.667 mls/hr IVPB Q12 [facility]; Protocol Last Admin: 02/25/18 09:43 Dose: 166.667 mls/hr Ibuprofen (Motrin Tab) 600 mg PO Q8 PRN PRN Reason: Pain, Mild (1-3) Losartan Potassium (Cozaar) 50 mg PO DAILY [facility] Last Admin: 02/25/18 09:45 Dose: 50 mg Metformin HCl (Glucophage) 500 mg PO DAILY [facility] Last Admin: 02/25/18 09:45 Dose: 500 mg Nicotine (Nicoderm Cq) 1 patch TD DAILY [facility] Last Admin: 02/25/18 09:45 Dose: 1 patch Oxycodone/Acetaminophen (Percocet 5/325 Mg Tab) 1 tab PO Q4 PRN PRN Reason: Pain, severe (8-10) Stop: 02/26/18 17:01 Last Admin: 02/25/18 09:43 Dose: 1 tab Pramipexole Dihydrochloride (Mirapex) 1.5 mg PO Q12 [facility] Last Admin: 02/25/18 09:45 Dose: 1.5 mg Trazodone HCl (Desyrel) 50 mg PO HS [facility] Last Admin: 02/24/18 21:52 Dose: 50 mg Results - Vital Signs Recent Vital Signs: Last Vital Signs Temp 97.3 F L 02/25/18 09:16 Pulse 92 H 02/25/18 09:46 Resp 20 02/25/18 09:16 BP 158/80 H 02/25/18 09:46 Pulse Ox 95 02/25/18 09:16 - Labs Result Diagrams: 02/25/18 06:00 02/25/18 06:00 Labs: Laboratory Results - last 24 hr 02/25/18 02/25/18 06:00 06:00 WBC 8.4 RBC 4.91 Hgb 12.7 Hct 39.6 MCV 80.8 MCH 25.8 L MCHC 32.0 L RDW 16.2 H Plt Count 282 Sodium 138 Potassium 4.0 Chloride 102 Carbon Dioxide 28 Anion Gap 12 BUN 13 Creatinine 0.8 Est GFR ( Amer) > 60 Est GFR (Non-Af Amer) > 60 Random Glucose 106 Calcium 8.6 Phosphorus 3.5 Magnesium 2.2 Total Bilirubin 0.3 AST 30 ALT 31 Alkaline Phosphatase 75 Total Protein 7.0 Albumin 3.7 Globulin 3.3 Albumin/Globulin Ratio 1.1 Assessment & Plan - Assessment and Plan (Free Text) Assessment: schizoaffective disorder bipolar type Plan: recommend increase trazodone to 100mg qhs start abilify 10mg daily start buspar 10mg bid pt would benefit from admission to [facility] after medical clearance
[2018-02-25] MEDS ORDERED: Morphine 4 MG/ML VIAL IVP ONE (11:13)
--- NOTE | 2018-02-25 19:55 | CP.PCM.PN ---
Subjective - Date & Time of Evaluation Date of Evaluation: 02/25/18 Time of Evaluation: 19:41 - Subjective Subjective: Patient c/o burning pain of LE's at rest and with ambulation today; less SOB on exertion VSS Heart- regular S1, S2, 1/6 mulu Lungs- dec. br. sounds b/l; expiratory wheeze Abd.- distended, + BS, soft, NT Ext.- 2 + edema to knees with erythema; bandages in place LE's 1. B/L LE cellulitis- cont. zosyn and vancomycin 2. Enlarged b/l inguinal lymph nodes- will f/u following discharge 3. COPD- DuoNeb resp. treatment q 6 hrs 4. Morbid obesity- plan outpatient weight management 5. Diffuse epidural lipomatosis 6. HTN- controlled 7. Bipolar disorder- evaluated by psych; abilify, buspar and trazodone started Objective - Vital Signs/Intake and Output Vital Signs (last 24 hours): Temp Pulse Resp BP Pulse Ox 98.3 F 90 20 113/72 94 L 02/25/18 17:00 02/25/18 17:00 02/25/18 17:00 02/25/18 17:00 02/25/18 17:00 - Medications Medications: Current Medications Albuterol/Ipratropium (Duoneb 3 Mg/0.5 Mg (3 Ml) Ud) 3 ml INH RQID [facility] Last Admin: 02/25/18 19:05 Dose: 3 ml Albuterol/Ipratropium (Duoneb 3 Mg/0.5 Mg (3 Ml) Ud) 3 ml INH RQ6 PRN PRN Reason: Shortness of Breath Last Admin: 02/24/18 04:09 Dose: 3 ml Amlodipine Besylate (Norvasc) 10 mg PO DAILY [facility] Last Admin: 02/25/18 09:46 Dose: 10 mg Aripiprazole (Abilify) 10 mg PO DAILY [facility] Aspirin (Aspirin Chewable) 81 mg PO DAILY [facility] Last Admin: 02/25/18 09:45 Dose: 81 mg Buspirone HCl (Buspar) 10 mg PO BID [facility] Last Admin: 02/25/18 16:36 Dose: 10 mg Carvedilol (Coreg) 25 mg PO Q12 [facility] Last Admin: 02/25/18 09:44 Dose: 25 mg Enoxaparin Sodium (Lovenox) 40 mg SC DAILY [facility]; Protocol Last Admin: 02/25/18 09:45 Dose: 40 mg Piperacillin Sod/Tazobactam (Sod 3.375 gm/ Sodium Chloride) 100 mls @ 100 mls/hr IVPB Q6 [facility]; Protocol Last Admin: 02/25/18 16:37 Dose: 100 mls/hr Vancomycin HCl 1 gm/ Sodium (Chloride) 250 mls @ 166.667 mls/hr IVPB Q12 [facility]; Protocol Last Admin: 02/25/18 09:43 Dose: 166.667 mls/hr Ibuprofen (Motrin Tab) 600 mg PO Q8 PRN PRN Reason: Pain, Mild (1-3) Losartan Potassium (Cozaar) 50 mg PO DAILY [facility] Last Admin: 02/25/18 09:45 Dose: 50 mg Metformin HCl (Glucophage) 500 mg PO DAILY [facility] Last Admin: 02/25/18 09:45 Dose: 500 mg Nicotine (Nicoderm Cq) 1 patch TD DAILY [facility] Last Admin: 02/25/18 09:45 Dose: 1 patch Oxycodone/Acetaminophen (Percocet 5/325 Mg Tab) 1 tab PO Q4 PRN PRN Reason: Pain, severe (8-10) Stop: 02/26/18 17:01 Last Admin: 02/25/18 19:38 Dose: 1 tab Pramipexole Dihydrochloride (Mirapex) 1.5 mg PO Q12 [facility] Last Admin: 02/25/18 09:45 Dose: 1.5 mg Senna/Docusate Sodium (Senokot S 50 Mg-8.6 Mg) 2 tab PO HS [facility] Trazodone HCl (Desyrel) 100 mg PO HS [facility] - Labs Labs: 02/25/18 06:00 02/25/18 06:00
[2018-02-25] MEDS: Docusate-Senna 50 mg-8.6 mg Tab PO SCH ×2 (21:53→22:00)
[2018-02-26] MEDS: Oxycodone/Acetaminophen 5/325 mg Tab PO PRN ×4 (00:01→20:57)
[2018-02-26] MEDS: Piperacillin/Tazobact 3.375 GM in Sodium Chloride 0.9% 100 ML IVPB SCH ×4 (04:05→21:00)
[2018-02-26 06:27] LABS: HEMOGLOBIN 12.7 g/dL (12.0-18.0); MEAN CELL VOLUME 80.7 fl (80.0-94.0); MEAN CORPUSCULAR HEMOGLOBIN 26.8 pg (27.0-31.0); MEAN CORPUSCULAR HGB CONC 33.2 g/dL (33.0-37.0); RBC 4.76 Mil/uL (4.40-5.90); RED CELL DISTRIBUTION WIDTH 16.2 % (11.5-14.5); WHITE BLOOD COUNT 8.8 K/uL (4.8-10.8)
[2018-02-26] MEDS: Albuterol-Ipratrop 3 mg / 0.5 (3 ml) UD INH SCH ×4 (07:23→19:12)
[2018-02-26 07:24] LABS: ALB/GLOB RATIO 1.1 (1.0-2.1); ALBUMIN 3.8 g/dL (3.5-5.0); ALT/SGPT 41 U/L (21-72); AST/SGOT 46 U/L (17-59); BLOOD UREA NITROGEN 11 mg/dl (9-20); CALCIUM 8.8 mg/dL (8.4-10.2); GFR NON-AFRICAN AMERICAN > 60
[2018-02-26] MEDS: Enoxaparin 40 mg Syringe SC SCH (08:42)
--- NOTE | 2018-02-26 11:59 | CP.PCM.PN ---
Subjective - Date & Time of Evaluation Date of Evaluation: 02/26/18 Time of Evaluation: 11:46 - Subjective Subjective: Patient c/o /10 burning pain of LE's today; less SOB VSS Heart- regular S1, S2, 1/6 mulu Lungs- dec. br. sounds b/l Abd.- distended, + BS, soft, NT Ext.- 2 + edema to knees; erythema LLE > RLLE; bandages in place 1. B/L LE cellulitis- cont. zosyn and vancomycin 2. Elevated peak systolic velocities of femoral arteries 3. Diminished blood flow left ankle and foot 4. Elevated peak systolic velocities of superficial femoral arteries 5. B/L enlarged inguinal lymph nodes 6. Atherosclerosis 7. Diffuse epidural lipomatosis 8. Morbid obesity 9. COPD 10. HTN 11. Bipolar disorder Dr. Mika Cornejo has been consulted concerning stenosis of femoral arteries; diminished blood flow left ankle and foot Objective - Vital Signs/Intake and Output Vital Signs (last 24 hours): Temp Pulse Resp BP Pulse Ox 97.3 F L 81 20 147/90 94 L 02/26/18 08:37 02/26/18 08:41 02/26/18 08:37 02/26/18 08:41 02/26/18 08:37 - Medications Medications: Current Medications Albuterol/Ipratropium (Duoneb 3 Mg/0.5 Mg (3 Ml) Ud) 3 ml INH RQID [facility] Last Admin: 02/26/18 11:16 Dose: 3 ml Albuterol/Ipratropium (Duoneb 3 Mg/0.5 Mg (3 Ml) Ud) 3 ml INH RQ6 PRN PRN Reason: Shortness of Breath Last Admin: 02/24/18 04:09 Dose: 3 ml Amlodipine Besylate (Norvasc) 10 mg PO DAILY [facility] Last Admin: 02/26/18 08:40 Dose: 10 mg Aripiprazole (Abilify) 10 mg PO DAILY [facility] Last Admin: 02/26/18 08:38 Dose: 10 mg Aspirin (Aspirin Chewable) 81 mg PO DAILY [facility] Last Admin: 02/26/18 08:39 Dose: 81 mg Buspirone HCl (Buspar) 10 mg PO BID [facility] Last Admin: 02/26/18 08:39 Dose: 10 mg Carvedilol (Coreg) 25 mg PO Q12 [facility] Last Admin: 02/26/18 08:39 Dose: 25 mg Piperacillin Sod/Tazobactam (Sod 3.375 gm/ Sodium Chloride) 100 mls @ 100 mls/hr IVPB Q6 [facility]; Protocol Last Admin: 02/26/18 10:07 Dose: 100 mls/hr Ibuprofen (Motrin Tab) 600 mg PO Q8 PRN PRN Reason: Pain, Mild (1-3) Losartan Potassium (Cozaar) 50 mg PO DAILY [facility] Last Admin: 02/26/18 08:41 Dose: 50 mg Metformin HCl (Glucophage) 500 mg PO DAILY [facility] Last Admin: 02/26/18 08:42 Dose: 500 mg Nicotine (Nicoderm Cq) 1 patch TD DAILY [facility] Last Admin: 02/26/18 08:42 Dose: 1 patch Oxycodone/Acetaminophen (Percocet 5/325 Mg Tab) 1 tab PO Q4 PRN PRN Reason: Pain, severe (8-10) Stop: 02/26/18 17:01 Last Admin: 02/26/18 07:53 Dose: 1 tab Pramipexole Dihydrochloride (Mirapex) 1.5 mg PO Q12 [facility] Last Admin: 02/26/18 08:42 Dose: 1.5 mg Senna/Docusate Sodium (Senokot S 50 Mg-8.6 Mg) 2 tab PO HS [facility] Last Admin: 02/25/18 22:00 Dose: Not Given Trazodone HCl (Desyrel) 100 mg PO HS [facility] Last Admin: 02/25/18 21:53 Dose: 100 mg - Labs Labs: 02/26/18 05:35 02/26/18 05:35
--- NOTE | 2018-02-26 12:10 | CP.PCM.PN ---
Subjective - Date & Time of Evaluation Date of Evaluation: 02/26/18 Time of Evaluation: 08:00 - Subjective Subjective: slllow progress IV rx renewed Objective - Vital Signs/Intake and Output Vital Signs (last 24 hours): Temp Pulse Resp BP Pulse Ox 97.3 F L 81 20 147/90 94 L 02/26/18 08:37 02/26/18 08:41 02/26/18 08:37 02/26/18 08:41 02/26/18 08:37 - Medications Medications: Current Medications Albuterol/Ipratropium (Duoneb 3 Mg/0.5 Mg (3 Ml) Ud) 3 ml INH RQID [facility] Last Admin: 02/26/18 11:16 Dose: 3 ml Albuterol/Ipratropium (Duoneb 3 Mg/0.5 Mg (3 Ml) Ud) 3 ml INH RQ6 PRN PRN Reason: Shortness of Breath Last Admin: 02/24/18 04:09 Dose: 3 ml Amlodipine Besylate (Norvasc) 10 mg PO DAILY [facility] Last Admin: 02/26/18 08:40 Dose: 10 mg Aripiprazole (Abilify) 10 mg PO DAILY [facility] Last Admin: 02/26/18 08:38 Dose: 10 mg Aspirin (Aspirin Chewable) 81 mg PO DAILY [facility] Last Admin: 02/26/18 08:39 Dose: 81 mg Buspirone HCl (Buspar) 10 mg PO BID [facility] Last Admin: 02/26/18 08:39 Dose: 10 mg Carvedilol (Coreg) 25 mg PO Q12 [facility] Last Admin: 02/26/18 08:39 Dose: 25 mg Piperacillin Sod/Tazobactam (Sod 3.375 gm/ Sodium Chloride) 100 mls @ 100 mls/hr IVPB Q6 [facility]; Protocol Last Admin: 02/26/18 10:07 Dose: 100 mls/hr Ibuprofen (Motrin Tab) 600 mg PO Q8 PRN PRN Reason: Pain, Mild (1-3) Losartan Potassium (Cozaar) 50 mg PO DAILY [facility] Last Admin: 02/26/18 08:41 Dose: 50 mg Metformin HCl (Glucophage) 500 mg PO DAILY [facility] Last Admin: 02/26/18 08:42 Dose: 500 mg Nicotine (Nicoderm Cq) 1 patch TD DAILY [facility] Last Admin: 02/26/18 08:42 Dose: 1 patch Oxycodone/Acetaminophen (Percocet 5/325 Mg Tab) 1 tab PO Q4 PRN PRN Reason: Pain, severe (8-10) Stop: 02/26/18 17:01 Last Admin: 02/26/18 07:53 Dose: 1 tab Pramipexole Dihydrochloride (Mirapex) 1.5 mg PO Q12 [facility] Last Admin: 02/26/18 08:42 Dose: 1.5 mg Senna/Docusate Sodium (Senokot S 50 Mg-8.6 Mg) 2 tab PO HS [facility] Last Admin: 02/25/18 22:00 Dose: Not Given Trazodone HCl (Desyrel) 100 mg PO [facility] Last Admin: 02/25/18 21:53 Dose: 100 mg - Labs Labs: 02/26/18 05:35 02/26/18 05:35 - Constitutional Appears: Non-toxic, Chronically Ill - Head Exam Head Exam: NORMOCEPHALIC - Eye Exam Eye Exam: absent: Scleral icterus - ENT Exam ENT Exam: Mucous Membranes Dry - Neck Exam Neck Exam: absent: Lymphadenopathy - Respiratory Exam Respiratory Exam: Decreased Breath Sounds - Cardiovascular Exam Cardiovascular Exam: REGULAR RHYTHM - GI/Abdominal Exam GI & Abdominal Exam: Distended - Rectal Exam Rectal Exam: Deferred - Exam Exam: NORMAL INSPECTION - Extremities Exam Extremities Exam: Pedal Edema - Back Exam Back Exam: absent: CVA tenderness (L), CVA tenderness (R) - Neurological Exam Neurological Exam: Alert, Awake - Psychiatric Exam Psychiatric exam: Depressed - Skin Skin Exam: Erythema Assessment and Plan (1) Bilateral lower leg cellulitis Status: Acute (2) Bipolar 1 disorder Status: Acute (3) CHF (congestive heart failure) Status: Acute (4) COPD (chronic obstructive pulmonary disease) Status: Acute (5) Cellulitis Status: Acute - Assessment and Plan (Free Text) Assessment: cont iv rx
--- NOTE | 2018-02-26 16:03 | CP.PCM.PN ---
Subjective - Date & Time of Evaluation Date of Evaluation: 02/26/18 Time of Evaluation: 16:01 - Subjective Subjective: Podiatry progress note for Dr. Woodruff 57 yo male seen and evaluated at bedside. Seen in mild respiratory distress. States breathing is improving. States that he has burning pain in his legs. Is seen sitting on the chair. He denies N/V/F/C/SOB/CP at this time and has no other pedal complaints. Objective - Vital Signs/Intake and Output Vital Signs (last 24 hours): Temp Pulse Resp BP Pulse Ox 97.3 F L 81 20 147/90 94 L 02/26/18 08:37 02/26/18 08:41 02/26/18 08:37 02/26/18 08:41 02/26/18 08:37 - Medications Medications: Current Medications Albuterol/Ipratropium (Duoneb 3 Mg/0.5 Mg (3 Ml) Ud) 3 ml INH RQID [facility] Last Admin: 02/26/18 15:04 Dose: 3 ml Albuterol/Ipratropium (Duoneb 3 Mg/0.5 Mg (3 Ml) Ud) 3 ml INH RQ6 PRN PRN Reason: Shortness of Breath Last Admin: 02/24/18 04:09 Dose: 3 ml Amlodipine Besylate (Norvasc) 10 mg PO DAILY [facility] Last Admin: 02/26/18 08:40 Dose: 10 mg Aripiprazole (Abilify) 10 mg PO DAILY [facility] Last Admin: 02/26/18 08:38 Dose: 10 mg Aspirin (Aspirin Chewable) 81 mg PO DAILY [facility] Last Admin: 02/26/18 08:39 Dose: 81 mg Buspirone HCl (Buspar) 10 mg PO BID [facility] Last Admin: 02/26/18 08:39 Dose: 10 mg Carvedilol (Coreg) 25 mg PO Q12 [facility] Last Admin: 02/26/18 08:39 Dose: 25 mg Piperacillin Sod/Tazobactam (Sod 3.375 gm/ Sodium Chloride) 100 mls @ 100 mls/ hr IVPB Q6 [facility]; Protocol Last Admin: 02/26/18 10:07 Dose: 100 mls/hr Vancomycin HCl 1 gm/ Sodium (Chloride) 250 mls @ 166.667 mls/hr IVPB Q12 [facility]; Protocol Ibuprofen (Motrin Tab) 600 mg PO Q8 PRN PRN Reason: Pain, Mild (1-3) Losartan Potassium (Cozaar) 50 mg PO DAILY [facility] Last Admin: 02/26/18 08:41 Dose: 50 mg Metformin HCl (Glucophage) 500 mg PO DAILY [facility] Last Admin: 02/26/18 08:42 Dose: 500 mg Nicotine (Nicoderm Cq) 1 patch TD DAILY [facility] Last Admin: 02/26/18 08:42 Dose: 1 patch Oxycodone/Acetaminophen (Percocet 5/325 Mg Tab) 1 tab PO Q4 PRN PRN Reason: Pain, severe (8-10) Stop: 02/26/18 17:01 Last Admin: 02/26/18 15:10 Dose: 1 tab Pramipexole Dihydrochloride (Mirapex) 1.5 mg PO Q12 [facility] Last Admin: 02/26/18 08:42 Dose: 1.5 mg Senna/Docusate Sodium (Senokot S 50 Mg-8.6 Mg) 2 tab PO [facility] Last Admin: 02/25/18 22:00 Dose: Not Given Trazodone HCl (Desyrel) 100 mg PO HS [facility] Last Admin: 02/25/18 21:53 Dose: 100 mg - Labs Labs: 02/26/18 05:35 02/26/18 05:35 - Constitutional Appears: Well, Non-toxic - Head Exam Head Exam: ATRAUMATIC - Extremities Exam Additional comments: Dressing clean dry and intact Vasc: DP and PT pulses palpable; cap refill <3 seconds to all digits; temp gradient warm to warm from proximal to distal; nonpitting moderate edema noted to b/l LE with associated erythema Derm: b/l lower extremities evidence of cellulitis from rearfoot to proximal lower leg appreciated; left LE has superficial wound present, granular tissue, no pus or purulent drainage appreciated on the anterior leg; right LE has similar wound present, superificial with no purulent drainage , no tunneling or tracking, on lateral aspect of LE Ortho: pain on palpation to b/l LE secondary to cellulitis and superficial wounds Neuro: gross and protective sensation intact b/l - Neurological Exam Neurological Exam: Alert, Awake, Oriented x3 - Psychiatric Exam Psychiatric exam: Normal Affect Assessment and Plan - Assessment and Plan (Free Text) Assessment: 57M with b/l LE cellulits and superficial wounds Plan: Patient seen and evaluated Discussed in detail with Dr. Woodruff Afebrile and absent leukocytosis Wound cultures taken - pseudomonas Per ED - blood cx taken - Dressing clean dry intact. Arterial duplex studies taken - diminished blood flow to the left foot and ankle, inguinal mass possible enlarged lymph nodes. Vasc on board, recs appreciated. no DVT per duplex Continue medications per ID ID on board, recs appreciated Will follow patient while in house
[2018-02-26] MEDS: Docusate-Senna 50 mg-8.6 mg Tab PO SCH ×2 (20:59→21:07)
[2018-02-27] MEDS: Piperacillin/Tazobact 3.375 GM in Sodium Chloride 0.9% 100 ML IVPB SCH ×4 (04:53→21:14)
[2018-02-27] MEDS: Oxycodone/Acetaminophen 5/325 mg Tab PO PRN ×2 (05:00→18:23)
[2018-02-27 07:15] LABS: ALB/GLOB RATIO 1.1 (1.0-2.1); ALBUMIN 3.7 g/dL (3.5-5.0); ALT/SGPT 49 U/L (21-72); AST/SGOT 48 U/L (17-59); BLOOD UREA NITROGEN 10 mg/dl (9-20); CALCIUM 8.9 mg/dL (8.4-10.2); GFR NON-AFRICAN AMERICAN > 60
[2018-02-27] MEDS: Albuterol-Ipratrop 3 mg / 0.5 (3 ml) UD INH SCH ×4 (07:23→19:03)
[2018-02-27] MEDS ORDERED: Morphine 4 MG/ML VIAL IVP PRN (11:18)
--- NOTE | 2018-02-27 13:04 | CP.PCM.PN ---
Subjective - Date & Time of Evaluation Date of Evaluation: 02/27/18 Time of Evaluation: 09:00 - Subjective Subjective: IV Rx reordered less sob cellulitis improving Objective - Vital Signs/Intake and Output Vital Signs (last 24 hours): Temp Pulse Resp BP Pulse Ox 97.7 F 89 20 152/89 H 94 L 02/27/18 08:00 02/27/18 09:15 02/27/18 08:00 02/27/18 09:15 02/27/18 08:00 - Medications Medications: Current Medications Albuterol/Ipratropium (Duoneb 3 Mg/0.5 Mg (3 Ml) Ud) 3 ml INH RQID [facility] Last Admin: 02/27/18 11:35 Dose: 3 ml Albuterol/Ipratropium (Duoneb 3 Mg/0.5 Mg (3 Ml) Ud) 3 ml INH RQ6 PRN PRN Reason: Shortness of Breath Last Admin: 02/24/18 04:09 Dose: 3 ml Amlodipine Besylate (Norvasc) 10 mg PO DAILY [facility] Last Admin: 02/27/18 09:15 Dose: 10 mg Aripiprazole (Abilify) 10 mg PO DAILY [facility] Last Admin: 02/27/18 09:08 Dose: 10 mg Aspirin (Aspirin Chewable) 81 mg PO DAILY [facility] Last Admin: 02/27/18 09:10 Dose: 81 mg Buspirone HCl (Buspar) 10 mg PO BID [facility] Last Admin: 02/27/18 09:10 Dose: 10 mg Carvedilol (Coreg) 25 mg PO Q12 [facility] Last Admin: 02/27/18 09:11 Dose: 25 mg Piperacillin Sod/Tazobactam (Sod 3.375 gm/ Sodium Chloride) 100 mls @ 100 mls/hr IVPB Q6 [facility]; Protocol Last Admin: 02/27/18 04:53 Dose: 100 mls/hr Vancomycin HCl 1 gm/ Sodium (Chloride) 250 mls @ 166.667 mls/hr IVPB Q12 [facility]; P rotocol Last Admin: 02/27/18 09:22 Dose: 166.667 mls/hr Ibuprofen (Motrin Tab) 600 mg PO Q8 PRN PRN Reason: Pain, Mild (1-3) Losartan Potassium (Cozaar) 50 mg PO DAILY [facility] Last Admin: 02/27/18 09:12 Dose: 50 mg Metformin HCl (Glucophage) 500 mg PO DAILY [facility] Last Admin: 02/27/18 09:13 Dose: 500 mg Morphine Sulfate (Morphine) 2 mg IVP ONCE PRN PRN Reason: Pain, severe (8-10) Nicotine (Nicoderm Cq) 1 patch TD DAILY [facility] Last Admin: 02/27/18 09:14 Dose: 1 patch Oxycodone/Acetaminophen (Percocet 5/325 Mg Tab) 1 tab PO Q6 PRN PRN Reason: Pain, severe (8-10) Stop: 03/01/18 18:21 Last Admin: 02/27/18 05:00 Dose: 1 tab Pramipexole Dihydrochloride (Mirapex) 1.5 mg PO Q12 [facility] Last Admin: 02/27/18 09:13 Dose: 1.5 mg Senna/Docusate Sodium (Senokot S 50 Mg-8.6 Mg) 2 tab PO [facility] Last Admin: 02/26/18 21:07 Dose: Not Given Trazodone HCl (Desyrel) 100 mg PO HS [facility] Last Admin: 02/26/18 21:01 Dose: 100 mg - Labs Labs: 02/26/18 05:35 02/27/18 05:30 Assessment and Plan (1) Bilateral lower leg cellulitis Status: Acute (2) Bipolar 1 disorder Status: Acute (3) CHF (congestive heart failure) Status: Acute (4) COPD (chronic obstructive pulmonary disease) Status: Acute (5) Cellulitis Status: Acute
--- NOTE | 2018-02-27 15:20 | CP.PCM.PN ---
Subjective - Subjective Subjective: Patient c/o LE pain on ambulation; SOB on exertion VSS Heart- regular S1, S2, 1/6 mulu Lungs- dec. br. sounds b/l Abd.- distended, + BS, soft, NT Ext.- 2 + edema LE's to knees; erythema L > R LE; bandages in place 1. B/L LE cellulitis- cont. zosyn and vancomycin 2. Elevated peak systolic velocities of femoral arteries 3. Elevated peak systolic velocities of superficial femoral arteries 4. B/L inguinal masses, likely enlarged lymph nodes 5. Decreased blood flow to left ankle and foot 6. Atherosclerosis 7. Morbid obesity 8. Diffuse epidural lipomatosis 9. COPD- encouraging incentive spirometry 10. HTN- controlled 11. Prediabetes 12. Bipolar disorder Dr. iMka Cornejo consulted concerning decreased blood flow left ankle and foot Objective - Vital Signs/Intake and Output Vital Signs (last 24 hours): Temp Pulse Resp BP Pulse Ox 97.7 F 89 20 152/89 H 94 L 02/27/18 09:00 02/27/18 09:15 02/27/18 09:00 02/27/18 09:15 02/27/18 09:00 - Medications Medications: Current Medications Albuterol/Ipratropium (Duoneb 3 Mg/0.5 Mg (3 Ml) Ud) 3 ml INH RQID [facility] Last Admin: 02/27/18 11:35 Dose: 3 ml Albuterol/Ipratropium (Duoneb 3 Mg/0.5 Mg (3 Ml) Ud) 3 ml INH RQ6 PRN PRN Reason: Shortness of Breath Last Admin: 02/24/18 04:09 Dose: 3 ml Amlodipine Besylate (Norvasc) 10 mg PO DAILY [facility] Last Admin: 02/27/18 09:15 Dose: 10 mg Aripiprazole (Abilify) 10 mg PO DAILY [facility] Last Admin: 02/27/18 09:08 Dose: 10 mg Aspirin (Aspirin Chewable) 81 mg PO DAILY [facility] Last Admin: 02/27/18 09:10 Dose: 81 mg Buspirone HCl (Buspar) 10 mg PO BID [facility] Last Admin: 02/27/18 09:10 Dose: 10 mg Carvedilol (Coreg) 25 mg PO Q12 [facility] Last Admin: 02/27/18 09:11 Dose: 25 mg Enoxaparin Sodium (Lovenox) 40 mg SC DAILY [facility]; Protocol Piperacillin Sod/Tazobactam (Sod 3.375 gm/ Sodium Chloride) 100 mls @ 100 mls/hr IVPB Q6 [facility]; Protocol Last Admin: 02/27/18 13:09 Dose: 100 mls/hr Vancomycin HCl 1 gm/ Sodium (Chloride) 250 mls @ 166.667 mls/hr IVPB Q12 [facility]; Protocol Last Admin: 02/27/18 09:22 Dose: 166.667 mls/hr Ibuprofen (Motrin Tab) 600 mg PO Q8 PRN PRN Reason: Pain, Mild (1-3) Losartan Potassium (Cozaar) 50 mg PO DAILY [facility] Last Admin: 02/27/18 09:12 Dose: 50 mg Metformin HCl (Glucophage) 500 mg PO DAILY [facility] Last Admin: 02/27/18 09:13 Dose: 500 mg Morphine Sulfate (Morphine) 2 mg IVP ONCE PRN PRN Reason: Pain, severe (8-10) Last Admin: 02/27/18 13:44 Dose: 2 mg Nicotine (Nicoderm Cq) 1 patch TD DAILY [facility] Last Admin: 02/27/18 09:14 Dose: 1 patch Oxycodone/Acetaminophen (Percocet 5/325 Mg Tab) 1 tab PO Q6 PRN PRN Reason: Pain, severe (8-10) Stop: 03/01/18 18:21 Last Admin: 02/27/18 05:00 Dose: 1 tab Pramipexole Dihydrochloride (Mirapex) 1.5 mg PO Q12 [facility] Last Admin: 02/27/18 09:13 Dose: 1.5 mg Senna/Docusate Sodium (Senokot S 50 Mg-8.6 Mg) 2 tab PO HS [facility] Last Admin: 02/26/18 21:07 Dose: Not Given Trazodone HCl (Desyrel) 100 mg PO HS [facility] Last Admin: 02/26/18 21:01 Dose: 100 mg - Labs Labs: 02/26/18 05:35 02/27/18 05:30
[2018-02-27] MEDS: Enoxaparin 40 mg Syringe SC SCH (17:06)
[2018-02-27] MEDS: Docusate-Senna 50 mg-8.6 mg Tab PO SCH (22:29)
[2018-02-28] MEDS: Piperacillin/Tazobact 3.375 GM in Sodium Chloride 0.9% 100 ML IVPB SCH ×4 (04:28→21:24)
[2018-02-28] MEDS: Oxycodone/Acetaminophen 5/325 mg Tab PO PRN ×3 (04:30→17:20)
[2018-02-28 06:58] LABS: ALB/GLOB RATIO 1.1 (1.0-2.1); ALT/SGPT 42 U/L (21-72); AST/SGOT 43 U/L (17-59); BLOOD UREA NITROGEN 10 mg/dl (9-20); CALCIUM 9.1 mg/dL (8.4-10.2); GFR NON-AFRICAN AMERICAN > 60
[2018-02-28] MEDS: Albuterol-Ipratrop 3 mg / 0.5 (3 ml) UD INH SCH ×4 (08:05→19:48)
[2018-02-28] MEDS: Enoxaparin 40 mg Syringe SC SCH (08:59)
--- NOTE | 2018-02-28 17:32 | CP.PCM.PN ---
Subjective - Date & Time of Evaluation Date of Evaluation: 02/28/18 Time of Evaluation: 17:30 - Subjective Subjective: Podiatry progress note for Dr. Woodruff 57 yo male seen and evaluated at bedside. Seen in mild respiratory distress. States breathing is improving. States that he has burning pain in his legs, but has been resolving. Is seen sitting on the chair with legs elevated . He denies N/V/F/C/SOB/CP at this time and has no other pedal complaints. Objective - Vital Signs/Intake and Output Vital Signs (last 24 hours): Temp Pulse Resp BP Pulse Ox 97.4 F L 89 20 144/84 92 L 02/28/18 16:17 02/28/18 16:17 02/28/18 16:17 02/28/18 16:17 02/28/18 16:17 - Medications Medications: Current Medications Albuterol/Ipratropium (Duoneb 3 Mg/0.5 Mg (3 Ml) Ud) 3 ml INH RQID [facility] Last Admin: 02/28/18 15:46 Dose: 3 ml Albuterol/Ipratropium (Duoneb 3 Mg/0.5 Mg (3 Ml) Ud) 3 ml INH RQ6 PRN PRN Reason: Shortness of Breath Last Admin: 02/24/18 04:09 Dose: 3 ml Amlodipine Besylate (Norvasc) 10 mg PO DAILY [facility] Last Admin: 02/28/18 08:59 Dose: 10 mg Aripiprazole (Abilify) 10 mg PO DAILY [facility] Last Admin: 02/28/18 08:58 Dose: 10 mg Aspirin (Aspirin Chewable) 81 mg PO DAILY [facility] Last Admin: 02/28/18 08:58 Dose: 81 mg Buspirone HCl (Buspar) 10 mg PO BID [facility] Last Admin: 02/28/18 16:47 Dose: 10 mg Carvedilol (Coreg) 25 mg PO Q12 [facility] Last Admin: 02/28/18 08:58 Dose: 25 mg Enoxaparin Sodium (Lovenox) 40 mg SC DAILY [facility]; Protocol Last Admin: 02/28/18 08:59 Dose: 40 mg Piperacillin Sod/Tazobactam (Sod 3.375 gm/ Sodium Chloride) 100 mls @ 100 mls/hr IVPB Q6 [facility]; Protocol Last Admin: 02/28/18 16:47 Dose: 100 mls/hr Vancomycin HCl 1 gm/ Sodium (Chloride) 250 mls @ 166.667 mls/hr IVPB Q12 [facility]; Protocol Last Admin: 02/28/18 09:03 Dose: 166.667 mls/hr Ibuprofen (Motrin Tab) 600 mg PO Q8 PRN PRN Reason: Pain, Mild (1-3) Last Admin: 02/27/18 20:53 Dose: 600 mg Losartan Potassium (Cozaar) 50 mg PO DAILY [facility] Last Admin: 02/28/18 08:59 Dose: 50 mg Metformin HCl (Glucophage) 500 mg PO DAILY [facility] Last Admin: 02/28/18 08:58 Dose: 500 mg Morphine Sulfate (Morphine) 2 mg IVP ONCE PRN PRN Reason: Pain, severe (8-10) Last Admin: 02/27/18 13:44 Dose: 2 mg Nicotine (Nicoderm Cq) 1 patch TD DAILY [facility] Last Admin: 02/28/18 09:00 Dose: 1 patch Oxycodone/Acetaminophen (Percocet 5/325 Mg Tab) 1 tab PO Q6 PRN PRN Reason: Pain, severe (8-10) Stop: 03/01/18 18:21 Last Admin: 02/28/18 17:20 Dose: 1 tab Pramipexole Dihydrochloride (Mirapex) 1.5 mg PO Q12 [facility] Last Admin: 02/28/18 08:58 Dose: 1.5 mg Pregabalin (Lyrica) 75 mg PO BID [facility] Last Admin: 02/28/18 16:47 Dose: 75 mg Senna/Docusate Sodium (Senokot S 50 Mg-8.6 Mg) 2 tab PO [facility] Last Admin: 02/27/18 22:29 Dose: Not Given Trazodone HCl (Desyrel) 100 mg PO HS [facility] Last Admin: 02/27/18 21:14 Dose: 100 mg - Labs Labs: 02/26/18 05:35 02/28/18 05:30 - Constitutional Appears: Well, Non-toxic - Head Exam Head Exam: ATRAUMATIC - Back Exam Additional comments: Dressing clean, soaked with serous fluid, and intact Vasc: DP and PT pulses palpable; cap refill <3 seconds to all digits; temp gradient warm to warm from proximal to distal; nonpitting moderate edema noted to b/l LE with associated erythema Derm: b/l lower extremities evidence of cellulitis from rearfoot to proximal lower leg appreciated; left LE has superficial wound present, granular tissue, no pus or purulent drainage appreciated on the anterior leg; right LE has similar wound present, superificial with no purulent drainage , no tunneling or tracking, on lateral aspect of LE Ortho: pain on palpation to b/l LE secondary to cellulitis and superficial wounds Neuro: gross and protective sensation intact b/l Assessment and Plan - Assessment and Plan (Free Text) Assessment: 57M with b/l LE cellulits and superficial wounds; resolving Plan: Patient seen and evaluated Discussed in detail with Dr. Woodruff Afebrile and absent leukocytosis Wound cultures taken - pseudomonas Per ED - blood cx taken - no growth Dressing changed using xeroform, DSD meagan Arterial duplex studies taken - diminished blood flow to the left foot and a nkle, inguinal mass possible enlarged lymph nodes. Vasc on board, recs appreciated. no DVT per duplex Continue medications per ID ID on board, recs appreciated Podiatry plan: no surgical intervention; patient stable for discharge from podiatry point of view. Will follow patient while in house
--- NOTE | 2018-02-28 18:27 | CP.PCM.PN ---
Subjective - Date & Time of Evaluation Date of Evaluation: 02/28/18 Time of Evaluation: 17:58 - Subjective Subjective: Patient notes less burning pain of LE's today; less SOB on exertion; elevating LE's while sitting in chair VSS Heat- regular S1, S2, 1/6 mulu Lungs- dec. br. sounds b/l Abd.- distended, + BS, soft, NT Ext.- 2 + edema LE's to knees; less erythema; bandages in place 1. B/L LE cellulitis- cont. zosyn and vancomycin 2. Elevated peak systolic velocities of femoral arteries 3. Elevated peak velocities of superficial femoral arteries 4. B/L inguinal masses, likely LN's 5. Diminished blood flow left ankle and foot- Dr. Mika Cornejo consulted 6. Atherosclerosis- pravastatin 40mg q hs 7. Morbid obesity 8. Diffuse epidural lipomatosis- diet compliance discussed 9. COPD- cont. DuoNeb resp. therapy 10. HTN- controlled 11. Prediabetes 12. Biploar disorder- psych. consulted; meds ordered Plan physical therapy eval. for gait stability Objective - Vital Signs/Intake and Output Vital Signs (last 24 hours): Temp Pulse Resp BP Pulse Ox 97.4 F L 89 20 144/84 92 L 02/28/18 16:17 02/28/18 16:17 02/28/18 16:17 02/28/18 16:17 02/28/18 16:17 - Medications Medications: Current Medications Albuterol/Ipratropium (Duoneb 3 Mg/0.5 Mg (3 Ml) Ud) 3 ml INH RQID [facility] Last Admin: 02/28/18 15:46 Dose: 3 ml Albuterol/Ipratropium (Duoneb 3 Mg/0.5 Mg (3 Ml) Ud) 3 ml INH RQ6 PRN PRN Reason: Shortness of Breath Last Admin: 02/24/18 04:09 Dose: 3 ml Amlodipine Besylate (Norvasc) 10 mg PO DAILY [facility] Last Admin: 02/28/18 08:59 Dose: 10 mg Aripiprazole (Abilify) 10 mg PO DAILY [facility] Last Admin: 02/28/18 08:58 Dose: 10 mg Aspirin (Aspirin Chewable) 81 mg PO DAILY [facility] Last Admin: 02/28/18 08:58 Dose: 81 mg Buspirone HCl (Buspar) 10 mg PO BID [facility] Last Admin: 02/28/18 16:47 Dose: 10 mg Carvedilol (Coreg) 25 mg PO Q12 [facility] Last Admin: 02/28/18 08:58 Dose: 25 mg Enoxaparin Sodium (Lovenox) 40 mg SC DAILY [facility]; Protocol Last Admin: 02/28/18 08:59 Dose: 40 mg Piperacillin Sod/Tazobactam (Sod 3.375 gm/ Sodium Chloride) 100 mls @ 100 mls/hr IVPB Q6 [facility]; Protocol Last Admin: 02/28/18 16:47 Dose: 100 mls/hr Vancomycin HCl 1 gm/ Sodium (Chloride) 250 mls @ 166.667 mls/hr IVPB Q12 [facility]; Protocol Last Admin: 02/28/18 09:03 Dose: 166.667 mls/hr Ibuprofen (Motrin Tab) 600 mg PO Q8 PRN PRN Reason: Pain, Mild (1-3) Last Admin: 02/27/18 20:53 Dose: 600 mg Losartan Potassium (Cozaar) 50 mg PO DAILY [facility] Last Admin: 02/28/18 08:59 Dose: 50 mg Metformin HCl (Glucophage) 500 mg PO DAILY [facility] Last Admin: 02/28/18 08:58 Dose: 500 mg Morphine Sulfate (Morphine) 2 mg IVP ONCE PRN PRN Reason: Pain, severe (8-10) Last Admin: 02/27/18 13:44 Dose: 2 mg Nicotine (Nicoderm Cq) 1 patch TD DAILY [facility] Last Admin: 02/28/18 09:00 Dose: 1 patch Oxycodone/Acetaminophen (Percocet 5/325 Mg Tab) 1 tab PO Q6 PRN PRN Reason: Pain, severe (8-10) Stop: 03/01/18 18:21 Last Admin: 02/28/18 17:20 Dose: 1 tab Pramipexole Dihydrochloride (Mirapex) 1.5 mg PO Q12 [facility] Last Admin: 02/28/18 08:58 Dose: 1.5 mg Pregabalin (Lyrica) 75 mg PO BID [facility] Last Admin: 02/28/18 16:47 Dose: 75 mg Senna/Docusate Sodium (Senokot S 50 Mg-8.6 Mg) 2 tab PO HS [facility] Last Admin: 02/27/18 22:29 Dose: Not Given Trazodone HCl (Desyrel) 100 mg PO [facility] Last Admin: 02/27/18 21:14 Dose: 100 mg - Labs Labs: 02/26/18 05:35 02/28/18 05:30
[2018-02-28] MEDS: Docusate-Senna 50 mg-8.6 mg Tab PO SCH ×2 (21:32→21:50)
[2018-03-01] MEDS: Oxycodone/Acetaminophen 5/325 mg Tab PO PRN ×3 (02:17→23:53)
[2018-03-01] MEDS: Piperacillin/Tazobact 3.375 GM in Sodium Chloride 0.9% 100 ML IVPB SCH ×4 (04:15→22:50)
[2018-03-01 06:29] LABS: HEMOGLOBIN 12.3 g/dL (12.0-18.0); MEAN CELL VOLUME 80.1 fl (80.0-94.0); MEAN CORPUSCULAR HEMOGLOBIN 25.7 pg (27.0-31.0); MEAN CORPUSCULAR HGB CONC 32.1 g/dL (33.0-37.0); RBC 4.78 Mil/uL (4.40-5.90); RED CELL DISTRIBUTION WIDTH 16.2 % (11.5-14.5); WHITE BLOOD COUNT 9.5 K/uL (4.8-10.8)
[2018-03-01 06:32] LABS: BLOOD UREA NITROGEN 10 mg/dl (9-20); CALCIUM 8.6 mg/dL (8.4-10.2); GFR NON-AFRICAN AMERICAN > 60
[2018-03-01] MEDS: Albuterol-Ipratrop 3 mg / 0.5 (3 ml) UD INH SCH ×4 (06:59→19:13)
[2018-03-01] MEDS: Enoxaparin 40 mg Syringe SC SCH (09:40)
--- NOTE | 2018-03-01 09:40 | CP.PCM.PN ---
Subjective - Date & Time of Evaluation Date of Evaluation: 03/01/18 Time of Evaluation: 09:28 - Subjective Subjective: Patient c/o burning, throbbing pain of LE's on ambulation; less SOB on exertion VSS Heart- regular S1, S2, 1/6 mulu Lungs- dec. br. sounds b/l Abd.- distended, + BS, soft, NT Ext.- 2 + edema to knees; erythema LLE > RLE; bandages in place 1. B/L LE cellulitis- zosyn and vancomycin 2. Elevated peak systolic velocities superficial femoral arteries 3. Elevated peak systolic velocities femoral arteries 4. Enlarged inguinal masses, likely LN's 5. Morbid obesity 6. Epidural lipomatosis 7. COPD Dr Mika Cornejo consulted concerning dec. blood flow left ankle and foot; PT eval. for gait stability ordered Objective - Vital Signs/Intake and Output Vital Signs (last 24 hours): Temp Pulse Resp BP Pulse Ox 97.8 F 83 20 125/79 93 L 03/01/18 07:54 03/01/18 07:54 03/01/18 07:54 03/01/18 07:54 03/01/18 07:54 - Medications Medications: Current Medications Albuterol/Ipratropium (Duoneb 3 Mg/0.5 Mg (3 Ml) Ud) 3 ml INH RQID [facility] Last Admin: 03/01/18 06:59 Dose: 3 ml Albuterol/Ipratropium (Duoneb 3 Mg/0.5 Mg (3 Ml) Ud) 3 ml INH RQ6 PRN PRN Reason: Shortness of Breath Last Admin: 02/24/18 04:09 Dose: 3 ml Amlodipine Besylate (Norvasc) 10 mg PO DAILY [facility] Last Admin: 02/28/18 08:59 Dose: 10 mg Aripiprazole (Abilify) 10 mg PO DAILY [facility] Last Admin: 02/28/18 08:58 Dose: 10 mg Aspirin (Aspirin Chewable) 81 mg PO DAILY [facility] Last Admin: 02/28/18 08:58 Dose: 81 mg Buspirone HCl (Buspar) 10 mg PO BID [facility] Last Admin: 02/28/18 16:47 Dose: 10 mg Carvedilol (Coreg) 25 mg PO Q12 [facility] Last Admin: 02/28/18 21:31 Dose: 25 mg Enoxaparin Sodium (Lovenox) 40 mg SC DAILY [facility]; Protocol Last Admin: 02/28/18 08:59 Dose: 40 mg Piperacillin Sod/Tazobactam (Sod 3.375 gm/ Sodium Chloride) 100 mls @ 100 mls/hr IVPB Q6 [facility]; Protocol Last Admin: 03/01/18 04:15 Dose: 100 mls/hr Vancomycin HCl 1 gm/ Sodium (Chloride) 250 mls @ 166.667 mls/hr IVPB Q12 [facility]; Protocol Last Admin: 02/28/18 21:23 Dose: 166.667 mls/hr Ibuprofen (Motrin Tab) 600 mg PO Q8 PRN PRN Reason: Pain, Mild (1-3) Last Admin: 02/28/18 21:48 Dose: 600 mg Losartan Potassium (Cozaar) 50 mg PO DAILY [facility] Last Admin: 02/28/18 08:59 Dose: 50 mg Metformin HCl (Glucophage) 500 mg PO DAILY [facility] Last Admin: 02/28/18 08:58 Dose: 500 mg Morphine Sulfate (Morphine) 2 mg IVP ONCE PRN PRN Reason: Pain, severe (8-10) Last Admin: 02/27/18 13:44 Dose: 2 mg Nicotine (Nicoderm Cq) 1 patch TD DAILY [facility] Last Admin: 02/28/18 09:00 Dose: 1 patch Oxycodone/Acetaminophen (Percocet 5/325 Mg Tab) 1 tab PO Q6 PRN PRN Reason: Pain, severe (8-10) Stop: 03/01/18 18:21 Last Admin: 03/01/18 02:17 Dose: 1 tab Pramipexole Dihydrochloride (Mirapex) 1.5 mg PO Q12 [facility] Last Admin: 02/28/18 21:32 Dose: 1.5 mg Pregabalin (Lyrica) 75 mg PO BID [facility] Last Admin: 02/28/18 16:47 Dose: 75 mg Senna/Docusate Sodium (Senokot S 50 Mg-8.6 Mg) 2 tab PO HS [facility] Last Admin: 02/28/18 21:50 Dose: Not Given Trazodone HCl (Desyrel) 100 mg PO HS [facility] Last Admin: 02/28/18 21:31 Dose: 100 mg - Labs Labs: 03/01/18 05:28 03/01/18 05:28
--- NOTE | 2018-03-01 14:01 | CP.PCM.CON ---
History of Present Illness - History of Present Illness History of Present Illness: Mr. Perez is a 57 year old male with PMH of HTN, DM2, COPD, and depression who presented to ED with b/l LE wounds. He states that he presented to his PMD, received antibiotics but they did not help with the swelling and redness in his legs. Podiatry is following and recommended venous and arterial LE doppler US. Venous US was without DVT. Arterial US found inflow disease b/l and diminished flow to left ankle and foot, prompting consultation. He admits to numbness/tingling in feet b/l, intermittent SOB with exertion, leg swelling, but denies fever/chills, CP, nausea/vomiting. PMH: HTN, DM2 (with neuropathy), COPD, and depression PSH: cardiac cath a few months ago which showed no CAD Review of Systems - Review of Systems Systems not reviewed;Unavailable: Acuity of Condition - Constitutional Constitutional: As Per HPI - EENT Eyes: As Per HPI Ears: As Per HPI Nose/Mouth/Throat: As Per HPI - Cardiovascular Cardiovascular: As Per HPI - Respiratory Respiratory: As Per HPI - Gastrointestinal Gastrointestinal: As Per HPI - Genitourinary Genitourinary: As Per HPI - Reproductive: Male Reproductive:Male: As Per HPI - Musculoskeletal Musculoskeletal: As Per HPI - Integumentary Integumentary: As Per HPI - Neurological Neurological: As Per HPI - Psychiatric Psychiatric: As Per HPI - Endocrine Endocrine: As Per HPI - Hematologic/Lymphatic Hematologic: As Per HPI Past Patient History - Infectious Disease Hx of Infectious Diseases: None - Past Medical History & Family History Past Medical History?: Yes - Past Social History Smoking Status: Current Some Days Smoker - CARDIAC Hx Congestive Heart Failure: Yes Hx Hypercholesterolemia: No (PT DENIES) Hx Hypertension: Yes - PULMONARY Hx Asthma: Yes Hx Chronic Obstructive Pulmonary Disease (COPD): Yes Hx Emphysema: Yes Hx Sleep Apnea: Yes - NEUROLOGICAL Hx Seizures: No - HEENT Hx HEENT Problems: No - RENAL Hx Chronic Kidney Disease: No - ENDOCRINE/METABOLIC Hx Endocrine Disorders: No - HEMATOLOGICAL/ONCOLOGICAL Hx Human Immunodeficiency Virus (HIV): No - INTEGUMENTARY Hx Dermatological Problems: Yes (Cellulitis) Hx Cellulitis: Yes - MUSCULOSKELETAL/RHEUMATOLOGICAL Hx Musculoskeletal Disorders: Yes Hx Falls: Yes - GASTROINTESTINAL Hx Gastrointestinal Disorders: No - GENITOURINARY/GYNECOLOGICAL Hx Sexually Transmitted Disorders: No - PSYCHIATRIC Hx Anxiety: Yes Hx Bipolar Disorder: Yes Hx Depression: Yes Hx Schizophrenia: Yes - SURGICAL HISTORY Hx Surgeries: No - ANESTHESIA Hx Anesthesia: Yes Hx Anesthesia Reactions: No Hx Malignant Hyperthermia: No Meds Allergies/Adverse Reactions: Allergies Allergy/AdvReac Type Severity Reaction Status Date / Time New Era And Derivatives Allergy ANGIOEDEMA Verified 02/22/18 09:18 - Medications Medications: Current Medications Albuterol/Ipratropium (Duoneb 3 Mg/0.5 Mg (3 Ml) Ud) 3 ml INH RQID [facility] Last Admin: 03/01/18 11:21 Dose: 3 ml Albuterol/Ipratropium (Duoneb 3 Mg/0.5 Mg (3 Ml) Ud) 3 ml INH RQ6 PRN PRN Reason: Shortness of Breath Last Admin: 02/24/18 04:09 Dose: 3 ml Amlodipine Besylate (Norvasc) 10 mg PO DAILY [facility] Last Admin: 03/01/18 09:37 Dose: 10 mg Aripiprazole (Abilify) 10 mg PO DAILY [facility] Last Admin: 03/01/18 09:46 Dose: 10 mg Aspirin (Aspirin Chewable) 81 mg PO DAILY [facility] Last Admin: 03/01/18 09:39 Dose: 81 mg Buspirone HCl (Buspar) 10 mg PO BID [facility] Last Admin: 03/01/18 09:40 Dose: 10 mg Carvedilol (Coreg) 25 mg PO Q12 [facility] Last Admin: 03/01/18 09:38 Dose: 25 mg Enoxaparin Sodium (Lovenox) 40 mg SC DAILY [facility]; Protocol Last Admin: 03/01/18 09:40 Dose: 40 mg Piperacillin Sod/Tazobactam (Sod 3.375 gm/ Sodium Chloride) 100 mls @ 100 mls/hr IVPB Q6 [facility]; Protocol Last Admin: 03/01/18 09:36 Dose: 100 mls/hr Vancomycin HCl 1 gm/ Sodium (Chloride) 250 mls @ 166.667 mls/hr IVPB Q12 [facility]; Protocol Last Admin: 03/01/18 09:35 Dose: 166.667 mls/hr Ibuprofen (Motrin Tab) 600 mg PO Q8 PRN PRN Reason: Pain, Mild (1-3) Last Admin: 02/28/18 21:48 Dose: 600 mg Losartan Potassium (Cozaar) 50 mg PO DAILY [facility] Last Admin: 03/01/18 09:39 Dose: 50 mg Metformin HCl (Glucophage) 500 mg PO DAILY [facility] Last Admin: 03/01/18 09:39 Dose: 500 mg Morphine Sulfate (Morphine) 2 mg IVP ONCE PRN PRN Reason: Pain, severe (8-10) Last Admin: 02/27/18 13:44 Dose: 2 mg Nicotine (Nicoderm Cq) 1 patch TD DAILY [facility] Last Admin: 03/01/18 09:38 Dose: 1 patch Oxycodone/Acetaminophen (Percocet 5/325 Mg Tab) 1 tab PO Q6 PRN PRN Reason: Pain, severe (8-10) Stop: 03/01/18 18:21 Last Admin: 03/01/18 02:17 Dose: 1 tab Pramipexole Dihydrochloride (Mirapex) 1.5 mg PO Q12 [facility] Last Admin: 03/01/18 09:40 Dose: 1.5 mg Pregabalin (Lyrica) 75 mg PO BID [facility] Last Admin: 03/01/18 09:45 Dose: 75 mg Senna/Docusate Sodium (Senokot S 50 Mg-8.6 Mg) 2 tab PO [facility] Last Admin: 02/28/18 21:50 Dose: Not Given Trazodone HCl (Desyrel) 100 mg PO [facility] Last Admin: 02/28/18 21:31 Dose: 100 mg Physical Exam - Constitutional Appears: Well - Head Exam Head Exam: ATRAUMATIC, NORMAL INSPECTION, NORMOCEPHALIC - Eye Exam Eye Exam: EOMI, Normal appearance, PERRL Pupil Exam: NORMAL ACCOMODATION, PERRL - ENT Exam ENT Exam: Mucous Membranes Moist, Normal Exam - Neck Exam Neck exam: Positive for: Normal Inspection - Respiratory Exam Respiratory Exam: Clear to Auscultation Bilateral, NORMAL BREATHING PATTERN - Cardiovascular Exam Cardiovascular Exam: REGULAR RHYTHM - GI/Abdominal Exam GI & Abdominal Exam: Normal Bowel Sounds, Soft. absent: Tenderness - Extremities Exam Extremities exam: Positive for: normal inspection - Back Exam Back exam: NORMAL INSPECTION - Neurological Exam Neurological exam: Alert, CN II-XII Intact, Normal Gait, Oriented x3, Reflexes Normal - Psychiatric Exam Psychiatric exam: Normal Affect, Normal Mood - Skin Skin Exam: Dry, Intact, Normal Color, Warm Results - Vital Signs Recent Vital Signs: Last Vital Signs Temp 97.8 F 03/01/18 07:54 Pulse 83 03/01/18 09:39 Resp 20 03/01/18 07:54 BP 125/79 03/01/18 09:39 Pulse Ox 93 L 03/01/18 07:54 - Labs Result Diagrams: 03/01/18 05:28 03/01/18 05:28 Labs: Laboratory Results - last 24 hr 03/01/18 03/01/18 05:28 05:28 WBC 9.5 RBC 4.78 Hgb 12.3 Hct 38.3 MCV 80.1 MCH 25.7 L MCHC 32.1 L RDW 16.2 H Plt Count 326 Sodium 139 Potassium 4.1 Chloride 105 Carbon Dioxide 28 Anion Gap 10 BUN 10 Creatinine 0.8 Est GFR ( Amer) > 60 Est GFR (Non-Af Amer) > 60 Random Glucose 125 H Calcium 8.6 Assessment & Plan (1) PVD (peripheral vascular disease) Assessment and Plan: Arterial duplex shows bilateral inflow disease CTA to evaluation peripheral circulation dapt statins arb Status: Acute (2) Non-healing ulcer of lower leg Status: Acute (3) Bilateral lower leg cellulitis Status: Acute (4) Hypertension Status: Acute
--- NOTE | 2018-03-01 18:42 | CP.PCM.PCO ---
Physician Communication Note - Physician Communication Note Physician Communication Note: Patient can shower, xeroform DSD and RODGER, round tomorrow to change again
[2018-03-01] MEDS: Docusate-Senna 50 mg-8.6 mg Tab PO SCH (21:36)
[2018-03-02] MEDS: Oxycodone/Acetaminophen 5/325 mg Tab PO PRN ×4 (04:00→22:03)
[2018-03-02] MEDS: Piperacillin/Tazobact 3.375 GM in Sodium Chloride 0.9% 100 ML IVPB SCH ×4 (04:03→21:50)
[2018-03-02] MEDS: Albuterol-Ipratrop 3 mg / 0.5 (3 ml) UD INH SCH ×4 (07:09→19:05)
[2018-03-02] MEDS ORDERED: Povidone Iodine Topical 10% Sol ONE (08:40)
[2018-03-02] MEDS: Enoxaparin 40 mg Syringe SC SCH (10:07)
--- NOTE | 2018-03-02 11:09 | CP.PCM.PN ---
Subjective - Date & Time of Evaluation Date of Evaluation: 03/02/18 Time of Evaluation: 08:00 - Subjective Subjective: cellulitis less vascular work up in progress cont rx Objective - Vital Signs/Intake and Output Vital Signs (last 24 hours): Temp Pulse Resp BP Pulse Ox 97.5 F L 80 20 133/85 95 03/02/18 08:04 03/02/18 08:04 03/02/18 08:04 03/02/18 08:04 03/02/18 08:04 - Medications Medications: Current Medications Albuterol/Ipratropium (Duoneb 3 Mg/0.5 Mg (3 Ml) Ud) 3 ml INH RQID [facility] Last Admin: 03/02/18 11:07 Dose: 3 ml Albuterol/Ipratropium (Duoneb 3 Mg/0.5 Mg (3 Ml) Ud) 3 ml INH RQ6 PRN PRN Reason: Shortness of Breath Last Admin: 02/24/18 04:09 Dose: 3 ml Amlodipine Besylate (Norvasc) 10 mg PO DAILY [facility] Last Admin: 03/02/18 10:02 Dose: 10 mg Aripiprazole (Abilify) 10 mg PO DAILY [facility] Last Admin: 03/02/18 10:09 Dose: 10 mg Aspirin (Aspirin Chewable) 81 mg PO DAILY [facility] Last Admin: 03/02/18 10:08 Dose: 81 mg Buspirone HCl (Buspar) 10 mg PO BID [facility] Last Admin: 03/02/18 10:09 Dose: 10 mg Carvedilol (Coreg) 25 mg PO Q12 [facility] Last Admin: 03/02/18 10:08 Dose: 25 mg Enoxaparin Sodium (Lovenox) 40 mg SC DAILY [facility]; Protocol Last Admin: 03/02/18 10:07 Dose: 40 mg Piperacillin Sod/Tazobactam (Sod 3.375 gm/ Sodium Chloride) 100 mls @ 100 mls/hr IVPB Q6 [facility]; Protocol Last Admin: 03/02/18 10:00 Dose: 100 mls/hr Vancomycin HCl 1 gm/ Sodium (Chloride) 250 mls @ 166.667 mls/hr IVPB Q12 [facility]; Protocol Last Admin: 03/02/18 10:01 Dose: 166.667 mls/hr Ibuprofen (Motrin Tab) 600 mg PO Q8 PRN PRN Reason: Pain, Mild (1-3) Last Admin: 02/28/18 21:48 Dose: 600 mg Losartan Potassium (Cozaar) 50 mg PO DAILY [facility] Last Admin: 03/02/18 10:08 Dose: 50 mg Metformin HCl (Glucophage) 500 mg PO DAILY [facility] Last Admin: 03/02/18 10:08 Dose: 500 mg Morphine Sulfate (Morphine) 2 mg IVP ONCE PRN PRN Reason: Pain, severe (8-10) Last Admin: 02/27/18 13:44 Dose: 2 mg Nicotine (Nicoderm Cq) 1 patch TD DAILY [facility] Last Admin: 03/02/18 10:02 Dose: 1 patch Oxycodone/Acetaminophen (Percocet 5/325 Mg Tab) 1 tab PO Q4 PRN PRN Reason: Pain, moderate (4-7) Stop: 03/04/18 18:40 Last Admin: 03/02/18 09:57 Dose: 1 tab Oxycodone/Acetaminophen (Percocet 5/325 Mg Tab) 2 tab PO Q4 PRN PRN Reason: Pain, severe (8-10) Stop: 03/04/18 18:40 Last Admin: 03/02/18 04:00 Dose: 2 tab Pramipexole Dihydrochloride (Mirapex) 1.5 mg PO Q12 [facility] Last Admin: 03/02/18 10:03 Dose: 1.5 mg Pregabalin (Lyrica) 75 mg PO BID [facility] Last Admin: 03/02/18 10:07 Dose: 75 mg Senna/Docusate Sodium (Senokot S 50 Mg-8.6 Mg) 2 tab PO HS [facility] Last Admin: 03/01/18 21:36 Dose: 2 tab Trazodone HCl (Desyrel) 100 mg PO HS [facility] Last Admin: 03/01/18 21:36 Dose: 100 mg - Labs Labs: 03/01/18 05:28 03/01/18 05:28 - Constitutional Appears: Non-toxic, Chronically Ill - Head Exam Head Exam: NORMOCEPHALIC - Eye Exam Eye Exam: absent: Scleral icterus - ENT Exam ENT Exam: Mucous Membranes Dry - Neck Exam Neck Exam: absent: Lymphadenopathy - Respiratory Exam Respiratory Exam: Decreased Breath Sounds - Cardiovascular Exam Cardiovascular Exam: REGULAR RHYTHM - GI/Abdominal Exam GI & Abdominal Exam: Distended, Soft - Rectal Exam Rectal Exam: Deferred - Exam Exam: NORMAL INSPECTION - Extremities Exam Extremities Exam: Pedal Edema, Tenderness - Back Exam Back Exam: absent: CVA tenderness (L), CVA tenderness (R) - Neurological Exam Neurological Exam: Alert, Awake, Oriented x3 Assessment and Plan (1) Bilateral lower leg cellulitis Status: Acute (2) Bipolar 1 disorder Status: Acute (3) CHF (congestive heart failure) Status: Acute (4) COPD (chronic obstructive pulmonary disease) Status: Acute (5) Cellulitis Status: Acute - Assessment and Plan (Free Text) Assessment: IV rx renewed await CT Angio
--- NOTE | 2018-03-02 11:45 | CP.PCM.PN ---
Subjective - Date & Time of Evaluation Date of Evaluation: 03/02/18 Time of Evaluation: 11:41 - Subjective Subjective: Podiatry progress note for Dr. Woodruff 57M seen and evaluated at bedside. Seen in mild respiratory distress. States breathing is bad sometimes and others shows improvement. States that he has burning pain in his legs, but has been resolving. States he did not shower as he believes he needs someone there to be outside in case he falls. He denies N/V/F/C/SOB/CP at this time and has no other pedal complaints. Objective - Vital Signs/Intake and Output Vital Signs (last 24 hours): Temp Pulse Resp BP Pulse Ox 97.5 F L 80 20 133/85 95 03/02/18 08:04 03/02/18 08:04 03/02/18 08:04 03/02/18 08:04 03/02/18 08:04 - Medications Medications: Current Medications Albuterol/Ipratropium (Duoneb 3 Mg/0.5 Mg (3 Ml) Ud) 3 ml INH RQID [facility] Last Admin: 03/02/18 11:07 Dose: 3 ml Albuterol/Ipratropium (Duoneb 3 Mg/0.5 Mg (3 Ml) Ud) 3 ml INH RQ6 PRN PRN Reason: Shortness of Breath Last Admin: 02/24/18 04:09 Dose: 3 ml Amlodipine Besylate (Norvasc) 10 mg PO DAILY [facility] Last Admin: 03/02/18 10:02 Dose: 10 mg Aripiprazole (Abilify) 10 mg PO DAILY [facility] Last Admin: 03/02/18 10:09 Dose: 10 mg Aspirin (Aspirin Chewable) 81 mg PO DAILY [facility] Last Admin: 03/02/18 10:08 Dose: 81 mg Buspirone HCl (Buspar) 10 mg PO BID [facility] Last Admin: 03/02/18 10:09 Dose: 10 mg Carvedilol (Coreg) 25 mg PO Q12 [facility] Last Admin: 03/02/18 10:08 Dose: 25 mg Enoxaparin Sodium (Lovenox) 40 mg SC DAILY [facility]; Protocol Last Admin: 03/02/18 10:07 Dose: 40 mg Piperacillin Sod/Tazobactam (Sod 3.375 gm/ Sodium Chloride) 100 mls @ 100 mls/hr IVPB Q6 [facility]; Protocol Last Admin: 03/02/18 10:00 Dose: 100 mls/hr Vancomycin HCl 1 gm/ Sodium (Chloride) 250 mls @ 166.667 mls/hr IVPB Q12 [facility]; Protocol Last Admin: 03/02/18 10:01 Dose: 166.667 mls/hr Ibuprofen (Motrin Tab) 600 mg PO Q8 PRN PRN Reason: Pain, Mild (1-3) Last Admin: 02/28/18 21:48 Dose: 600 mg Losartan Potassium (Cozaar) 50 mg PO DAILY [facility] Last Admin: 03/02/18 10:08 Dose: 50 mg Metformin HCl (Glucophage) 500 mg PO DAILY [facility] Last Admin: 03/02/18 10:08 Dose: 500 mg Morphine Sulfate (Morphine) 2 mg IVP ONCE PRN PRN Reason: Pain, severe (8-10) Last Admin: 02/27/18 13:44 Dose: 2 mg Nicotine (Nicoderm Cq) 1 patch TD DAILY [facility] Last Admin: 03/02/18 10:02 Dose: 1 patch Oxycodone/Acetaminophen (Percocet 5/325 Mg Tab) 1 tab PO Q4 PRN PRN Reason: Pain, moderate (4-7) Stop: 03/04/18 18:40 Last Admin: 03/02/18 09:57 Dose: 1 tab Oxycodone/Acetaminophen (Percocet 5/325 Mg Tab) 2 tab PO Q4 PRN PRN Reason: Pain, severe (8-10) Stop: 03/04/18 18:40 Last Admin: 03/02/18 04:00 Dose: 2 tab Pramipexole Dihydrochloride (Mirapex) 1.5 mg PO Q12 [facility] Last Admin: 03/02/18 10:03 Dose: 1.5 mg Pregabalin (Lyrica) 75 mg PO BID [facility] Last Admin: 03/02/18 10:07 Dose: 75 mg Senna/Docusate Sodium (Senokot S 50 Mg-8.6 Mg) 2 tab PO HS [facility] Last Admin: 03/01/18 21:36 Dose: 2 tab Trazodone HCl (Desyrel) 100 mg PO HS [facility] Last Admin: 03/01/18 21:36 Dose: 100 mg - Labs Labs: 03/01/18 05:28 03/01/18 05:28 - Constitutional Appears: Well, Non-toxic, No Acute Distress - Head Exam Head Exam: ATRAUMATIC, NORMOCEPHALIC - Extremities Exam Additional comments: Vasc: DP and PT pulses palpable; cap refill <3 seconds to all digits; temp gradient warm to warm from proximal to distal; nonpitting moderate edema noted to b/l LE with associated erythema Derm: b/l lower extremities evidence of cellulitis from rearfoot to proximal lower leg appreciated; left LE has superficial wound present, granular tissue, no pus or purulent drainage appreciated on the anterior leg; right LE has similar wound present, superificial with no purulent drainage , no tunneling or tracking, on lateral aspect of LE Ortho: pain on palpation to b/l LE secondary to cellulitis and superficial wounds Neuro: gross and protective sensation intact b/l - Neurological Exam Neurological Exam: Alert, Awake, Oriented x3 - Psychiatric Exam Psychiatric exam: Normal Affect, Normal Mood Assessment and Plan - Assessment and Plan (Free Text) Assessment: 57M with b/l LE cellulits and venous stasis ulceration; resolving Plan: Patient seen and evaluated Discussed in detail with Dr. Woodruff Afebrile and absent leukocytosis Wound cultures taken - pseudomonas Dressing changed using xeroform, DSD, RODGER Ordered Unna boots, will apply tomorrow Arterial duplex studies taken - diminished blood flow to the left foot and ankle, inguinal mass possible enlarged lymph nodes. Vasc on board, recs appreciated Abdominal CT angio today - f/u results Continue medications per ID ID on board, recs appreciated Podiatry plan: no surgical intervention Will follow patient while in house
--- NOTE | 2018-03-02 21:32 | CP.PCM.PN ---
Subjective - Date & Time of Evaluation Date of Evaluation: 03/02/18 Time of Evaluation: 08:30 - Subjective Subjective: Patient c/o off and on burning stabbing pain of LE's at rest and with exertion; notes decreased redness of LE's; SOB on exertion VSS Heart- regular S1, S2, 1/6 mulu Lungs- dec. br. sounds b/l Abd.- distended, + BS, soft, NT Ext.- 2 + edema LE's to knees; dec. erythema LE's; bandages in place LE's 1. B/L cellulitis LE's; cont. zosyn and vancomycin 2. Inflow disease b/l femoral arteries 3. Elevated peak systolic velocities in superficial femoral arteries 4. Diminished blood flow left ankle and foot 5. B/L inguinal masses; likely enlarged LN's- f/u planned 6. Morbid obesity 7. Diffuse epidural lipomatosis 8. HTN- controlled 9. Bipolar Disorder Dr. Brennan ordered CT angiogram of Abdominal aorta and b/l iliofemoral LE runoff Objective - Vital Signs/Intake and Output Vital Signs (last 24 hours): Temp Pulse Resp BP Pulse Ox 97.9 F 75 18 136/81 95 03/02/18 16:53 03/02/18 16:53 03/02/18 16:53 03/02/18 16:53 03/02/18 16:53 - Medications Medications: Current Medications Albuterol/Ipratropium (Duoneb 3 Mg/0.5 Mg (3 Ml) Ud) 3 ml INH RQID [facility] Last Admin: 03/02/18 19:05 Dose: 3 ml Albuterol/Ipratropium (Duoneb 3 Mg/0.5 Mg (3 Ml) Ud) 3 ml INH RQ6 PRN PRN Reason: Shortness of Breath Last Admin: 02/24/18 04:09 Dose: 3 ml Amlodipine Besylate (Norvasc) 10 mg PO DAILY [facility] Last Admin: 03/02/18 10:02 Dose: 10 mg Aripiprazole (Abilify) 10 mg PO DAILY [facility] Last Admin: 03/02/18 10:09 Dose: 10 mg Aspirin (Aspirin Chewable) 81 mg PO DAILY [facility] Last Admin: 03/02/18 10:08 Dose: 81 mg Buspirone HCl (Buspar) 10 mg PO BID [facility] Last Admin: 03/02/18 17:23 Dose: 10 mg Carvedilol (Coreg) 25 mg PO Q12 [facility] Last Admin: 03/02/18 10:08 Dose: 25 mg Enoxaparin Sodium (Lovenox) 40 mg SC DAILY [facility]; Protocol Last Admin: 03/02/18 10:07 Dose: 40 mg Piperacillin Sod/Tazobactam (Sod 3.375 gm/ Sodium Chloride) 100 mls @ 100 mls/hr IVPB Q6 [facility]; Protocol Last Admin: 03/02/18 17:22 Dose: 100 mls/hr Vancomycin HCl 1 gm/ Sodium (Chloride) 250 mls @ 166.667 mls/hr IVPB Q12 [facility]; Protocol Last Admin: 03/02/18 10:01 Dose: 166.667 mls/hr Ibuprofen (Motrin Tab) 600 mg PO Q8 PRN PRN Reason: Pain, Mild (1-3) Last Admin: 02/28/18 21:48 Dose: 600 mg Losartan Potassium (Cozaar) 50 mg PO DAILY [facility] Last Admin: 03/02/18 10:08 Dose: 50 mg Metformin HCl (Glucophage) 500 mg PO DAILY [facility] Last Admin: 03/02/18 10:08 Dose: 500 mg Morphine Sulfate (Morphine) 2 mg IVP ONCE PRN PRN Reason: Pain, severe (8-10) Last Admin: 02/27/18 13:44 Dose: 2 mg Nicotine (Nicoderm Cq) 1 patch TD DAILY [facility] Last Admin: 03/02/18 10:02 Dose: 1 patch Oxycodone/Acetaminophen (Percocet 5/325 Mg Tab) 1 tab PO Q4 PRN PRN Reason: Pain, moderate (4-7) Stop: 03/04/18 18:40 Last Admin: 03/02/18 17:13 Dose: 1 tab Oxycodone/Acetaminophen (Percocet 5/325 Mg Tab) 2 tab PO Q4 PRN PRN Reason: Pain, severe (8-10) Stop: 03/04/18 18:40 Last Admin: 03/02/18 04:00 Dose: 2 tab Pramipexole Dihydrochloride (Mirapex) 1.5 mg PO Q12 [facility] Last Admin: 03/02/18 10:03 Dose: 1.5 mg Pregabalin (Lyrica) 75 mg PO BID [facility] Senna/Docusate Sodium (Senokot S 50 Mg-8.6 Mg) 2 tab PO HS [facility] Last Admin: 03/01/18 21:36 Dose: 2 tab Trazodone HCl (Desyrel) 100 mg PO [facility] Last Admin: 03/01/18 21:36 Dose: 100 mg - Labs Labs: 03/01/18 05:28 03/01/18 05:28
[2018-03-02] MEDS: Docusate-Senna 50 mg-8.6 mg Tab PO SCH (22:06)
[2018-03-03] MEDS: Piperacillin/Tazobact 3.375 GM in Sodium Chloride 0.9% 100 ML IVPB SCH ×4 (04:12→22:25)
[2018-03-03] MEDS: Oxycodone/Acetaminophen 5/325 mg Tab PO PRN ×4 (04:20→22:25)
[2018-03-03 06:30] LABS: BASO # 0.1 K/uL (0.0-0.2); BASO % 0.8 % (0.0-2.0); EOS # 0.3 K/uL (0.0-0.7); EOS % 3.3 % (0.0-4.0); HEMOGLOBIN 13.1 g/dL (12.0-18.0); LYMPH # 1.1 K/uL (1.0-4.3); LYMPH % 11.4 % (20.0-40.0); MEAN CORPUSCULAR HEMOGLOBIN 25.7 pg (27.0-31.0); MEAN CORPUSCULAR HGB CONC 32.1 g/dL (33.0-37.0); MEAN PLATELET VOLUME 7.5 fl (7.2-11.7); MONO # 0.9 K/uL (0.0-0.8); NEUT # 7.4 K/uL (1.8-7.0); NEUT % 75.5 % (50.0-75.0); RBC 5.1 Mil/uL (4.40-5.90); RED CELL DISTRIBUTION WIDTH 16.4 % (11.5-14.5); WHITE BLOOD COUNT 9.8 K/uL (4.8-10.8)
[2018-03-03 06:34] LABS: BLOOD UREA NITROGEN 12 mg/dl (9-20); CALCIUM 8.9 mg/dL (8.4-10.2); GFR NON-AFRICAN AMERICAN > 60
[2018-03-03] MEDS: Albuterol-Ipratrop 3 mg / 0.5 (3 ml) UD INH SCH ×4 (07:26→19:23)
[2018-03-03] MEDS: Enoxaparin 40 mg Syringe SC SCH (09:00)
--- NOTE | 2018-03-03 11:08 | CP.PCM.PN ---
Subjective - Date & Time of Evaluation Date of Evaluation: 03/03/18 Time of Evaluation: 11:06 - Subjective Subjective: Podiatry progress note for Dr. Woodruff 57M seen and evaluated at bedside. Seen in mild respiratory distress. States he is in less pain today in his lower legs. States that he has burning pain in his legs, but has been resolving. States he did not shower as he believes he needs someone there to be outside in case he falls. He denies N/V/F/C/SOB/CP at this time and has no other pedal complaints. Objective - Vital Signs/Intake and Output Vital Signs (last 24 hours): Temp Pulse Resp BP Pulse Ox 98.0 F 90 20 139/83 96 03/03/18 07:47 03/03/18 09:00 03/03/18 07:47 03/03/18 09:00 03/03/18 07:47 - Medications Medications: Current Medications Albuterol/Ipratropium (Duoneb 3 Mg/0.5 Mg (3 Ml) Ud) 3 ml INH RQID [facility] Last Admin: 03/03/18 07:26 Dose: 3 ml Albuterol/Ipratropium (Duoneb 3 Mg/0.5 Mg (3 Ml) Ud) 3 ml INH RQ6 PRN PRN Reason: Shortness of Breath Last Admin: 02/24/18 04:09 Dose: 3 ml Amlodipine Besylate (Norvasc) 10 mg PO DAILY [facility] Last Admin: 03/03/18 09:00 Dose: 10 mg Aripiprazole (Abilify) 10 mg PO DAILY [facility] Last Admin: 03/03/18 08:59 Dose: 10 mg Aspirin (Aspirin Chewable) 81 mg PO DAILY [facility] Last Admin: 03/03/18 09:00 Dose: 81 mg Buspirone HCl (Buspar) 10 mg PO BID [facility] Last Admin: 03/03/18 08:59 Dose: 10 mg Carvedilol (Coreg) 25 mg PO Q12 [facility] Last Admin: 03/03/18 08:59 Dose: 25 mg Enoxaparin Sodium (Lovenox) 40 mg SC DAILY [facility]; Protocol Last Admin: 03/03/18 09:00 Dose: 40 mg Piperacillin Sod/Tazobactam (Sod 3.375 gm/ Sodium Chloride) 100 mls @ 100 mls/h r IVPB Q6 [facility]; Protocol Last Admin: 03/03/18 09:01 Dose: 100 mls/hr Vancomycin HCl 1 gm/ Sodium (Chloride) 250 mls @ 166.667 mls/hr IVPB Q12 [facility]; Protocol Last Admin: 03/03/18 08:58 Dose: 166.667 mls/hr Ibuprofen (Motrin Tab) 600 mg PO Q8 PRN PRN Reason: Pain, Mild (1-3) Last Admin: 02/28/18 21:48 Dose: 600 mg Losartan Potassium (Cozaar) 50 mg PO DAILY [facility] Last Admin: 03/03/18 08:59 Dose: 50 mg Metformin HCl (Glucophage) 500 mg PO DAILY [facility] Last Admin: 03/03/18 08:59 Dose: 500 mg Morphine Sulfate (Morphine) 2 mg IVP ONCE PRN PRN Reason: Pain, severe (8-10) Last Admin: 02/27/18 13:44 Dose: 2 mg Nicotine (Nicoderm Cq) 1 patch TD DAILY [facility] Last Admin: 03/03/18 08:58 Dose: 1 patch Oxycodone/Acetaminophen (Percocet 5/325 Mg Tab) 1 tab PO Q4 PRN PRN Reason: Pain, moderate (4-7) Stop: 03/04/18 18:40 Last Admin: 03/03/18 04:20 Dose: 1 tab Oxycodone/Acetaminophen (Percocet 5/325 Mg Tab) 2 tab PO Q4 PRN PRN Reason: Pain, severe (8-10) Stop: 03/04/18 18:40 Last Admin: 03/03/18 09:42 Dose: 2 tab Pramipexole Dihydrochloride (Mirapex) 1.5 mg PO Q12 [facility] Last Admin: 03/03/18 08:59 Dose: 1.5 mg Pregabalin (Lyrica) 75 mg PO BID [facility] Last Admin: 03/03/18 09:39 Dose: 75 mg Senna/Docusate Sodium (Senokot S 50 Mg-8.6 Mg) 2 tab PO HS [facility] Last Admin: 03/02/18 22:06 Dose: Not Given Trazodone HCl (Desyrel) 100 mg PO HS [facility] Last Admin: 03/02/18 21:47 Dose: 100 mg - Labs Labs: 03/03/18 05:55 03/03/18 05:55 - Constitutional Appears: Well, Non-toxic, No Acute Distress - Head Exam Head Exam: ATRAUMATIC, NORMOCEPHALIC - Extremities Exam Additional comments: Vasc: DP and PT pulses palpable; cap refill <3 seconds to all digits; temp gra dient warm to warm from proximal to distal; nonpitting moderate edema noted to b/l LE with associated erythema Derm: b/l lower extremities evidence of cellulitis from rearfoot to proximal lower leg appreciated - improving; left LE has superficial wound present, granular tissue, no pus or purulent drainage appreciated on the anterior leg; right LE has similar wound present, superificial with no purulent drainage , no tunneling or tracking, on lateral aspect of LE Ortho: pain on palpation to b/l LE secondary to cellulitis and superficial wounds Neuro: gross and protective sensation intact b/l - Neurological Exam Neurological Exam: Alert, Awake, Oriented x3 - Psychiatric Exam Psychiatric exam: Normal Affect, Normal Mood Assessment and Plan - Assessment and Plan (Free Text) Assessment: 57M with b/l LE cellulits and venous stasis ulceration; resolving Plan: Patient seen and evaluated Discussed in detail with Dr. Woodruff Afebrile and absent leukocytosis Wound cultures taken - pseudomonas Lower extremities cleansed with sterile saline and dressed with Unna boot and coban b/l Arterial duplex studies taken - diminished blood flow to the left foot and ankle, inguinal mass possible enlarged lymph nodes. Vasc on board, recs appreciated Abdominal CT angio - f/u results Continue medications per ID ID on board, recs appreciated Podiatry plan: no surgical intervention Will follow patient while in house
[2018-03-03] MEDS ORDERED: Sodium Chloride 0.9% 50 ML IV ONE (11:41)
[2018-03-03] MEDS ORDERED: Iodixanol 320 MG/ML 100 ML BOTTLE IV ONE (11:41)
--- NOTE | 2018-03-03 14:23 | CT ---
Date of service: 03/03/2018 PROCEDURE: CT Angiography Abdomen, Pelvis and Lower Extremity with Contrast HISTORY: PVD COMPARISON: None available. TECHNIQUE: Technique: CT angiography of the abdomen, pelvis and bilateral lower extremities performed in the arterial phase of enhancement. Coronal and sagittal reformats, and well as rotating MIP images of the vessels generated at the workstation. Intravenous contrast dose: 150 milliliters Visipaque 320 Radiation dose: Total exam DLP = 1527.91 mGy-cm. This CT exam was performed using one or more of the following dose reduction techniques: Automated exposure control, adjustment of the mA and/or kV according to patient size, and/or use of iterative reconstruction technique. FINDINGS: CT ANGIOGRAPHY: ABDOMINAL AORTA:: The abdominal was unremarkable. MAJOR AORTIC BRANCHES: Celiac Cuddy: Unremarkable. Superior mesenteric artery: Unremarkable. Inferior mesenteric artery: Unremarkable. Renal arteries: Unremarkable. PELVIC ARTERIES: Right Common Iliac: Unremarkable. Right External Iliac: Unremarkable. Right Internal Iliac: Unremarkable. Left Common Iliac: Unremarkable. Left External Iliac: Unremarkable. Left Internal Iliac: Unremarkable. RIGHT LOWER EXTREMITY ARTERIES: Right Common Femoral: Unremarkable. Right Superficial Femoral: Plaque in the mid SFA without stenosis. Right Profunda Femoris: Unremarkable. Right Popliteal:Unremarkable. Right Anterior Tibial: Mild calcific plaque at the origin of the anterior tibial artery without stenosis. Right Tibioperoneal Trunk: Unremarkable. Right Posterior Tibial: Unremarkable. Right Peroneal: Unremarkable. Right dorsalis pedis : Unremarkable. LEFT LOWER EXTREMITY ARTERIES: Left Common Femoral: Unremarkable. Left Superficial Femoral: Mild plaque in the SFA without stenosis. Left Profunda Femoris: Unremarkable. Left Popliteal: Unremarkable. Left Anterior Tibial: Unremarkable. Left Tibioperoneal Trunk: Unremarkable. Left Posterior Tibial: Unremarkable. Left Peronea: Unremarkable. Left Dorsalis pedis: Unremarkable. NON-ANGIOGRAPHIC ASPECT OF THE EXAM: LOWER THORAX: Areas of atelectasis and consolidation in the posterior basal segment left lower lobe incompletely imaged. Follow-up chest CT is recommended if clinically concerned. LIVER: Unremarkable. No gross lesion or ductal dilatation. GALLBLADDER AND BILE DUCTS: Unremarkable. PANCREAS: Unremarkable. No gross lesion or ductal dilatation. SPLEEN: Unremarkable. ADRENALS: Unremarkable. No mass. KIDNEYS AND URETERS: Unremarkable. No hydronephrosis. No solid mass. STOMACH AND BOWEL: Incompletely imaged on study. Limited evaluation of PO contrast. No obstruction in the visualized bowel. APPENDIX: Normal PERITONEUM: Unremarkable. No free fluid. No free air. LYMPH NODES: Unremarkable. No enlarged lymph nodes. BLADDER: Unremarkable. REPRODUCTIVE: Unremarkable. BONES: No acute fracture. OTHER FINDINGS: Bilateral lower extremity edema, left worse than right. IMPRESSION: CT ANGIOGRAM ABDOMEN/PELVIS: 1. Essentially unremarkable CT angiogram of the abdomen pelvis. RIGHT LOWER EXTREMITY CT ANGIOGRAM: 1. Unremarkable CT angiogram of the right lower extremity. No evidence of significant peripheral disease. LEFT LOWER EXTREMITY CT ANGIOGRAM: 2. Unremarkable angiogram of left lower extremity. No evidence of significant peripheral disease.
--- NOTE | 2018-03-03 21:50 | HP ---
CHIEF COMPLAINT: Pain, redness, increasing edema of both lower extremities. HISTORY OF PRESENT ILLNESS: This is a 57-year-old male with a past history of cellulitis who complained of increasing pain of both lower extremities below the knee associated with increased swelling and redness with scattered oozing purulent discharge for one month prior to admission. He was seen at the office of his primary care physician, Dr. Anabell Monreal MD on 02/12/2018. He was prescribed clindamycin 150 mg four times a day for cellulitis. He was also prescribed Bactroban ointment to be applied three times a day for 10 days. He became progressively worse and presented to the emergency room for further evaluation on 02/22/2018. He denied any chest pain or palpitations, but has shortness of breath on exertion. PAST MEDICAL HISTORY: Cellulitis of the left lower extremity, exacerbation of COPD, hypertension, hypercholesterolemia, restless legs syndrome, schizoaffective disorder, abnormal glucose, diffuse epidural lipomatosis, bipolar disorder, morbid obesity, severe sleep apnea. Cardiac catheterization done by Dr. Rayo Sparks on 07/21/2017 showed MCA normal, LAD normal, left coronary artery normal, RCA mid subsection 50% stenosis, LV function was normal. ALLERGIES: NO KNOWN DRUG ALLERGIES. MEDICATIONS: Combivent one inhalation four times daily, amlodipine 5 mg daily, Avapro 150 mg daily, aspirin 81 mg daily, pramipexole 1.5 mg twice daily, pravastatin 40 mg at bedtime, metformin ER 500 mg daily, albuterol sulfate 2.5 mg/3 mL via nebulizer three times daily as needed, carvedilol 12.5 mg twice daily. SOCIAL HISTORY: The patient has a history of smoking one to two packs of cigarettes daily for approximately 30 years. He has recently reduced his smoking to approximately one half pack of cigarettes daily. He has a history of alcohol abuse. FAMILY HISTORY: Father at the age of 50 due to lung cancer; he was a heavy smoker. Mother has a history of coronary artery disease, SP coronary artery bypass graft; she has no history of smoking. The patient has three sisters who are healthy and six half brothers who are also healthy. REVIEW OF SYSTEMS: Unremarkable except as mentioned above. PHYSICAL EXAMINATION: VITAL SIGNS: Blood pressure 139/81 mmHg, respiration rate 20 respirations per minute, pulse of 115 beats per minute, temperature 97.5 Fahrenheit, pulse ox 97% on room air. GENERAL: This is a 57-year-old white male, complaining of bilateral lower extremity pain as well as shortness of breath. SKIN: Warm, dry. HEENT: Atraumatic, normocephalic. Anicteric sclerae. Pupils equal, round, reactive to light and accommodation. NECK: Supple. No jugular venous distention. No lymphadenopathy. LUNGS: Decreased breath sounds bilaterally with expiratory wheeze. HEART: Regular S1 and S2. Has 1/6 systolic ejection murmur. ABDOMEN: Distended. Positive bowel sounds. Soft, nontender. EXTREMITIES: Has 2 to 3+ edema of the lower extremities, below the knee with erythema, left greater than right lower extremity with scattered erythema, oozing purulent discharge. IMPRESSION: 1. Bilateral lower extremity cellulitis. 2. Chronic obstructive pulmonary disease. 3. Hypertension. 4. Abnormal glucose. 5. Restless legs syndrome. 6. Hypercholesterolemia. 7. Schizoaffective disorder. PLAN: The patient will be started on Zosyn 3.375 g IV every 6 hours as well as vancomycin 1 g IV every [address] Armas, infectious disease specialist, has been consulted. Podiatry consult has also consulted. Venous Doppler of the lower extremities will be ordered to rule out DVT. CBC and comprehensive metabolic panel have been ordered for the a.m. Anabell Monreal MD
[2018-03-03] MEDS: Docusate-Senna 50 mg-8.6 mg Tab PO SCH (22:00)
--- NOTE | 2018-03-03 22:57 | CP.PCM.PN ---
Subjective - Date & Time of Evaluation Date of Evaluation: 03/03/18 Time of Evaluation: 12:00 - Subjective Subjective: CTA reviewed and findings discussed with patient earlier today no evidence of peripheral arterial occlusive disease b/l LE ulcers 2' to venous insufficieincy and dependent edema Objective - Vital Signs/Intake and Output Vital Signs (last 24 hours): Temp Pulse Resp BP Pulse Ox 98.0 F 82 20 134/82 96 03/03/18 07:47 03/03/18 21:02 03/03/18 07:47 03/03/18 21:02 03/03/18 07:47 - Medications Medications: Current Medications Albuterol/Ipratropium (Duoneb 3 Mg/0.5 Mg (3 Ml) Ud) 3 ml INH RQID [facility] Last Admin: 03/03/18 19:23 Dose: 3 ml Albuterol/Ipratropium (Duoneb 3 Mg/0.5 Mg (3 Ml) Ud) 3 ml INH RQ6 PRN PRN Reason: Shortness of Breath Last Admin: 02/24/18 04:09 Dose: 3 ml Amlodipine Besylate (Norvasc) 10 mg PO DAILY [facility] Last Admin: 03/03/18 09:00 Dose: 10 mg Aripiprazole (Abilify) 10 mg PO DAILY [facility] Last Admin: 03/03/18 08:59 Dose: 10 mg Aspirin (Aspirin Chewable) 81 mg PO DAILY [facility] Last Admin: 03/03/18 09:00 Dose: 81 mg Buspirone HCl (Buspar) 10 mg PO BID [facility] Last Admin: 03/03/18 16:18 Dose: 10 mg Carvedilol (Coreg) 25 mg PO Q12 [facility] Last Admin: 03/03/18 21:02 Dose: 25 mg Enoxaparin Sodium (Lovenox) 40 mg SC DAILY [facility]; Protocol Last Admin: 03/03/18 09:00 Dose: 40 mg Piperacillin Sod/Tazobactam (Sod 3.375 gm/ Sodium Chloride) 100 mls @ 100 mls/hr IVPB Q6 [facility]; Protocol Last Admin: 03/03/18 22:25 Dose: 100 mls/hr Vancomycin HCl 1 gm/ Sodium (Chloride) 250 mls @ 166.667 mls/hr IVPB Q12 [facility]; Protocol Last Admin: 03/03/18 20:39 Dose: 166.667 mls/hr Ibuprofen (Motrin Tab) 600 mg PO Q8 PRN PRN Reason: Pain, Mild (1-3) Last Admin: 02/28/18 21:48 Dose: 600 mg Losartan Potassium (Cozaar) 50 mg PO DAILY [facility] Last Admin: 03/03/18 08:59 Dose: 50 mg Metformin HCl (Glucophage) 500 mg PO DAILY [facility] Last Admin: 03/03/18 08:59 Dose: 500 mg Morphine Sulfate (Morphine) 2 mg IVP ONCE PRN PRN Reason: Pain, severe (8-10) Last Admin: 02/27/18 13:44 Dose: 2 mg Nicotine (Nicoderm Cq) 1 patch TD DAILY [facility] Last Admin: 03/03/18 08:58 Dose: 1 patch Oxycodone/Acetaminophen (Percocet 5/325 Mg Tab) 1 tab PO Q4 PRN PRN Reason: Pain, moderate (4-7) Stop: 03/04/18 18:40 Last Admin: 03/03/18 04:20 Dose: 1 tab Oxycodone/Acetaminophen (Percocet 5/325 Mg Tab) 2 tab PO Q4 PRN PRN Reason: Pain, severe (8-10) Stop: 03/04/18 18:40 Last Admin: 03/03/18 22:25 Dose: 2 tab Pramipexole Dihydrochloride (Mirapex) 1.5 mg PO Q12 [facility] Last Admin: 03/03/18 22:25 Dose: 1.5 mg Pregabalin (Lyrica) 75 mg PO BID [facility] Last Admin: 03/03/18 16:23 Dose: 75 mg Senna/Docusate Sodium (Senokot S 50 Mg-8.6 Mg) 2 tab PO [facility] Last Admin: 03/02/18 22:06 Dose: Not Given Trazodone HCl (Desyrel) 100 mg PO [facility] Last Admin: 03/03/18 21:02 Dose: 100 mg - Labs Labs: 03/03/18 05:55 03/03/18 05:55 - Constitutional Appears: Well - Head Exam Head Exam: ATRAUMATIC, NORMAL INSPECTION, NORMOCEPHALIC - Eye Exam Eye Exam: EOMI, Normal appearance, PERRL Pupil Exam: NORMAL ACCOMODATION, PERRL - ENT Exam ENT Exam: Mucous Membranes Moist, Normal Exam - Neck Exam Neck Exam: Full ROM, Normal Inspection. absent: Lymphadenopathy - Respiratory Exam Respiratory Exam: Clear to Ausculation Bilateral, NORMAL BREATHING PATTERN - Cardiovascular Exam Cardiovascular Exam: REGULAR RHYTHM, +S1, +S2. absent: Murmur - GI/Abdominal Exam GI & Abdominal Exam: Soft, Normal Bowel Sounds. absent: Tenderness - Extremities Exam Extremities Exam: Full ROM, Normal Capillary Refill, Normal Inspection. absent: Joint Swelling, Pedal Edema - Back Exam Back Exam: NORMAL INSPECTION - Neurological Exam Neurological Exam: Alert, Awake, CN II-XII Intact, Normal Gait, Oriented x3 - Psychiatric Exam Psychiatric exam: Normal Affect, Normal Mood - Skin Skin Exam: Dry, Intact, Normal Color, Warm Assessment and Plan (1) PVD (peripheral vascular disease) Assessment & Plan: CTA reviewed no evidence of peripheral arterial occlusive disease keep pt on asa, statins Status: Acute (2) Non-healing ulcer of lower leg Assessment & Plan: 2' to venous insufficiency compresson stockings dc norvasc ( worsens LE edema ) Status: Acute (3) Bilateral lower leg cellulitis Status: Acute (4) Hypertension Assessment & Plan: cont coreg and losartan add chlorthalidone Status: Acute
--- NOTE | 2018-03-03 22:58 | CP.PCM.PN ---
Subjective - Date & Time of Evaluation Date of Evaluation: 03/03/18 Time of Evaluation: 09:30 - Subjective Subjective: Patient c/o off and on burning stabbing pain of LE's; SOB on exertion VSS Heart- regular S1, S2, 1/6 mulu Lungs- dec. br. sounds b/l Abd.- distended, + BS, soft, NT Ext.- 2 + edema LE's, left > right; bandages in place LE's CT Angiogram of Abd./pelvis is unremarkable CT right and left LE's is unremarkable 1. B/L LE cellulitis- cont. zosyn and vancomycin 2. Morbid obesity 3. Diffuse epidural lipomatosis 4. HTN- controlled 5. Abnormal glucose 6. Bipolar disorder Will discuss angiogram results with Dr. Brennan and clinically correlate in AM Objective - Vital Signs/Intake and Output Vital Signs (last 24 hours): Temp Pulse Resp BP Pulse Ox 98.0 F 82 20 134/82 96 03/03/18 07:47 03/03/18 21:02 03/03/18 07:47 03/03/18 21:02 03/03/18 07:47 - Medications Medications: Current Medications Albuterol/Ipratropium (Duoneb 3 Mg/0.5 Mg (3 Ml) Ud) 3 ml INH RQID [facility] Last Admin: 03/03/18 19:23 Dose: 3 ml Albuterol/Ipratropium (Duoneb 3 Mg/0.5 Mg (3 Ml) Ud) 3 ml INH RQ6 PRN PRN Reason: Shortness of Breath Last Admin: 02/24/18 04:09 Dose: 3 ml Amlodipine Besylate (Norvasc) 10 mg PO DAILY [facility] Last Admin: 03/03/18 09:00 Dose: 10 mg Aripiprazole (Abilify) 10 mg PO DAILY [facility] Last Admin: 03/03/18 08:59 Dose: 10 mg Aspirin (Aspirin Chewable) 81 mg PO DAILY [facility] Last Admin: 03/03/18 09:00 Dose: 81 mg Buspirone HCl (Buspar) 10 mg PO BID [facility] Last Admin: 03/03/18 16:18 Dose: 10 mg Carvedilol (Coreg) 25 mg PO Q12 [facility] Last Admin: 03/03/18 21:02 Dose: 25 mg Enoxaparin Sodium (Lovenox) 40 mg SC DAILY [facility]; Protocol Last Admin: 03/03/18 09:00 Dose: 40 mg Piperacillin Sod/Tazobactam (Sod 3.375 gm/ Sodium Chloride) 100 mls @ 100 mls/hr IVPB Q6 [facility]; Protocol Last Admin: 03/03/18 22:25 Dose: 100 mls/hr Vancomycin HCl 1 gm/ Sodium (Chloride) 250 mls @ 166.667 mls/hr IVPB Q12 [facility]; Protocol Last Admin: 03/03/18 20:39 Dose: 166.667 mls/hr Ibuprofen (Motrin Tab) 600 mg PO Q8 PRN PRN Reason: Pain, Mild (1-3) Last Admin: 02/28/18 21:48 Dose: 600 mg Losartan Potassium (Cozaar) 50 mg PO DAILY [facility] Last Admin: 03/03/18 08:59 Dose: 50 mg Metformin HCl (Glucophage) 500 mg PO DAILY [facility] Last Admin: 03/03/18 08:59 Dose: 500 mg Morphine Sulfate (Morphine) 2 mg IVP ONCE PRN PRN Reason: Pain, severe (8-10) Last Admin: 02/27/18 13:44 Dose: 2 mg Nicotine (Nicoderm Cq) 1 patch TD DAILY [facility] Last Admin: 03/03/18 08:58 Dose: 1 patch Oxycodone/Acetaminophen (Percocet 5/325 Mg Tab) 1 tab PO Q4 PRN PRN Reason: Pain, moderate (4-7) Stop: 03/04/18 18:40 Last Admin: 03/03/18 04:20 Dose: 1 tab Oxycodone/Acetaminophen (Percocet 5/325 Mg Tab) 2 tab PO Q4 PRN PRN Reason: Pain, severe (8-10) Stop: 03/04/18 18:40 Last Admin: 03/03/18 22:25 Dose: 2 tab Pramipexole Dihydrochloride (Mirapex) 1.5 mg PO Q12 [facility] Last Admin: 03/03/18 22:25 Dose: 1.5 mg Pregabalin (Lyrica) 75 mg PO BID [facility] Last Admin: 03/03/18 16:23 Dose: 75 mg Senna/Docusate Sodium (Senokot S 50 Mg-8.6 Mg) 2 tab PO HS [facility] Last Admin: 03/02/18 22:06 Dose: Not Given Trazodone HCl (Desyrel) 100 mg PO HS [facility] Last Admin: 03/03/18 21:02 Dose: 100 mg - Labs Labs: 03/03/18 05:55 03/03/18 05:55
[2018-03-04] MEDS: Piperacillin/Tazobact 3.375 GM in Sodium Chloride 0.9% 100 ML IVPB SCH ×4 (04:12→22:30)
[2018-03-04] MEDS: Oxycodone/Acetaminophen 5/325 mg Tab PO PRN ×3 (06:31→17:37)
[2018-03-04] MEDS: Albuterol-Ipratrop 3 mg / 0.5 (3 ml) UD INH SCH ×4 (07:51→19:06)
[2018-03-04] MEDS: Enoxaparin 40 mg Syringe SC SCH (09:10)
--- NOTE | 2018-03-04 13:47 | CP.PCM.CON ---
History of Present Illness - History of Present Illness History of Present Illness: Psychiatry consult follow-up note CC: "I'm feeling better." HPI: 57 yo male w/ h/o schizoaffective disorder, bipolar type, admitted w/ SOB and cellulitis of the lower libs. Patient was not compliant with medications prior to admission. He reports that his mood has improved since restarting medications. He denies acute AH/VH/SI/HI/paranoia/delusions. Patient is aware of his current medications and treatment plan. Patient reports he was on higher doses of Abilify in the past which helped stabilize his mood. Impression: 57 yo male w/ h/o schizoaffective disorder, has improved clinically, is now psychiatrically stable for discharge. -Increase Abilify to 15 mg Daily -Continue Buspar 10 mg PO BID and Trazodone 100 mg pO HS -No acute inpatient psychiatric admission indicated -Recommend outpatient psychiatric follow-up upon discharge. Past Patient History - Infectious Disease Hx of Infectious Diseases: None - Past Medical History & Family History Past Medical History?: Yes - Past Social History Smoking Status: Current Some Days Smoker - CARDIAC Hx Congestive Heart Failure: Yes Hx Hypercholesterolemia: No (PT DENIES) Hx Hypertension: Yes - PULMONARY Hx Asthma: Yes Hx Chronic Obstructive Pulmonary Disease (COPD): Yes Hx Emphysema: Yes Hx Sleep Apnea: Yes - NEUROLOGICAL Hx Seizures: No - HEENT Hx HEENT Problems: No - RENAL Hx Chronic Kidney Disease: No - ENDOCRINE/METABOLIC Hx Endocrine Disorders: No - HEMATOLOGICAL/ONCOLOGICAL Hx Human Immunodeficiency Virus (HIV): No - INTEGUMENTARY Hx Dermatological Problems: Yes (Cellulitis) Hx Cellulitis: Yes - MUSCULOSKELETAL/RHEUMATOLOGICAL Hx Musculoskeletal Disorders: Yes Hx Falls: Yes - GASTROINTESTINAL Hx Gastrointestinal Disorders: No - GENITOURINARY/GYNECOLOGICAL Hx Sexually Transmitted Disorders: No - PSYCHIATRIC Hx Anxiety: Yes Hx Bipolar Disorder: Yes Hx Depression: Yes Hx Schizophrenia: Yes - SURGICAL HISTORY Hx Surgeries: No - ANESTHESIA Hx Anesthesia: Yes Hx Anesthesia Reactions: No Hx Malignant Hyperthermia: No Meds Allergies/Adverse Reactions: Allergies Allergy/AdvReac Type Severity Reaction Status Date / Time [place]olet And Derivatives Allergy ANGIOEDEMA Verified 02/22/18 09:18 - Medications Medications: Current Medications Albuterol/Ipratropium (Duoneb 3 Mg/0.5 Mg (3 Ml) Ud) 3 ml INH RQID [facility] Last Admin: 03/04/18 11:04 Dose: 3 ml Albuterol/Ipratropium (Duoneb 3 Mg/0.5 Mg (3 Ml) Ud) 3 ml INH RQ6 PRN PRN Reason: Shortness of Breath Last Admin: 02/24/18 04:09 Dose: 3 ml Aripiprazole (Abilify) 10 mg PO DAILY [facility] Last Admin: 03/04/18 09:08 Dose: 10 mg Aspirin (Aspirin Chewable) 81 mg PO DAILY [facility] Last Admin: 03/04/18 09:10 Dose: 81 mg Buspirone HCl (Buspar) 10 mg PO BID [facility] Last Admin: 03/04/18 11:38 Dose: 10 mg Carvedilol (Coreg) 25 mg PO Q12 [facility] Last Admin: 03/04/18 09:09 Dose: 25 mg Enoxaparin Sodium (Lovenox) 40 mg SC DAILY [facility]; Protocol Last Admin: 03/04/18 09:10 Dose: 40 mg Piperacillin Sod/Tazobactam (Sod 3.375 gm/ Sodium Chloride) 100 mls @ 100 mls/hr IVPB Q6 [facility]; Protocol Last Admin: 03/04/18 09:08 Dose: 100 mls/hr Vancomycin HCl 1 gm/ Sodium (Chloride) 250 mls @ 166.667 mls/hr IVPB Q12 [facility]; Protocol Last Admin: 03/04/18 11:37 Dose: 166.667 mls/hr Ibuprofen (Motrin Tab) 600 mg PO Q8 PRN PRN Reason: Pain, Mild (1-3) Last Admin: 02/28/18 21:48 Dose: 600 mg Losartan Potassium (Cozaar) 50 mg PO DAILY [facility] Last Admin: 03/04/18 09:10 Dose: 50 mg Metformin HCl (Glucophage) 500 mg PO DAILY [facility] Last Admin: 03/04/18 09:09 Dose: 500 mg Morphine Sulfate (Morphine) 2 mg IVP ONCE PRN PRN Reason: Pain, severe (8-10) Last Admin: 02/27/18 13:44 Dose: 2 mg Nicotine (Nicoderm Cq) 1 patch TD DAILY [facility] Last Admin: 03/04/18 09:09 Dose: 1 patch Oxycodone/Acetaminophen (Percocet 5/325 Mg Tab) 1 tab PO Q4 PRN PRN Reason: Pain, moderate (4-7) Stop: 03/04/18 18:40 Last Admin: 03/04/18 06:31 Dose: 1 tab Oxycodone/Acetaminophen (Percocet 5/325 Mg Tab) 2 tab PO Q4 PRN PRN Reason: Pain, severe (8-10) Stop: 03/04/18 18:40 Last Admin: 03/04/18 11:44 Dose: 2 tab Pramipexole Dihydrochloride (Mirapex) 1.5 mg PO Q12 [facility] Last Admin: 03/04/18 09:10 Dose: 1.5 mg Pregabalin (Lyrica) 75 mg PO BID [facility] Last Admin: 03/04/18 09:15 Dose: 75 mg Senna/Docusate Sodium (Senokot S 50 Mg-8.6 Mg) 2 tab PO [facility] Last Admin: 03/03/18 22:00 Dose: Not Given Trazodone HCl (Desyrel) 100 mg PO [facility] Last Admin: 03/03/18 21:02 Dose: 100 mg Results - Vital Signs Recent Vital Signs: Last Vital Signs Temp 98 F 03/04/18 08:46 Pulse 92 H 03/04/18 09:10 Resp 20 03/04/18 08:46 BP 127/75 03/04/18 09:10 Pulse Ox 95 03/04/18 08:46 - Labs Result Diagrams: 03/03/18 05:55 03/03/18 05:55
--- NOTE | 2018-03-04 17:34 | CP.PCM.PN ---
Subjective - Date & Time of Evaluation Date of Evaluation: 03/04/18 Time of Evaluation: 14:30 - Subjective Subjective: Patient still c/o off and on LE pain with ambulation or at rest; SOB on exertion; encouraging incentive spirometry VSS Heart- regular S1, S2, 1/6 mulu Lungs- dec. br. sounds b/l; expiratory wheeze Abd.- distended, + BS, soft, NT Ext.- 2 + edema to above the knees, left > right ; bandages in place 1. B/L LE cellulitis- plan for an additional week of iv zosyn and vancomycin 2. LE edema- secondary to venous insufficiency and dependent edema- encouraging elevation LE's; Norvasc d/c'd because can contribute to LE edema; starting chlorthalidone 12.5 mg daily and plan to increase 3. HTN- cont. losartan 50 gm daily and carvedilol 12.5 mg bid 4. Morbid obesity 5. Diffuse epidural lipomatosis 6. Prediabetes- cont. metformin 7. Bipolar disorder- abilify increased to 15 mg daily Objective - Vital Signs/Intake and Output Vital Signs (last 24 hours): Temp Pulse Resp BP Pulse Ox 98 F 92 H 18 120/74 91 L 03/04/18 16:35 03/04/18 16:35 03/04/18 16:35 03/04/18 16:35 03/04/18 16:35 - Medications Medications: Current Medications Albuterol/Ipratropium (Duoneb 3 Mg/0.5 Mg (3 Ml) Ud) 3 ml INH RQID [facility] Last Admin: 03/04/18 15:38 Dose: 3 ml Albuterol/Ipratropium (Duoneb 3 Mg/0.5 Mg (3 Ml) Ud) 3 ml INH RQ6 PRN PRN Reason: Shortness of Breath Last Admin: 02/24/18 04:09 Dose: 3 ml Aripiprazole (Abilify) 10 mg PO DAILY [facility] Last Admin: 03/04/18 09:08 Dose: 10 mg Aripiprazole (Abilify) 5 mg PO DAILY [facility] Aspirin (Aspirin Chewable) 81 mg PO DAILY [facility] Last Admin: 03/04/18 09:10 Dose: 81 mg Buspirone HCl (Buspar) 10 mg PO BID [facility] Last Admin: 03/04/18 11:38 Dose: 10 mg Carvedilol (Coreg) 25 mg PO Q12 [facility] Last Admin: 03/04/18 09:09 Dose: 25 mg Chlorthalidone (Hygroton) 12.5 mg PO DAILY [facility] Enoxaparin Sodium (Lovenox) 40 mg SC DAILY [facility]; Protocol Last Admin: 03/04/18 09:10 Dose: 40 mg Piperacillin Sod/Tazobactam (Sod 3.375 gm/ Sodium Chloride) 100 mls @ 100 mls/hr IVPB Q6 [facility]; Protocol Last Admin: 03/04/18 09:08 Dose: 100 mls/hr Vancomycin HCl 1 gm/ Sodium (Chloride) 250 mls @ 166.667 mls/hr IVPB Q12 [facility]; Protocol Last Admin: 03/04/18 11:37 Dose: 166.667 mls/hr Ibuprofen (Motrin Tab) 600 mg PO Q8 PRN PRN Reason: Pain, Mild (1-3) Last Admin: 02/28/18 21:48 Dose: 600 mg Losartan Potassium (Cozaar) 50 mg PO DAILY [facility] Last Admin: 03/04/18 09:10 Dose: 50 mg Metformin HCl (Glucophage) 500 mg PO DAILY [facility] Last Admin: 03/04/18 09:09 Dose: 500 mg Morphine Sulfate (Morphine) 2 mg IVP ONCE PRN PRN Reason: Pain, severe (8-10) Last Admin: 02/27/18 13:44 Dose: 2 mg Nicotine (Nicoderm Cq) 1 patch TD DAILY [facility] Last Admin: 03/04/18 09:09 Dose: 1 patch Oxycodone/Acetaminophen (Percocet 5/325 Mg Tab) 1 tab PO Q4 PRN PRN Reason: Pain, moderate (4-7) Stop: 03/04/18 18:40 Last Admin: 03/04/18 06:31 Dose: 1 tab Oxycodone/Acetaminophen (Percocet 5/325 Mg Tab) 2 tab PO Q4 PRN PRN Reason: Pain, severe (8-10) Stop: 03/04/18 18:40 Last Admin: 03/04/18 11:44 Dose: 2 tab Pramipexole Dihydrochloride (Mirapex) 1.5 mg PO Q12 [facility] Last Admin: 03/04/18 09:10 Dose: 1.5 mg Pregabalin (Lyrica) 75 mg PO BID [facility] Last Admin: 03/04/18 09:15 Dose: 75 mg Senna/Docusate Sodium (Senokot S 50 Mg-8.6 Mg) 2 tab PO [facility] Last Admin: 03/03/18 22:00 Dose: Not Given Trazodone HCl (Desyrel) 100 mg PO [facility] Last Admin: 03/03/18 21:02 Dose: 100 mg - Labs Labs: 03/03/18 05:55 03/03/18 05:55
--- NOTE | 2018-03-04 18:31 | CP.PCM.PN ---
Subjective - Date & Time of Evaluation Date of Evaluation: 03/04/18 Time of Evaluation: 09:00 - Subjective Subjective: less celluliitis still leaking less sob NAD Objective - Vital Signs/Intake and Output Vital Signs (last 24 hours): Temp Pulse Resp BP Pulse Ox 98 F 92 H 18 120/74 91 L 03/04/18 16:35 03/04/18 16:35 03/04/18 16:35 03/04/18 16:35 03/04/18 16:35 - Medications Medications: Current Medications Albuterol/Ipratropium (Duoneb 3 Mg/0.5 Mg (3 Ml) Ud) 3 ml INH RQID [facility] Last Admin: 03/04/18 15:38 Dose: 3 ml Albuterol/Ipratropium (Duoneb 3 Mg/0.5 Mg (3 Ml) Ud) 3 ml INH RQ6 PRN PRN Reason: Shortness of Breath Last Admin: 02/24/18 04:09 Dose: 3 ml Aripiprazole (Abilify) 10 mg PO DAILY [facility] Last Admin: 03/04/18 09:08 Dose: 10 mg Aripiprazole (Abilify) 5 mg PO DAILY [facility] Aspirin (Aspirin Chewable) 81 mg PO DAILY [facility] Last Admin: 03/04/18 09:10 Dose: 81 mg Buspirone HCl (Buspar) 10 mg PO BID [facility] Last Admin: 03/04/18 16:53 Dose: 10 mg Carvedilol (Coreg) 25 mg PO Q12 [facility] Last Admin: 03/04/18 09:09 Dose: 25 mg Chlorthalidone (Hygroton) 12.5 mg PO DAILY [facility] Enoxaparin Sodium (Lovenox) 40 mg SC DAILY [facility]; Protocol Last Admin: 03/04/18 09:10 Dose: 40 mg Piperacillin Sod/Tazobactam (Sod 3.375 gm/ Sodium Chloride) 100 mls @ 100 mls/hr IVPB Q6 [facility]; Protocol Last Admin: 03/04/18 16:53 Dose: 100 mls/hr Vancomycin HCl 1 gm/ Sodium (Chloride) 250 mls @ 166.667 mls/hr IVPB Q12 [facility]; Protocol Last Admin: 03/04/18 11:37 Dose: 166.667 mls/hr Ibuprofen (Motrin Tab) 600 mg PO Q8 PRN PRN Reason: Pain, Mild (1-3) Last Admin: 02/28/18 21:48 Dose: 600 mg Losartan Potassium (Cozaar) 50 mg PO DAILY [facility] Last Admin: 03/04/18 09:10 Dose: 50 mg Metformin HCl (Glucophage) 500 mg PO DAILY [facility] Last Admin: 03/04/18 09:09 Dose: 500 mg Morphine Sulfate (Morphine) 2 mg IVP ONCE PRN PRN Reason: Pain, severe (8-10) Last Admin: 02/27/18 13:44 Dose: 2 mg Nicotine (Nicoderm Cq) 1 patch TD DAILY [facility] Last Admin: 03/04/18 09:09 Dose: 1 patch Oxycodone/Acetaminophen (Percocet 5/325 Mg Tab) 1 tab PO Q4 PRN PRN Reason: Pain, moderate (4-7) Stop: 03/04/18 18:40 Last Admin: 03/04/18 06:31 Dose: 1 tab Oxycodone/Acetaminophen (Percocet 5/325 Mg Tab) 2 tab PO Q4 PRN PRN Reason: Pain, severe (8-10) Stop: 03/04/18 18:40 Last Admin: 03/04/18 17:37 Dose: 2 tab Pramipexole Dihydrochloride (Mirapex) 1.5 mg PO Q12 [facility] Last Admin: 03/04/18 09:10 Dose: 1.5 mg Pregabalin (Lyrica) 75 mg PO BID [facility] Last Admin: 03/04/18 16:52 Dose: 75 mg Senna/Docusate Sodium (Senokot S 50 Mg-8.6 Mg) 2 tab PO [facility] Last Admin: 03/03/18 22:00 Dose: Not Given Trazodone HCl (Desyrel) 100 mg PO [facility] Last Admin: 03/03/18 21:02 Dose: 100 mg - Labs Labs: 03/03/18 05:55 03/03/18 05:55 - Constitutional Appears: Non-toxic, Chronically Ill - Head Exam Head Exam: NORMOCEPHALIC - Eye Exam Eye Exam: absent: Scleral icterus - ENT Exam ENT Exam: Mucous Membranes Dry - Neck Exam Neck Exam: absent: Lymphadenopathy - Respiratory Exam Respiratory Exam: Decreased Breath Sounds - Cardiovascular Exam Cardiovascular Exam: REGULAR RHYTHM - GI/Abdominal Exam GI & Abdominal Exam: Distended, Soft Assessment and Plan (1) Bilateral lower leg cellulitis Status: Acute (2) Bipolar 1 disorder Status: Acute (3) CHF (congestive heart failure) Status: Acute (4) COPD (chronic obstructive pulmonary disease) Status: Acute (5) Cellulitis Status: Acute
[2018-03-04] MEDS: Docusate-Senna 50 mg-8.6 mg Tab PO SCH ×2 (21:26→21:34)
[2018-03-05] MEDS: Piperacillin/Tazobact 3.375 GM in Sodium Chloride 0.9% 100 ML IVPB SCH ×3 (03:59→16:22)
[2018-03-05] MEDS: Albuterol-Ipratrop 3 mg / 0.5 (3 ml) UD INH SCH ×3 (07:30→15:36)
[2018-03-05 09:05] VITALS: TEMP 97.6
[2018-03-05] MEDS: Enoxaparin 40 mg Syringe SC SCH (09:30)
--- NOTE | 2018-03-05 09:42 | CP.PCM.PCO ---
Physician Communication Note - Physician Communication Note Physician Communication Note: Pt requires additional IV abx, Vanco & Zosyn x [address] Armas rec.
--- NOTE | 2018-03-05 11:49 | CP.PCM.PN ---
Subjective - Date & Time of Evaluation Date of Evaluation: 03/05/18 Time of Evaluation: 10:15 - Subjective Subjective: Patient sitting in chair with LE's elevated c/o burning sharp pain of LE's, left > right; SOB on exertion VSS Heart- regular S1, S2, 1/6 mulu Lungs- dec. br. sounds b/l; expiratory wheeze Abd.- distended, + BS, soft, NT Ext.- 2 + edema LE's to above knees; bandages in place 1. B/L LE cellulitis- Dr. Armas recommends an additional week of iv antibiotics, zosyn and vancomycin 2. LE edema- secondary to venous insufficiency and dependent edema- d/c'd norvasc and started chlorthalidone 12.5 mg daily 3. Morbid obesity 4. Diffuse epidural lipomatosis 5. HTN- controlled 6. Prediabetes- will order HbA1c 7. Hypercholesterolemia- pravastatin 40 mg q hs 7. Bipolar disorder- psych adjusted medications Plan to transfer to 7th floor (TCU) for rehab. and 1 more week of iv antibiotics Objective - Vital Signs/Intake and Output Vital Signs (last 24 hours): Temp Pulse Resp BP Pulse Ox 97.6 F 86 22 135/81 95 03/05/18 09:05 03/05/18 09:32 03/05/18 09:05 03/05/18 09:32 03/05/18 09:05 - Medications Medications: Current Medications Albuterol/Ipratropium (Duoneb 3 Mg/0.5 Mg (3 Ml) Ud) 3 ml INH RQID [facility] Last Admin: 03/05/18 11:03 Dose: 3 ml Albuterol/Ipratropium (Duoneb 3 Mg/0.5 Mg (3 Ml) Ud) 3 ml INH RQ6 PRN PRN Reason: Shortness of Breath Last Admin: 02/24/18 04:09 Dose: 3 ml Aripiprazole (Abilify) 10 mg PO DAILY [facility] Last Admin: 03/05/18 09:33 Dose: 10 mg Aripiprazole (Abilify) 5 mg PO DAILY [facility] Last Admin: 03/05/18 09:33 Dose: 5 mg Aspirin (Aspirin Chewable) 81 mg PO DAILY [facility] Last Admin: 03/05/18 09:33 Dose: 81 mg Buspirone HCl (Buspar) 10 mg PO BID [facility] Last Admin: 03/05/18 09:29 Dose: 10 mg Carvedilol (Coreg) 25 mg PO Q12 [facility] Last Admin: 03/05/18 09:32 Dose: 25 mg Chlorthalidone (Hygroton) 12.5 mg PO DAILY [facility] Last Admin: 03/05/18 09:30 Dose: 12.5 mg Enoxaparin Sodium (Lovenox) 40 mg SC DAILY [facility]; Protocol Last Admin: 03/05/18 09:30 Dose: 40 mg Piperacillin Sod/Tazobactam (Sod 3.375 gm/ Sodium Chloride) 100 mls @ 100 mls/hr IVPB Q6 [facility]; Protocol Last Admin: 03/05/18 09:34 Dose: 100 mls/hr Vancomycin HCl 1 gm/ Sodium (Chloride) 250 mls @ 166.667 mls/hr IVPB Q12 [facility]; Protocol Last Admin: 03/05/18 09:34 Dose: 166.667 mls/hr Ibuprofen (Motrin Tab) 600 mg PO Q8 PRN PRN Reason: Pain, Mild (1-3) Last Admin: 03/05/18 09:21 Dose: 600 mg Losartan Potassium (Cozaar) 50 mg PO DAILY [facility] Last Admin: 03/05/18 09:32 Dose: 50 mg Metformin HCl (Glucophage) 500 mg PO DAILY [facility] Last Admin: 03/05/18 09:31 Dose: 500 mg Morphine Sulfate (Morphine) 2 mg IVP ONCE PRN PRN Reason: Pain, severe (8-10) Last Admin: 02/27/18 13:44 Dose: 2 mg Nicotine (Nicoderm Cq) 1 patch TD DAILY [facility] Last Admin: 03/05/18 09:30 Dose: 1 patch Pramipexole Dihydrochloride (Mirapex) 1.5 mg PO Q12 [facility] Last Admin: 03/05/18 09:31 Dose: 1.5 mg Pregabalin (Lyrica) 75 mg PO BID [facility] Last Admin: 03/05/18 09:22 Dose: 75 mg Senna/Docusate Sodium (Senokot S 50 Mg-8.6 Mg) 2 tab PO [facility] Last Admin: 03/04/18 21:34 Dose: Not Given Trazodone HCl (Desyrel) 100 mg PO [facility] Last Admin: 03/04/18 21:26 Dose: 100 mg - Labs Labs: 03/03/18 05:55 03/03/18 05:55
--- NOTE | 2018-03-05 13:04 | CP.PCM.PN ---
Subjective - Date & Time of Evaluation Date of Evaluation: 03/05/18 Time of Evaluation: 07:00 - Subjective Subjective: going for TCU Objective - Vital Signs/Intake and Output Vital Signs (last 24 hours): Temp Pulse Resp BP Pulse Ox 97.6 F 86 22 135/81 95 03/05/18 09:05 03/05/18 09:32 03/05/18 09:05 03/05/18 09:32 03/05/18 09:05 - Medications Medications: Current Medications Albuterol/Ipratropium (Duoneb 3 Mg/0.5 Mg (3 Ml) Ud) 3 ml INH RQID [facility] Last Admin: 03/05/18 11:03 Dose: 3 ml Albuterol/Ipratropium (Duoneb 3 Mg/0.5 Mg (3 Ml) Ud) 3 ml INH RQ6 PRN PRN Reason: Shortness of Breath Last Admin: 02/24/18 04:09 Dose: 3 ml Aripiprazole (Abilify) 10 mg PO DAILY [facility] Last Admin: 03/05/18 09:33 Dose: 10 mg Aripiprazole (Abilify) 5 mg PO DAILY [facility] Last Admin: 03/05/18 09:33 Dose: 5 mg Aspirin (Aspirin Chewable) 81 mg PO DAILY [facility] Last Admin: 03/05/18 09:33 Dose: 81 mg Buspirone HCl (Buspar) 10 mg PO BID [facility] Last Admin: 03/05/18 09:29 Dose: 10 mg Carvedilol (Coreg) 25 mg PO Q12 [facility] Last Admin: 03/05/18 09:32 Dose: 25 mg Chlorthalidone (Hygroton) 12.5 mg PO DAILY [facility] Last Admin: 03/05/18 09:30 Dose: 12.5 mg Enoxaparin Sodium (Lovenox) 40 mg SC DAILY [facility]; Protocol Last Admin: 03/05/18 09:30 Dose: 40 mg Piperacillin Sod/Tazobactam (Sod 3.375 gm/ Sodium Chloride) 100 mls @ 100 mls/hr IVPB Q6 [facility]; Protocol Last Admin: 03/05/18 09:34 Dose: 100 mls/hr Vancomycin HCl 1 gm/ Sodium (Chloride) 250 mls @ 166.667 mls/hr IVPB Q12 [facility]; Protocol Last Admin: 03/05/18 09:34 Dose: 166.667 mls/hr Ibuprofen (Motrin Tab) 600 mg PO Q8 PRN PRN Reason: Pain, Mild (1-3) Last Admin: 03/05/18 09:21 Dose: 600 mg Losartan Potassium (Cozaar) 50 mg PO DAILY [facility] Last Admin: 03/05/18 09:32 Dose: 50 mg Metformin HCl (Glucophage) 500 mg PO DAILY [facility] Last Admin: 03/05/18 09:31 Dose: 500 mg Morphine Sulfate (Morphine) 2 mg IVP ONCE PRN PRN Reason: Pain, severe (8-10) Last Admin: 02/27/18 13:44 Dose: 2 mg Nicotine (Nicoderm Cq) 1 patch TD DAILY [facility] Last Admin: 03/05/18 09:30 Dose: 1 patch Pramipexole Dihydrochloride (Mirapex) 1.5 mg PO Q12 [facility] Last Admin: 03/05/18 09:31 Dose: 1.5 mg Pregabalin (Lyrica) 75 mg PO BID [facility] Last Admin: 03/05/18 09:22 Dose: 75 mg Senna/Docusate Sodium (Senokot S 50 Mg-8.6 Mg) 2 tab PO [facility] Last Admin: 03/04/18 21:34 Dose: Not Given Trazodone HCl (Desyrel) 100 mg PO [facility] Last Admin: 03/04/18 21:26 Dose: 100 mg - Labs Labs: 03/03/18 05:55 03/03/18 05:55 - Constitutional Appears: Non-toxic, Chronically Ill - Head Exam Head Exam: NORMOCEPHALIC - Eye Exam Eye Exam: absent: Scleral icterus - ENT Exam ENT Exam: Mucous Membranes Dry - Neck Exam Neck Exam: absent: Lymphadenopathy - Respiratory Exam Respiratory Exam: Decreased Breath Sounds - Cardiovascular Exam Cardiovascular Exam: REGULAR RHYTHM - GI/Abdominal Exam GI & Abdominal Exam: Distended, Soft Assessment and Plan (1) Bilateral lower leg cellulitis Status: Acute (2) Bipolar 1 disorder Status: Acute (3) CHF (congestive heart failure) Status: Acute (4) COPD (chronic obstructive pulmonary disease) Status: Acute (5) Cellulitis Status: Acute
[2018-03-05] MEDS ORDERED: Oxycodone/Acetaminophen 5/325 mg Tab PO PRN (16:12)
[2018-03-05 16:20] VITALS: BP 149/79; PULSE 94; RESP 20; O2SAT 94
== END 2018-03-05 19:09 | DRG 277 ==
LOC: H.ER 08:59 → H.ERHOLD 11:13 → H.MEDSURG1 19:00
PROVIDERS: ADMIT Family Medicine Adult Medicine; ATTEND Family Medicine Adult Medicine
PROC: 3E02340 Introduction of Influenza Vaccine into Muscle, Percutaneous Approach (ICD-10-PCS; 2018-02-23)
PROC: B42HZZZ Computerized Tomography (CT Scan) of Bilateral Lower Extremity Arteries (ICD-10-PCS; principal; 2018-03-02)
PROC: B420ZZZ Computerized Tomography (CT Scan) of Abdominal Aorta (ICD-10-PCS; 2018-03-02)
PROC: B42CZZZ Computerized Tomography (CT Scan) of Pelvic Arteries (ICD-10-PCS; 2018-03-02)
DX: L03.115 Cellulitis of right lower limb (principal); B96.5 Pseudomonas (aeruginosa) (mallei) (pseudomallei) as the cause of diseases classified elsewhere; J44.9 Chronic obstructive pulmonary disease, unspecified; F25.0 Schizoaffective disorder, bipolar type; I13.0 Hypertensive heart and chronic kidney disease with heart failure and stage 1 through stage 4 chronic kidney disease, or unspecified chronic kidney disease; N18.9 Chronic kidney disease, unspecified; I50.9 Heart failure, unspecified; E11.51 Type 2 diabetes mellitus with diabetic peripheral angiopathy without gangrene; E11.40 Type 2 diabetes mellitus with diabetic neuropathy, unspecified; E11.22 Type 2 diabetes mellitus with diabetic chronic kidney disease; L03.116 Cellulitis of left lower limb; I87.2 Venous insufficiency (chronic) (peripheral); I73.9 Peripheral vascular disease, unspecified; E66.01 Morbid (severe) obesity due to excess calories; Z68.34 Body mass index [BMI] 34.0-34.9, adult; G47.30 Sleep apnea, unspecified; G25.81 Restless legs syndrome; E78.00 Pure hypercholesterolemia, unspecified; F41.9 Anxiety disorder, unspecified; F17.210 Nicotine dependence, cigarettes, uncomplicated; Z23 Encounter for immunization; Z91.14 Patient's other noncompliance with medication regimen; Z79.84 Long term (current) use of oral hypoglycemic drugs; Z79.899 Other long term (current) drug therapy

== ENCOUNTER 2018-03-05 17:20 | Inpatient (IN) | payer MEDICAID ==
[2018-03-05 19:35] VITALS: BMI 47.7
[2018-03-05] MEDS: Docusate-Senna 50 mg-8.6 mg Tab PO SCH (21:39)
[2018-03-05] MEDS: Oxycodone/Acetaminophen 5/325 mg Tab PO PRN (21:42)
[2018-03-05] MEDS: Albuterol-Ipratrop 3 mg / 0.5 (3 ml) UD INH SCH (21:58)
[2018-03-05] MEDS ORDERED: Albuterol-Ipratrop 3 mg / 0.5 (3 ml) UD INH PRN (22:12)
[2018-03-05] MEDS: Piperacillin/Tazobact 3.375 GM in Sodium Chloride 0.9% 100 ML IVPB SCH (23:44)
[2018-03-06] MEDS: Oxycodone/Acetaminophen 5/325 mg Tab PO PRN ×4 (03:36→20:56)
[2018-03-06] MEDS: Piperacillin/Tazobact 3.375 GM in Sodium Chloride 0.9% 100 ML IVPB SCH ×3 (05:04→17:53)
[2018-03-06 07:19] LABS: ALB/GLOB RATIO 0.9 (1.0-2.1); ALBUMIN 3.3 g/dL (3.5-5.0); ALT/SGPT 33 U/L (21-72); AST/SGOT 25 U/L (17-59); BLOOD UREA NITROGEN 12 mg/dl (9-20); CALCIUM 8.7 mg/dL (8.4-10.2); GFR NON-AFRICAN AMERICAN > 60
[2018-03-06] MEDS: Albuterol-Ipratrop 3 mg / 0.5 (3 ml) UD INH SCH ×4 (07:47→19:09)
[2018-03-06] MEDS ORDERED: Albuterol-Ipratrop 3 mg / 0.5 (3 ml) UD INH SCH (08:00)
[2018-03-06] MEDS: Enoxaparin 40 mg Syringe SC SCH (08:33)
[2018-03-06] MEDS ORDERED: Patient's Own Med (Metformin Er [Glucophage Xr] 500 mg) PO SCH (09:00)
--- NOTE | 2018-03-06 12:49 | CP.PCM.CON ---
History of Present Illness - History of Present Illness History of Present Illness: Podiatry - Dr. Woodruff 57 year old male patient seen and evaluated in TCU for bilateral LE cellulitis and venous stasis ulceration; patient transferred to TCU for continuation of IV abx and physical therapy. At present, patient denies any pain in lower extremities and states he is able to ambulate w/o issues though complains of occ asional SOB on exertion. Dressings to lower extremities clean/dry/intact. Denies n/v/f/d/c/alvarez/cp. Review of Systems - Review of Systems All systems: reviewed and no additional remarkable complaints except (as per HPI) Past Patient History - Infectious Disease Hx of Infectious Diseases: None - Past Medical History & Family History Past Medical History?: Yes - Past Social History Smoking Status: Former Smoker - CARDIAC Hx Congestive Heart Failure: Yes Hx Hypercholesterolemia: No (PT DENIES) Hx Hypertension: Yes - PULMONARY Hx Respiratory Disorders: Yes Hx Asthma: Yes Hx Chronic Obstructive Pulmonary Disease (COPD): Yes Hx Emphysema: Yes Hx Sleep Apnea: Yes - NEUROLOGICAL Hx Seizures: No - HEENT Hx HEENT Problems: No - RENAL Hx Chronic Kidney Disease: No - ENDOCRINE/METABOLIC Hx Endocrine Disorders: Yes Hx Diabetes Mellitus Type 2: Yes - HEMATOLOGICAL/ONCOLOGICAL Hx Human Immunodeficiency Virus (HIV): No - INTEGUMENTARY Hx Dermatological Problems: Yes (Cellulitis) Hx Cellulitis: Yes - MUSCULOSKELETAL/RHEUMATOLOGICAL Hx Musculoskeletal Disorders: Yes Hx Falls: No - GASTROINTESTINAL Hx Gastrointestinal Disorders: No - GENITOURINARY/GYNECOLOGICAL Hx Sexually Transmitted Disorders: No - PSYCHIATRIC Hx Anxiety: Yes Hx Bipolar Disorder: Yes Hx Depression: Yes Hx Schizophrenia: Yes Hx Substance Use: No - SURGICAL HISTORY Hx Surgeries: No - ANESTHESIA Hx Anesthesia: Yes Hx Anesthesia Reactions: No Hx Malignant Hyperthermia: No Meds Allergies/Adverse Reactions: Allergies Allergy/AdvReac Type Severity Reaction Status Date / Time [place] And Derivatives Allergy ANGIOEDEMA Unverified 03/05/18 18:32 - Medications Medications: Current Medications Albuterol/Ipratropium (Duoneb 3 Mg/0.5 Mg (3 Ml) Ud) 3 ml INH RQID [facility] Last Admin: 03/06/18 11:47 Dose: 3 ml Albuterol/Ipratropium (Duoneb 3 Mg/0.5 Mg (3 Ml) Ud) 3 ml INH RQ6 PRN PRN Reason: Shortness of Breath Aripiprazole (Abilify) 5 mg PO DAILY [facility] Last Admin: 03/06/18 08:31 Dose: 5 mg Aripiprazole (Abilify) 10 mg PO DAILY [facility] Last Admin: 03/06/18 08:30 Dose: 10 mg Aspirin (Ecotrin) 81 mg PO DAILY [facility] Last Admin: 03/06/18 08:33 Dose: 81 mg Buspirone HCl (Buspar) 10 mg PO BID [facility] Last Admin: 03/06/18 08:31 Dose: 10 mg Carvedilol (Coreg) 25 mg PO Q12 [facility] Last Admin: 03/06/18 08:32 Dose: 25 mg Chlorthalidone (Hygroton) 12.5 mg PO DAILY [facility] Last Admin: 03/06/18 08:30 Dose: 12.5 mg Enoxaparin Sodium (Lovenox) 40 mg SC DAILY [facility]; Protocol Last Admin: 03/06/18 08:33 Dose: 40 mg Vancomycin HCl 1 gm/ Sodium (Chloride) 250 mls @ 166.667 mls/hr IVPB Q12@0500,1700 [facility]; Protocol Last Admin: 03/06/18 05:04 Dose: 166.667 mls/hr Piperacillin Sod/Tazobactam (Sod 3.375 gm/ Sodium Chloride) 100 mls @ 100 mls/hr IVPB 0600,1200,1800,0000 [facility]; Protocol Last Admin: 03/06/18 05:04 Dose: 100 mls/hr Vancomycin HCl 1.2 gm/ Sodium (Chloride) 250 mls @ 166.667 mls/hr IVPB DAILY@1700 [facility]; Protocol Ibuprofen (Motrin Tab) 600 mg PO Q8 PRN PRN Reason: Pain, Mild (1-3) Last Admin: 03/05/18 23:55 Dose: 600 mg Losartan Potassium (Cozaar) 50 mg PO DAILY [facility] Last Admin: 03/06/18 08:32 Dose: 50 mg Metformin HCl (Glucophage) 250 mg PO BID [facility] Last Admin: 03/06/18 08:33 Dose: 250 mg Nicotine (Nicoderm Cq) 1 patch TD DAILY [facility] Last Admin: 03/06/18 08:33 Dose: 1 patch Oxycodone/Acetaminophen (Percocet 5/325 Mg Tab) 1 tab PO Q4 PRN PRN Reason: Pain, severe (8-10) Stop: 03/08/18 20:45 Last Admin: 03/06/18 08:52 Dose: 1 tab Pramipexole Dihydrochloride (Mirapex) 1.5 mg PO Q12H [facility] Last Admin: 03/06/18 08:29 Dose: 1.5 mg Pregabalin (Lyrica) 75 mg PO BID [facility] Last Admin: 03/06/18 08:29 Dose: 75 mg Senna/Docusate Sodium (Senokot S 50 Mg-8.6 Mg) 2 tab PO [facility] Last Admin: 03/05/18 21:39 Dose: 2 tab Trazodone HCl (Desyrel) 100 mg PO [facility] Last Admin: 03/05/18 21:39 Dose: 100 mg Physical Exam - Constitutional Appears: Well, Non-toxic, No Acute Distress - Extremities Exam Additional comments: Unna boot, DSD present to bilateral LE appears clean/dry/intact Neurovascular status intact to digits b/l Muscle stregnth 5/5 for all dorsiflexors, plantarflexors, inverters, and everters. - Neurological Exam Neurological exam: Alert, Oriented x3 - Psychiatric Exam Psychiatric exam: Normal Affect, Normal Mood Results - Vital Signs Recent Vital Signs: Last Vital Signs Temp 97.8 F 03/06/18 10:00 Pulse 74 03/06/18 10:00 Resp 20 03/06/18 10:00 BP 134/82 03/06/18 10:00 Pulse Ox 96 03/06/18 10:00 - Labs Result Diagrams: 03/06/18 06:30 Labs: Laboratory Results - last 24 hr 03/05/18 03/06/18 03/06/18 21:08 05:18 06:30 Sodium 140 Potassium 4.1 Chloride 103 Carbon Dioxide 29 Anion Gap 12 BUN 12 Creatinine 0.9 Est GFR ( Amer) > 60 Est GFR (Non-Af Amer) > 60 POC Glucose (mg/dL) 92 96 Random Glucose 96 Calcium 8.7 Total Bilirubin 0.2 AST 25 ALT 33 Alkaline Phosphatase 64 Total Protein 6.9 Albumin 3.3 L Globulin 3.6 Albumin/Globulin Ratio 0.9 L Vancomycin Trough 03/06/18 06:30 Sodium Potassium Chloride Carbon Dioxide Anion Gap BUN Creatinine Est GFR ( Amer) Est GFR (Non-Af Amer) POC Glucose (mg/dL) Random Glucose Calcium Total Bilirubin AST ALT Alkaline Phosphatase Total Protein Albumin Globulin Albumin/Globulin Ratio Vancomycin Trough < 5.0 L Assessment & Plan - Assessment and Plan (Free Text) Assessment: 57M with b/l LE cellulits and venous stasis ulceration; resolving Plan: Patient seen and evaluated Discussed in detail with Dr. Woodruff VSAudrey Wound cultures reveal growth of psuedomonas ID recs appreciated - continue IV abx x1 week Unna boot, DSD left intact- plan to change 03/10 Continue PT/OT - FWB bilateral LE Podiatry plan: no surgical intervention Podiatry will continue to follow
[2018-03-06] MEDS ORDERED: Vancomycin 1.2 GM in Sodium Chloride 0.9% 250 ML IVPB SCH (17:00)
[2018-03-06] MEDS: Docusate-Senna 50 mg-8.6 mg Tab PO SCH (21:00)
[2018-03-07] MEDS: Oxycodone/Acetaminophen 5/325 mg Tab PO PRN ×5 (00:52→21:42)
[2018-03-07] MEDS: Albuterol-Ipratrop 3 mg / 0.5 (3 ml) UD INH SCH ×4 (07:19→19:30)
[2018-03-07] MEDS: Enoxaparin 40 mg Syringe SC SCH (08:14)
--- NOTE | 2018-03-07 13:13 | CP.PCM.CON ---
History of Present Illness - History of Present Illness History of Present Illness: 57 year old male with a past medical history of cellulitis, HTN and obesity, evaluated in TCU for bilateral LE cellulitis and venous stasis ulceration; patient transferred to TCU for continuation of IV abx and physical therapy. IV antibiotics renewed failed out pt rx for cellulitis treated on 6 N for CHF/COPD/ [id number] and stasis dermatitis - Medical History PMH: Anxiety, Asthma, Bipolar Disorder, CHF, COPD, Depression, Diabetes, Emphysema, HTN, Personality Disorder, Schizophrenia, Sleep Apnea Denies: HIV, Hypercholesterolemia (PT DENIES), Chronic Kidney Disease, Seizures, Sexually Transmitted Disease Review of Systems - Review of Systems All systems: reviewed and no additional remarkable complaints except - Constitutional Constitutional: As Per HPI - EENT Eyes: absent: As Per HPI, Blind Spots, Blurred Vision, Change in Vision, Decreased Night Vision, Diplopia, Discharge, Dry Eye, Exophthalmos, Floaters, Irritation, Itchy Eyes, Loss of Peripheral Vision, Pain, Photophobia, Requires Corrective Lenses, Sees Flashes, Spots in Vision, Tunnel Vision, Other Visual Disturbances, Loss of Vision, Other Ears: absent: As Per HPI, Decreased Hearing, Ear Discharge, Ear Pain, Tinnitus, Abnormal Hearing, Disequilibrium, Dizziness, Other Nose/Mouth/Throat: absent: As Per HPI, Epistaxis, Nasal Congestion, Nasal Discharge, Nasal Obstruction, Nasal Trauma, Nose Pain, Post Nasal Drip, Sinus Pain, Sinus Pressure, Bleeding Gums, Change in Voice, Dental Pain, Dry Mouth, Dysphagia, Halitosis, Hoarsness, Lip Swelling, Mouth Lesions, Mouth Pain, Odynophagia, Sore Throat, Throat Swelling, Tongue Swelling, Facial Pain, Neck Pain, Neck Mass, Other - Cardiovascular Cardiovascular: As Per HPI - Respiratory Respiratory: As Per HPI, Dyspnea - Gastrointestinal Gastrointestinal: absent: As Per HPI, Abdominal Pain, Belching, Bloating, Change in Bowel Habits, Change in Stool Character, Coffee Ground Emesis, Constipation, Cramping, Diarrhea, Dyspepsia, Dysphagia, Early Satiety, Excessive Flatus, Fecal Incontinence, Heartburn, Hematemesis, Hematochezia, Loose Stools, Melena, Nausea, Odynophagia, Temesmus, Vomiting, Other - Genitourinary Genitourinary: absent: As Per HPI, Change in Urinary Stream, Difficulty Urinating, Dysuria, Flank Pain, Hematuria, Pyuria, Nocturia, Urinary Incontinence, Urinary Frequency, Urinary Hesitance, Urinary Urgency, Voiding Freq/Small Amts, Freq UTI, Hx Renal/Bladder Calculi, Hx /Renal Surgery, Ramón dder Distension, Other - Musculoskeletal Musculoskeletal: As Per HPI - Integumentary Integumentary: As Per HPI - Neurological Neurological: absent: As Per HPI, Abnormal Gait, Abnormal Hearing, Abnormal Movements, Abnormal Speech, Behavioral Changes, Burning Sensations, Confusion, Convulsions, Disequilibrium, Dizziness, Numbness, Focal Weakness, Frequent Falls, Headaches, Lack of Coordination, Loss of Vision, Memory Loss, Paresthesias, Radicular Pain, Restless Legs, Sensory Deficit, Syncope, Tingling, Tremor, Vertigo, Weakness, Other Visual Disturbances, Other - Psychiatric Psychiatric: absent: As Per HPI, Abnormal Sleep Pattern, Anhedonia, Anxiety, Auditory Hallucinations, Behavioral Changes, Change in Appetite, Change in Libido, Confusion, Depression, Difficulty Concentrating, Hallucinations, Homicidal Ideation, Hopelessness, Irritability, Memory Loss, Mood Swings, Panic Attacks, Paranoia, Suicidal Ideation, Visual Hallucinations, Tactile Hallucinations, Other - Endocrine Endocrine: absent: As Per HPI, Change in Body Appearance, Change in Libido, Cold Intolorance, Deepening of Voice, Excessive Sweating, Fatigue, Flushing, Heat Intolorance, Increase in Ring/Shoe/Hat Size, Palpitations, Polydipsia, Polyphagia, Polyuria, Other - Hematologic/Lymphatic Hematologic: absent: As Per HPI, Easy Bleeding, Easy Bruising, Lymphadenopathy, Other Past Patient History - Infectious Disease Hx of Infectious Diseases: None - Past Medical History & Family History Past Medical History?: Yes - Past Social History Smoking Status: Former Smoker - CARDIAC Hx Congestive Heart Failure: Yes Hx Hypercholesterolemia: No (PT DENIES) Hx Hypertension: Yes - PULMONARY Hx Respiratory Disorders: Yes Hx Asthma: Yes Hx Chronic Obstructive Pulmonary Disease (COPD): Yes Hx Emphysema: Yes Hx Sleep Apnea: Yes - NEUROLOGICAL Hx Seizures: No - HEENT Hx HEENT Problems: No - RENAL Hx Chronic Kidney Disease: No - ENDOCRINE/METABOLIC Hx Endocrine Disorders: Yes Hx Diabetes Mellitus Type 2: Yes - HEMATOLOGICAL/ONCOLOGICAL Hx Human Immunodeficiency Virus (HIV): No - INTEGUMENTARY Hx Dermatological Problems: Yes (Cellulitis) Hx Cellulitis: Yes - MUSCULOSKELETAL/RHEUMATOLOGICAL Hx Musculoskeletal Disorders: Yes Hx Falls: No - GASTROINTESTINAL Hx Gastrointestinal Disorders: No - GENITOURINARY/GYNECOLOGICAL Hx Sexually Transmitted Disorders: No - PSYCHIATRIC Hx Anxiety: Yes Hx Bipolar Disorder: Yes Hx Depression: Yes Hx Schizophrenia: Yes Hx Substance Use: No - SURGICAL HISTORY Hx Surgeries: No - ANESTHESIA Hx Anesthesia: Yes Hx Anesthesia Reactions: No Hx Malignant Hyperthermia: No Meds Allergies/Adverse Reactions: Allergies Allergy/AdvReac Type Severity Reaction Status Date / Time [place] And Derivatives Allergy ANGIOEDEMA Unverified 03/05/18 18:32 - Medications Medications: Current Medications Albuterol/Ipratropium (Duoneb 3 Mg/0.5 Mg (3 Ml) Ud) 3 ml INH RQID [facility] Last Admin: 03/07/18 11:04 Dose: 3 ml Albuterol/Ipratropium (Duoneb 3 Mg/0.5 Mg (3 Ml) Ud) 3 ml INH RQ6 PRN PRN Reason: Shortness of Breath Aripiprazole (Abilify) 5 mg PO DAILY [facility] Last Admin: 03/07/18 08:14 Dose: 5 mg Aripiprazole (Abilify) 10 mg PO DAILY [facility] Last Admin: 03/07/18 08:15 Dose: 10 mg Aspirin (Ecotrin) 81 mg PO DAILY [facility] Last Admin: 03/07/18 08:17 Dose: 81 mg Carvedilol (Coreg) 25 mg PO Q12 [facility] Last Admin: 03/07/18 08:17 Dose: 25 mg Chlorthalidone (Hygroton) 12.5 mg PO DAILY [facility] Last Admin: 03/07/18 08:32 Dose: 12.5 mg Enoxaparin Sodium (Lovenox) 40 mg SC DAILY [facility]; Protocol Last Admin: 03/07/18 08:14 Dose: 40 mg Ibuprofen (Motrin Tab) 600 mg PO Q8 PRN PRN Reason: Pain, Mild (1-3) Last Admin: 03/07/18 08:29 Dose: 600 mg Linezolid (Zyvox) 600 mg PO Q12 [facility]; Protocol Last Admin: 03/07/18 08:18 Dose: 600 mg Losartan Potassium (Cozaar) 50 mg PO DAILY [facility] Last Admin: 03/07/18 08:16 Dose: 50 mg Metformin HCl (Glucophage) 250 mg PO BID [facility] Last Admin: 03/07/18 08:17 Dose: 250 mg Nicotine (Nicoderm Cq) 1 patch TD DAILY [facility] Last Admin: 03/07/18 08:18 Dose: 1 patch Oxycodone/Acetaminophen (Percocet 5/325 Mg Tab) 1 tab PO Q4 PRN PRN Reason: Pain, severe (8-10) Stop: 03/08/18 20:45 Last Admin: 03/07/18 09:53 Dose: 1 tab Pramipexole Dihydrochloride (Mirapex) 1.5 mg PO Q12H [facility] Last Admin: 03/07/18 08:18 Dose: 1.5 mg Pregabalin (Lyrica) 75 mg PO BID [facility] Last Admin: 03/07/18 08:26 Dose: 75 mg Senna/Docusate Sodium (Senokot S 50 Mg-8.6 Mg) 2 tab PO HS [facility] Last Admin: 03/06/18 21:00 Dose: Not Given Trazodone HCl (Desyrel) 100 mg PO [facility] Last Admin: 03/06/18 20:59 Dose: 100 mg Triamcinolone Acetonide (Kenalog 0.1% Oint) 1 appl TOP BID PRN PRN Reason: Itching / Pruritus Last Admin: 03/07/18 08:17 Dose: 1 appl Physical Exam - Constitutional Appears: Non-toxic, Chronically Ill - Head Exam Head Exam: NORMOCEPHALIC - Eye Exam Eye Exam: absent: Scleral icterus - ENT Exam ENT Exam: Mucous Membranes Dry - Neck Exam Neck exam: Negative for: Lymphadenopathy - Respiratory Exam Respiratory Exam: Decreased Breath Sounds - Cardiovascular Exam Cardiovascular Exam: REGULAR RHYTHM, +S1, +S2 - GI/Abdominal Exam GI & Abdominal Exam: Diminished Bowel Sounds, Soft. absent: Tenderness - Rectal Exam Rectal Exam: Deferred - Exam Exam: NORMAL INSPECTION - Extremities Exam Extremities exam: Positive for: pedal edema, pedal pulses present. Negative for: calf tenderness, normal inspection, tenderness Additional comments: UNNA BOOT in place - Back Exam Back exam: absent: CVA tenderness (L), CVA tenderness (R) - Neurological Exam Neurological exam: Alert, CN II-XII Intact, Oriented x3, Reflexes Normal - Psychiatric Exam Psychiatric exam: Depressed - Skin Skin Exam: Dry, Intact Results - Vital Signs Recent Vital Signs: Last Vital Signs Temp 98.2 F 03/07/18 08:25 Pulse 86 03/07/18 08:25 Resp 20 03/07/18 08:25 BP 138/79 03/07/18 08:25 Pulse Ox 92 L 03/07/18 08:25 - Labs Result Diagrams: 03/06/18 06:30 Labs: Laboratory Results - last 24 hr 03/06/18 06:30 Hemoglobin A1c 6.5 Assessment & Plan (1) Bilateral lower leg cellulitis Status: Acute (2) CHF (congestive heart failure) Status: Acute (3) COPD (chronic obstructive pulmonary disease) Status: Acute (4) Non-healing ulcer of lower leg Status: Acute - Assessment and Plan (Free Text) Assessment: cont empiric IV antibiotics Podiatry follow up with Dr Rayshawn Fung
[2018-03-07] MEDS: Docusate-Senna 50 mg-8.6 mg Tab PO SCH (21:49)
--- NOTE | 2018-03-07 23:19 | CP.PCM.PN ---
Subjective - Date & Time of Evaluation Date of Evaluation: 03/07/18 Time of Evaluation: 15:30 - Subjective Subjective: Patient c/o LE pain especially when laying in bed and when ambulating; SOB on exertion VSS Skin- dry flaky skin of face with erythema cheeks and chin Heart- regular S1, S2, 1/6 mulu Lungs- dec. br. sounds b/l Abd.- distended, + BS, soft, NT Ext.- 2 + edema to below the knees; bandages in place LE's 1. B/L LE cellulitis- Dr. Armas ordered Zyvox 600 mg po q 12 hrs and Cipro 500 mg bid; Dr. Armas to evalauate response to oral antibiotics; may need PICC line 2. LE edema- secondary to venous insufficiency and dependent edema; elevating LE's; chlorthalidone 12.5 mg daily started 3. Morbid obesity 4. Diffuse epidural lipomatosis 5. Prediabetes 6. HTN- controlled 7. Dermatitis- triam. 0.1% crm bid prn and nizoral 2% crm bid ordered 7. Bipolar disorder Continuing physical therapy; Dr. Armas to re-evaluate the patient in AM Objective - Vital Signs/Intake and Output Vital Signs (last 24 hours): Temp Pulse Resp BP Pulse Ox 98.9 F 88 20 112/69 92 L 03/07/18 19:35 03/07/18 21:44 03/07/18 19:35 03/07/18 21:44 03/07/18 19:35 - Medications Medications: Current Medications Albuterol/Ipratropium (Duoneb 3 Mg/0.5 Mg (3 Ml) Ud) 3 ml INH RQID [facility] Last Admin: 03/07/18 19:30 Dose: 3 ml Albuterol/Ipratropium (Duoneb 3 Mg/0.5 Mg (3 Ml) Ud) 3 ml INH RQ6 PRN PRN Reason: Shortness of Breath Aripiprazole (Abilify) 5 mg PO DAILY [facility] Last Admin: 03/07/18 08:14 Dose: 5 mg Aripiprazole (Abilify) 10 mg PO DAILY [facility] Last Admin: 03/07/18 08:15 Dose: 10 mg Aspirin (Ecotrin) 81 mg PO DAILY [facility] Last Admin: 03/07/18 08:17 Dose: 81 mg Carvedilol (Coreg) 25 mg PO Q12 [facility] Last Admin: 03/07/18 21:44 Dose: 25 mg Chlorthalidone (Hygroton) 12.5 mg PO DAILY [facility] Last Admin: 03/07/18 08:32 Dose: 12.5 mg Ciprofloxacin (Cipro) 500 mg PO Q12 [facility]; Protocol Last Admin: 03/07/18 21:42 Dose: 500 mg Enoxaparin Sodium (Lovenox) 40 mg SC DAILY [facility]; Protocol Last Admin: 03/07/18 08:14 Dose: 40 mg Ibuprofen (Motrin Tab) 600 mg PO Q8 PRN PRN Reason: Pain, Mild (1-3) Last Admin: 03/07/18 08:29 Dose: 600 mg Ketoconazole (Nizoral) 1 applic TOP BID [facility] Last Admin: 03/07/18 17:14 Dose: 1 applic Linezolid (Zyvox) 600 mg PO Q12 [facility]; Protocol Last Admin: 03/07/18 21:42 Dose: 600 mg Losartan Potassium (Cozaar) 50 mg PO DAILY [facility] Last Admin: 03/07/18 08:16 Dose: 50 mg Metformin HCl (Glucophage) 250 mg PO BID [facility] Last Admin: 03/07/18 17:13 Dose: 250 mg Nicotine (Nicoderm Cq) 1 patch TD DAILY [facility] Last Admin: 03/07/18 08:18 Dose: 1 patch Oxycodone/Acetaminophen (Percocet 5/325 Mg Tab) 1 tab PO Q4 PRN PRN Reason: Pain, severe (8-10) Stop: 03/08/18 20:45 Last Admin: 03/07/18 21:42 Dose: 1 tab Pramipexole Dihydrochloride (Mirapex) 1.5 mg PO Q12H [facility] Last Admin: 03/07/18 21:40 Dose: 1.5 mg Pregabalin (Lyrica) 75 mg PO BID [facility] Last Admin: 03/07/18 17:09 Dose: 75 mg Senna/Docusate Sodium (Senokot S 50 Mg-8.6 Mg) 2 tab PO HS [facility] Last Admin: 03/07/18 21:49 Dose: Not Given Trazodone HCl (Desyrel) 100 mg PO HS [facility] Last Admin: 03/07/18 21:42 Dose: 100 mg Triamcinolone Acetonide (Kenalog 0.1% Oint) 1 appl TOP BID PRN PRN Reason: Itching / Pruritus Last Admin: 03/07/18 08:17 Dose: 1 appl - Labs Labs: 03/06/18 06:30
[2018-03-08] MEDS: Oxycodone/Acetaminophen 5/325 mg Tab PO PRN ×4 (05:09→21:27)
[2018-03-08 06:21] LABS: HEMOGLOBIN 12.4 g/dL (12.0-18.0); MEAN CELL VOLUME 78.7 fl (80.0-94.0); MEAN CORPUSCULAR HEMOGLOBIN 25.8 pg (27.0-31.0); MEAN CORPUSCULAR HGB CONC 32.8 g/dL (33.0-37.0); RBC 4.78 Mil/uL (4.40-5.90); RED CELL DISTRIBUTION WIDTH 16.2 % (11.5-14.5); WHITE BLOOD COUNT 10.7 K/uL (4.8-10.8)
[2018-03-08 06:33] LABS: INR 1.1; PROTHROMBIN TIME 12.5 Seconds (9.8-13.1)
[2018-03-08 06:36] LABS: PARTIAL THROMBOPLASTIN TIME 32.2 Seconds (25.6-37.1)
[2018-03-08] MEDS: Albuterol-Ipratrop 3 mg / 0.5 (3 ml) UD INH SCH ×4 (07:38→19:11)
[2018-03-08] MEDS: Enoxaparin 40 mg Syringe SC SCH (09:45)
[2018-03-08] MEDS: Docusate-Senna 50 mg-8.6 mg Tab PO SCH (21:24)
[2018-03-09] MEDS: Oxycodone/Acetaminophen 5/325 mg Tab PO PRN ×3 (04:08→14:35)
[2018-03-09] MEDS: Albuterol-Ipratrop 3 mg / 0.5 (3 ml) UD INH SCH ×4 (07:37→19:46)
[2018-03-09] MEDS: Enoxaparin 40 mg Syringe SC SCH (09:15)
--- NOTE | 2018-03-09 10:55 | CP.PCM.PN ---
Subjective - Date & Time of Evaluation Date of Evaluation: 03/09/18 Time of Evaluation: 10:52 - Subjective Subjective: Podiatry progress note for Dr. Woodruff 57 year old male patient seen and evaluated in TCU for bilateral LE cellulitis and venous stasis ulceration; At present, patient denies any pain in lower extremities and states he is able to ambulate w/o issues. Dressings to lower extremities with drainage noted. Denies n/v/f/d/c/alvarez/cp. Patient reports significant improvement in pain. Objective - Vital Signs/Intake and Output Vital Signs (last 24 hours): Temp Pulse Resp BP Pulse Ox 97.7 F 83 18 122/79 97 03/09/18 08:19 03/09/18 09:13 03/09/18 08:19 03/09/18 09:13 03/09/18 08:19 - Medications Medications: Current Medications Albuterol/Ipratropium (Duoneb 3 Mg/0.5 Mg (3 Ml) Ud) 3 ml INH RQID [facility] Last Admin: 03/09/18 07:37 Dose: 3 ml Albuterol/Ipratropium (Duoneb 3 Mg/0.5 Mg (3 Ml) Ud) 3 ml INH RQ6 PRN PRN Reason: Shortness of Breath Last Admin: 03/08/18 05:14 Dose: 3 ml Aripiprazole (Abilify) 5 mg PO DAILY [facility] Last Admin: 03/09/18 09:12 Dose: 5 mg Aripiprazole (Abilify) 10 mg PO DAILY [facility] Last Admin: 03/09/18 09:12 Dose: 10 mg Aspirin (Ecotrin) 81 mg PO DAILY [facility] Last Admin: 03/09/18 09:14 Dose: 81 mg Carvedilol (Coreg) 25 mg PO Q12 [facility] Last Admin: 03/09/18 09:13 Dose: 25 mg Chlorthalidone (Hygroton) 12.5 mg PO DAILY [facility] Last Admin: 03/09/18 09:15 Dose: 12.5 mg Ciprofloxacin (Cipro) 500 mg PO Q12 [facility]; Protocol Last Admin: 03/09/18 09:13 Dose: 500 mg Ibuprofen (Motrin Tab) 600 mg PO Q8 PRN PRN Reason: Pain, Mild (1-3) Last Admin: 03/07/18 08:29 Dose: 600 mg Ketoconazole (Nizoral) 1 applic TOP BID [facility] Last Admin: 03/09/18 09:16 Dose: 1 applic Linezolid (Zyvox) 600 mg PO Q12 [facility]; Protocol Last Admin: 03/09/18 09:16 Dose: 600 mg Losartan Potassium (Cozaar) 50 mg PO DAILY [facility] Last Admin: 03/09/18 09:13 Dose: 50 mg Metformin HCl (Glucophage) 250 mg PO BID [facility] Last Admin: 03/09/18 09:14 Dose: 250 mg Nicotine (Nicoderm Cq) 1 patch TD DAILY [facility] Last Admin: 03/09/18 09:16 Dose: 1 patch Oxycodone/Acetaminophen (Percocet 5/325 Mg Tab) 1 tab PO Q4 PRN PRN Reason: for pain level 8-10 Stop: 03/11/18 21:37 Last Admin: 03/09/18 09:18 Dose: 1 tab Pramipexole Dihydrochloride (Mirapex) 1.5 mg PO Q12H [facility] Last Admin: 03/09/18 09:15 Dose: 1.5 mg Pregabalin (Lyrica) 75 mg PO BID [facility] Last Admin: 03/09/18 09:56 Dose: 75 mg Senna/Docusate Sodium (Senokot S 50 Mg-8.6 Mg) 2 tab PO HS [facility] Last Admin: 03/08/18 21:24 Dose: Not Given Trazodone HCl (Desyrel) 100 mg PO HS [facility] Last Admin: 03/08/18 21:25 Dose: 100 mg Triamcinolone Acetonide (Kenalog 0.1% Oint) 1 appl TOP BID PRN PRN Reason: Itching / Pruritus Last Admin: 03/07/18 08:17 Dose: 1 appl - Labs Labs: 03/08/18 05:30 03/06/18 06:30 PT 12.5 Seconds (9.8-13.1) 03/08/18 05:30 INR 1.1 03/08/18 05:30 APTT 32.2 Seconds (25.6-37.1) 03/08/18 05:30 - Constitutional Appears: Well, Non-toxic, No Acute Distress - Head Exam Head Exam: ATRAUMATIC, NORMOCEPHALIC - Extremities Exam Additional comments: Vasc: DP and PT pulses palpable; cap refill <3 seconds to all digits; temp gradient warm to warm from proximal to distal; nonpitting moderate edema noted to b/l LE with associated erythema Derm: b/l lower extremities evidence of cellulitis from rearfoot to proximal lower leg appreciated, significantly improved; left LE has superficial wound present, granular tissue, minimal purulent drainage appreciated on the anterior leg; right LE has similar wound present, superificial with minimal purulent drainage , no tunneling or tracking, on lateral aspect of LE, overall wounds improved and cellulitis resolving Ortho: no pain on palpation to b/l LE secondary to cellulitis and superficial wounds Neuro: gross and protective sensation intact b/l - Neurological Exam Neurological Exam: Alert, Awake, Oriented x3 - Psychiatric Exam Psychiatric exam: Normal Affect, Normal Mood Assessment and Plan - Assessment and Plan (Free Text) Assessment: 57 y/o male patient with b/l LE cellulits and venous stasis ulceration; resolving Plan: Patient seen and evaluated Discussed in detail with Dr. Woodruff Chart labs and vitals reviewed Wound cultures reveal growth of psuedomonas ID recs appreciated - continue IV abx x1 week Unna boot changed bilaterally, next change prior to discharge Continue PT/OT - FWB bilateral LE Podiatry plan: no surgical intervention Podiatry will continue to follow
--- NOTE | 2018-03-09 15:25 | CP.PCM.CON ---
History of Present Illness - History of Present Illness History of Present Illness: follow up consult requested as pt noted to be increasingly depressed, reported by staff to be tearful pt on evaluation, reported feeling increasingly anxious, having episodes of panic attacks with difficulty breathing , reported also feeling down due to his medical condition and lack of social support , passive suicidal ideation without plan, denied command hallucinations Past Patient History - Infectious Disease Hx of Infectious Diseases: None - Past Medical History & Family History Past Medical History?: Yes - Past Social History Smoking Status: Former Smoker - CARDIAC Hx Congestive Heart Failure: Yes Hx Hypercholesterolemia: No (PT DENIES) Hx Hypertension: Yes - PULMONARY Hx Respiratory Disorders: Yes Hx Asthma: Yes Hx Chronic Obstructive Pulmonary Disease (COPD): Yes Hx Emphysema: Yes Hx Sleep Apnea: Yes - NEUROLOGICAL Hx Seizures: No - HEENT Hx HEENT Problems: No - RENAL Hx Chronic Kidney Disease: No - ENDOCRINE/METABOLIC Hx Endocrine Disorders: Yes Hx Diabetes Mellitus Type 2: Yes - HEMATOLOGICAL/ONCOLOGICAL Hx Human Immunodeficiency Virus (HIV): No - INTEGUMENTARY Hx Dermatological Problems: Yes (Cellulitis) Hx Cellulitis: Yes - MUSCULOSKELETAL/RHEUMATOLOGICAL Hx Musculoskeletal Disorders: Yes Hx Falls: No - GASTROINTESTINAL Hx Gastrointestinal Disorders: No - GENITOURINARY/GYNECOLOGICAL Hx Sexually Transmitted Disorders: No - PSYCHIATRIC Hx Anxiety: Yes Hx Bipolar Disorder: Yes Hx Depression: Yes Hx Schizophrenia: Yes Hx Substance Use: No - SURGICAL HISTORY Hx Surgeries: No - ANESTHESIA Hx Anesthesia: Yes Hx Anesthesia Reactions: No Hx Malignant Hyperthermia: No Meds Allergies/Adverse Reactions: Allergies Allergy/AdvReac Type Severity Reaction Status Date / Time Blaine And Derivatives Allergy ANGIOEDEMA Unverified 03/05/18 18:32 - Medications Medications: Current Medications Albuterol/Ipratropium (Duoneb 3 Mg/0.5 Mg (3 Ml) Ud) 3 ml INH RQID [facility] Last Admin: 03/09/18 11:17 Dose: 3 ml Albuterol/Ipratropium (Duoneb 3 Mg/0.5 Mg (3 Ml) Ud) 3 ml INH RQ6 PRN PRN Reason: Shortness of Breath Last Admin: 03/08/18 05:14 Dose: 3 ml Aripiprazole (Abilify) 5 mg PO DAILY [facility] Last Admin: 03/09/18 09:12 Dose: 5 mg Aripiprazole (Abilify) 10 mg PO DAILY [facility] Last Admin: 03/09/18 09:12 Dose: 10 mg Aspirin (Ecotrin) 81 mg PO DAILY [facility] Last Admin: 03/09/18 09:14 Dose: 81 mg Carvedilol (Coreg) 25 mg PO Q12 [facility] Last Admin: 03/09/18 09:13 Dose: 25 mg Chlorthalidone (Hygroton) 12.5 mg PO DAILY [facility] Last Admin: 03/09/18 09:15 Dose: 12.5 mg Ciprofloxacin (Cipro) 500 mg PO Q12 [facility]; Protocol Last Admin: 03/09/18 09:13 Dose: 500 mg Enoxaparin Sodium (Lovenox) 40 mg SC DAILY [facility]; Protocol Ibuprofen (Motrin Tab) 600 mg PO Q8 PRN PRN Reason: Pain, Mild (1-3) Last Admin: 03/07/18 08:29 Dose: 600 mg Ketoconazole (Nizoral) 1 applic TOP BID [facility] Last Admin: 03/09/18 09:16 Dose: 1 applic Linezolid (Zyvox) 600 mg PO Q12 [facility]; Protocol Last Admin: 03/09/18 09:16 Dose: 600 mg Losartan Potassium (Cozaar) 50 mg PO DAILY [facility] Last Admin: 03/09/18 09:13 Dose: 50 mg Metformin HCl (Glucophage) 250 mg PO BID [facility] Last Admin: 03/09/18 09:14 Dose: 250 mg Nicotine (Nicoderm Cq) 1 patch TD DAILY [facility] Last Admin: 03/09/18 09:16 Dose: 1 patch Oxycodone/Acetaminophen (Percocet 5/325 Mg Tab) 1 tab PO Q4 PRN PRN Reason: for pain level 8-10 Stop: 03/11/18 21:37 Last Admin: 03/09/18 14:35 Dose: 1 tab Pramipexole Dihydrochloride (Mirapex) 1.5 mg PO Q12H [facility] Last Admin: 03/09/18 09:15 Dose: 1.5 mg Pregabalin (Lyrica) 75 mg PO BID [facility] Last Admin: 03/09/18 09:56 Dose: 75 mg Senna/Docusate Sodium (Senokot S 50 Mg-8.6 Mg) 2 tab PO [facility] Last Admin: 03/08/18 21:24 Dose: Not Given Trazodone HCl (Desyrel) 100 mg PO HS [facility] Last Admin: 03/08/18 21:25 Dose: 100 mg Triamcinolone Acetonide (Kenalog 0.1% Oint) 1 appl TOP BID PRN PRN Reason: Itching / Pruritus Last Admin: 03/07/18 08:17 Dose: 1 appl Results - Vital Signs Recent Vital Signs: Last Vital Signs Temp 97.7 F 03/09/18 08:19 Pulse 83 03/09/18 09:13 Resp 18 03/09/18 08:19 BP 122/79 03/09/18 09:13 Pulse Ox 97 03/09/18 08:19 - Labs Result Diagrams: 03/08/18 05:30 03/06/18 06:30 Assessment & Plan - Assessment and Plan (Free Text) Assessment: schizoaffective disorder depressed Plan: continue with abilify recommend starting buspar 10 mg bid pt would benofit from transfer to psychiatry upon medical clearance for further medication stabilization
[2018-03-09] MEDS: Docusate-Senna 50 mg-8.6 mg Tab PO SCH (22:00)
--- NOTE | 2018-03-09 22:07 | CP.PCM.PN ---
Subjective - Date & Time of Evaluation Date of Evaluation: 03/09/18 Time of Evaluation: 13:30 - Subjective Subjective: Patient resting comfortably in bed; less LE pain today; had episode of crying yesterday and psych. was called to reevaluate VSS Heart- regular S1, S2, 1/6 mulu Lungs- dec. br. sounds b/l Abd- distended, + BS, soft, NT Ext.- 2 + edema to knees; bandages in place LE's 1. B/L LE cellulitis- cont. Zyvox 600mg po q 12 hrs and Cipro 500mg po bid 2. LE edema- secondary to venous insufficiency and dependent edema; responding to chlorthalidone 12.5 mg daily; elevating LE's 3. Morbid obesity 4. Diffuse epidural lipomatosis 5. Prediabetes 6. HTN- controlled 7. Bipolar disorder- meds have been adjusted Objective - Vital Signs/Intake and Output Vital Signs (last 24 hours): Temp Pulse Resp BP Pulse Ox 98.1 F 85 20 117/73 94 L 03/09/18 21:28 03/09/18 21:28 03/09/18 21:28 03/09/18 21:28 03/09/18 21:28 - Medications Medications: Current Medications Albuterol/Ipratropium (Duoneb 3 Mg/0.5 Mg (3 Ml) Ud) 3 ml INH RQID [facility] Last Admin: 03/09/18 19:46 Dose: 3 ml Albuterol/Ipratropium (Duoneb 3 Mg/0.5 Mg (3 Ml) Ud) 3 ml INH RQ6 PRN PRN Reason: Shortness of Breath Last Admin: 03/08/18 05:14 Dose: 3 ml Aripiprazole (Abilify) 5 mg PO DAILY [facility] Last Admin: 03/09/18 09:12 Dose: 5 mg Aripiprazole (Abilify) 10 mg PO DAILY [facility] Last Admin: 03/09/18 09:12 Dose: 10 mg Aspirin (Ecotrin) 81 mg PO DAILY [facility] Last Admin: 03/09/18 09:14 Dose: 81 mg Carvedilol (Coreg) 25 mg PO Q12 [facility] Last Admin: 03/09/18 21:24 Dose: 25 mg Chlorthalidone (Hygroton) 12.5 mg PO DAILY [facility] Last Admin: 03/09/18 09:15 Dose: 12.5 mg Ciprofloxacin (Cipro) 500 mg PO Q12 [facility]; Protocol Last Admin: 03/09/18 21:25 Dose: 500 mg Enoxaparin Sodium (Lovenox) 40 mg SC DAILY [facility]; Protocol Ibuprofen (Motrin Tab) 600 mg PO Q8 PRN PRN Reason: Pain, Mild (1-3) Last Admin: 03/07/18 08:29 Dose: 600 mg Ketoconazole (Nizoral) 1 applic TOP BID [facility] Last Admin: 03/09/18 16:45 Dose: 1 applic Linezolid (Zyvox) 600 mg PO Q12 [facility]; Protocol Last Admin: 03/09/18 21:25 Dose: 600 mg Losartan Potassium (Cozaar) 50 mg PO DAILY [facility] Last Admin: 03/09/18 09:13 Dose: 50 mg Metformin HCl (Glucophage) 250 mg PO BID [facility] Last Admin: 03/09/18 16:45 Dose: 250 mg Nicotine (Nicoderm Cq) 1 patch TD DAILY [facility] Last Admin: 03/09/18 09:16 Dose: 1 patch Oxycodone/Acetaminophen (Percocet 5/325 Mg Tab) 1 tab PO Q4 PRN PRN Reason: for pain level 8-10 Stop: 03/11/18 21:37 Last Admin: 03/09/18 14:35 Dose: 1 tab Pramipexole Dihydrochloride (Mirapex) 1.5 mg PO Q12H [facility] Last Admin: 03/09/18 21:25 Dose: 1.5 mg Pregabalin (Lyrica) 75 mg PO BID [facility] Last Admin: 03/09/18 16:45 Dose: 75 mg Senna/Docusate Sodium (Senokot S 50 Mg-8.6 Mg) 2 tab PO HS [facility] Last Admin: 03/08/18 21:24 Dose: Not Given Trazodone HCl (Desyrel) 100 mg PO HS [facility] Last Admin: 03/09/18 21:25 Dose: 100 mg Triamcinolone Acetonide (Kenalog 0.1% Oint) 1 appl TOP BID PRN PRN Reason: Itching / Pruritus Last Admin: 03/07/18 08:17 Dose: 1 appl - Labs Labs: 03/08/18 05:30 03/06/18 06:30 PT 12.5 Seconds (9.8-13.1) 03/08/18 05:30 INR 1.1 03/08/18 05:30 APTT 32.2 Seconds (25.6-37.1) 03/08/18 05:30
[2018-03-10] MEDS: Oxycodone/Acetaminophen 5/325 mg Tab PO PRN ×5 (00:12→21:34)
[2018-03-10] MEDS: Albuterol-Ipratrop 3 mg / 0.5 (3 ml) UD INH SCH ×4 (07:02→19:17)
--- NOTE | 2018-03-10 07:03 | HP ---
Admitted to the TCU. CHIEF COMPLIANT: Lower extremity edema, redness, and pain with ambulation and at rest. HISTORY OF PRESENT ILLNESS: This is a 57-year-old white male with a past history of cellulitis with a complaint of increasing pain of both lower extremities below the knee associated with progressive swelling and redness with scattered lesions, oozing purulent discharge for 1 month prior to admission. The patient was staying at the office of his primary care physician, Anabell Monreal MD on 02/12/2018. Clindamycin 150 mg four times a day was started for management of lower extremity cellulitis. The patient was also prescribed Bactroban ointment to be applied three times a day for 10 days. The patient's lower extremity redness and edema with increasing pain on ambulation prompted the patient to go to the [facility] for further evaluation on 02/22/2018. He denied any chest pain or palpitations, but did experience shortness of breath on exertion. PAST MEDICAL HISTORY: Cellulitis of the left lower extremity, exacerbation of COPD, hypertension, hypercholesterolemia, restless legs syndrome, schizoaffective disorder, bipolar disorder, prediabetes, diffuse epidural lipomatosis, morbid obesity, severe sleep apnea. Cardiac catheterization done by Dr. Rayo Sparks on 07/21/2017 revealed normal MCA, normal LAD, normal left coronary artery, RCA mid subsection 50% stenosis, normal LV function. ALLERGIES: NO KNOWN DRUG ALLERGIES. MEDICATIONS: Combivent one inhalation four times daily, amlodipine 5 mg daily, Avapro 150 mg daily, aspirin 81 mg daily, pramipexole 1.5 mg twice daily, pravastatin 40 mg at bedtime, metformin ER 500 mg daily, albuterol sulfate 2.5 mg/3 mL via nebulizer 3 times daily as needed, carvedilol 12.5 mg twice daily, and Lyrica 75 mg twice daily. SOCIAL HISTORY: The patient had a history of smoking 1 to 2 packs of cigarettes daily for approximately 30 years. He states that he recently reduced to smoking approximately one half pack of cigarettes daily. He has a history of alcohol abuse. FAMILY HISTORY: Father at the age of 52 due to lung cancer. He was a heavy smoker. Mother has a history of coronary artery disease, status post coronary artery bypass graft. She has no history of smoking. The patient has three sisters who are healthy and two half brothers who are also healthy. REVIEW OF SYSTEMS: Unremarkable except as mentioned above. PHYSICAL EXAMINATION: GENERAL: This is a 57-year-old cooperative white male, complaining of bilateral lower extremity swelling to the knees as well as lower extremity pain on ambulation and also shortness of breath on exertion. VITAL SIGNS: Blood pressure 136/80 mmHg, respirations 18 per minute, pulse 84 beats per minute, temperature 97.5 Fahrenheit, pulse ox 95% on room air. SKIN: Warm, dry. HEENT: Atraumatic, normocephalic. Anicteric sclerae. Pupils equal, round, reactive to light and accommodation. NECK: Supple. No jugular venous distention. No lymphadenopathy. LUNGS: Decreased breath sounds bilaterally. HEART: Regular S1 and S2. A 1/6 systolic ejection murmur. ABDOMEN: Distended. Positive bowel sounds. Soft, nontender. EXTREMITIES: Edema 2+ of the lower extremities to the knees with fading erythema, left greater than right lower extremity and scattered erythematous lesions oozing purulent discharge. IMPRESSION: 1. Bilateral lower extremity cellulitis. 2. Lower extremity edema secondary to venous insufficiency and dependent edema. 3. Morbid obesity. 4. Diffuse epidural lipomatosis. 5. Hypertension. 6. Chronic obstructive pulmonary disease. 7. Prediabetes. 8. Restless legs syndrome. 9. Hypercholesterolemia. 10. Schizoaffective disorder. 11. Bipolar disorder. PLAN: The patient was transferred to the TCU from [address] [place] [address] on Zosyn 3.375 g IV every 6 hours as well as vancomycin 1 g IV every [address] Armas, the patient's infectious disease specialist, recommended that he have an additional week of IV antibiotic therapy. He will also continue physical therapy for gait stability and for prevention. Podiatry will change his lower extremity bandages daily. Psychiatric consultation will be ordered for management of the patient's bipolar and schizoaffective disorder, and medications will be modified accordingly. Anabell Monreal MD
[2018-03-10] MEDS: Enoxaparin 40 mg Syringe SC SCH (08:25)
--- NOTE | 2018-03-10 12:27 | CP.PCM.PN ---
Subjective - Date & Time of Evaluation Date of Evaluation: 03/10/18 Time of Evaluation: 07:00 - Subjective Subjective: refusing IV antibiotics switched to PO tolerating well Objective - Vital Signs/Intake and Output Vital Signs (last 24 hours): Temp Pulse Resp BP Pulse Ox 97.9 F 80 20 132/79 94 L 03/10/18 10:00 03/10/18 11:02 03/10/18 10:00 03/10/18 10:00 03/10/18 11:02 - Medications Medications: Current Medications Albuterol/Ipratropium (Duoneb 3 Mg/0.5 Mg (3 Ml) Ud) 3 ml INH RQID [facility] Last Admin: 03/10/18 11:30 Dose: 3 ml Albuterol/Ipratropium (Duoneb 3 Mg/0.5 Mg (3 Ml) Ud) 3 ml INH RQ6 PRN PRN Reason: Shortness of Breath Last Admin: 03/08/18 05:14 Dose: 3 ml Aripiprazole (Abilify) 5 mg PO DAILY [facility] Last Admin: 03/10/18 08:25 Dose: 5 mg Aripiprazole (Abilify) 10 mg PO DAILY [facility] Last Admin: 03/09/18 09:12 Dose: 10 mg Aspirin (Ecotrin) 81 mg PO DAILY [facility] Last Admin: 03/10/18 08:41 Dose: 81 mg Carvedilol (Coreg) 25 mg PO Q12 [facility] Last Admin: 03/10/18 08:26 Dose: 25 mg Chlorthalidone (Hygroton) 12.5 mg PO DAILY [facility] Last Admin: 03/10/18 08:40 Dose: 12.5 mg Ciprofloxacin (Cipro) 500 mg PO Q12 [facility]; Protocol Last Admin: 03/10/18 08:26 Dose: 500 mg Enoxaparin Sodium (Lovenox) 40 mg SC DAILY [facility]; Protocol Last Admin: 03/10/18 08:25 Dose: 40 mg Ibuprofen (Motrin Tab) 600 mg PO Q8 PRN PRN Reason: Pain, Mild (1-3) Last Admin: 03/07/18 08:29 Dose: 600 mg Ketoconazole (Nizoral) 1 applic TOP BID [facility] Last Admin: 03/09/18 16:45 Dose: 1 applic Linezolid (Zyvox) 600 mg PO Q12 [facility]; Protocol Last Admin: 03/10/18 08:39 Dose: 600 mg Losartan Potassium (Cozaar) 50 mg PO DAILY [facility] Last Admin: 03/10/18 08:26 Dose: 50 mg Metformin HCl (Glucophage) 250 mg PO BID [facility] Last Admin: 03/10/18 08:40 Dose: 250 mg Nicotine (Nicoderm Cq) 1 patch TD DAILY [facility] Last Admin: 03/10/18 08:25 Dose: 1 patch Oxycodone/Acetaminophen (Percocet 5/325 Mg Tab) 1 tab PO Q4 PRN PRN Reason: for pain level 8-10 Stop: 03/11/18 21:37 Last Admin: 03/10/18 06:55 Dose: 1 tab Pramipexole Dihydrochloride (Mirapex) 1.5 mg PO Q12H [facility] Last Admin: 03/10/18 08:25 Dose: 1.5 mg Pregabalin (Lyrica) 75 mg PO BID [facility] Last Admin: 03/10/18 08:39 Dose: 75 mg Senna/Docusate Sodium (Senokot S 50 Mg-8.6 Mg) 2 tab PO HS [facility] Last Admin: 03/09/18 22:00 Dose: Not Given Trazodone HCl (Desyrel) 100 mg PO HS [facility] Last Admin: 03/09/18 21:25 Dose: 100 mg Triamcinolone Acetonide (Kenalog 0.1% Oint) 1 appl TOP BID PRN PRN Reason: Itching / Pruritus Last Admin: 03/10/18 08:41 Dose: 1 appl - Labs Labs: 03/08/18 05:30 03/06/18 06:30 PT 12.5 Seconds (9.8-13.1) 03/08/18 05:30 INR 1.1 03/08/18 05:30 APTT 32.2 Seconds (25.6-37.1) 03/08/18 05:30 - Constitutional Appears: Non-toxic, Chronically Ill - Head Exam Head Exam: NORMOCEPHALIC - Eye Exam Eye Exam: absent: Scleral icterus - ENT Exam ENT Exam: Mucous Membranes Dry - Neck Exam Neck Exam: absent: Lymphadenopathy - Respiratory Exam Respiratory Exam: Decreased Breath Sounds - Cardiovascular Exam Cardiovascular Exam: REGULAR RHYTHM - GI/Abdominal Exam GI & Abdominal Exam: Distended - Rectal Exam Rectal Exam: Deferred - Exam Exam: NORMAL INSPECTION - Extremities Exam Extremities Exam: Pedal Edema. absent: Calf Tenderness Assessment and Plan (1) Bilateral lower leg cellulitis Status: Acute (2) CHF (congestive heart failure) Status: Acute (3) COPD (chronic obstructive pulmonary disease) Status: Acute (4) Non-healing ulcer of lower leg Status: Acute - Assessment and Plan (Free Text) Assessment: PO rx renewed discussed with PMD and nursing
--- NOTE | 2018-03-10 12:44 | CP.PCM.PN ---
Subjective - Date & Time of Evaluation Date of Evaluation: 03/10/18 Time of Evaluation: 08:30 - Subjective Subjective: Patient c/o off and on pain of LLE with ambulation and at rest; SOB on exertion VSS Heart- regular S1, S2, 1/6 mulu Lungs- dec. br. sounds b/l; expiratory wheeze Abd.- distended, + BS, soft, NT Ext.- 1 - 2 + edema LE's to knees; less erythema LE's; bandages in place LE's 1. B/L LE celluilitis- Dr. Armas continuing zyvox 600mg po bid and cipro 500mg po bid 2. LE edema- secondary to venous insufficiency and dependent edema; responding to chlorthalidone 12.5mg daily; elevating LE's 3. Morbid obesity 4. Diffuse epidural lipomatosis- recent weight loss has been noted 5. Prediabetes 6. HTN- controlled 7. Bipolar disorder- psych. modified meds 7. Schizoaffective disorder Patient continuing daily physical therapy for gait stability Objective - Vital Signs/Intake and Output Vital Signs (last 24 hours): Temp Pulse Resp BP Pulse Ox 97.9 F 80 20 132/79 94 L 03/10/18 10:00 03/10/18 11:02 03/10/18 10:00 03/10/18 10:00 03/10/18 11:02 - Medications Medications: Current Medications Albuterol/Ipratropium (Duoneb 3 Mg/0.5 Mg (3 Ml) Ud) 3 ml INH RQID [facility] Last Admin: 03/10/18 11:30 Dose: 3 ml Albuterol/Ipratropium (Duoneb 3 Mg/0.5 Mg (3 Ml) Ud) 3 ml INH RQ6 PRN PRN Reason: Shortness of Breath Last Admin: 03/08/18 05:14 Dose: 3 ml Aripiprazole (Abilify) 5 mg PO DAILY [facility] Last Admin: 03/10/18 08:25 Dose: 5 mg Aripiprazole (Abilify) 10 mg PO DAILY [facility] Last Admin: 03/09/18 09:12 Dose: 10 mg Aspirin (Ecotrin) 81 mg PO DAILY [facility] Last Admin: 03/10/18 08:41 Dose: 81 mg Carvedilol (Coreg) 25 mg PO Q12 [facility] Last Admin: 03/10/18 08:26 Dose: 25 mg Chlorthalidone (Hygroton) 12.5 mg PO DAILY [facility] Last Admin: 03/10/18 08:40 Dose: 12.5 mg Ciprofloxacin (Cipro) 500 mg PO Q12 [facility]; Protocol Last Admin: 03/10/18 08:26 Dose: 500 mg Enoxaparin Sodium (Lovenox) 40 mg SC DAILY [facility]; Protocol Last Admin: 03/10/18 08:25 Dose: 40 mg Ibuprofen (Motrin Tab) 600 mg PO Q8 PRN PRN Reason: Pain, Mild (1-3) Last Admin: 03/07/18 08:29 Dose: 600 mg Ketoconazole (Nizoral) 1 applic TOP BID [facility] Last Admin: 03/09/18 16:45 Dose: 1 applic Linezolid (Zyvox) 600 mg PO Q12 [facility]; Protocol Last Admin: 03/10/18 08:39 Dose: 600 mg Losartan Potassium (Cozaar) 50 mg PO DAILY [facility] Last Admin: 03/10/18 08:26 Dose: 50 mg Metformin HCl (Glucophage) 250 mg PO BID [facility] Last Admin: 03/10/18 08:40 Dose: 250 mg Nicotine (Nicoderm Cq) 1 patch TD DAILY [facility] Last Admin: 03/10/18 08:25 Dose: 1 patch Oxycodone/Acetaminophen (Percocet 5/325 Mg Tab) 1 tab PO Q4 PRN PRN Reason: for pain level 8-10 Stop: 03/11/18 21:37 Last Admin: 03/10/18 06:55 Dose: 1 tab Pramipexole Dihydrochloride (Mirapex) 1.5 mg PO Q12H [facility] Last Admin: 03/10/18 08:25 Dose: 1.5 mg Pregabalin (Lyrica) 75 mg PO BID [facility] Last Admin: 03/10/18 08:39 Dose: 75 mg Senna/Docusate Sodium (Senokot S 50 Mg-8.6 Mg) 2 tab PO HS [facility] Last Admin: 03/09/18 22:00 Dose: Not Given Trazodone HCl (Desyrel) 100 mg PO HS [facility] Last Admin: 03/09/18 21:25 Dose: 100 mg Triamcinolone Acetonide (Kenalog 0.1% Oint) 1 appl TOP BID PRN PRN Reason: Itching / Pruritus Last Admin: 03/10/18 08:41 Dose: 1 appl - Labs Labs: 03/08/18 05:30 03/06/18 06:30 PT 12.5 Seconds (9.8-13.1) 03/08/18 05:30 INR 1.1 03/08/18 05:30 APTT 32.2 Seconds (25.6-37.1) 03/08/18 05:30
[2018-03-10] MEDS: Docusate-Senna 50 mg-8.6 mg Tab PO SCH (21:37)
[2018-03-11] MEDS: Albuterol-Ipratrop 3 mg / 0.5 (3 ml) UD INH SCH ×4 (07:34→19:11)
[2018-03-11] MEDS: Oxycodone/Acetaminophen 5/325 mg Tab PO PRN ×2 (09:16→21:45)
[2018-03-11] MEDS: Enoxaparin 40 mg Syringe SC SCH (09:18)
[2018-03-11 16:32] VITALS: RESP 20
[2018-03-11] MEDS: Docusate-Senna 50 mg-8.6 mg Tab PO SCH (22:49)
[2018-03-12] MEDS: Oxycodone/Acetaminophen 5/325 mg Tab PO PRN ×4 (04:50→21:47)
[2018-03-12] MEDS: Albuterol-Ipratrop 3 mg / 0.5 (3 ml) UD INH SCH ×4 (08:29→19:16)
[2018-03-12] MEDS: Enoxaparin 40 mg Syringe SC SCH (08:31)
--- NOTE | 2018-03-12 12:40 | CP.PCM.PN ---
Subjective - Date & Time of Evaluation Date of Evaluation: 03/12/18 Time of Evaluation: 08:00 - Subjective Subjective: PO rx in progress Objective - Vital Signs/Intake and Output Vital Signs (last 24 hours): Temp Pulse Resp BP Pulse Ox 97.2 F L 79 20 136/77 96 03/12/18 08:00 03/12/18 08:34 03/12/18 08:00 03/12/18 08:34 03/12/18 08:00 - Medications Medications: Current Medications Albuterol/Ipratropium (Duoneb 3 Mg/0.5 Mg (3 Ml) Ud) 3 ml INH RQID [facility] Last Admin: 03/12/18 12:26 Dose: Not Given Albuterol/Ipratropium (Duoneb 3 Mg/0.5 Mg (3 Ml) Ud) 3 ml INH RQ6 PRN PRN Reason: Shortness of Breath Last Admin: 03/08/18 05:14 Dose: 3 ml Aripiprazole (Abilify) 5 mg PO DAILY [facility] Last Admin: 03/12/18 08:32 Dose: 5 mg Aripiprazole (Abilify) 10 mg PO DAILY [facility] Last Admin: 03/12/18 08:33 Dose: 10 mg Aspirin (Ecotrin) 81 mg PO DAILY [facility] Last Admin: 03/12/18 08:32 Dose: 81 mg Carvedilol (Coreg) 25 mg PO Q12 [facility] Last Admin: 03/12/18 08:32 Dose: 25 mg Chlorthalidone (Hygroton) 12.5 mg PO DAILY [facility] Last Admin: 03/12/18 08:33 Dose: 12.5 mg Ciprofloxacin (Cipro) 500 mg PO Q12 [facility]; Protocol Last Admin: 03/12/18 09:19 Dose: 500 mg Enoxaparin Sodium (Lovenox) 40 mg SC DAILY [facility]; Protocol Last Admin: 03/12/18 08:31 Dose: 40 mg Ibuprofen (Motrin Tab) 600 mg PO Q8 PRN PRN Reason: Pain, Mild (1-3) Last Admin: 03/07/18 08:29 Dose: 600 mg Ketoconazole (Nizoral) 1 applic TOP BID [facility] Last Admin: 03/12/18 08:30 Dose: 1 applic Linezolid (Zyvox) 600 mg PO Q12 [facility]; Protocol Last Admin: 03/12/18 08:31 Dose: 600 mg Losartan Potassium (Cozaar) 50 mg PO DAILY [facility] Last Admin: 03/12/18 08:34 Dose: 50 mg Metformin HCl (Glucophage) 250 mg PO BID [facility] Last Admin: 03/12/18 08:33 Dose: 250 mg Nicotine (Nicoderm Cq) 1 patch TD DAILY [facility] Last Admin: 03/12/18 08:30 Dose: 1 patch Oxycodone/Acetaminophen (Percocet 5/325 Mg Tab) 1 tab PO Q4 PRN PRN Reason: Pain, severe (8-10) Stop: 03/14/18 15:02 Last Admin: 03/12/18 09:20 Dose: 1 tab Pramipexole Dihydrochloride (Mirapex) 1.5 mg PO Q12H [facility] Last Admin: 03/12/18 08:31 Dose: 1.5 mg Pregabalin (Lyrica) 75 mg PO BID [facility] Last Admin: 03/12/18 08:35 Dose: 75 mg Senna/Docusate Sodium (Senokot S 50 Mg-8.6 Mg) 2 tab PO HS [facility] Last Admin: 03/11/18 22:49 Dose: Not Given Trazodone HCl (Desyrel) 100 mg PO HS [facility] Last Admin: 03/11/18 21:47 Dose: 100 mg Triamcinolone Acetonide (Kenalog 0.1% Oint) 1 appl TOP BID PRN PRN Reason: Itching / Pruritus Last Admin: 03/11/18 16:37 Dose: 1 appl - Labs Labs: 03/08/18 05:30 03/06/18 06:30 PT 12.5 Seconds (9.8-13.1) 03/08/18 05:30 INR 1.1 03/08/18 05:30 APTT 32.2 Seconds (25.6-37.1) 03/08/18 05:30 - Constitutional Appears: Non-toxic, Chronically Ill - Head Exam Head Exam: NORMOCEPHALIC - Eye Exam Eye Exam: PERRL - ENT Exam ENT Exam: Mucous Membranes Dry - Neck Exam Neck Exam: absent: Lymphadenopathy - Respiratory Exam Respiratory Exam: Decreased Breath Sounds - Cardiovascular Exam Cardiovascular Exam: REGULAR RHYTHM - GI/Abdominal Exam GI & Abdominal Exam: Distended, Soft Assessment and Plan (1) Bilateral lower leg cellulitis Status: Acute (2) CHF (congestive heart failure) Status: Acute (3) COPD (chronic obstructive pulmonary disease) Status: Acute (4) Non-healing ulcer of lower leg Status: Acute
[2018-03-12 20:07] VITALS: TEMP 97.9
[2018-03-12] MEDS: Docusate-Senna 50 mg-8.6 mg Tab PO SCH (21:06)
[2018-03-13] MEDS: Oxycodone/Acetaminophen 5/325 mg Tab PO PRN ×2 (04:47→11:00)
[2018-03-13] MEDS: Albuterol-Ipratrop 3 mg / 0.5 (3 ml) UD INH SCH ×2 (07:49→11:49)
[2018-03-13 08:13] VITALS: BP 119/80; PULSE 77; O2SAT 95
[2018-03-13] MEDS: Enoxaparin 40 mg Syringe SC SCH (09:08)
--- NOTE | 2018-03-13 11:50 | CP.PCM.PN ---
Subjective - Date & Time of Evaluation Date of Evaluation: 03/13/18 Time of Evaluation: 11:50 - Subjective Subjective: Podiatry Progress Note - Dr. Woodruff 57 year old male patient seen and evaluated this morning in TCU for bilateral LE cellulitis and diffuse superficial venous stasis ulcerations to both extremities. At present, patient denies any pain in lower extremities and states he is able to ambulate without issues. States he has noticed significant improvement working with physical therapy and notes a decrease in size and pain of his leg wounds. Dressings to lower extremities with mild drainage noted to inner bandages. Denies F/C/N/V/CP/SOB. Pt is aware of discharge today and plans to follow up in [facility] on Thursday with Dr. Woodruff. Objective - Vital Signs/Intake and Output Vital Signs (last 24 hours): Temp Pulse Resp BP Pulse Ox 97.9 F 77 20 119/80 95 03/13/18 08:12 03/13/18 08:12 03/13/18 08:12 03/13/18 08:12 03/13/18 08:12 - Medications Medications: Current Medications Albuterol/Ipratropium (Duoneb 3 Mg/0.5 Mg (3 Ml) Ud) 3 ml INH RQID [facility] Last Admin: 03/13/18 11:49 Dose: 3 ml Albuterol/Ipratropium (Duoneb 3 Mg/0.5 Mg (3 Ml) Ud) 3 ml INH RQ6 PRN PRN Reason: Shortness of Breath Last Admin: 03/08/18 05:14 Dose: 3 ml Aripiprazole (Abilify) 5 mg PO DAILY [facility] Last Admin: 03/13/18 09:09 Dose: 5 mg Aripiprazole (Abilify) 10 mg PO DAILY [facility] Last Admin: 03/13/18 09:10 Dose: 10 mg Aspirin (Ecotrin) 81 mg PO DAILY [facility] Last Admin: 03/13/18 09:11 Dose: 81 mg Carvedilol (Coreg) 25 mg PO Q12 [facility] Last Admin: 03/13/18 09:10 Dose: 25 mg Chlorthalidone (Hygroton) 12.5 mg PO DAILY [facility] Last Admin: 03/13/18 09:12 Dose: 12.5 mg Ciprofloxacin (Cipro) 500 mg PO Q12 [facility]; Protocol Last Admin: 03/13/18 09:10 Dose: 500 mg Ibuprofen (Motrin Tab) 600 mg PO Q8 PRN PRN Reason: Pain, Mild (1-3) Last Admin: 03/07/18 08:29 Dose: 600 mg Ketoconazole (Nizoral) 1 applic TOP BID [facility] Last Admin: 03/13/18 09:06 Dose: 1 applic Linezolid (Zyvox) 600 mg PO Q12 [facility]; Protocol Last Admin: 03/13/18 09:11 Dose: 600 mg Losartan Potassium (Cozaar) 50 mg PO DAILY [facility] Last Admin: 03/13/18 09:11 Dose: 50 mg Metformin HCl (Glucophage) 250 mg PO BID [facility] Last Admin: 03/13/18 09:11 Dose: 250 mg Nicotine (Nicoderm Cq) 1 patch TD DAILY [facility] Last Admin: 03/13/18 09:07 Dose: 1 patch Oxycodone/Acetaminophen (Percocet 5/325 Mg Tab) 1 tab PO Q4 PRN PRN Reason: Pain, severe (8-10) Stop: 03/14/18 15:02 Last Admin: 03/13/18 11:00 Dose: 1 tab Pramipexole Dihydrochloride (Mirapex) 1.5 mg PO Q12H [facility] Last Admin: 03/13/18 09:12 Dose: 1.5 mg Pregabalin (Lyrica) 75 mg PO BID [facility] Last Admin: 03/13/18 11:01 Dose: 75 mg Senna/Docusate Sodium (Senokot S 50 Mg-8.6 Mg) 2 tab PO HS [facility] Last Admin: 03/12/18 21:06 Dose: Not Given Trazodone HCl (Desyrel) 100 mg PO HS [facility] Last Admin: 03/12/18 21:02 Dose: 100 mg Triamcinolone Acetonide (Kenalog 0.1% Oint) 1 appl TOP BID PRN PRN Reason: Itching / Pruritus Last Admin: 03/13/18 09:07 Dose: 1 appl - Labs Labs: 03/08/18 05:30 03/06/18 06:30 PT 12.5 Seconds (9.8-13.1) 03/08/18 05:30 INR 1.1 03/08/18 05:30 APTT 32.2 Seconds (25.6-37.1) 03/08/18 05:30 - Constitutional Appears: Well, Non-toxic, No Acute Distress - Extremities Exam Additional comments: Vasc: DP and PT pulses palpable. CFT <3 seconds to all digits. Temp gradient warm to warm from proximal to distal/ Mild nonpitting edema noted to b/l LE with associated erythema Derm: Bilateral lower extremities show evidence of mild cellulitis from rearfoot to proximal lower leg. Left LE has superficial diffuse wounds present to the medial and lateral legs with mixed fibrogranular tissue and minimal weeping noted. Right LE has similar wound present to mid calf level on the lateral aspect of the leg, superficial in nature with minimal serous drainage. No andrea wound erythema noted B/L, no probe to bone, no malodor, no purulence expressed, no fluctuance or signs of abscess formation B/L Ortho: no pain on palpation to bilateral LE secondary to cellulitis and superficial wounds Neuro: gross and protective sensation intact B/L - Neurological Exam Neurological Exam: Alert, Awake, Oriented x3 - Psychiatric Exam Psychiatric exam: Normal Affect, Normal Mood Assessment and Plan - Assessment and Plan (Free Text) Assessment: 57 y/o male patient with bilateral LE cellulitis and diffuse superficial venous stasis ulcerations Plan: Patient seen and evaluated Discussed plan with Dr. Woodruff Pt at completion of IV abx for wound cx of Pseudomonas Unna boot changed bilaterally to lower extremities with application of Coban and RODGER bandage Dressings to B/L legs to remain intact until follow up with doctor Patient is stable for discharge from podiatry standpoint Pt is to follow up with Dr. Woodruff in [facility] on Sunday 03/18
== END 2018-03-13 13:15 | disposition home health service (06) | DRG 277 ==
LOC: H.TCU 19:35
PROVIDERS: ADMIT Family Medicine Adult Medicine; ATTEND Family Medicine Adult Medicine
PROC: F07M6FZ Therapeutic Exercise Treatment of Musculoskeletal System - Whole Body using Assistive, Adaptive, Supportive or Protective Equipment (ICD-10-PCS; principal; 2018-03-05)
PROC: 3E0F7GC Introduction of Other Therapeutic Substance into Respiratory Tract, Via Natural or Artificial Opening (ICD-10-PCS; 2018-03-05)
PROC: F08Z4FZ Home Management Treatment using Assistive, Adaptive, Supportive or Protective Equipment (ICD-10-PCS; 2018-03-05)
DX: L03.115 Cellulitis of right lower limb (principal); L97.919 Non-pressure chronic ulcer of unspecified part of right lower leg with unspecified severity; L97.929 Non-pressure chronic ulcer of unspecified part of left lower leg with unspecified severity; J43.9 Emphysema, unspecified; N18.9 Chronic kidney disease, unspecified; J44.1 Chronic obstructive pulmonary disease with (acute) exacerbation; R56.9 Unspecified convulsions; E11.22 Type 2 diabetes mellitus with diabetic chronic kidney disease; E11.622 Type 2 diabetes mellitus with other skin ulcer; F25.9 Schizoaffective disorder, unspecified; I13.0 Hypertensive heart and chronic kidney disease with heart failure and stage 1 through stage 4 chronic kidney disease, or unspecified chronic kidney disease; I50.9 Heart failure, unspecified; L03.116 Cellulitis of left lower limb; L30.9 Dermatitis, unspecified; I83.009 Varicose veins of unspecified lower extremity with ulcer of unspecified site; I87.2 Venous insufficiency (chronic) (peripheral); Z80.1 Family history of malignant neoplasm of trachea, bronchus and lung; Z82.49 Family history of ischemic heart disease and other diseases of the circulatory system; F10.10 Alcohol abuse, uncomplicated; F32.9 Major depressive disorder, single episode, unspecified; F41.9 Anxiety disorder, unspecified; E66.01 Morbid (severe) obesity due to excess calories; E78.00 Pure hypercholesterolemia, unspecified; E88.2 Lipomatosis, not elsewhere classified; F17.210 Nicotine dependence, cigarettes, uncomplicated; F31.9 Bipolar disorder, unspecified; F41.0 Panic disorder [episodic paroxysmal anxiety]; F60.9 Personality disorder, unspecified; G25.81 Restless legs syndrome; G47.30 Sleep apnea, unspecified

== ENCOUNTER 2018-04-18 17:16 | Observation (INO) | payer MEDICAID ==
[2018-04-18 17:16] VITALS: BMI 34.3
[2018-04-18] MEDS ORDERED: Albuterol-Ipratrop 3 mg / 0.5 (3 ml) UD INH STA ×4 (18:39→20:58)
[2018-04-18] MEDS ORDERED: Azithromycin 500 MG in Sodium Chloride 0.9% 250 ML IV STA (18:40)
--- NOTE | 2018-04-18 18:52 | ED PDOC ---
HPI: SOB/CHF/COPD Time Seen by Provider: 04/18/18 17:45 Chief Complaint (Nursing): Shortness Of Breath Chief Complaint (Provider): Shortness Of Breath History Per: Patient History/Exam Limitations: no limitations Onset/Duration Of Symptoms: Days (x 2) Current Symptoms Are (Timing): Still Present Current Respiratory Medications: Albuterol Associated Symptoms: Chest Pain (tightness), Productive Cough Additional Complaint(s): 57 year old male with a history of CHF, COPD, pneumonia and bronchitis presents to the ED with shortness of breath for two days. Patient had persistent nasal congestion and is now feeling short of breath. He also complains of a productive cough with yellow sputum and chest tightness. Patient use albuterol nebulizers without relief. He has a cardiac cathetertization six months ago and was told that his heart looks normal. Offers no other complaints. PMD: Dr. Anabell Monreal Past Medical History Reviewed: Historical Data, Nursing Documentation, Vital Signs Vital Signs: Last Vital Signs Temp 97.8 F 04/18/18 17:21 Pulse 105 H 04/18/18 17:49 Resp 21 04/18/18 17:40 BP 146/77 04/18/18 17:49 Pulse Ox 96 04/18/18 17:40 - Medical History PMH: Anxiety, Asthma, Bipolar Disorder, CHF, COPD, Depression, Diabetes, Emphysema, HTN, Personality Disorder, Schizophrenia, Sleep Apnea Denies: HIV, Hypercholesterolemia (PT DENIES), Chronic Kidney Disease, Seizures, Sexually Transmitted Disease - Surgical History Surgical History: No Surg Hx - Family History Family History: States: Unknown Family Hx - Immunization History Hx Tetanus Toxoid Vaccination: Yes Hx Influenza Vaccination: Yes Hx Pneumococcal Vaccination: No - Home Medications Home Medications: Ambulatory Orders Medication Instructions Recorded Albuterol HFA [Ventolin HFA 90 2 puff IH Q4H PRN 03/09/17 mcg/actuation (8 g)] Fluticasone/Salmeterol [Airduo 1 puff IH Q12H 03/09/17 Respiclick 232-14 Mcg] MetFORMIN ER [Glucophage XR] 500 mg PO DAILY 03/09/17 Albuterol/Ipratropium [Combivent 1 puff IH Q6 PRN 06/17/17 Respimat] Irbesartan [Avapro] 150 mg PO DAILY 06/17/17 amLODIPine [Norvasc] 10 mg PO DAILY 06/17/17 Aspirin [Ecotrin] 81 mg PO DAILY 02/22/18 Carvedilol [Coreg] 25 mg PO Q12 02/22/18 ARIPiprazole [Abilify] 5 mg PO DAILY tab 03/05/18 ARIPiprazole [Abilify] 10 mg PO DAILY tab 03/05/18 Chlorthalidone [Hygroton] 12.5 mg PO DAILY tab 03/05/18 Docusate Sodium/Sennosides A 2 tab PO HS tab 03/05/18 [Senokot S 50 MG-8.6 MG] Ibuprofen [Motrin Tab] 600 mg PO Q8 PRN tab 03/05/18 Nicotine 21 mg/24 hr [Nicoderm Cq] 1 patch TD DAILY patch 03/05/18 busPIRone [Buspar] 10 mg PO BID tab 03/05/18 traZODone [Desyrel] 100 mg PO HS tab 03/05/18 Losartan [Cozaar] 50 mg PO DAILY 03/13/18 Pramipexole Di-HCl [Mirapex] 1.5 mg PO Q12 03/13/18 Pregabalin [Lyrica] 75 mg PO BID 03/13/18 oxyCODONE/Acetaminophen [Percocet 1 tab PO Q4 PRN 03/13/18 5/325 mg Tab] levoFLOXacin [Levaquin] 750 mg PO DAILY #5 tab 04/20/18 predniSONE [Prednisone] 30 mg PO DAILY #21 tab 04/20/18 - Allergies Allergies/Adverse Reactions: Allergies Allergy/AdvReac Type Severity Reaction Status Date / Time No Known Allergies Allergy Verified 03/10/18 10:17 Review of Systems ROS Statement: Except As Marked, All Systems Reviewed And Found Negative Constitutional: Negative for: Fever ENT: Positive for: Nose Congestion Cardiovascular: Positive for: Chest Pain (chest tightness) Respiratory: Positive for: Cough, Shortness of Breath, Sputum (yellow) Gastrointestinal: Negative for: Vomiting, Diarrhea Physical Exam - Reviewed Nursing Documentation Reviewed: Yes Vital Signs Reviewed: Yes - Physical Exam Appears: Positive for: No Acute Distress (speaking full sentences) Head Exam: Positive for: ATRAUMATIC, NORMAL INSPECTION, NORMOCEPHALIC Skin: Positive for: Normal Color, Warm, Dry Eye Exam: Positive for: EOMI, Normal appearance, PERRL Neck: Positive for: Normal, Painless ROM, Supple Cardiovascular/Chest: Positive for: Regular Rate, Rhythm. Negative for: Murmur Respiratory: Positive for: Wheezing (bilateral wheezing). Negative for: Respiratory Distress Gastrointestinal/Abdominal: Positive for: Normal Exam, Soft. Negative for: Tenderness Extremity: Positive for: Normal ROM (x 4). Negative for: Deformity Neurologic/Psych: Positive for: Alert, Oriented (x 3). Negative for: Motor/Sensory Deficits - Laboratory Results Result Diagrams: 04/18/18 19:18 04/18/18 19:18 - ECG O2 Sat by Pulse Oximetry: 96 (RA) Pulse Ox Interpretation: Normal Medical Decision Making Medical Decision Makin:39 Impression: shortness of breath Initial Plan: --CMP --CBC --EKG --PTT --PT --CXR --Blood cx --Duoneb 3 ml INH --Duoneb 3 ml INH --Peak flow pre/post --Peak flow pre/post --Solu-medrol 125 mg IVP --Zithromax 500 mg IV 19:00 Patient signed out to Dr. Cruz pending labs and reevaluation. - Scribe Attestation: Documented by Rosemarie Smith acting as a scribe for Emerald Hoyt MD Provider Scribe Attestation: All medical record entries made by the Scribe were at my direction and personally dictated by me. I have reviewed the chart and agree that the record accurately reflects my personal performance of the history, physical exam, medical decision making, and the department course for this patient. I have also personally directed, reviewed, and agree with the discharge instructions and disposition. Disposition - Clinical Impression Clinical Impression: COPD exacerbation - Patient ED Disposition Is Patient to be Admitted: Transfer of Care - Disposition Disposition: Transfer of Care Disposition Time: 19:00 Condition: STABLE Patient Signed Over To: Raul Cruz
[2018-04-18] MEDS ORDERED: Albuterol-Ipratrop 3 mg / 0.5 (3 ml) UD ONE ×2 (18:57→22:44)
[2018-04-18] MEDS ORDERED: Azithromycin 500 MG IV IVPB ONE (18:57)
[2018-04-18 19:24] LABS: BASO # 0.1 K/uL (0.0-0.2); BASO % 0.8 % (0.0-2.0); EOS # 0.3 K/uL (0.0-0.7); EOS % 3.4 % (0.0-4.0); HEMOGLOBIN 14.4 g/dL (12.0-18.0); LYMPH # 1.3 K/uL (1.0-4.3); LYMPH % 15.7 % (20.0-40.0); MEAN CELL VOLUME 78.8 fl (80.0-94.0); MEAN CORPUSCULAR HEMOGLOBIN 25.6 pg (27.0-31.0); MEAN CORPUSCULAR HGB CONC 32.5 g/dL (33.0-37.0); MEAN PLATELET VOLUME 7.1 fl (7.2-11.7); MONO # 0.7 K/uL (0.0-0.8); MONO % 8.6 % (0.0-10.0); NEUT # 6.1 K/uL (1.8-7.0); NEUT % 71.5 % (50.0-75.0); NRBC % 0.1 % (0.0-0.0); RBC 5.63 Mil/uL (4.40-5.90); RED CELL DISTRIBUTION WIDTH 17.3 % (11.5-14.5); WHITE BLOOD COUNT 8.6 K/uL (4.8-10.8)
[2018-04-18 19:29] LABS: PROTHROMBIN TIME 11.7 Seconds (9.8-13.1)
[2018-04-18 19:31] LABS: PARTIAL THROMBOPLASTIN TIME 32.2 Seconds (25.6-37.1)
--- NOTE | 2018-04-18 19:31 | ED PDOC ---
- Laboratory Results Result Diagrams: 04/18/18 19:18 04/18/18 19:18 Lab Results: PT 11.7 Seconds (9.8-13.1) 04/18/18 19:18 INR 1.0 04/18/18 19:18 - ECG O2 Sat by Pulse Oximetry: 96 (RA) Pulse Ox Interpretation: Normal Medical Decision Making Medical Decision Makin:00 Patient signed out to this provider by Dr. Hoyt pending labs and reevaluation. 20:45 Patient re-evaluated at bedside Still having pursed breathing and wheezing, states he's feeling unwell Patient will need continuous nebs and telemetry monitoring for chest pain Placed in OBS Tele Dr. Rocha aware ----- Scribe Attestation: Documented by Rosemarie Smith acting as a scribe for Raul Cruz MD Provider Scribe Attestation: All medical record entries made by the Scribe were at my direction and personally dictated by me. I have reviewed the chart and agree that the record accurately reflects my personal performance of the history, physical exam, medical decision making, and the department course for this patient. I have also personally directed, reviewed, and agree with the discharge instructions and disposition. Disposition - Clinical Impression Clinical Impression: COPD exacerbation - POA Present On Arrival: None - Disposition Disposition: Hospitalized as Observation Patient Disposition Time: 20:45 Condition: FAIR
[2018-04-18 19:35] LABS: ALB/GLOB RATIO 1.1 (1.0-2.1); ALBUMIN 4.1 g/dL (3.5-5.0); ALT/SGPT 27 U/L (21-72); AST/SGOT 20 U/L (17-59); BLOOD UREA NITROGEN 10 mg/dl (9-20); CALCIUM 8.8 mg/dL (8.4-10.2); GFR NON-AFRICAN AMERICAN > 60
[2018-04-18] MEDS ORDERED: Albuterol-Ipratrop 3 mg / 0.5 (3 ml) UD INH PRN (22:00)
--- NOTE | 2018-04-18 22:30 | CP.PCM.HP ---
History of Present Illness - History of Present Illness History of Present Illness: 57 yo M with pmxh of COPD, CAD (s/p cardiac cath in 10/2017), HTN, presents with SOB and chest tightness. SOB: started approximately 3 days ago and has since worsened. He reports SOB with a few steps. Reports taking his nebulizer and 3 other pumps, however, did not improve his SOB. Associated symptoms include cough productive of yellow sputum, recent nasal congestion, subjective fever, chills. Chest tightness: reports at sternum. Hx of coughing. Alleviated with deep inspiration. Localized. Pt reports roommate has flu. Pt has bilateral lower extremity stockings: reports recent history of lower extremity wounds, being treated by Dr. Fung. Unsure of antibiotic and duration. PMD: Dr Fox Cardiology: Dr. Sparks Surg: L eye Soc: smokes 1-2 cigs/day. social alcohol. Denies illicit drug use FamHx: DM, HTN, lung cancer NKDA Present on Admission - Present on Admission Any Indicators Present on Admission: No History of Uncontrolled Diabetes: No Urinary Catheter: No Review of Systems - EENT Nose/Mouth/Throat: Nasal Congestion, Nasal Discharge - Cardiovascular Cardiovascular: Other (chest tightness) - Respiratory Respiratory: Cough, Dyspnea, Dyspnea on Exertion, Chest Congestion, Pain with Coughing - Gastrointestinal Gastrointestinal: Nausea. absent: Abdominal Pain, Constipation, Diarrhea, Heartburn, Vomiting Past Patient History - Infectious Disease Hx of Infectious Diseases: None - Past Medical History & Family History Past Medical History?: Yes - Past Social History Smoking Status: Light Smoker < 10 Cigarettes Daily Alcohol: None Drugs: Denies Home Situation {Lives}: Friends - CARDIAC Hx Cardiac Disorders: Yes Hx Congestive Heart Failure: Yes Hx Hypercholesterolemia: No (PT DENIES) Hx Hypertension: Yes Other/Comment: Per pt : cardiac stent 10/2017 - PULMONARY Hx Respiratory Disorders: Yes Hx Asthma: Yes Hx Chronic Obstructive Pulmonary Disease (COPD): Yes Hx Emphysema: Yes Hx Sleep Apnea: Yes - NEUROLOGICAL Hx Neurological Disorder: No Hx Seizures: No - HEENT Hx HEENT Problems: No - RENAL Hx Chronic Kidney Disease: No - ENDOCRINE/METABOLIC Hx Endocrine Disorders: Yes Hx Diabetes Mellitus Type 2: No (prediabetes) - HEMATOLOGICAL/ONCOLOGICAL Hx Human Immunodeficiency Virus (HIV): No - INTEGUMENTARY Hx Dermatological Problems: Yes (Cellulitis) Hx Cellulitis: Yes - MUSCULOSKELETAL/RHEUMATOLOGICAL Hx Musculoskeletal Disorders: Yes Hx Falls: No - GASTROINTESTINAL Hx Gastrointestinal Disorders: No - GENITOURINARY/GYNECOLOGICAL Hx Sexually Transmitted Disorders: No - PSYCHIATRIC Hx Anxiety: Yes Hx Bipolar Disorder: Yes Hx Depression: Yes Hx Schizophrenia: Yes - SURGICAL HISTORY Hx Surgeries: No - ANESTHESIA Hx Anesthesia: Yes Hx Anesthesia Reactions: No Hx Malignant Hyperthermia: No Meds Allergies/Adverse Reactions: Allergies Allergy/AdvReac Type Severity Reaction Status Date / Time No Known Allergies Allergy Verified 03/10/18 10:17 Physical Exam - Eye Exam Eye Exam: EOMI - ENT Exam ENT Exam: Mucous Membranes Moist - Respiratory Exam Respiratory Exam: Rales, Rhonchi, Wheezes - Cardiovascular Exam Cardiovascular Exam: REGULAR RHYTHM, +S1, +S2 - GI/Abdominal Exam GI & Abdominal Exam: Normal Bowel Sounds. absent: Tenderness - Neurological Exam Neurological exam: Alert, CN II-XII Intact, Oriented x3 - Psychiatric Exam Psychiatric exam: Normal Affect, Normal Mood Results - Vital Signs Recent Vital Signs: Last Vital Signs Temp 97.8 F 04/18/18 17:21 Pulse 88 04/18/18 21:21 Resp 18 04/18/18 21:21 BP 124/88 04/18/18 21:21 Pulse Ox 96 04/18/18 21:21 - Labs Result Diagrams: 04/18/18 19:18 04/18/18 19:18 Labs: Laboratory Results - last 24 hr 04/18/18 04/18/18 04/18/18 19:18 19:18 19:18 WBC 8.6 RBC 5.63 Hgb 14.4 D Hct 44.4 MCV 78.8 L MCH 25.6 L MCHC 32.5 L RDW 17.3 H Plt Count 267 MPV 7.1 L Neut % (Auto) 71.5 Lymph % (Auto) 15.7 L [place] % (Auto) 8.6 Eos % (Auto) 3.4 Baso % (Auto) 0.8 Neut # (Auto) 6.1 Lymph # (Auto) 1.3 [place] # (Auto) 0.7 Eos # (Auto) 0.3 Baso # (Auto) 0.1 PT 11.7 INR 1.0 APTT 32.2 Sodium 137 Potassium 4.0 Chloride 97 L Carbon Dioxide 28 Anion Gap 16 BUN 10 Creatinine 0.7 L Est GFR ( Amer) > 60 Est GFR (Non-Af Amer) > 60 Random Glucose 111 H Calcium 8.8 Total Bilirubin 0.3 AST 20 ALT 27 Alkaline Phosphatase 104 Troponin I < 0.0120 NT-Pro-B Natriuret Pep Total Protein 7.6 Albumin 4.1 Globulin 3.6 Albumin/Globulin Ratio 1.1 Influenza Typ A,B (EIA) 04/18/18 04/18/18 19:48 21:27 WBC RBC Hgb Hct MCV MCH MCHC RDW Plt Count MPV Neut % (Auto) Lymph % (Auto) [place] % (Auto) Eos % (Auto) Baso % (Auto) Neut # (Auto) Lymph # (Auto) [place] # (Auto) Eos # (Auto) Baso # (Auto) PT INR APTT Sodium Potassium Chloride Carbon Dioxide Anion Gap BUN Creatinine Est GFR ( Amer) Est GFR (Non-Af Amer) Random Glucose Calcium Total Bilirubin AST ALT Alkaline Phosphatase Troponin I NT-Pro-B Natriuret Pep 53.4 Total Protein Albumin Globulin Albumin/Globulin Ratio Influenza Typ A,B (EIA) Negative for flu a/b Assessment & Plan - Assessment and Plan (Free Text) Assessment: 57 yo M with pmxh of COPD, CAD (s/p cardiac cath in 10/2017), HTN, presents with SOB and chest tightness admitted for COPD exacerbation and chest pain. Plan: COPD exacerbation d/p duoneb and solu-medrol in ED c/w duoneb q6 and q6 prn Solumedrol 60 mg IV q8 abx: s/p azithromycin; start Levaquin f/u am labs, blood culture Chest tightness EKG reviewed could be 2/2 COPD exacerbation and coughing Tropinin negative x1 f/u chest pain and troponin x2 HTN c/w home meds monitor vitals PreDiabetes held metformin f/u hba1c Peripheral neuropathy c/w lyrica Lower extremity wounds with cellulitis Podiatry consulted: Dr. Marino; recs appreciated Pt has compression stocking IVABX: levaquin: prior wound cultures show pseudomonas; Pt presents with COPD exacerbation with yellow sputum. additional coverage for possible respiratory infection. DVT/GI prophylaxis Heparin 5,000 U SC q8 Pantoprazole: for duration of hospital stay only. Pt on Solu-medrol. Case and plan d/w Dr. Aj Casey MD PGY-2
[2018-04-18] MEDS ORDERED: Albuterol HFA 90 mcg/actuation (8 g) IH PRN (22:37)
[2018-04-19] MEDS: Albuterol-Ipratrop 3 mg / 0.5 (3 ml) UD INH SCH ×6 (01:30→23:58)
--- NOTE | 2018-04-19 07:27 | CARD ---
APPROVED REPORT Date of service: 04/18/2018 EKG Measurement Heart [id number] <Conclusion> Sinus tachycardia Otherwise normal ECG
--- NOTE | 2018-04-19 08:51 | CP.PCM.PN ---
<Marlon Goodson - Last Filed: 04/19/18 09:33> Subjective - Date & Time of Evaluation Date of Evaluation: 04/19/18 Time of Evaluation: 09:35 - Subjective Subjective: 57 y/o male patient with PMHx of COPD, CAD (s/p cardiac cath in 10/2017), HTN, presented on 04/18/18 with complaints of shortness of breath and chest tightness x2 days. Patient was seen sitting in chair at bedside, and states his symptoms have improved overnight. Patient reports non-productive cough, shortness of breath with exertion and chest tightness. Patient reports he saw [employer] Dr. Fung on Thursday, and has been on Abx for the last 2 weeks, unsure of name of Abx. Patient denies any fever, nausea, vomiting, abdominal pain, urinary symptoms, diarrhea or constipation Objective - Vital Signs/Intake and Output Vital Signs (last 24 hours): Temp Pulse Resp BP Pulse Ox 97.5 F L 90 20 137/90 94 L 04/19/18 07:44 04/19/18 07:44 04/19/18 07:44 04/19/18 07:44 04/19/18 07:44 - Medications Medications: Current Medications Acetaminophen (Tylenol 325mg Tab) 650 mg PO Q6 PRN PRN Reason: Pain, Mild (1-3) Albuterol (Ventolin Hfa 90 Mcg/Actuation (8 G)) 2 puff IH Q4H PRN PRN Reason: Shortness of Breath Albuterol/Ipratropium (Duoneb 3 Mg/0.5 Mg (3 Ml) Ud) 3 ml INH RQ6 PRN PRN Reason: Shortness of Breath Albuterol/Ipratropium (Duoneb 3 Mg/0.5 Mg (3 Ml) Ud) 3 ml INH RQ6 [facility] Last Admin: 04/19/18 07:40 Dose: 3 ml Amlodipine Besylate (Norvasc) 10 mg PO DAILY [facility] Aripiprazole (Abilify) 5 mg PO DAILY [facility] Aspirin (Ecotrin) 81 mg PO DAILY [facility] Buspirone HCl (Buspar) 10 mg PO BID [facility] Carvedilol (Coreg) 25 mg PO Q12 [facility] Chlorthalidone (Hygroton) 12.5 mg PO DAILY [facility] Heparin Sodium (Porcine) (Heparin) 5,000 units SC Q8 [facility]; Protocol Last Admin: 04/19/18 01:23 Dose: 5,000 units Ibuprofen (Motrin Tab) 400 mg PO Q6 PRN PRN Reason: Pain, moderate (4-7) Levofloxacin (Levaquin) 500 mg PO DAILY [facility]; Protocol Losartan Potassium (Cozaar) 50 mg PO DAILY [facility] Methylprednisolone (Solu-Medrol) 60 mg IVP Q8H [facility] Last Admin: 04/19/18 04:24 Dose: 60 mg Nicotine (Nicoderm Cq) 1 patch TD DAILY [facility] Pantoprazole Sodium (Protonix Ec Tab) 40 mg PO DAILY [facility] Pramipexole Dihydrochloride (Mirapex) 1.5 mg PO Q12 [facility] Pregabalin (Lyrica) 75 mg PO BID [facility] Senna/Docusate Sodium (Senokot S 50 Mg-8.6 Mg) 2 tab PO HS [facility] Trazodone HCl (Desyrel) 100 mg PO HS [facility] Last Admin: 04/18/18 23:40 Dose: 100 mg - Labs Labs: 04/18/18 19:18 04/18/18 19:18 PT 11.7 Seconds (9.8-13.1) 04/18/18 19:18 INR 1.0 04/18/18 19:18 APTT 32.2 Seconds (25.6-37.1) 04/18/18 19:18 - Constitutional Appears: Well, Non-toxic, No Acute Distress - Head Exam Head Exam: ATRAUMATIC, NORMOCEPHALIC - Eye Exam Eye Exam: Normal appearance, PERRL - ENT Exam ENT Exam: Mucous Membranes Moist - Neck Exam Neck Exam: Full ROM - Respiratory Exam Respiratory Exam: Decreased Breath Sounds, Wheezes - Cardiovascular Exam Cardiovascular Exam: REGULAR RHYTHM, +S1, +S2 - GI/Abdominal Exam GI & Abdominal Exam: Soft, Normal Bowel Sounds. absent: Firm, Guarding, Rigid - Extremities Exam Extremities Exam: Full ROM, Normal Capillary Refill, Pedal Edema, Tenderness Additional comments: positive bilateral LE cellulitis, with pre-ulcerative lesion to the left anterior leg - Neurological Exam Neurological Exam: Alert, Awake, Oriented x3 - Psychiatric Exam Psychiatric exam: Normal Affect, Normal Mood - Skin Skin Exam: Normal Color Assessment and Plan - Assessment and Plan (Free Text) Assessment: 57 y/o male patient with PMHx of COPD, CAD (s/p cardiac cath in 10/2017), HTN, presented on 04/18/18 with complaints of shortness of breath and chest tightness x2 days. Plan: COPD exacerbation - acute, symptomatic, improving - afebrile, WBC 8.6 - CXR: Pending - c/w duoneb Q6 ANNE and Q6 prn for shortness of breath - Solumedrol 60 mg IV q8 - Abx Levaquin 500 mg PO DAILY (Day #1) - Blood Culture- Pending - Nebulizer treatments Chest tightness likely secondary to COPD exacerbation and coughing - acute, symptomatic - EKG reviewed - Troponin negative x 3 HTN - chronic, controlled - c/w home medications Pre-Diabetes - chronic, controlled - held metformin - AccuChecks - F/U HgA1c Peripheral neuropathy - c/w lyrica Lower extremity wounds with cellulitis with pre-ulcerative lesion to RLE - Podiatry consulted: Dr. Fung; recs appreciated - Pt has compression stocking - prior wound cultures show pseudomonas - Continue IV Abx Levaquin 500 mg PO DAILY DVT/GI prophylaxis - Heparin 5,000 U SC q8 - Pantoprazole: for duration of hospital stay only. Pt on Solu-medrol. <Ann-Marie Jiménez - Last Filed: 04/19/18 18:01> Objective - Vital Signs/Intake and Output Vital Signs (last 24 hours): Temp Pulse Resp BP Pulse Ox 97.6 F 96 H 20 103/65 95 04/19/18 16:56 04/19/18 16:56 04/19/18 16:56 04/19/18 16:56 04/19/18 16:56 - Medications Medications: Current Medications Acetaminophen (Tylenol 325mg Tab) 650 mg PO Q6 PRN PRN Reason: Pain, Mild (1-3) Albuterol/Ipratropium (Duoneb 3 Mg/0.5 Mg (3 Ml) Ud) 3 ml INH RQ4 [facility] Last Admin: 04/19/18 15:43 Dose: 3 ml Amlodipine Besylate (Norvasc) 5 mg PO DAILY [facility] Aripiprazole (Abilify) 5 mg PO DAILY [facility] Last Admin: 04/19/18 09:45 Dose: 5 mg Aspirin (Ecotrin) 81 mg PO DAILY [facility] Last Admin: 04/19/18 09:45 Dose: 81 mg Buspirone HCl (Buspar) 10 mg PO BID [facility] Last Admin: 04/19/18 17:04 Dose: 10 mg Carvedilol (Coreg) 25 mg PO Q12 [facility] Last Admin: 04/19/18 09:44 Dose: 25 mg Chlorthalidone (Hygroton) 12.5 mg PO DAILY [facility] Last Admin: 04/19/18 09:48 Dose: 12.5 mg Dextrose (Glutose 15) 0 gm PO ONCE PRN; Protocol PRN Reason: Hypoglycemia Protocol Dextrose (Dextrose 50% Inj) 0 ml IV STAT PRN; Protocol PRN Reason: Hypoglycemia Protocol Glucagon (Glucagen Diagnostic Kit) 0 mg IM STAT PRN; Protocol PRN Reason: Hypoglycemia Protocol Heparin Sodium (Porcine) (Heparin) 5,000 units SC Q8 [facility]; Protocol Last Admin: 04/19/18 17:06 Dose: 5,000 units Ibuprofen (Motrin Tab) 400 mg PO Q6 PRN PRN Reason: Pain, moderate (4-7) Insulin Human Lispro (Humalog) 0 units SC ACHS [facility]; Protocol Last Admin: 04/19/18 17:03 Dose: Not Given Levofloxacin (Levaquin) 500 mg PO DAILY [facility]; Protocol Last Admin: 04/19/18 09:46 Dose: 500 mg Losartan Potassium (Cozaar) 100 mg PO DAILY [facility] Methylprednisolone (Solu-Medrol) 60 mg IVP Q8H [facility] Last Admin: 04/19/18 12:46 Dose: 60 mg Nicotine (Nicoderm Cq) 1 patch TD DAILY [facility] Last Admin: 04/19/18 09:43 Dose: 1 patch Pantoprazole Sodium (Protonix Ec Tab) 40 mg PO DAILY [facility] Last Admin: 04/19/18 09:47 Dose: 40 mg Pramipexole Dihydrochloride (Mirapex) 1.5 mg PO Q12 [facility] Last Admin: 04/19/18 09:47 Dose: 1.5 mg Pregabalin (Lyrica) 75 mg PO BID [facility] Last Admin: 04/19/18 17:03 Dose: 75 mg Senna/Docusate Sodium (Senokot S 50 Mg-8.6 Mg) 2 tab PO [facility] Trazodone HCl (Desyrel) 100 mg PO HS [facility] Last Admin: 04/18/18 23:40 Dose: 100 mg - Labs Labs: 04/18/18 19:18 04/18/18 19:18 PT 11.7 Seconds (9.8-13.1) 04/18/18 19:18 INR 1.0 04/18/18 19:18 APTT 32.2 Seconds (25.6-37.1) 04/18/18 19:18 Attending/Attestation - Attestation I have personally seen and examined this patient.: Yes I have fully participated in the care of the patient.: Yes I have reviewed all pertinent clinical information, including history, physical exam and plan: Yes Notes (Text): Additional Note: COPD exacerbation - still with SOB and wheezing but better compared to yersterday - will keep as observation - Saturation 95% on RA - cont IV Solumedrol and Duoneb RTC Mild LE Cellulitis - continue PO Levaquin- prescribed as outpt - pt had pseudomonas on culture - ff with Dr Fung HTN - decrease Norvasc to 5 mg daily as pt has peripheral edema - will give dose of Lasix IV - cont Chlorthalidone, increase Losartan dose
[2018-04-19] MEDS: levoFLOXacin 500 MG TAB PO SCH (09:46)
[2018-04-19] MEDS: Pantoprazole 40 mg EC Tab PO SCH (09:47)
--- NOTE | 2018-04-19 11:52 | CP.PCM.CON ---
History of Present Illness - History of Present Illness History of Present Illness: Podiatry Progress Note: Dr. Fung 57 year old male patient, with PMHx of HTN, COPD, CAD, seen and evaluated for L leg cellulitis and abrasion. Patient states that he is well known to Dr. Fung and follows up in the wound care center for continued evaluation, he states that the wound is getting smaller and now is not open/not draining. He is currently admitted for SOB and chest tightness for the past two days. Patient states that he is in no pain to the L lower extremity and continues to wear compression stockings daily. He denies any acute pedal complaints at this time. Denies N/V/F. PMHx: HTN, COPD, CAD PSHx: Cardiac cath (10/2017), L eye SH: Daily tobacco use ALL: NKDA Review of Systems - Review of Systems Review of Systems: As per HPI Past Patient History - Infectious Disease Hx of Infectious Diseases: None - Past Medical History & Family History Past Medical History?: Yes - Past Social History Smoking Status: Former Smoker - CARDIAC Hx Cardiac Disorders: Yes Hx Congestive Heart Failure: Yes Hx Hypercholesterolemia: No (PT DENIES) Hx Hypertension: Yes Other/Comment: Per pt : cardiac cath 10/2017 - PULMONARY Hx Respiratory Disorders: Yes Hx Asthma: Yes Hx Chronic Obstructive Pulmonary Disease (COPD): Yes Hx Emphysema: Yes Hx Sleep Apnea: Yes - NEUROLOGICAL Hx Neurological Disorder: No Hx Seizures: No - HEENT Hx HEENT Problems: No - RENAL Hx Chronic Kidney Disease: No - ENDOCRINE/METABOLIC Hx Endocrine Disorders: Yes Hx Diabetes Mellitus Type 2: No (prediabetes) - HEMATOLOGICAL/ONCOLOGICAL Hx Human Immunodeficiency Virus (HIV): No - INTEGUMENTARY Hx Dermatological Problems: Yes (Cellulitis) Hx Cellulitis: Yes - MUSCULOSKELETAL/RHEUMATOLOGICAL Hx Musculoskeletal Disorders: Yes Hx Falls: No - GASTROINTESTINAL Hx Gastrointestinal Disorders: No - GENITOURINARY/GYNECOLOGICAL Hx Sexually Transmitted Disorders: No - PSYCHIATRIC Hx Anxiety: Yes Hx Bipolar Disorder: Yes Hx Depression: Yes Hx Schizophrenia: Yes Hx Substance Use: No - SURGICAL HISTORY Hx Cardiac Catheterization: Yes - ANESTHESIA Hx Anesthesia: Yes Hx Anesthesia Reactions: No Hx Malignant Hyperthermia: No Has any member of the family had a problem w/ anesthesia?: No Meds Allergies/Adverse Reactions: Allergies Allergy/AdvReac Type Severity Reaction Status Date / Time No Known Allergies Allergy Verified 03/10/18 10:17 - Medications Medications: Current Medications Acetaminophen (Tylenol 325mg Tab) 650 mg PO Q6 PRN PRN Reason: Pain, Mild (1-3) Albuterol (Ventolin Hfa 90 Mcg/Actuation (8 G)) 2 puff IH Q4H PRN PRN Reason: Shortness of Breath Albuterol/Ipratropium (Duoneb 3 Mg/0.5 Mg (3 Ml) Ud) 3 ml INH RQ6 PRN PRN Reason: Shortness of Breath Albuterol/Ipratropium (Duoneb 3 Mg/0.5 Mg (3 Ml) Ud) 3 ml INH RQ6 [facility] Last Admin: 04/19/18 07:40 Dose: 3 ml Amlodipine Besylate (Norvasc) 10 mg PO DAILY [facility] Last Admin: 04/19/18 09:43 Dose: 10 mg Aripiprazole (Abilify) 5 mg PO DAILY [facility] Last Admin: 04/19/18 09:45 Dose: 5 mg Aspirin (Ecotrin) 81 mg PO DAILY [facility] Last Admin: 04/19/18 09:45 Dose: 81 mg Buspirone HCl (Buspar) 10 mg PO BID [facility] Last Admin: 04/19/18 10:55 Dose: 10 mg Carvedilol (Coreg) 25 mg PO Q12 [facility] Last Admin: 04/19/18 09:44 Dose: 25 mg Chlorthalidone (Hygroton) 12.5 mg PO DAILY [facility] Last Admin: 04/19/18 09:48 Dose: 12.5 mg Heparin Sodium (Porcine) (Heparin) 5,000 units SC Q8 [facility]; Protocol Last Admin: 04/19/18 09:46 Dose: 5,000 units Ibuprofen (Motrin Tab) 400 mg PO Q6 PRN PRN Reason: Pain, moderate (4-7) Levofloxacin (Levaquin) 500 mg PO DAILY [facility]; Protocol Last Admin: 04/19/18 09:46 Dose: 500 mg Losartan Potassium (Cozaar) 50 mg PO DAILY [facility] Last Admin: 04/19/18 09:44 Dose: 50 mg Methylprednisolone (Solu-Medrol) 60 mg IVP Q8H [facility] Last Admin: 04/19/18 04:24 Dose: 60 mg Nicotine (Nicoderm Cq) 1 patch TD DAILY [facility] Last Admin: 04/19/18 09:43 Dose: 1 patch Pantoprazole Sodium (Protonix Ec Tab) 40 mg PO DAILY [facility] Last Admin: 04/19/18 09:47 Dose: 40 mg Pramipexole Dihydrochloride (Mirapex) 1.5 mg PO Q12 [facility] Last Admin: 04/19/18 09:47 Dose: 1.5 mg Pregabalin (Lyrica) 75 mg PO BID [facility] Last Admin: 04/19/18 10:01 Dose: 75 mg Senna/Docusate Sodium (Senokot S 50 Mg-8.6 Mg) 2 tab PO HS [facility] Trazodone HCl (Desyrel) 100 mg PO HS [facility] Last Admin: 04/18/18 23:40 Dose: 100 mg Physical Exam - Constitutional Appears: Non-toxic, No Acute Distress - Head Exam Head Exam: ATRAUMATIC, NORMOCEPHALIC - Extremities Exam Additional comments: Lower extremity focused exam: Vasc: DP and PT pulses palpable. CFT <3 seconds to all digits. Temp gradient warm to warm from proximal to distal, Mild edema noted to b/l lower extremities Ortho: No pain upon palpation to bilateral LE, MMT 5/5 in all compartments Neuro: Gross and protective sensation intact Derm: L lower extremity shiny skin with evidence of cellulitis. Superficial abraisin noted to anterior aspect of L leg with no openings, no probe to bone, no tunneling, no tracking, no undermining, no fluctuance, no signs of abscess, no purulence appreciated. - Neurological Exam Neurological exam: Alert, Oriented x3 - Psychiatric Exam Psychiatric exam: Normal Affect, Normal Mood Results - Vital Signs Recent Vital Signs: Last Vital Signs Temp 97.5 F L 04/19/18 09:00 Pulse 90 04/19/18 09:44 Resp 20 04/19/18 09:00 BP 137/90 04/19/18 09:44 Pulse Ox 94 L 04/19/18 09:00 - Labs Result Diagrams: 04/18/18 19:18 04/18/18 19:18 Labs: Laboratory Results - last 24 hr 04/18/18 04/18/18 04/18/18 19:18 19:18 19:18 WBC 8.6 RBC 5.63 Hgb 14.4 D Hct 44.4 MCV 78.8 L MCH 25.6 L MCHC 32.5 L RDW 17.3 H Plt Count 267 MPV 7.1 L Neut % (Auto) 71.5 Lymph % (Auto) 15.7 L [place] % (Auto) 8.6 Eos % (Auto) 3.4 Baso % (Auto) 0.8 Neut # (Auto) 6.1 Lymph # (Auto) 1.3 [place] # (Auto) 0.7 Eos # (Auto) 0.3 Baso # (Auto) 0.1 PT 11.7 INR 1.0 APTT 32.2 Sodium 137 Potassium 4.0 Chloride 97 L Carbon Dioxide 28 Anion Gap 16 BUN 10 Creatinine 0.7 L Est GFR ( Amer) > 60 Est GFR (Non-Af Amer) > 60 POC Glucose (mg/dL) Random Glucose 111 H Calcium 8.8 Total Bilirubin 0.3 AST 20 ALT 27 Alkaline Phosphatase 104 Troponin I < 0.0120 NT-Pro-B Natriuret Pep Total Protein 7.6 Albumin 4.1 Globulin 3.6 Albumin/Globulin Ratio 1.1 Influenza Typ A,B (EIA) 04/18/18 04/18/18 04/19/18 19:48 21:27 01:30 WBC RBC Hgb Hct MCV MCH MCHC RDW Plt Count MPV Neut % (Auto) Lymph % (Auto) [place] % (Auto) Eos % (Auto) Baso % (Auto) Neut # (Auto) Lymph # (Auto) [place] # (Auto) Eos # (Auto) Baso # (Auto) PT INR APTT Sodium Potassium Chloride Carbon Dioxide Anion Gap BUN Creatinine Est GFR ( Amer) Est GFR (Non-Af Amer) POC Glucose (mg/dL) Random Glucose Calcium Total Bilirubin AST ALT Alkaline Phosphatase Troponin I < 0.0120 NT-Pro-B Natriuret Pep 53.4 Total Protein Albumin Globulin Albumin/Globulin Ratio Influenza Typ A,B (EIA) Negative for flu a/b 04/19/18 04/19/18 04/19/18 05:15 08:00 10:59 WBC RBC Hgb Hct MCV MCH MCHC RDW Plt Count MPV Neut % (Auto) Lymph % (Auto) [place] % (Auto) Eos % (Auto) Baso % (Auto) Neut # (Auto) Lymph # (Auto) [place] # (Auto) Eos # (Auto) Baso # (Auto) PT INR APTT Sodium Potassium Chloride Carbon Dioxide Anion Gap BUN Creatinine Est GFR ( Amer) Est GFR (Non-Af Amer) POC Glucose (mg/dL) 155 H 221 H Random Glucose Calcium Total Bilirubin AST ALT Alkaline Phosphatase Troponin I < 0.0120 NT-Pro-B Natriuret Pep Total Protein Albumin Globulin Albumin/Globulin Ratio Influenza Typ A,B (EIA) Assessment & Plan - Assessment and Plan (Free Text) Assessment: 57 year old male patient with left lower extremity cellulitis and superficial abrasion Plan: Patient seen and evaluated Discussed plan in detail with attending Dr. Fung Chart, vitals, labs reviewed; afebrile, WBC 8.6 Optifoam applied to superficial abraison site, compression stockings to be worn while in house Continue with Levaquin Will continue to follow patient while on the floors Pending d/c patient to follow up with Dr. Fung in [facility] on Thursday's Thank you for the consult - Date & Time Date: 04/19/18 Time: 11:52
--- NOTE | 2018-04-19 12:09 | RAD ---
Date of service: 04/18/2018 HISTORY: SOB COMPARISON: 02/24/2018 FINDINGS: LUNGS: The lungs are well inflated and clear. PLEURA: No pleural effusions or pneumothorax. CARDIOVASCULAR: Persistent mild cardiomegaly. There are aortic atherosclerotic calcifications present. OSSEOUS STRUCTURES: Within normal limits for the patient's age. VISUALIZED UPPER ABDOMEN: Normal. OTHER FINDINGS: None. IMPRESSION: No acute findings.
[2018-04-19] MEDS ORDERED: Glucagon Recombinant 1 mg Inj IM PRN (12:47)
[2018-04-19] MEDS ORDERED: Dextrose 50% SYRINGE Inj (50 ml) IV PRN (12:47)
[2018-04-19] MEDS: Insulin Lispro (humaLOG) 100 Units/ml Inj SC SCH ×2 (17:03→21:20)
[2018-04-19] MEDS: MethylPREDNISolone 40 mg Vial IVP SCH (20:38)
[2018-04-19] MEDS ORDERED: Docusate-Senna 50 mg-8.6 mg Tab PO SCH (22:00)
[2018-04-20] MEDS: Albuterol-Ipratrop 3 mg / 0.5 (3 ml) UD INH SCH (03:49)
[2018-04-20] MEDS: MethylPREDNISolone 40 mg Vial IVP SCH (04:00)
[2018-04-20] MEDS: Insulin Lispro (humaLOG) 100 Units/ml Inj SC SCH (06:51)
[2018-04-20] MEDS: Pantoprazole 40 mg EC Tab PO SCH (08:37)
[2018-04-20] MEDS: levoFLOXacin 500 MG TAB PO SCH (08:37)
--- NOTE | 2018-04-20 11:46 | CP.PCM.PN ---
Subjective - Date & Time of Evaluation Date of Evaluation: 04/20/18 Time of Evaluation: 11:46 - Subjective Subjective: Podiatry Progress Note: Dr. Fung 57 year old male patient seen and evaluated at bedside for L leg cellulitis and abrasion. Patient is resting comfortably and in NAD. He denies any acute pedal complaints at this time. Patient brought his compression stockings from home however states that they are too tight to put on his legs currently. Denies N/V/F. Objective - Vital Signs/Intake and Output Vital Signs (last 24 hours): Temp Pulse Resp BP Pulse Ox 98.1 F 63 18 125/62 99 04/20/18 07:41 04/20/18 07:41 04/20/18 07:41 04/20/18 07:41 04/20/18 07:41 - Medications Medications: Current Medications Acetaminophen (Tylenol 325mg Tab) 650 mg PO Q6 PRN PRN Reason: Pain, Mild (1-3) Last Admin: 04/20/18 06:56 Dose: 650 mg Albuterol/Ipratropium (Duoneb 3 Mg/0.5 Mg (3 Ml) Ud) 3 ml INH RQ4 [facility] Last Admin: 04/20/18 03:49 Dose: 3 ml Amlodipine Besylate (Norvasc) 5 mg PO DAILY [facility] Last Admin: 04/20/18 08:36 Dose: 5 mg Aripiprazole (Abilify) 5 mg PO DAILY [facility] Last Admin: 04/20/18 08:38 Dose: 5 mg Aspirin (Ecotrin) 81 mg PO DAILY [facility] Last Admin: 04/20/18 08:37 Dose: 81 mg Buspirone HCl (Buspar) 10 mg PO BID [facility] Last Admin: 04/20/18 08:37 Dose: 10 mg Carvedilol (Coreg) 25 mg PO Q12 [facility] Last Admin: 04/20/18 08:37 Dose: 25 mg Chlorthalidone (Hygroton) 12.5 mg PO DAILY [facility] Last Admin: 04/20/18 08:37 Dose: 12.5 mg Dextrose (Glutose 15) 0 gm PO ONCE PRN; Protocol PRN Reason: Hypoglycemia Protocol Dextrose (Dextrose 50% Inj) 0 ml IV STAT PRN; Protocol PRN Reason: Hypoglycemia Protocol Glucagon (Glucagen Diagnostic Kit) 0 mg IM STAT PRN; Protocol PRN Reason: Hypoglycemia Protocol Heparin Sodium (Porcine) (Heparin) 5,000 units SC Q8 [facility]; Protocol Last Admin: 04/20/18 08:37 Dose: 5,000 units Ibuprofen (Motrin Tab) 400 mg PO Q6 PRN PRN Reason: Pain, moderate (4-7) Insulin Human Lispro (Humalog) 0 units SC ACHS [facility]; Protocol Last Admin: 04/20/18 06:51 Dose: 4 unit Levofloxacin (Levaquin) 500 mg PO DAILY [facility]; Protocol Last Admin: 04/20/18 08:37 Dose: 500 mg Losartan Potassium (Cozaar) 100 mg PO DAILY [facility] Last Admin: 04/20/18 08:36 Dose: 100 mg Methylprednisolone (Solu-Medrol) 40 mg IVP Q8H [facility] Last Admin: 04/20/18 04:00 Dose: 40 mg Nicotine (Nicoderm Cq) 1 patch TD DAILY [facility] Last Admin: 04/20/18 08:38 Dose: Not Given Pantoprazole Sodium (Protonix Ec Tab) 40 mg PO DAILY [facility] Last Admin: 04/20/18 08:37 Dose: 40 mg Pramipexole Dihydrochloride (Mirapex) 1.5 mg PO Q12 [facility] Last Admin: 04/20/18 08:36 Dose: 1.5 mg Pregabalin (Lyrica) 75 mg PO BID [facility] Last Admin: 04/19/18 17:03 Dose: 75 mg Senna/Docusate Sodium (Senokot S 50 Mg-8.6 Mg) 2 tab PO HS [facility] Last Admin: 04/19/18 21:02 Dose: Not Given Trazodone HCl (Desyrel) 100 mg PO HS [facility] Last Admin: 04/19/18 21:01 Dose: 100 mg - Labs Labs: 04/18/18 19:18 04/18/18 19:18 PT 11.7 Seconds (9.8-13.1) 04/18/18 19:18 INR 1.0 04/18/18 19:18 APTT 32.2 Seconds (25.6-37.1) 04/18/18 19:18 - Constitutional Appears: Non-toxic, No Acute Distress - Head Exam Head Exam: NORMOCEPHALIC - Extremities Exam Additional comments: Lower extremity focused exam: Vasc: DP and PT pulses palpable. CFT <3 seconds to all digits. Temp gradient warm to warm from proximal to distal, Mild edema noted to b/l lower extremities Ortho: No pain upon palpation to bilateral LE, MMT 5/5 in all compartments Neuro: Gross and protective sensation intact Derm: L lower extremity shiny skin with evidence of cellulitis. Superficial abraisin noted to anterior aspect of L leg with no openings, no probe to bone, no tunneling, no tracking, no undermining, no fluctuance, no signs of abscess, no purulence appreciated. - Neurological Exam Neurological Exam: Alert, Awake, Oriented x3 - Psychiatric Exam Psychiatric exam: Normal Affect, Normal Mood Assessment and Plan - Assessment and Plan (Free Text) Assessment: 57 year old male patient with left lower extremity cellulitis and superficial abrasion; cellulitis resolved Plan: Patient seen and evaluated Discussed plan in detail with attending Dr. Fung Optifoam applied to superficial abraison site Patient told to go one size up with compression stockings and once he obtains the appropriate size to wear at all times Patient to f/u with Dr. Fung in the [place] [facility] for further care Pending d/c patient to follow up with Dr. Fung in [place] [facility] on Thursday'
--- NOTE | 2018-04-20 11:59 | CP.PCM.DIS ---
Provider - Provider Date of Admission: 04/18/18 21:01 Attending physician: Daisy Rocha MD Primary care physician: Dr. Monreal Consults: 04/19/18 08:00 Podiatry Consult Routine Comment: Consulting Provider: Rayshawn Fung Consulting Physician: Rayshawn Fung Reason for Consult: Bilateral lower extremity cellulitis, healing wounds Time Spent in preparation of Discharge (in minutes): 30 Hospital Course - Lab Results Lab Results: Micro Results 04/18/18 19:11 Blood-Venous Blood Culture - Preliminary NO GROWTH AFTER 24 HOURS 04/18/18 19:30 Blood-Venous Blood Culture - Preliminary NO GROWTH AFTER 24 HOURS Most Recent Lab Values WBC 8.6 K/uL (4.8-10.8) 04/18/18 19:18 RBC 5.63 Mil/uL (4.40-5.90) 04/18/18 19:18 Hgb 14.4 g/dL (12.0-18.0) D 04/18/18 19:18 Hct 44.4 % (35.0-51.0) 04/18/18 19:18 MCV 78.8 fl (80.0-94.0) L 04/18/18 19:18 MCH 25.6 pg (27.0-31.0) L 04/18/18 19:18 MCHC 32.5 g/dL (33.0-37.0) L 04/18/18 19:18 RDW 17.3 % (11.5-14.5) H 04/18/18 19:18 Plt Count 267 K/uL (130-400) 04/18/18 19:18 MPV 7.1 fl (7.2-11.7) L 04/18/18 19:18 Neut % (Auto) 71.5 % (50.0-75.0) 04/18/18 19:18 Lymph % (Auto) 15.7 % (20.0-40.0) L 04/18/18 19:18 [place] % (Auto) 8.6 % (0.0-10.0) 04/18/18 19:18 Eos % (Auto) 3.4 % (0.0-4.0) 04/18/18 19:18 Baso % (Auto) 0.8 % (0.0-2.0) 04/18/18 19:18 Neut # (Auto) 6.1 K/uL (1.8-7.0) 04/18/18 19:18 Lymph # (Auto) 1.3 K/uL (1.0-4.3) 04/18/18 19:18 [place] # (Auto) 0.7 K/uL (0.0-0.8) 04/18/18 19:18 Eos # (Auto) 0.3 K/uL (0.0-0.7) 04/18/18 19:18 Baso # (Auto) 0.1 K/uL (0.0-0.2) 04/18/18 19:18 PT 11.7 Seconds (9.8-13.1) 04/18/18 19:18 INR 1.0 04/18/18 19:18 APTT 32.2 Seconds (25.6-37.1) 04/18/18 19:18 Sodium 137 mmol/l (132-148) 04/18/18 19:18 Potassium 4.0 MMOL/L (3.6-5.0) 04/18/18 19:18 Chloride 97 mmol/L (98-107) L 04/18/18 19:18 Carbon Dioxide 28 mmol/L (22-30) 04/18/18 19:18 Anion Gap 16 (10-20) 04/18/18 19:18 BUN 10 mg/dl (9-20) 04/18/18 19:18 Creatinine 0.7 mg/dl (0.8-1.5) L 04/18/18 19:18 Est GFR ( Amer) > 60 04/18/18 19:18 Est GFR (Non-Af Amer) > 60 04/18/18 19:18 POC Glucose (mg/dL) 221 mg/dL (65-110) H 04/20/18 05:00 Random Glucose 111 mg/dL (75-110) H 04/18/18 19:18 Hemoglobin A1c 6.1 % (4.2-6.5) 04/19/18 11:30 Calcium 8.8 mg/dL (8.4-10.2) 04/18/18 19:18 Total Bilirubin 0.3 mg/dl (0.2-1.3) 04/18/18 19:18 AST 20 U/L (17-59) 04/18/18 19:18 ALT 27 U/L (21-72) 04/18/18 19:18 Alkaline Phosphatase 104 U/L (38-126) 04/18/18 19:18 Troponin I < 0.0120 ng/mL (0.00-0.120) 04/19/18 08:00 NT-Pro-B Natriuret Pep 53.4 pg/ml (0-900) 04/18/18 19:48 Total Protein 7.6 G/DL (6.3-8.2) 04/18/18 19:18 Albumin 4.1 g/dL (3.5-5.0) 04/18/18 19:18 Globulin 3.6 gm/dL (2.2-3.9) 04/18/18 19:18 Albumin/Globulin Ratio 1.1 (1.0-2.1) 04/18/18 19:18 Influenza Typ A,B (EIA) Negative for flu a/b (NEGATIVE) 04/18/18 21:27 - Hospital Course Hospital Course: Assessment: 57 y/o male patient with PMHx of COPD, CAD (s/p cardiac cath in 10/2017), HTN, presented on 04/18/18 with complaints of shortness of breath and chest tightness x2 days. Patient was seen sitting in chair at bedside, and states his symptoms have improved overnight. Patient reports cough and shortness of breath have improved. Patient reports he saw [employer] Dr. Fung on Thursday, and has been on Abx for the last 2 weeks, unsure of name of Abx. Patient denies any fever, nausea, vomiting, abdominal pain, urinary symptoms, diarrhea or constipation. patient aware he should follow up with [facility], and supervisor [facility] upon discharge. Plan: COPD exacerbation - acute, resolving - afebrile, WBC 8.6 - CXR: no active disease - Rx Prednisone 30 mg PO DAILYfor 7 days - Rx Levaquin 7500 mg PO DAILY 5 days - Blood Culture- no growth - Continue home Nebulizer treatments Chest tightness likely secondary to COPD exacerbation and coughing - acute, symptomatic, resolved - EKG reviewed - Troponin negative x 3 - continue home medications HTN - chronic, controlled - continue with home medications Diabetes with Obesity - chronic, controlled - continue with home medications Peripheral neuropathy - continue with home medications Venous stasis ulcerations with cellulitis to RLE - Follow up with [employer]- Dr Fung - Pt has compression stocking - prior wound cultures show pseudomonas - Rx Levaquin 7500 mg PO DAILY 5 days Depression - continue home medications Active smoker - continue with Nicotine patches - Date & Time of H&P Date of H&P: 04/20/18 Time of H&P: 11:57 Discharge Exam - Head Exam Head Exam: NORMOCEPHALIC - Eye Exam Eye Exam: Normal appearance, PERRL Pupil Exam: NORMAL ACCOMODATION - ENT Exam ENT Exam: Mucous Membranes Moist, Normal Exam - Respiratory Exam Respiratory Exam: Decreased Breath Sounds, NORMAL BREATHING PATTERN. absent: Rales, Rhonchi, Wheezes Additional comments: decreased breath sounds to lower lung base - Cardiovascular Exam Cardiovascular Exam: REGULAR RHYTHM, +S1, +S2 - GI/Abdominal Exam GI & Abdominal Exam: Normal Bowel Sounds, Soft. absent: Distended, Firm, Guarding - Extremities Exam Extremities exam: full ROM, normal capillary refill, pedal edema Additional comments: pre-ulcerative, superficial lesions noted with cellulitis - Neurological Exam Neurological exam: Alert, Oriented x3 - Psychiatric Exam Psychiatric exam: Normal Affect, Normal Mood Discharge Plan - Discharge Medications Prescriptions: levoFLOXacin [Levaquin] 750 mg PO DAILY #5 tab predniSONE [Prednisone] 30 mg PO DAILY #21 tab - Follow Up Plan Condition: FAIR Disposition: HOME/ ROUTINE Instructions: Exacerbation of COPD (DC), Cellulitis (DC), Obesity (DC), Obesity (GEN) Additional Instructions: Patient to follow up with landing support specialist, his PCP Dr. Monreal, and Podiatry, Dr. Fung Referrals: Rayshawn Fung DPM [Staff Provider] - Anabell Monreal MD [Family Provider] -
[2018-04-20 12:00] VITALS: BP 159/82; PULSE 84; RESP 20; TEMP 97.2
[2018-04-21 22:25] VITALS: O2SAT 96
== END 2018-04-20 12:44 | disposition home or self-care (01) ==
LOC: H.ER 17:16 → H.ERHOLD 21:01 → H.TEL 23:00
PROVIDERS: ADMIT Internal Medicine; ATTEND Internal Medicine
DX: J44.1 Chronic obstructive pulmonary disease with (acute) exacerbation (principal); L03.116 Cellulitis of left lower limb; E11.40 Type 2 diabetes mellitus with diabetic neuropathy, unspecified; E11.622 Type 2 diabetes mellitus with other skin ulcer; L97.929 Non-pressure chronic ulcer of unspecified part of left lower leg with unspecified severity; B96.5 Pseudomonas (aeruginosa) (mallei) (pseudomallei) as the cause of diseases classified elsewhere; I87.8 Other specified disorders of veins; R07.89 Other chest pain; I10 Essential (primary) hypertension; I25.10 Atherosclerotic heart disease of native coronary artery without angina pectoris; E66.9 Obesity, unspecified; Z68.41 Body mass index [BMI] 40.0-44.9, adult; G47.39 Other sleep apnea; F20.9 Schizophrenia, unspecified; F31.9 Bipolar disorder, unspecified; F41.9 Anxiety disorder, unspecified; Z72.0 Tobacco use; Z95.5 Presence of coronary angioplasty implant and graft; Z79.84 Long term (current) use of oral hypoglycemic drugs; Z79.82 Long term (current) use of aspirin
CPT/HCPCS: 36415; 71045; 80053; 82948; 83036; 83880; 84484; 85025; 85610; 85730; 87040; 87804; 93005; 94640; 96365; 96372; 96375; 96376; 99285; G0378; J0456; J1644; J1940; J2920; J2930

== ENCOUNTER 2018-05-04 11:19 | Inpatient (IN) | payer MEDICAID ==
--- NOTE | 2018-05-04 12:04 | ED PDOC ---
HPI: Psych/Substance Abuse Time Seen by Provider: 05/04/18 11:40 Chief Complaint (Nursing): Psychiatric Evaluation Chief Complaint (Provider): Psychiatric Evaluation History Per: Patient History/Exam Limitations: no limitations Onset/Duration Of Symptoms: Days Current Symptoms Are (Timing): Still Present Associated Symptoms: Depression, Suicidal Thoughts. denies: Suicidal Plan Additional Complaint(s): 57 year old male with PMHx of HTN and chronic leg swelling presents to the ED for a psychiatric evaluation. Patient reports he has been hearing voices for a while and a couple of days ago, patient admits to suicidal ideation without plan. Patient suffers from depression for which he does not take any medication or visits the psychiatrist. Otherwise, he denies any other complaints. PCP: Anabell Monreal Past Medical History Reviewed: Historical Data, Nursing Documentation, Vital Signs Vital Signs: Last Vital Signs Temp 97 F L 05/04/18 11:38 Pulse 110 H 05/04/18 11:38 Resp 19 05/04/18 11:38 BP 168/104 H 05/04/18 11:38 Pulse Ox 96 05/04/18 11:38 - Medical History PMH: Anxiety, Asthma, Bipolar Disorder, CHF, COPD, Depression, Diabetes, Emphysema, HTN, Personality Disorder, Schizophrenia, Sleep Apnea Denies: HIV, Hypercholesterolemia (PT DENIES), Chronic Kidney Disease, Seizures, Sexually Transmitted Disease - Surgical History Surgical History: No Surg Hx - Family History Family History: States: Unknown Family Hx - Social History Current smoker - smoking cessation education provided: No Alcohol: Social Drugs: Denies - Immunization History Hx Tetanus Toxoid Vaccination: Yes Hx Influenza Vaccination: Yes Hx Pneumococcal Vaccination: No - Home Medications Home Medications: Ambulatory Orders Medication Instructions Recorded RX: Albuterol HFA [Ventolin HFA 90 2 puff IH Q6 PRN 03/09/17 mcg/actuation (8 g)] RX: MetFORMIN ER [Glucophage XR] 500 mg PO DAILY 03/09/17 RX: Albuterol/Ipratropium 1 puff IH Q6 PRN 06/17/17 [Combivent Respimat] RX: Irbesartan [Avapro] 150 mg PO DAILY 06/17/17 RX: amLODIPine [Norvasc] 10 mg PO DAILY 06/17/17 RX: Aspirin [Ecotrin] 81 mg PO DAILY 02/22/18 RX: Carvedilol [Coreg] 25 mg PO Q12 02/22/18 RX: traZODone [Desyrel] 100 mg PO HS tab 03/05/18 RX: Pramipexole Di-HCl [Mirapex] 1.5 mg PO Q12 03/13/18 RX: Pregabalin [Lyrica] 75 mg PO Q12 03/13/18 Fluticasone/Salmeterol 250/50 1 puff IH Q12 05/04/18 [Advair Diskus 250/50] RX: Albuterol 0.083% [Albuterol 3 ml IH Q6 PRN 05/04/18 0.083% Inhal Radha (2.5 mg/3 ml) UD] RX: Chlorthalidone [Hygroton] 25 mg PO DAILY 05/04/18 - Allergies Allergies/Adverse Reactions: Allergies Allergy/AdvReac Type Severity Reaction Status Date / Time No Known Allergies Allergy Verified 03/10/18 10:17 Review of Systems ROS Statement: Except As Marked, All Systems Reviewed And Found Negative Constitutional: Negative for: Fever, Chills Respiratory: Negative for: Cough, Shortness of Breath Gastrointestinal: Negative for: Nausea, Vomiting, Abdominal Pain, Diarrhea Psych: Positive for: Depression, Suicidal ideation Physical Exam - Reviewed Nursing Documentation Reviewed: Yes Vital Signs Reviewed: Yes - Physical Exam Appears: Positive for: Well (comfortable), Non-toxic, No Acute Distress Head Exam: Positive for: ATRAUMATIC, NORMAL INSPECTION, NORMOCEPHALIC Skin: Positive for: Normal Color, Warm, Dry. Negative for: Rash Eye Exam: Positive for: Normal appearance, EOMI, PERRL Cardiovascular/Chest: Positive for: Regular Rate, Rhythm Respiratory: Negative for: Respiratory Distress Neurologic/Psych: Positive for: Alert, Oriented (x3), Gait (steady) - Laboratory Results Result Diagrams: 05/05/18 05:50 05/05/18 05:50 - ECG O2 Sat by Pulse Oximetry: 96 (RA) Pulse Ox Interpretation: Normal Medical Decision Making Medical Decision Making: Time: 1144 Impression: depression with suicidal ideation Plan: --EKG --Alcohol serum --BMP --Drug screen --Crisis evaluation --ED urine dipstick --CBC w/ differential --Chest two views [RAD] --1:1 Observation --Reevaluation Time: 1408 FINDINGS: LUNGS: No active pulmonary disease. PLEURA: No significant pleural effusion identified. No pneumothorax apparent. CARDIOVASCULAR: Atherosclerotic calcifications identified primarily aortic arch. No radiographic findings to suggest acute or significant cardiovascular disease. No pulmonary vascular congestion. OSSEOUS STRUCTURES: No significant abnormalities. VISUALIZED UPPER ABDOMEN: Normal. OTHER FINDINGS: None. IMPRESSION: No active disease. No significant interval change compared to the prior examination(s). 1300 Upon reevaluation, patient is admitted for depression as per Dr. Hayes. Vital signs are stable. Labs reviewed. In my opinion there are no current acute medical conditions that contraindicate the placement of this patient in a psychiatric unit. Scribe Attestation: Documented by Yusuf Stovall acting as a scribe for Dre Singletary MD Provider Scribe Attestation: All medical record entries made by the Scribe were at my direction and personally dictated by me. I have reviewed the chart and agree that the record accurately reflects my personal performance of the history, physical exam, medical decision making, and the department course for this patient. I have also personally directed, reviewed, and agree with the discharge instructions and disposition. Disposition - Clinical Impression Clinical Impression: Depressive disorder - Patient ED Disposition Is Patient to be Admitted: Yes - Disposition Disposition Time: 13:00 Condition: STABLE - Pt Status Changed To: Hospital Disposition Of: Inpatient - Admit Certification Admit to Inpatient:: After my assessment, the patient will require hospitalization for at least two midnights. This is because of the severity of symptoms shown, intensity of services needed, and/or the medical risk in this patient being treated as an outpatient. - POA Present On Arrival: None
[2018-05-04 12:39] VITALS: O2SAT 96
[2018-05-04 13:28] LABS: BASO # 0.1 K/uL (0.0-0.2); BASO % 0.7 % (0.0-2.0); EOS # 0.1 K/uL (0.0-0.7); EOS % 0.6 % (0.0-4.0); HEMOGLOBIN 14.1 g/dL (12.0-18.0); LYMPH # 1.1 K/uL (1.0-4.3); LYMPH % 7.1 % (20.0-40.0); MEAN CELL VOLUME 79.9 fl (80.0-94.0); MEAN CORPUSCULAR HEMOGLOBIN 25.5 pg (27.0-31.0); MEAN CORPUSCULAR HGB CONC 31.9 g/dL (33.0-37.0); MEAN PLATELET VOLUME 7.8 fl (7.2-11.7); MONO # 0.7 K/uL (0.0-0.8); MONO % 4.5 % (0.0-10.0); NEUT % 87.1 % (50.0-75.0); PLATELET COUNT 318 K/uL (130-400); RBC 5.52 Mil/uL (4.40-5.90); RED CELL DISTRIBUTION WIDTH 17.7 % (11.5-14.5); WHITE BLOOD COUNT 16.1 K/uL (4.8-10.8)
[2018-05-04 13:44] LABS: BLOOD UREA NITROGEN 11 mg/dl (9-20); CALCIUM 9.4 mg/dL (8.4-10.2); GFR NON-AFRICAN AMERICAN > 60
[2018-05-04 13:57] LABS: BASOPHIL 1 % (0-2); LYMPHOCYTE 7 % (20-50); MONOCYTE 3 % (0-10); NEUTROPHIL 89 % (42-75); TOTAL CELLS COUNTED 100
[2018-05-04 14:01] LABS: ANISOCYTOSIS SLIGHT; PLATELET ESTIMATE NORMAL (NORMAL)
[2018-05-04 14:09] LABS: BARBITURATES, UR NEGATIVE (NEGATIVE); BENZODIAZEPINES, UR NEGATIVE (NEGATIVE); OPIATES, UR NEGATIVE (NEGATIVE); PHENCYCLIDINE, UR NEGATIVE (NEGATIVE)
--- NOTE | 2018-05-04 14:12 | RAD ---
Date of service: 05/04/2018 HISTORY: clearance COMPARISON: 04/18/2018 TECHNIQUE: Chest PA and lateral FINDINGS: LUNGS: No active pulmonary disease. PLEURA: No significant pleural effusion identified. No pneumothorax apparent. CARDIOVASCULAR: Atherosclerotic calcifications identified primarily aortic arch. No radiographic findings to suggest acute or significant cardiovascular disease. No pulmonary vascular congestion. OSSEOUS STRUCTURES: No significant abnormalities. VISUALIZED UPPER ABDOMEN: Normal. OTHER FINDINGS: None. IMPRESSION: No active disease. No significant interval change compared to the prior examination(s).
--- NOTE | 2018-05-04 16:45 | PCM.BM ---
<Doris Beltre - Last Filed: 05/04/18 16:43> Treatment Plan Problems - Problems identified on initial assessmt Anxiety Date Initiated: 05/04/18 Time Initiated: 16:44 Assessment reference: NA Status: Active Suicidal Ideation Date Initiated: 05/04/18 Assessment reference: NA Status: Active Problem 3 Date Initiated: 05/04/18 Time Initiated: 16:47 Assessment reference: NA Status: Active Self Care Deficit Date Initiated: 05/04/18 Time Initiated: 16:48 Assessment reference: NA Status: Active Hopelessness/Helplessness Date Initiated: 05/04/18 Time Initiated: 16:50 Assessment reference: NA Status: Active Problem 1 Date Initiated: 05/04/18 Time Initiated: 16:51 Assessment reference: NA Status: Active Treatment assets and liabiliti Patient Assests: adapts well, cooperative, insightful, resourceful, self- reliant, ADL independent, negotiates basic needs, cognitively intact, good interpersonal skills Patient Liabilities: medical problems - Milieu Protocol Maintain good personal hygiene: daily Encourage regular showers, daily Remind patient to perform daily oral care, daily Assist patient to perform ADL's Maintain personal safety: every shift Educate patient to report safety concerns to staff, every shift Monitor environment for contraband/sharps Medication safety: Monitor for expected outcome, potential side effects: every shift, Assess barriers to learning: every shift, Assess readiness for medication education: every shift <Lamar Hayes - Last Filed: 05/05/18 08:49> - Diagnosis (1) Schizoaffective disorder Status: Chronic Interventions: Medication management, Individual and group therapy, Psychoeducation 05/05/18 08:48
[2018-05-04] MEDS ORDERED: Bismuth Subsalicylate 262 mg/15 ml Sus (240 ml) PO PRN (17:02)
[2018-05-04] MEDS ORDERED: Alum-Mag Hydrox-Simethicone Susp (30 mL) PO PRN (17:02)
[2018-05-04] MEDS ORDERED: Magnesium Hydroxide Susp 30 ml UD PO PRN (17:02)
--- NOTE | 2018-05-04 18:05 | CARD ---
APPROVED REPORT Date of service: 05/04/2018 EKG Measurement Heart [id number] <Conclusion> Normal sinus rhythm Normal ECG
[2018-05-04] MEDS: Albuterol-Ipratrop 3 mg / 0.5 (3 ml) UD INH SCH (21:02)
[2018-05-05] MEDS: Albuterol-Ipratrop 3 mg / 0.5 (3 ml) UD INH SCH ×7 (00:30→23:43)
[2018-05-05 06:24] LABS: HEMOGLOBIN 13.5 g/dL (12.0-18.0); MEAN CORPUSCULAR HEMOGLOBIN 25.5 pg (27.0-31.0); MEAN CORPUSCULAR HGB CONC 32.2 g/dL (33.0-37.0); RBC 5.31 Mil/uL (4.40-5.90); RED CELL DISTRIBUTION WIDTH 17.7 % (11.5-14.5); WHITE BLOOD COUNT 11.7 K/uL (4.8-10.8)
[2018-05-05 07:04] LABS: LDL CHOLESTEROL 78 mg/dL (0-129)
[2018-05-05 07:06] LABS: BLOOD UREA NITROGEN 13 mg/dl (9-20); GFR NON-AFRICAN AMERICAN > 60
[2018-05-05 07:07] LABS: ALB/GLOB RATIO 1.1 (1.0-2.1); ALBUMIN 3.9 g/dL (3.5-5.0); ALT/SGPT 29 U/L (21-72); AST/SGOT 20 U/L (17-59); CALCIUM 9.1 mg/dL (8.4-10.2); HDL CHOLESTEROL 43 MG/DL (30-70)
[2018-05-05 07:26] LABS: FERRITIN 44.7 ng/Ml (17.9-464)
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
--- NOTE | 2018-05-05 12:39 | PCM.BM ---
<Elizabeth Vee M - Last Filed: 05/05/18 12:34> Treatment Plan Problems - Problems identified on initial assessmt Problem 3 Date Initiated: 05/04/18 Time Initiated: 16:47 Assessment reference: NA Status: Active Problem 1 Date Initiated: 05/04/18 Time Initiated: 16:51 Assessment reference: NA Status: Active Anxiety Date Initiated: 05/04/18 Time Initiated: 16:44 Assessment reference: NA Status: Active Suicidal Ideation Date Initiated: 05/04/18 Assessment reference: NA Status: Active Self Care Deficit Date Initiated: 05/04/18 Time Initiated: 16:48 Assessment reference: NA Status: Active Hopelessness/Helplessness Date Initiated: 05/04/18 Time Initiated: 16:50 Assessment reference: NA Status: Active Treatment assets and liabiliti Patient Assests: adapts well, cooperative, insightful, resourceful, self- reliant, ADL independent, negotiates basic needs, cognitively intact, good interpersonal skills Patient Liabilities: medical problems - Milieu Protocol Maintain good personal hygiene: daily Encourage regular showers, daily Remind patient to perform daily oral care, daily Assist patient to perform ADL's Maintain personal safety: every shift Educate patient to report safety concerns to staff, every shift Monitor environment for contraband/sharps Medication safety: Monitor for expected outcome, potential side effects: every shift, Assess barriers to learning: every shift, Assess readiness for medication education: every shift Family Contact Family involvement: Family/SO is involved Family contact: Patient declines to allow family contact at present - Outside Agency [facility] Care involvment: Not involved - Goals for Treatment Patient goals for treatment: Pt will improve overall mood. Pt will report feeling more positive about self and abilities. Pt will develop strategies for thought distraction when ruminating on the past. Pt will develop coping skills to better cope with stress and feelings of overwhelming. Pt will report to interdisicplinary team when expeirenicng hallucinations. Pt will contract for safety on the unit. Pt will get 7-8 hours of restful sleep each night. Discharge/Continuing Care - Education Needs Education Needs: Patient Medication, Patient Diagnosis/Disease Process, Patient Coping Skills, Patient Community resources, Patient Activities of Daily Living, Patient Uses of Medical Equipment, Patient Health Practices/Safety, Patient Personal Hygiene/Grooming, Patient Aftercare Safety Plan - Discharge Discharge Criteria: Tolerates medication w/o severe side effects, Free of agitation, Normal sleep pattern, Ability to care for self, No longer exhibiting s/s of withdrawal, Other (Free of command auditory hallucinations) Discharge to:: Home - Additional Comments 05/05/18 12:40 Pt seen and discussed in team meeting. Reason for hospitalization reviewed and discussed. Pt reported he was referred to the ED due to command auditory hallucinations. Pt reported that the voices are telling him to hurt himself. Pt denied intent and plan. Pt reported worsening depression, anxiety and crying spells. Pt reported poor sleep pattern. Pt reported lacking initiation and motivation to complete ADL's and certain tasks. pt reported difficulty time concentrating and focusing. Pt reported medication non-compliance. Pt reported tx non-compliance due to lack of transportation and distance. Pt reported when he was last discharged from [facility] he as referred to [facility]; however, due to transportation he was unable to make it to his appointments. Pt is requesting to be linked to a closer agency/clinic. Pt's social and medical issues reviewed. Pt reported having poor communication with relatives and limited social support. Pt reports residing with a roommate. Pt's medications reviewed at length with attending physician, Dr. Abigail MD. Please refer to attending physician progress note for further detail. Tx plan reviewed and discussed; pt verbalized agreement. SW to continue to follow case. - Treatment Team Participation Discussed with Family/SO: No Was Patient/Family/SO present at Treatment Team Meeting: Yes <Lamar Hayes - Last Filed: 05/05/18 14:24> - Diagnosis (1) Schizoaffective disorder Status: Chronic Interventions: Medication management, Individual and group therapy, Psychoeducation 05/05/18 14:24
[2018-05-05 12:43] LABS: FOLATE 8.3 ng/mL
[2018-05-06] MEDS: Albuterol-Ipratrop 3 mg / 0.5 (3 ml) UD INH SCH ×6 (04:39→23:46)
--- NOTE | 2018-05-06 08:55 | PCM.PYCHPN ---
Psychiatric Progress Note - Psychiatric Progress Note Patient seen today, length of contact: Pt evaluated, case discussed with team, chart reviewed Patient Chief Complaint: "The voices are getting worse." Problems Identified/Issues Discussed: Patient reports that he continues to hear AH, telling him to not get psychiatric treatment. He continues to see green shadows of people and does not know why they are there, but believes they are not there for good reasons. He continues to feel depressed, anxious, tearful and feels irritable with mood lability. We discussed continued titration of Risperdal. Medication Change: Yes Medical Record Reviewed: Yes Consults ordered or reviewed: Medicine consult ordered on admission, pending consult and note. Mental Status Examination - Cognitive Function Orientation: Person, Place, Situation, Time Memory: Intact Attention: WNL Concentration: WNL Association: WNL Fund of Knowledge: WNL Decription of patient's judgement and insights: Fair I/J - Mood Mood: Depressed, Anxious - Affect Affect: Constricted, Depressed - Formal Thought Process Formal Thought Process: Hallucinations Psychotic Thoughts and Behaviors: +AH/VH - Suicidal Ideation Suicidal Ideation: No - Homicidal Ideation Homicidal Ideation: No Goal/Treatment Plan - Goal/Treatment Plan Need for Continued Stay: Remain at risks for inpatient hospitalization, Severe depression anxiety, Discharge may exacerbated symptoms Progress Toward Problem(s) and Goals/Treatment Plan: Schizoaffective Disorder -Individual and group therapy -Psychoeducation -Increase Risperdal -Continue Lexapro -Medicine consult -Disposition planning
[2018-05-06 18:23] LABS: URINE BILIRUBIN NEGATIVE (NEGATIVE); URINE BLOOD NEGATIVE (NEGATIVE); URINE CLARITY CLEAR (Clear); URINE COLOR YELLOW (YELLOW); URINE GLUCOSE (UA) NEG (NEGATIVE); URINE LEUKOCYTE ESTERASE NEG Leu/uL (Negative); URINE PROTEIN NEGATIVE (NEGATIVE); URINE UROBILINOGEN 0.2-1.0 mg/dL (0.2-1.0)
[2018-05-07] MEDS: Albuterol-Ipratrop 3 mg / 0.5 (3 ml) UD INH SCH ×6 (04:46→23:52)
[2018-05-07 05:50] LABS: HEMOGLOBIN 13.6 g/dL (12.0-18.0); MEAN CELL VOLUME 79.2 fl (80.0-94.0); MEAN CORPUSCULAR HEMOGLOBIN 26.1 pg (27.0-31.0); MEAN CORPUSCULAR HGB CONC 32.9 g/dL (33.0-37.0); RBC 5.23 Mil/uL (4.40-5.90); RED CELL DISTRIBUTION WIDTH 17.2 % (11.5-14.5); WHITE BLOOD COUNT 10.7 K/uL (4.8-10.8)
[2018-05-07 06:03] LABS: ALB/GLOB RATIO 1.1 (1.0-2.1); ALBUMIN 3.8 g/dL (3.5-5.0); ALT/SGPT 38 U/L (21-72); AST/SGOT 22 U/L (17-59); BLOOD UREA NITROGEN 14 mg/dl (9-20); CALCIUM 9.2 mg/dL (8.4-10.2); GFR NON-AFRICAN AMERICAN > 60
--- NOTE | 2018-05-07 08:01 | CON ---
DATE: 05/06/2018 CHIEF COMPLIANT: Increasing pain, swelling, and redness of both lower extremities below the knee, left greater than right. HISTORY OF PRESENT ILLNESS: This is a 57-year-old white male, who noted increasing pain, redness, and swelling of both lower extremities, right greater than left for one to two weeks prior to admission. He denied any chest pain, shortness of breath, or palpitations. He also denied any nausea or vomiting or fever. PAST MEDICAL HISTORY: Cellulitis of the left lower extremity. The patient was discharged on 03/13/2018 with a diagnosis of cellulitis of both lower extremities, left greater than right. Wound culture was positive for pseudomonas. The patient was evaluated by Dr. Armas, who had recommended one additional week of Zosyn and vancomycin while the patient was at the TCU. At the TCU, it was difficult to obtain IV access. Dr. Armas prescribed Zosyn 600 mg every 12 hours as well as Cipro 500 mg twice daily for 1 week following discharge. Exacerbation of COPD, diabetes, hypertension, hypercholesterolemia, restless leg syndrome, schizoaffective disorder, bipolar disorder, diffuse epidural lipomatosis, morbid obesity, severe sleep apnea. During the patient's last admission for cellulitis in 03/2018, Dr. Clemente Brennan, was consulted to evaluate the patient's lower extremity edema. CT angiogram of the lower extremities revealed no significant peripheral vascular disease. Norvasc was discontinued because it could contribute to the patient's lower extremity edema. Chlorthalidone 12.5 mg daily was ordered for relief of lower extremity edema. ALLERGIES: NO KNOWN DRUG ALLERGIES. MEDICATIONS: Combivent 1 inhalation 4 times daily, chlorthalidone 12.5 mg daily, Avapro 150 mg daily, aspirin 81 mg daily, pramipexole 1.5 mg twice daily, pravastatin 40 mg at bedtime, metformin ER 500 mg daily, albuterol sulfate 2.5 mg/3 mL via nebulizer 3 times daily as needed, carvedilol 12.5 mg twice daily, and Lyrica 75 mg twice daily. SOCIAL HISTORY: The patient has a history of smoking 1 to 2 packs of cigarettes daily for approximately 30 years. He claims to have recently reduced his smoking. He has a history of alcohol abuse. FAMILY HISTORY: Father at the age of 52 due to lung cancer. He was heavy smoker. Mother has history of coronary artery disease, status post coronary artery bypass graft, she has no history of smoking. The patient has three sisters who are healthy and two half brothers who are also healthy. REVIEW OF SYSTEMS: Unremarkable except as mentioned above. PHYSICAL EXAMINATION: GENERAL: This is a 57-year-old morbidly obese while male, complaining of bilateral lower extremity pain, redness and swelling below the knees, especially with ambulation. VITAL SIGNS: Blood pressure 132/80 mmHg, respirations 18 per minute, pulse rate 80 beats per minute, temperature 97.8 Fahrenheit, and pulse ox 95% on room air. SKIN: Warm and dry. HEENT: Atraumatic and normocephalic. Anicteric sclerae. Pupils are equal, round, and reactive to light and accommodation. NECK: Supple. No jugular venous distention. No lymphadenopathy. LUNGS: Decreased breath sounds bilaterally. HEART: Regular S1 and S2. A 1/6 systolic ejection murmur. ABDOMEN: Distended. Positive bowel sounds. Soft and nontender. EXTREMITIES: 2+ edema of the lower extremities to the knees with erythema, left greater than right lower extremity. IMPRESSION: 1. Bilateral lower extremity cellulitis, left greater than right. 2. Lower extremity edema secondary to venous insufficiency and dependent edema. 3. Diabetes. 4. Morbid obesity. 5. Diffuse epidural lipomatosis. 6. Hypertension. 7. Chronic obstructive pulmonary disease. 8. Restless leg syndrome. 9. Hypercholesteremia. 10. Schizoaffective disorder. 11. Bipolar disorder. PLAN: Dr. Armas has been consulted to evaluate the patient concerning bilateral lower extremity cellulitis. The patient will be started on Zyvox 600 mg every 12 hours as well as Cipro 500 mg twice daily. The patient will continue medications as mentioned above. Fasting finger sticks has been ordered daily. CBC and chem metabolic panel as well as urinalysis has been ordered. Anabell Monreal MD
--- NOTE | 2018-05-07 08:07 | PCM.PYCHPN ---
Psychiatric Progress Note - Psychiatric Progress Note Patient seen today, length of contact: Pt evaluated, case discussed with team, chart reviewed Patient Chief Complaint: "The voices are getting worse." Problems Identified/Issues Discussed: Patient reports that he continues to hear AH, telling him that he does not need treatment and that he should leave the hospital. He continues to feel depressed, anxious, tearful and feels irritable with mood lability. We discussed continued titration of Risperdal. Medication Change: Yes (Increase Risperdal) Medical Record Reviewed: Yes Consults ordered or reviewed: Medicine consult ordered on admission, pending note. Mental Status Examination - Cognitive Function Orientation: Person, Place, Situation, Time Memory: Intact Attention: WNL Concentration: WNL Association: WNL Fund of Knowledge: [facility] Decription of patient's judgement and insights: Fair I/J - Mood Mood: Depressed, Anxious - Affect Affect: Constricted, Depressed - Formal Thought Process Formal Thought Process: Hallucinations Psychotic Thoughts and Behaviors: +AH - Suicidal Ideation Suicidal Ideation: No - Homicidal Ideation Homicidal Ideation: No Goal/Treatment Plan - Goal/Treatment Plan Need for Continued Stay: Remain at risks for inpatient hospitalization, Severe depression anxiety, Discharge may exacerbated symptoms Progress Toward Problem(s) and Goals/Treatment Plan: Schizoaffective Disorder -Individual and group therapy -Psychoeducation -Increase Risperdal -Continue Lexapro -Medicine consult -Disposition planning
[2018-05-07] MEDS ORDERED: Hydrophor Oint TOP SCH (09:00)
[2018-05-07 10:52] VITALS: BMI 44.7
--- NOTE | 2018-05-07 12:45 | CP.PCM.CON ---
History of Present Illness - History of Present Illness History of Present Illness: 57 year old male with a past medical history of cellulitis, HTN and obesity, COPD is admitted for exac of Depression and found to have severe leg edema with cellulitis - Medical History PMH: Anxiety, Asthma, Bipolar Disorder, CHF, COPD, Depression, Diabetes, Emphysema, HTN, Personality Disorder, Schizophrenia, Sleep Apnea Denies: HIV, Hypercholesterolemia (PT DENIES), Chronic Kidney Disease, Seizures, Sexually Transmitted Disease Review of Systems - Review of Systems All systems: reviewed and no additional remarkable complaints except - Constitutional Constitutional: As Per HPI - EENT Eyes: absent: As Per HPI, Blind Spots, Blurred Vision, Change in Vision, Decreased Night Vision, Diplopia, Discharge, Dry Eye, Exophthalmos, Floaters, Irritation, Itchy Eyes, Loss of Peripheral Vision, Pain, Photophobia, Requires Corrective Lenses, Sees Flashes, Spots in Vision, Tunnel Vision, Other Visual Disturbances, Loss of Vision, Other Ears: absent: As Per HPI, Decreased Hearing, Ear Discharge, Ear Pain, Tinnitus, Abnormal Hearing, Disequilibrium, Dizziness, Other Nose/Mouth/Throat: absent: As Per HPI, Epistaxis, Nasal Congestion, Nasal Discharge, Nasal Obstruction, Nasal Trauma, Nose Pain, Post Nasal Drip, Sinus Pain, Sinus Pressure, Bleeding Gums, Change in Voice, Dental Pain, Dry Mouth, Dysphagia, Halitosis, Hoarsness, Lip Swelling, Mouth Lesions, Mouth Pain, Odynophagia, Sore Throat, Throat Swelling, Tongue Swelling, Facial Pain, Neck Pain, Neck Mass, Other - Cardiovascular Cardiovascular: As Per HPI - Respiratory Respiratory: As Per HPI, Dyspnea - Gastrointestinal Gastrointestinal: absent: As Per HPI, Abdominal Pain, Belching, Bloating, Change in Bowel Habits, Change in Stool Character, Coffee Ground Emesis, Constipation, Cramping, Diarrhea, Dyspepsia, Dysphagia, Early Satiety, Excessive Flatus, Fecal Incontinence, Heartburn, Hematemesis, Hematochezia, Loose Stools, Melena, Nausea, Odynophagia, Temesmus, Vomiting, Other - Genitourinary Genitourinary: absent: As Per HPI, Change in Urinary Stream, Difficulty Urinati ng, Dysuria, Flank Pain, Hematuria, Pyuria, Nocturia, Urinary Incontinence, Urinary Frequency, Urinary Hesitance, Urinary Urgency, Voiding Freq/Small Amts, Freq UTI, Hx Renal/Bladder Calculi, Hx /Renal Surgery, Bladder Distension, Other - Musculoskeletal Musculoskeletal: As Per HPI - Integumentary Integumentary: As Per HPI - Neurological Neurological: absent: As Per HPI, Abnormal Gait, Abnormal Hearing, Abnormal Movements, Abnormal Speech, Behavioral Changes, Burning Sensations, Confusion, Convulsions, Disequilibrium, Dizziness, Numbness, Focal Weakness, Frequent Falls, Headaches, Lack of Coordination, Loss of Vision, Memory Loss, Paresthesias, Radicular Pain, Restless Legs, Sensory Deficit, Syncope, Tingling, Tremor, Vertigo, Weakness, Other Visual Disturbances, Other - Psychiatric Psychiatric: absent: As Per HPI, Abnormal Sleep Pattern, Anhedonia, Anxiety, Auditory Hallucinations, Behavioral Changes, Change in Appetite, Change in Libido, Confusion, Depression, Difficulty Concentrating, Hallucinations, Homicidal Ideation, Hopelessness, Irritability, Memory Loss, Mood Swings, Panic Attacks, Paranoia, Suicidal Ideation, Visual Hallucinations, Tactile Hallucinations, Other - Endocrine Endocrine: absent: As Per HPI, Change in Body Appearance, Change in Libido, Cold Intolorance, Deepening of Voice, Excessive Sweating, Fatigue, Flushing, Heat Intolorance, Increase in Ring/Shoe/Hat Size, Palpitations, Polydipsia, Polyphagia, Polyuria, Other - Hematologic/Lymphatic Hematologic: absent: As Per HPI, Easy Bleeding, Easy Bruising, Lymphadenopathy, Other Past Patient History - Infectious Disease Hx of Infectious Diseases: None - Past Medical History & Family History Past Medical History?: Yes - Past Social History Alcohol: Social Drugs: Denies - CARDIAC Hx Congestive Heart Failure: Yes Hx Hypercholesterolemia: No (PT DENIES) Hx Hypertension: Yes - PULMONARY Hx Asthma: Yes Hx Chronic Obstructive Pulmonary Disease (COPD): Yes Hx Emphysema: Yes Hx Sleep Apnea: Yes - NEUROLOGICAL Hx Seizures: No - HEENT Hx HEENT Problems: No - RENAL Hx Chronic Kidney Disease: No - ENDOCRINE/METABOLIC Hx Endocrine Disorders: Yes - HEMATOLOGICAL/ONCOLOGICAL Hx Human Immunodeficiency Virus (HIV): No - INTEGUMENTARY Hx Dermatological Problems: Yes (Cellulitis) Hx Cellulitis: Yes - MUSCULOSKELETAL/RHEUMATOLOGICAL Hx Musculoskeletal Disorders: No Hx Falls: No - GASTROINTESTINAL Hx Gastrointestinal Disorders: No - GENITOURINARY/GYNECOLOGICAL Hx Sexually Transmitted Disorders: No - PSYCHIATRIC Hx Anxiety: Yes Hx Bipolar Disorder: Yes Hx Depression: Yes Hx Schizophrenia: Yes - SURGICAL HISTORY Hx Surgeries: Yes Hx Cardiac Catheterization: Yes Hx Eye Surgery: Yes (40 yrs ago) - ANESTHESIA Hx Anesthesia: Yes Hx Anesthesia Reactions: No Hx Malignant Hyperthermia: No Meds Allergies/Adverse Reactions: Allergies Allergy/AdvReac Type Severity Reaction Status Date / Time No Known Allergies Allergy Verified 03/10/18 10:17 - Medications Medications: Current Medications Acetaminophen (Tylenol 325mg Tab) 650 mg PO Q4 PRN PRN Reason: Pain, moderate (4-7) Al Hydrox/Mg Hydrox/Simethicone (Maalox Plus 30 Ml) 30 ml PO Q4 PRN PRN Reason: Dyspepsia Albuterol/Ipratropium (Duoneb 3 Mg/0.5 Mg (3 Ml) Ud) 3 ml INH RQ4 [facility] Last Admin: 05/07/18 11:35 Dose: Not Given Aspirin (Ecotrin) 81 mg PO DAILY [facility] Last Admin: 05/07/18 08:28 Dose: 81 mg Bismuth Subsalicylate (Pepto-Bismol) 524 mg PO Q4 PRN PRN Reason: Diarrhea Carvedilol (Coreg) 25 mg PO Q12 [facility] Last Admin: 05/07/18 08:27 Dose: 25 mg Chlorthalidone (Hygroton) 12.5 mg PO DAILY [facility] Last Admin: 05/07/18 08:30 Dose: 12.5 mg Ciprofloxacin (Cipro) 500 mg PO BID [facility]; Protocol Last Admin: 05/07/18 08:26 Dose: 500 mg Docusate Sodium (Colace) 100 mg PO DAILY [facility] Last Admin: 05/07/18 08:26 Dose: Not Given Escitalopram Oxalate (Lexapro) 10 mg PO DAILY [facility] Last Admin: 05/07/18 08:31 Dose: 10 mg Gabapentin (Neurontin) 300 mg PO HS [facility] Hydroxyzine Pamoate (Vistaril) 50 mg PO Q8 PRN PRN Reason: Anxiety Last Admin: 05/07/18 00:53 Dose: 50 mg Linezolid (Zyvox) 600 mg PO Q12 [facility]; Protocol Last Admin: 05/07/18 08:34 Dose: 600 mg Lorazepam (Ativan) 0.5 mg PO HS PRN PRN Reason: Insomnia Stop: 05/18/18 17:03 Last Admin: 05/04/18 23:52 Dose: 0.5 mg Lorazepam (Ativan) 0.5 mg PO Q6 PRN PRN Reason: Anixety/Agitation Stop: 05/18/18 17:13 Magnesium Hydroxide (Milk Of Magnesia) 30 ml PO HS PRN PRN Reason: Constipation Metformin HCl (Glucophage) 500 mg PO DAILY [facility] Multi-Ingredient Ointment (Hydrophor Oint) 1 applic TOP BID PRN PRN Reason: dry feet Nicotine (Nicoderm Cq) 1 patch TD DAILY [facility] Last Admin: 05/07/18 08:33 Dose: 1 patch Pramipexole Dihydrochloride (Mirapex) 1.5 mg PO Q12H [facility] Last Admin: 05/07/18 08:32 Dose: 1.5 mg Risperidone (Risperdal Tab) 3 mg PO HS [facility] Trazodone HCl (Desyrel) 100 mg PO HS PRN PRN Reason: Insomnia Last Admin: 05/06/18 22:51 Dose: 100 mg Triamcinolone Acetonide (Kenalog 0.1% Oint) 1 appl TOP BID PRN PRN Reason: facial redness Last Admin: 05/07/18 08:40 Dose: 1 applic Physical Exam - Constitutional Appears: No Acute Distress, Chronically Ill - Head Exam Head Exam: ATRAUMATIC, NORMOCEPHALIC - Eye Exam Eye Exam: absent: Scleral icterus - ENT Exam ENT Exam: Mucous Membranes Dry, Normal External Ear Exam - Neck Exam Neck exam: Negative for: Lymphadenopathy - Respiratory Exam Respiratory Exam: Decreased Breath Sounds, Rhonchi - Cardiovascular Exam Cardiovascular Exam: REGULAR RHYTHM - GI/Abdominal Exam GI & Abdominal Exam: Diminished Bowel Sounds, Distended, Soft. absent: Rebound, Tenderness - Rectal Exam Rectal Exam: Deferred - Exam Exam: NORMAL INSPECTION - Extremities Exam Extremities exam: Positive for: pedal edema, pedal pulses present. Negative for: calf tenderness - Back Exam Back exam: absent: CVA tenderness (L), CVA tenderness (R), paraspinal tenderness - Neurological Exam Neurological exam: Alert, CN II-XII Intact, Oriented x3, Reflexes Normal - Psychiatric Exam Psychiatric exam: Depressed - Skin Skin Exam: Dry Results - Vital Signs Recent Vital Signs: Last Vital Signs Temp 98.1 F 05/07/18 06:00 Pulse 93 H 05/07/18 08:27 Resp 18 05/07/18 06:00 BP 125/78 05/07/18 08:27 Pulse Ox 96 05/05/18 15:33 - Labs Result Diagrams: 05/07/18 05:15 05/07/18 05:15 Labs: Laboratory Results - last 24 hr 05/06/18 05/07/18 05/07/18 17:23 05:15 05:15 WBC 10.7 RBC 5.23 Hgb 13.6 Hct 41.4 MCV 79.2 L MCH 26.1 L MCHC 32.9 L RDW 17.2 H Plt Count 287 Sodium 137 Potassium 3.8 Chloride 97 L Carbon Dioxide 32 H Anion Gap 12 BUN 14 Creatinine 0.9 Est GFR ( Amer) > 60 Est GFR (Non-Af Amer) > 60 POC Glucose (mg/dL) Random Glucose 109 Calcium 9.2 Total Bilirubin 0.5 AST 22 ALT 38 Alkaline Phosphatase 95 Total Protein 7.3 Albumin 3.8 Globulin 3.5 Albumin/Globulin Ratio 1.1 Urine Color Yellow Urine Clarity Clear Urine pH 6.0 Ur Specific [place] 1.013 Urine Protein Negative Urine Glucose (UA) Neg Urine Ketones Negative Urine Blood Negative Urine Nitrate Negative Urine Bilirubin Negative Urine Urobilinogen 0.2-1.0 Ur Leukocyte Esterase Neg Urine RBC (Auto) 2 Urine Microscopic WBC < 1 05/07/18 05:33 WBC RBC Hgb Hct MCV MCH MCHC RDW Plt Count Sodium Potassium Chloride Carbon Dioxide Anion Gap BUN Creatinine Est GFR ( Amer) Est GFR (Non-Af Amer) POC Glucose (mg/dL) 98 Random Glucose Calcium Total Bilirubin AST ALT Alkaline Phosphatase Total Protein Albumin Globulin Albumin/Globulin Ratio Urine Color Urine Clarity Urine pH Ur Specific [place] Urine Protein Urine Glucose (UA) Urine Ketones Urine Blood Urine Nitrate Urine Bilirubin Urine Urobilinogen Ur Leukocyte Esterase Urine RBC (Auto) Urine Microscopic WBC Assessment & Plan (1) Depressive disorder Status: Acute (2) Alcohol abuse Status: Acute (3) Bilateral lower leg cellulitis Status: Acute (4) Bipolar 1 disorder, depressed Status: Acute (5) CHF (congestive heart failure) Status: Acute (6) COPD (chronic obstructive pulmonary disease) Status: Acute - Assessment and Plan (Free Text) Assessment: recc follow up with patients pulmonoligist May have cor pulmonale cont antibiotic rx
--- NOTE | 2018-05-07 17:12 | CP.PCM.CON ---
History of Present Illness - History of Present Illness History of Present Illness: Podiatry Progress Note: Dr. Fung 57 year old male patient, with PMHx of HTN, COPD, CAD, seen and evaluated for L leg cellulitis and R leg erythema. Patient is well known to Dr. Fung and follows up in [facility]. He states that his legs don't have any open wounds at this time but they have been red for the past week or so. He denies any acute pedal complaints at this time. Denies N/V/F/SOB/CP. PMHx: HTN, COPD, CAD PSHx: Cardiac cath (10/2017) SH: Daily tobacco use ALL: NKDA Review of Systems - Constitutional Constitutional: As Per HPI Past Patient History - Infectious Disease Hx of Infectious Diseases: None - Past Medical History & Family History Past Medical History?: Yes - Past Social History Alcohol: Social Drugs: Denies - CARDIAC Hx Congestive Heart Failure: Yes Hx Hypercholesterolemia: No (PT DENIES) Hx Hypertension: Yes - PULMONARY Hx Asthma: Yes Hx Chronic Obstructive Pulmonary Disease (COPD): Yes Hx Emphysema: Yes Hx Sleep Apnea: Yes - NEUROLOGICAL Hx Seizures: No - HEENT Hx HEENT Problems: No - RENAL Hx Chronic Kidney Disease: No - ENDOCRINE/METABOLIC Hx Endocrine Disorders: Yes - HEMATOLOGICAL/ONCOLOGICAL Hx Human Immunodeficiency Virus (HIV): No - INTEGUMENTARY Hx Dermatological Problems: Yes (Cellulitis) Hx Cellulitis: Yes - MUSCULOSKELETAL/RHEUMATOLOGICAL Hx Musculoskeletal Disorders: No Hx Falls: No - GASTROINTESTINAL Hx Gastrointestinal Disorders: No - GENITOURINARY/GYNECOLOGICAL Hx Sexually Transmitted Disorders: No - PSYCHIATRIC Hx Anxiety: Yes Hx Bipolar Disorder: Yes Hx Depression: Yes Hx Schizophrenia: Yes - SURGICAL HISTORY Hx Surgeries: Yes Hx Cardiac Catheterization: Yes Hx Eye Surgery: Yes (40 yrs ago) - ANESTHESIA Hx Anesthesia: Yes Hx Anesthesia Reactions: No Hx Malignant Hyperthermia: No Meds Allergies/Adverse Reactions: Allergies Allergy/AdvReac Type Severity Reaction Status Date / Time No Known Allergies Allergy Verified 03/10/18 10:17 - Medications Medications: Current Medications Acetaminophen (Tylenol 325mg Tab) 650 mg PO Q4 PRN PRN Reason: Pain, moderate (4-7) Al Hydrox/Mg Hydrox/Simethicone (Maalox Plus 30 Ml) 30 ml PO Q4 PRN PRN Reason: Dyspepsia Albuterol/Ipratropium (Duoneb 3 Mg/0.5 Mg (3 Ml) Ud) 3 ml INH RQ4 [facility] Last Admin: 05/07/18 11:35 Dose: Not Given Aspirin (Ecotrin) 81 mg PO DAILY [facility] Last Admin: 05/07/18 08:28 Dose: 81 mg Bismuth Subsalicylate (Pepto-Bismol) 524 mg PO Q4 PRN PRN Reason: Diarrhea Carvedilol (Coreg) 25 mg PO Q12 [facility] Last Admin: 05/07/18 08:27 Dose: 25 mg Chlorthalidone (Hygroton) 12.5 mg PO DAILY [facility] Last Admin: 05/07/18 08:30 Dose: 12.5 mg Ciprofloxacin (Cipro) 500 mg PO BID [facility]; Protocol Last Admin: 05/07/18 16:00 Dose: 500 mg Docusate Sodium (Colace) 100 mg PO DAILY [facility] Last Admin: 05/07/18 08:26 Dose: Not Given Escitalopram Oxalate (Lexapro) 10 mg PO DAILY [facility] Last Admin: 05/07/18 08:31 Dose: 10 mg Gabapentin (Neurontin) 300 mg PO HS [facility] Hydroxyzine Pamoate (Vistaril) 50 mg PO Q8 PRN PRN Reason: Anxiety Last Admin: 05/07/18 15:55 Dose: 50 mg Linezolid (Zyvox) 600 mg PO Q12 [facility]; Protocol Last Admin: 05/07/18 08:34 Dose: 600 mg Lorazepam (Ativan) 0.5 mg PO HS PRN PRN Reason: Insomnia Stop: 05/18/18 17:03 Last Admin: 05/04/18 23:52 Dose: 0.5 mg Lorazepam (Ativan) 0.5 mg PO Q6 PRN PRN Reason: Anixety/Agitation Stop: 05/18/18 17:13 Last Admin: 05/07/18 13:38 Dose: 0.5 mg Magnesium Hydroxide (Milk Of Magnesia) 30 ml PO HS PRN PRN Reason: Constipation Metformin HCl (Glucophage) 500 mg PO DAILY [facility] Last Admin: 05/07/18 13:41 Dose: 500 mg Multi-Ingredient Ointment (Hydrophor Oint) 1 applic TOP BID PRN PRN Reason: dry feet Nicotine (Nicoderm Cq) 1 patch TD DAILY [facility] Last Admin: 05/07/18 08:33 Dose: 1 patch Pramipexole Dihydrochloride (Mirapex) 1.5 mg PO Q12H [facility] Last Admin: 05/07/18 08:32 Dose: 1.5 mg Risperidone (Risperdal Tab) 3 mg PO HS [facility] Trazodone HCl (Desyrel) 100 mg PO HS PRN PRN Reason: Insomnia Last Admin: 05/06/18 22:51 Dose: 100 mg Triamcinolone Acetonide (Kenalog 0.1% Oint) 1 appl TOP BID PRN PRN Reason: facial redness Last Admin: 05/07/18 08:40 Dose: 1 applic Physical Exam - Constitutional Appears: Non-toxic, No Acute Distress - Head Exam Head Exam: ATRAUMATIC, NORMOCEPHALIC - Extremities Exam Additional comments: Lower extremity focused exam: Vasc: DP and PT pulses palpable. CFT <3 seconds to all digits. Temp gradient warm to warm from proximal to distal, Mild edema noted to b/l lower extremities Ortho: No pain upon palpation to bilateral LE, MMT 5/5 in all compartments Neuro: Gross and protective sensation intact Derm: L lower extremity shiny skin with evidence of cellulitis to the L leg. No opening lesions, no probe to bone, no tunneling, no tracking, no undermining, no fluctuance, no signs of abscess, no purulence appreciated. - Neurological Exam Neurological exam: Alert - Psychiatric Exam Psychiatric exam: Normal Affect Results - Vital Signs Recent Vital Signs: Last Vital Signs Temp 97.0 F L 05/07/18 16:40 Pulse 84 05/07/18 16:40 Resp 20 05/07/18 16:40 BP 118/84 05/07/18 16:40 Pulse Ox 96 05/05/18 15:33 - Labs Result Diagrams: 05/07/18 05:15 05/07/18 05:15 Labs: Laboratory Results - last 24 hr 05/06/18 05/07/18 05/07/18 17:23 05:15 05:15 WBC 10.7 RBC 5.23 Hgb 13.6 Hct 41.4 MCV 79.2 L MCH 26.1 L MCHC 32.9 L RDW 17.2 H Plt Count 287 Sodium 137 Potassium 3.8 Chloride 97 L Carbon Dioxide 32 H Anion Gap 12 BUN 14 Creatinine 0.9 Est GFR ( Amer) > 60 Est GFR (Non-Af Amer) > 60 POC Glucose (mg/dL) Random Glucose 109 Calcium 9.2 Total Bilirubin 0.5 AST 22 ALT 38 Alkaline Phosphatase 95 Total Protein 7.3 Albumin 3.8 Globulin 3.5 Albumin/Globulin Ratio 1.1 Urine Color Yellow Urine Clarity Clear Urine pH 6.0 Ur Specific [place] 1.013 Urine Protein Negative Urine Glucose (UA) Neg Urine Ketones Negative Urine Blood Negative Urine Nitrate Negative Urine Bilirubin Negative Urine Urobilinogen 0.2-1.0 Ur Leukocyte Esterase Neg Urine RBC (Auto) 2 Urine Microscopic WBC < 1 05/07/18 05:33 WBC RBC Hgb Hct MCV MCH MCHC RDW Plt Count Sodium Potassium Chloride Carbon Dioxide Anion Gap BUN Creatinine Est GFR ( Amer) Est GFR (Non-Af Amer) POC Glucose (mg/dL) 98 Random Glucose Calcium Total Bilirubin AST ALT Alkaline Phosphatase Total Protein Albumin Globulin Albumin/Globulin Ratio Urine Color Urine Clarity Urine pH Ur Specific [place] Urine Protein Urine Glucose (UA) Urine Ketones Urine Blood Urine Nitrate Urine Bilirubin Urine Urobilinogen Ur Leukocyte Esterase Urine RBC (Auto) Urine Microscopic WBC Assessment & Plan - Assessment and Plan (Free Text) Assessment: 57 year old male patient with left lower extremity cellulitis and right leg erythema Plan: Patient seen and evaluated Discussed plan in detail with attending Dr. Fung Chart, vitals, labs reviewed; afebrile, WBC 10.7 Continue IV abx per ID reccs No dressing applied to b/l extremities Will continue to follow patient while on the floors Thank you for the consult - Date & Time Date: 05/07/18 Time: 17:12
[2018-05-07] MEDS: Hydrophor Oint TOP PRN (21:20)
[2018-05-08] MEDS: Albuterol-Ipratrop 3 mg / 0.5 (3 ml) UD INH SCH ×5 (06:37→20:50)
--- NOTE | 2018-05-08 09:39 | PCM.PYCHPN ---
Psychiatric Progress Note - Psychiatric Progress Note Patient seen today, length of contact: Pt evaluated, case discussed with team, chart reviewed Patient Chief Complaint: I still hear voices at night Problems Identified/Issues Discussed: pt seen in his room, presenting with depressed mood and affect, reported continues to have non command auditory hallucinations at night, putting him down, denied active thoughts of self harm on the unit, no reported side effects of medications DSM 5 Symptoms Update: schizoaffective dsorder Medication Change: No (Increase Risperdal) Medical Record Reviewed: Yes Mental Status Examination - Cognitive Function Orientation: Person, Place, Situation, Time Memory: Intact Attention: WNL Concentration: WNL Association: WNL Fund of Knowledge: WNL - Mood Mood: Depressed, Anxious - Affect Affect: Constricted, Depressed - Formal Thought Process Formal Thought Process: Hallucinations - Suicidal Ideation Suicidal Ideation: No - Homicidal Ideation Homicidal Ideation: No Goal/Treatment Plan - Goal/Treatment Plan Need for Continued Stay: Remain at risks for inpatient hospitalization, Severe depression anxiety, Discharge may exacerbated symptoms Progress Toward Problem(s) and Goals/Treatment Plan: continue current medications, cbt and group therapy
[2018-05-08] MEDS: Hydrophor Oint TOP PRN ×2 (10:29→22:39)
--- NOTE | 2018-05-08 20:23 | CP.PCM.PN ---
Subjective - Date & Time of Evaluation Date of Evaluation: 05/08/18 Time of Evaluation: 20:10 - Subjective Subjective: Patient c/o much less LE pain on ambulation; less SOB on exertion; receiving Duoneb resp. treatments q 6 hrs VSS Lungs- dec. br. sounds b/l Heart- regular S1, S2, 1/6 mulu Abd.- distended, + BS, soft, NT Ext.- 2+ edema below the knees; erythema LLE > RLE below the knees to ankles; no open wounds 1. B/L Cellulitis LLE > RLE 2. LE edema secondary to venous insufficiency and dependent edema- encouraged to elevate LE's 3. Diabetes- controlled 4. HTN- controlled 5. COPD- nicotine patch ordered 6. Schizoaffective Disorder Cont. zyvox 600mg q 12 hrs and cipro 500mg bid Objective - Vital Signs/Intake and Output Vital Signs (last 24 hours): Temp Pulse Resp BP Pulse Ox 97.6 F 88 20 112/88 96 05/08/18 16:34 05/08/18 16:34 05/08/18 16:34 05/08/18 16:34 05/05/18 15:33 - Medications Medications: Current Medications Acetaminophen (Tylenol 325mg Tab) 650 mg PO Q4 PRN PRN Reason: Pain, moderate (4-7) Al Hydrox/Mg Hydrox/Simethicone (Maalox Plus 30 Ml) 30 ml PO Q4 PRN PRN Reason: Dyspepsia Albuterol/Ipratropium (Duoneb 3 Mg/0.5 Mg (3 Ml) Ud) 3 ml INH RQ4 [facility] Last Admin: 05/08/18 16:53 Dose: 3 ml Aspirin (Ecotrin) 81 mg PO DAILY [facility] Last Admin: 05/08/18 08:22 Dose: 81 mg Bismuth Subsalicylate (Pepto-Bismol) 524 mg PO Q4 PRN PRN Reason: Diarrhea Carvedilol (Coreg) 25 mg PO Q12 [facility] Last Admin: 05/08/18 08:21 Dose: 25 mg Chlorthalidone (Hygroton) 12.5 mg PO DAILY [facility] Last Admin: 05/08/18 08:23 Dose: 12.5 mg Ciprofloxacin (Cipro) 500 mg PO BID [facility]; Protocol Last Admin: 05/08/18 17:01 Dose: 500 mg Docusate Sodium (Colace) 100 mg PO DAILY [facility] Last Admin: 05/08/18 08:21 Dose: 100 mg Escitalopram Oxalate (Lexapro) 10 mg PO DAILY [facility] Last Admin: 05/08/18 08:24 Dose: 10 mg Gabapentin (Neurontin) 300 mg PO HS [facility] Last Admin: 05/07/18 21:19 Dose: 300 mg Hydroxyzine Pamoate (Vistaril) 50 mg PO Q8 PRN PRN Reason: Anxiety Last Admin: 05/07/18 15:55 Dose: 50 mg Linezolid (Zyvox) 600 mg PO Q12 [facility]; Protocol Last Admin: 05/08/18 08:25 Dose: 600 mg Lorazepam (Ativan) 0.5 mg PO HS PRN PRN Reason: Insomnia Stop: 05/18/18 17:03 Last Admin: 05/04/18 23:52 Dose: 0.5 mg Lorazepam (Ativan) 0.5 mg PO Q6 PRN PRN Reason: Anixety/Agitation Stop: 05/18/18 17:13 Last Admin: 05/08/18 18:43 Dose: 0.5 mg Magnesium Hydroxide (Milk Of Magnesia) 30 ml PO HS PRN PRN Reason: Constipation Metformin HCl (Glucophage) 500 mg PO DAILY [facility] Last Admin: 05/08/18 08:23 Dose: 500 mg Multi-Ingredient Ointment (Hydrophor Oint) 1 applic TOP BID PRN PRN Reason: dry feet Last Admin: 05/08/18 10:29 Dose: 1 applic Nicotine (Nicoderm Cq) 1 patch TD DAILY [facility] Last Admin: 05/08/18 08:24 Dose: 1 patch Pramipexole Dihydrochloride (Mirapex) 1.5 mg PO Q12H [facility] Last Admin: 05/08/18 08:24 Dose: 1.5 mg Risperidone (Risperdal Tab) 3 mg PO HS [facility] Last Admin: 05/07/18 21:14 Dose: 3 mg Trazodone HCl (Desyrel) 100 mg PO HS PRN PRN Reason: Insomnia Last Admin: 05/07/18 21:15 Dose: 100 mg Triamcinolone Acetonide (Kenalog 0.1% Oint) 1 appl TOP BID PRN PRN Reason: facial redness Last Admin: 05/08/18 10:30 Dose: 1 applic - Labs Labs: 05/07/18 05:15 05/07/18 05:15
[2018-05-09] MEDS: Albuterol-Ipratrop 3 mg / 0.5 (3 ml) UD INH SCH ×6 (00:17→20:30)
[2018-05-09 05:44] LABS: BASO # 0.1 K/uL (0.0-0.2); BASO % 1.2 % (0.0-2.0); EOS # 0.4 K/uL (0.0-0.7); EOS % 4.3 % (0.0-4.0); HEMOGLOBIN 13.7 g/dL (12.0-18.0); LYMPH # 1.9 K/uL (1.0-4.3); LYMPH % 18.7 % (20.0-40.0); MEAN CELL VOLUME 79.6 fl (80.0-94.0); MEAN CORPUSCULAR HEMOGLOBIN 26.2 pg (27.0-31.0); MEAN CORPUSCULAR HGB CONC 32.9 g/dL (33.0-37.0); MEAN PLATELET VOLUME 7.2 fl (7.2-11.7); MONO # 0.8 K/uL (0.0-0.8); MONO % 8.1 % (0.0-10.0); NEUT # 6.8 K/uL (1.8-7.0); NEUT % 67.7 % (50.0-75.0); RBC 5.24 Mil/uL (4.40-5.90); RED CELL DISTRIBUTION WIDTH 17.2 % (11.5-14.5)
--- NOTE | 2018-05-09 09:02 | PCM.PYCHPN ---
Psychiatric Progress Note - Psychiatric Progress Note Patient seen today, length of contact: Pt evaluated, case discussed with team, chart reviewed Patient Chief Complaint: "The voices are getting worse." Problems Identified/Issues Discussed: Patient reports that he continues to hear AH, telling him that he does not need treatment and that "You are the enemy." (Referring to policy writer). He continues to see shadows intermittently and also reports that he experienced tactile hallucinations of someone pushing him yesterday. He continues to feel depressed, anxious, tearful and feels irritable with mood lability. We discussed continued titration of Risperdal. Medication Change: Yes (Increase Risperdal) Medical Record Reviewed: Yes Consults ordered or reviewed: Medicine consult ordered on admission, pending note. Mental Status Examination - Cognitive Function Orientation: Person, Place, Situation, Time Memory: Intact Attention: WNL Concentration: WNL Association: WNL Fund of Knowledge: [facility] Decription of patient's judgement and insights: Fair I/J - Mood Mood: Depressed, Anxious - Affect Affect: Constricted, Depressed - Formal Thought Process Formal Thought Process: Hallucinations Psychotic Thoughts and Behaviors: +AH/VH - Suicidal Ideation Suicidal Ideation: No - Homicidal Ideation Homicidal Ideation: No Goal/Treatment Plan - Goal/Treatment Plan Need for Continued Stay: Remain at risks for inpatient hospitalization, Severe depression anxiety, Discharge may exacerbated symptoms Progress Toward Problem(s) and Goals/Treatment Plan: Schizoaffective Disorder -Individual and group therapy -Psychoeducation -Increase Risperdal -Continue Lexapro -Medicine consult -Disposition planning
--- NOTE | 2018-05-09 13:02 | RAD ---
HISTORY: r/o infiltrates COMPARISON: Chest x-ray performed 05/04/18 TECHNIQUE: Chest PA and lateral FINDINGS: Examination limited by habitus. LUNGS: Linear atelectasis/left mid lung. Mild right basilar atelectasis/infiltrate. Please note that chest x-ray has limited sensitivity for the detection of pulmonary masses. PLEURA: No significant pleural effusion identified. No definite pneumothorax . CARDIOVASCULAR: Borderline cardiomegaly. Dense atherosclerotic calcifications of the aorta. OSSEOUS STRUCTURES: Degenerative changes. VISUALIZED UPPER ABDOMEN: Unremarkable. OTHER FINDINGS: None. IMPRESSION: Linear atelectasis/left mid lung. Mild right basilar atelectasis/infiltrate. Borderline cardiomegaly.
--- NOTE | 2018-05-09 13:48 | CP.PCM.PN ---
Subjective - Date & Time of Evaluation Date of Evaluation: 05/09/18 Time of Evaluation: 08:00 - Subjective Subjective: redness both legs persists L>R no fever or SOB Objective - Vital Signs/Intake and Output Vital Signs (last 24 hours): Temp Pulse Resp BP Pulse Ox 98.0 F 78 20 125/81 96 05/09/18 06:00 05/09/18 08:20 05/09/18 06:00 05/09/18 08:20 05/05/18 15:33 - Medications Medications: Current Medications Acetaminophen (Tylenol 325mg Tab) 650 mg PO Q4 PRN PRN Reason: Pain, moderate (4-7) Al Hydrox/Mg Hydrox/Simethicone (Maalox Plus 30 Ml) 30 ml PO Q4 PRN PRN Reason: Dyspepsia Albuterol/Ipratropium (Duoneb 3 Mg/0.5 Mg (3 Ml) Ud) 3 ml INH RQ4 [facility] Last Admin: 05/09/18 12:30 Dose: Not Given Aspirin (Ecotrin) 81 mg PO DAILY [facility] Last Admin: 05/09/18 08:19 Dose: 81 mg Bismuth Subsalicylate (Pepto-Bismol) 524 mg PO Q4 PRN PRN Reason: Diarrhea Carvedilol (Coreg) 25 mg PO Q12 [facility] Last Admin: 05/09/18 08:20 Dose: 25 mg Chlorthalidone (Hygroton) 12.5 mg PO DAILY [facility] Last Admin: 05/09/18 08:22 Dose: 12.5 mg Ciprofloxacin (Cipro) 500 mg PO BID [facility]; Protocol Last Admin: 05/09/18 08:19 Dose: 500 mg Docusate Sodium (Colace) 100 mg PO DAILY [facility] Last Admin: 05/09/18 09:04 Dose: Not Given Escitalopram Oxalate (Lexapro) 10 mg PO DAILY [facility] Last Admin: 05/09/18 08:17 Dose: 10 mg Gabapentin (Neurontin) 300 mg PO BID [facility] Last Admin: 05/09/18 08:19 Dose: 300 mg Hydroxyzine Pamoate (Vistaril) 50 mg PO Q8 PRN PRN Reason: Anxiety Last Admin: 05/08/18 22:36 Dose: 50 mg Ibuprofen (Motrin Tab) 600 mg PO Q8 PRN PRN Reason: Pain, severe (8-10) Last Admin: 05/09/18 08:43 Dose: 600 mg Linezolid (Zyvox) 600 mg PO Q12 [facility]; Protocol Last Admin: 05/09/18 08:22 Dose: 600 mg Lorazepam (Ativan) 0.5 mg PO HS PRN PRN Reason: Insomnia Stop: 05/18/18 17:03 Last Admin: 05/04/18 23:52 Dose: 0.5 mg Lorazepam (Ativan) 0.5 mg PO Q6 PRN PRN Reason: Anixety/Agitation Stop: 05/18/18 17:13 Last Admin: 05/08/18 18:43 Dose: 0.5 mg Magnesium Hydroxide (Milk Of Magnesia) 30 ml PO HS PRN PRN Reason: Constipation Metformin HCl (Glucophage) 500 mg PO DAILY [facility] Last Admin: 05/09/18 08:21 Dose: 500 mg Multi-Ingredient Ointment (Hydrophor Oint) 1 applic TOP BID PRN PRN Reason: dry feet Last Admin: 05/08/18 22:39 Dose: 1 applic Nicotine (Nicoderm Cq) 1 patch TD DAILY [facility] Last Admin: 05/09/18 08:16 Dose: 1 patch Pramipexole Dihydrochloride (Mirapex) 1.5 mg PO Q12H [facility] Last Admin: 05/09/18 08:18 Dose: 1.5 mg Risperidone (Risperdal Tab) 3 mg PO HS [facility] Last Admin: 05/08/18 21:11 Dose: 3 mg Risperidone (Risperdal Tab) 1 mg PO DAILY [facility] Last Admin: 05/09/18 09:29 Dose: 1 mg Trazodone HCl (Desyrel) 100 mg PO HS [facility] Triamcinolone Acetonide (Kenalog 0.1% Oint) 1 appl TOP BID PRN PRN Reason: facial redness Last Admin: 05/09/18 08:18 Dose: 1 applic - Labs Labs: 05/09/18 05:30 05/07/18 05:15 - Constitutional Appears: Non-toxic, Chronically Ill - Head Exam Head Exam: NORMOCEPHALIC - Eye Exam Eye Exam: absent: Scleral icterus - ENT Exam ENT Exam: Mucous Membranes Dry - Neck Exam Neck Exam: absent: Lymphadenopathy - Respiratory Exam Respiratory Exam: Decreased Breath Sounds, Clear to Ausculation Bilateral - Cardiovascular Exam Cardiovascular Exam: REGULAR RHYTHM - GI/Abdominal Exam GI & Abdominal Exam: Distended, Soft. absent: Tenderness - Rectal Exam Rectal Exam: Deferred - Exam Exam: NORMAL INSPECTION - Extremities Exam Extremities Exam: Calf Tenderness, Pedal Edema, Tenderness - Back Exam Back Exam: absent: CVA tenderness (L), CVA tenderness (R), paraspinal tenderness - Neurological Exam Neurological Exam: Alert, Awake, CN II-XII Intact, Oriented x3 - Psychiatric Exam Psychiatric exam: Depressed Assessment and Plan (1) Depressive disorder Status: Acute (2) Alcohol abuse Status: Acute (3) Bilateral lower leg cellulitis Status: Acute (4) Bipolar 1 disorder, depressed Status: Acute (5) CHF (congestive heart failure) Status: Acute (6) COPD (chronic obstructive pulmonary disease) Status: Acute - Assessment and Plan (Free Text) Plan: cont Zyvox for 5-7 days
--- NOTE | 2018-05-09 15:13 | CP.PCM.PN ---
Subjective - Date & Time of Evaluation Date of Evaluation: 05/09/18 Time of Evaluation: 15:00 - Subjective Subjective: Patient still c/o pain of LE's with ambulation; responding to motrin 600mg tid prn; neurontin was increased to 300mg bid VSS Lungs- dec. br. sounds b/l Heart- regular S1, S2, 1/6 mulu Abd.- distended, + BS, soft, NT Ext.- 2+ edema to knees; erythema from below the knees to ankles LLE > RLE 1. B/L cellulitis LLE >RLE 2. LE edema secondary to venous insufficiency and dependent edema 3. Diabetes- controlled 4. HTN- controlled 5. COPD- incentive spirometry ordered 6. Schizoaffective Disorder Plan to continue Zyvox 600mg q 12 hrs and Cipro 500mg bid for 5 to 7 more days Objective - Vital Signs/Intake and Output Vital Signs (last 24 hours): Temp Pulse Resp BP Pulse Ox 98.0 F 78 20 125/81 96 05/09/18 06:00 05/09/18 08:20 05/09/18 06:00 05/09/18 08:20 05/05/18 15:33 - Medications Medications: Current Medications Acetaminophen (Tylenol 325mg Tab) 650 mg PO Q4 PRN PRN Reason: Pain, moderate (4-7) Al Hydrox/Mg Hydrox/Simethicone (Maalox Plus 30 Ml) 30 ml PO Q4 PRN PRN Reason: Dyspepsia Albuterol/Ipratropium (Duoneb 3 Mg/0.5 Mg (3 Ml) Ud) 3 ml INH RQ4 [facility] Last Admin: 05/09/18 12:30 Dose: Not Given Aspirin (Ecotrin) 81 mg PO DAILY [facility] Last Admin: 05/09/18 08:19 Dose: 81 mg Bismuth Subsalicylate (Pepto-Bismol) 524 mg PO Q4 PRN PRN Reason: Diarrhea Carvedilol (Coreg) 25 mg PO Q12 [facility] Last Admin: 05/09/18 08:20 Dose: 25 mg Chlorthalidone (Hygroton) 12.5 mg PO DAILY [facility] Last Admin: 05/09/18 08:22 Dose: 12.5 mg Ciprofloxacin (Cipro) 500 mg PO BID [facility]; Protocol Last Admin: 05/09/18 08:19 Dose: 500 mg Docusate Sodium (Colace) 100 mg PO DAILY [facility] Last Admin: 05/09/18 09:04 Dose: Not Given Escitalopram Oxalate (Lexapro) 10 mg PO DAILY [facility] Last Admin: 05/09/18 08:17 Dose: 10 mg Gabapentin (Neurontin) 300 mg PO BID [facility] Last Admin: 05/09/18 08:19 Dose: 300 mg Hydroxyzine Pamoate (Vistaril) 50 mg PO Q8 PRN PRN Reason: Anxiety Last Admin: 05/08/18 22:36 Dose: 50 mg Ibuprofen (Motrin Tab) 600 mg PO Q8 PRN PRN Reason: Pain, severe (8-10) Last Admin: 05/09/18 08:43 Dose: 600 mg Linezolid (Zyvox) 600 mg PO Q12 [facility]; Protocol Last Admin: 05/09/18 08:22 Dose: 600 mg Lorazepam (Ativan) 0.5 mg PO HS PRN PRN Reason: Insomnia Stop: 05/18/18 17:03 Last Admin: 05/04/18 23:52 Dose: 0.5 mg Lorazepam (Ativan) 0.5 mg PO Q6 PRN PRN Reason: Anixety/Agitation Stop: 05/18/18 17:13 Last Admin: 05/08/18 18:43 Dose: 0.5 mg Magnesium Hydroxide (Milk Of Magnesia) 30 ml PO HS PRN PRN Reason: Constipation Metformin HCl (Glucophage) 500 mg PO DAILY [facility] Last Admin: 05/09/18 08:21 Dose: 500 mg Multi-Ingredient Ointment (Hydrophor Oint) 1 applic TOP BID PRN PRN Reason: dry feet Last Admin: 05/08/18 22:39 Dose: 1 applic Nicotine (Nicoderm Cq) 1 patch TD DAILY [facility] Last Admin: 05/09/18 08:16 Dose: 1 patch Pramipexole Dihydrochloride (Mirapex) 1.5 mg PO Q12H [facility] Last Admin: 05/09/18 08:18 Dose: 1.5 mg Risperidone (Risperdal Tab) 3 mg PO HS [facility] Last Admin: 05/08/18 21:11 Dose: 3 mg Risperidone (Risperdal Tab) 1 mg PO DAILY [facility] Last Admin: 05/09/18 09:29 Dose: 1 mg Trazodone HCl (Desyrel) 100 mg PO HS [facility] Triamcinolone Acetonide (Kenalog 0.1% Oint) 1 appl TOP BID PRN PRN Reason: facial redness Last Admin: 05/09/18 08:18 Dose: 1 applic - Labs Labs: 05/09/18 05:30 05/07/18 05:15
[2018-05-10] MEDS: Albuterol-Ipratrop 3 mg / 0.5 (3 ml) UD INH SCH ×5 (00:18→19:47)
[2018-05-10] MEDS: Hydrophor Oint TOP PRN (08:45)
--- NOTE | 2018-05-10 09:27 | PCM.PYCHPN ---
Psychiatric Progress Note - Psychiatric Progress Note Patient seen today, length of contact: Pt evaluated, case discussed with team, chart reviewed Patient Chief Complaint: "The voices are getting worse." Problems Identified/Issues Discussed: Patient reports that he continues to hear AH, telling him he should not be in the hospital. He continues to see shadows intermittently. He continues to feel depressed, anxious, tearful and feels irritable with mood lability. We discussed continued titration of Risperdal. Medication Change: Yes (Increase Risperdal) Medical Record Reviewed: Yes Consults ordered or reviewed: Medicine consult ordered on admission, pending note. Mental Status Examination - Cognitive Function Orientation: Person, Place, Situation, Time Memory: Intact Attention: WNL Concentration: WNL Association: WNL Fund of Knowledge: [facility] Decription of patient's judgement and insights: Fair I/J - Mood Mood: Depressed, Anxious - Affect Affect: Constricted, Depressed - Formal Thought Process Formal Thought Process: Hallucinations Psychotic Thoughts and Behaviors: +AH/VH - Suicidal Ideation Suicidal Ideation: No - Homicidal Ideation Homicidal Ideation: No Goal/Treatment Plan - Goal/Treatment Plan Need for Continued Stay: Remain at risks for inpatient hospitalization, Severe depression anxiety, Discharge may exacerbated symptoms Progress Toward Problem(s) and Goals/Treatment Plan: Schizoaffective Disorder -Individual and group therapy -Psychoeducation -Increase Risperdal -Continue Lexapro -Medicine consult -Disposition planning
--- NOTE | 2018-05-10 12:38 | CP.PCM.PN ---
Subjective - Date & Time of Evaluation Date of Evaluation: 05/10/18 Time of Evaluation: 12:35 - Subjective Subjective: Podiatry Progress Note: Dr. Fung 57 year old male patient, with PMHx of HTN, COPD, CAD, seen and evaluated for L leg cellulitis and R leg erythema. Patient is well known to Dr. Fung and follows up in [facility] [place]. He states that his legs don't have any open wounds at this time but they have been red for the past week or so. He denies any acute pedal complaints at this time. Denies N/V/F/SOB/CP. Objective - Vital Signs/Intake and Output Vital Signs (last 24 hours): Temp Pulse Resp BP Pulse Ox 97.3 F L 89 18 135/77 96 05/10/18 05:50 05/10/18 08:41 05/10/18 05:50 05/10/18 08:41 05/05/18 15:33 - Medications Medications: Current Medications Acetaminophen (Tylenol 325mg Tab) 650 mg PO Q4 PRN PRN Reason: Pain, moderate (4-7) Al Hydrox/Mg Hydrox/Simethicone (Maalox Plus 30 Ml) 30 ml PO Q4 PRN PRN Reason: Dyspepsia Albuterol/Ipratropium (Duoneb 3 Mg/0.5 Mg (3 Ml) Ud) 3 ml INH RQ4 [facility] Last Admin: 05/10/18 11:45 Dose: 3 ml Aspirin (Ecotrin) 81 mg PO DAILY [facility] Last Admin: 05/10/18 08:40 Dose: 81 mg Bismuth Subsalicylate (Pepto-Bismol) 524 mg PO Q4 PRN PRN Reason: Diarrhea Carvedilol (Coreg) 25 mg PO Q12 [facility] Last Admin: 05/10/18 08:41 Dose: 25 mg Chlorthalidone (Hygroton) 12.5 mg PO DAILY [facility] Last Admin: 05/10/18 08:43 Dose: 12.5 mg Ciprofloxacin (Cipro) 500 mg PO BID [facility]; Protocol Last Admin: 05/10/18 08:40 Dose: 500 mg Docusate Sodium (Colace) 100 mg PO DAILY [facility] Last Admin: 05/10/18 08:44 Dose: Not Given Escitalopram Oxalate (Lexapro) 10 mg PO DAILY [facility] Last Admin: 05/10/18 08:39 Dose: 10 mg Gabapentin (Neurontin) 300 mg PO BID [facility] Last Admin: 05/10/18 08:42 Dose: 300 mg Hydroxyzine Pamoate (Vistaril) 50 mg PO Q8 PRN PRN Reason: Anxiety Last Admin: 05/09/18 21:14 Dose: 50 mg Ibuprofen (Motrin Tab) 600 mg PO Q8 PRN PRN Reason: Pain, severe (8-10) Last Admin: 05/09/18 08:43 Dose: 600 mg Linezolid (Zyvox) 600 mg PO Q12 [facility]; Protocol Last Admin: 05/10/18 08:39 Dose: 600 mg Lorazepam (Ativan) 0.5 mg PO HS PRN PRN Reason: Insomnia Stop: 05/18/18 17:03 Last Admin: 05/04/18 23:52 Dose: 0.5 mg Lorazepam (Ativan) 0.5 mg PO Q6 PRN PRN Reason: Anixety/Agitation Stop: 05/18/18 17:13 Last Admin: 05/08/18 18:43 Dose: 0.5 mg Magnesium Hydroxide (Milk Of Magnesia) 30 ml PO HS PRN PRN Reason: Constipation Metformin HCl (Glucophage) 500 mg PO DAILY [facility] Last Admin: 05/10/18 08:43 Dose: 500 mg Multi-Ingredient Ointment (Hydrophor Oint) 1 applic TOP BID PRN PRN Reason: dry feet Last Admin: 05/10/18 08:45 Dose: 1 applic Nicotine (Nicoderm Cq) 1 patch TD DAILY [facility] Last Admin: 05/10/18 08:44 Dose: 1 patch Pramipexole Dihydrochloride (Mirapex) 1.5 mg PO Q12H [facility] Last Admin: 05/10/18 08:39 Dose: 1.5 mg Risperidone (Risperdal Tab) 3 mg PO HS [facility] Last Admin: 05/09/18 21:14 Dose: 3 mg Risperidone (Risperdal Tab) 2 mg PO DAILY [facility] Trazodone HCl (Desyrel) 100 mg PO HS [facility] Last Admin: 05/09/18 21:14 Dose: 100 mg Triamcinolone Acetonide (Kenalog 0.1% Oint) 1 appl TOP BID PRN PRN Reason: facial redness Last Admin: 05/10/18 08:44 Dose: 1 applic - Labs Labs: 05/09/18 05:30 05/07/18 05:15 - Extremities Exam Additional comments: Lower extremity focused exam: Vasc: DP and PT pulses palpable. CFT <3 seconds to all digits. Temp gradient warm to warm from proximal to distal, Mild edema noted to b/l lower extremities Ortho: No pain upon palpation to bilateral LE, MMT 5/5 in all compartments Neuro: Gross and protective sensation intact Derm: L lower extremity shiny skin with evidence of cellulitis to the L leg. No opening lesions, no probe to bone, no tunneling, no tracking, no undermining, no fluctuance, no signs of abscess, no purulence appreciated. Assessment and Plan - Assessment and Plan (Free Text) Assessment: 57 year old male patient with left lower extremity cellulitis and right leg erythema Plan: Patient seen and evaluated Discussed plan in detail with attending Dr. Fung Chart, vitals, labs reviewed; afebrile, WBC 10.7 Continue IV abx per ID reccs No dressing applied to b/l extremities Will continue to follow patient while on the floors
[2018-05-11] MEDS: Albuterol-Ipratrop 3 mg / 0.5 (3 ml) UD INH SCH ×6 (00:38→22:30)
--- NOTE | 2018-05-11 10:34 | PCM.PYCHPN ---
Psychiatric Progress Note - Psychiatric Progress Note Patient seen today, length of contact: Pt evaluated, case discussed with team, chart reviewed Patient Chief Complaint: "The voices are less frequent." Problems Identified/Issues Discussed: Patient reports that he continues to hear AH, but states that they are less frequent. He reports that his mood is starting to improve. He continues to experience tactile hallucinations of someone pushing him. No adverse effects to medications reported. We discussed continued titration of Risperdal. Medication Change: Yes (Increase Risperdal) Medical Record Reviewed: Yes Consults ordered or reviewed: Medicine consult, Podiatry consult Mental Status Examination - Cognitive Function Orientation: Person, Place, Situation, Time Memory: Intact Attention: WNL Concentration: WNL Association: WNL Fund of Knowledge: [facility] Decription of patient's judgement and insights: Fair I/J - Mood Mood: Depressed, Anxious - Affect Affect: Constricted, Depressed - Speech Speech: Appropriate - Formal Thought Process Formal Thought Process: Hallucinations Psychotic Thoughts and Behaviors: +AH/TH - Suicidal Ideation Suicidal Ideation: No - Homicidal Ideation Homicidal Ideation: No Goal/Treatment Plan - Goal/Treatment Plan Need for Continued Stay: Remain at risks for inpatient hospitalization, Severe depression anxiety, Discharge may exacerbated symptoms Progress Toward Problem(s) and Goals/Treatment Plan: Schizoaffective Disorder -Individual and group therapy -Psychoeducation -Increase Risperdal -Continue Lexapro -Medicine consult -Disposition planning
[2018-05-12] MEDS: Albuterol-Ipratrop 3 mg / 0.5 (3 ml) UD INH SCH ×6 (01:01→19:17)
--- NOTE | 2018-05-12 08:50 | PCM.PYCHPN ---
Psychiatric Progress Note - Psychiatric Progress Note Patient seen today, length of contact: Pt evaluated, case discussed with team, chart reviewed Patient Chief Complaint: "The voices are less frequent." Problems Identified/Issues Discussed: Patient reports that he continues to hear AH, but states that they are less frequent. He reports that his mood continues to improve. He saw [facility] of shadows yesterday. No adverse effects to medications reported. Medication Change: No Medical Record Reviewed: Yes Consults ordered or reviewed: Medicine consult, Podiatry consult Mental Status Examination - Cognitive Function Orientation: Person, Place, Situation, Time Memory: Intact Attention: WNL Concentration: WNL Association: [facility] Fund of Knowledge: [facility] Decription of patient's judgement and insights: Fair I/J - Mood Mood: Depressed, Anxious - Affect Affect: Constricted, Depressed - Speech Speech: Appropriate - Formal Thought Process Formal Thought Process: Hallucinations Psychotic Thoughts and Behaviors: +AH - Suicidal Ideation Suicidal Ideation: No - Homicidal Ideation Homicidal Ideation: No Goal/Treatment Plan - Goal/Treatment Plan Need for Continued Stay: Remain at risks for inpatient hospitalization, Severe depression anxiety, Discharge may exacerbated symptoms Progress Toward Problem(s) and Goals/Treatment Plan: Schizoaffective Disorder -Individual and group therapy -Psychoeducation -Continue Risperdal -Continue Lexapro -Medicine consult -Disposition planning
--- NOTE | 2018-05-12 12:57 | CP.PCM.PN ---
Subjective - Date & Time of Evaluation Date of Evaluation: 05/12/18 Time of Evaluation: 08:00 - Subjective Subjective: cellulitis slowly improving cont PO antibiotics till Thursday Objective - Vital Signs/Intake and Output Vital Signs (last 24 hours): Temp Pulse Resp BP Pulse Ox 97.4 F L 83 19 123/77 96 05/12/18 05:51 05/12/18 09:42 05/12/18 05:51 05/12/18 09:42 05/05/18 15:33 - Medications Medications: Current Medications Acetaminophen (Tylenol 325mg Tab) 650 mg PO Q4 PRN PRN Reason: Pain, moderate (4-7) Last Admin: 05/12/18 05:10 Dose: 650 mg Al Hydrox/Mg Hydrox/Simethicone (Maalox Plus 30 Ml) 30 ml PO Q4 PRN PRN Reason: Dyspepsia Albuterol/Ipratropium (Duoneb 3 Mg/0.5 Mg (3 Ml) Ud) 3 ml INH RQ4 [facility] Last Admin: 05/12/18 11:57 Dose: 3 ml Aspirin (Ecotrin) 81 mg PO DAILY [facility] Last Admin: 05/12/18 09:42 Dose: 81 mg Bismuth Subsalicylate (Pepto-Bismol) 524 mg PO Q4 PRN PRN Reason: Diarrhea Carvedilol (Coreg) 25 mg PO Q12 [facility] Last Admin: 05/12/18 09:42 Dose: 25 mg Chlorthalidone (Hygroton) 12.5 mg PO DAILY [facility] Last Admin: 05/12/18 09:43 Dose: 12.5 mg Docusate Sodium (Colace) 100 mg PO DAILY [facility] Last Admin: 05/12/18 09:42 Dose: Not Given Escitalopram Oxalate (Lexapro) 10 mg PO DAILY [facility] Last Admin: 05/12/18 09:44 Dose: 10 mg Gabapentin (Neurontin) 300 mg PO BID [facility] Last Admin: 05/12/18 09:40 Dose: 300 mg Hydroxyzine Pamoate (Vistaril) 50 mg PO Q8 PRN PRN Reason: Anxiety Last Admin: 05/09/18 21:14 Dose: 50 mg Ibuprofen (Motrin Tab) 600 mg PO Q8 PRN PRN Reason: Pain, severe (8-10) Last Admin: 05/09/18 08:43 Dose: 600 mg Lorazepam (Ativan) 0.5 mg PO HS PRN PRN Reason: Insomnia Stop: 05/18/18 17:03 Last Admin: 05/04/18 23:52 Dose: 0.5 mg Lorazepam (Ativan) 0.5 mg PO Q6 PRN PRN Reason: Anixety/Agitation Stop: 05/18/18 17:13 Last Admin: 05/08/18 18:43 Dose: 0.5 mg Magnesium Hydroxide (Milk Of Magnesia) 30 ml PO HS PRN PRN Reason: Constipation Metformin HCl (Glucophage) 500 mg PO DAILY [facility] Last Admin: 05/12/18 09:42 Dose: 500 mg Multi-Ingredient Ointment (Hydrophor Oint) 1 applic TOP BID PRN PRN Reason: dry feet Last Admin: 05/10/18 08:45 Dose: 1 applic Nicotine (Nicoderm Cq) 1 patch TD DAILY [facility] Last Admin: 05/12/18 09:39 Dose: 1 patch Pramipexole Dihydrochloride (Mirapex) 1.5 mg PO Q12H [facility] Last Admin: 05/12/18 09:40 Dose: 1.5 mg Risperidone (Risperdal Tab) 2 mg PO DAILY [facility] Last Admin: 05/12/18 09:41 Dose: 2 mg Risperidone (Risperdal Tab) 4 mg PO HS [facility] Last Admin: 05/11/18 21:07 Dose: 4 mg Trazodone HCl (Desyrel) 100 mg PO HS [facility] Last Admin: 05/11/18 21:10 Dose: 100 mg Triamcinolone Acetonide (Kenalog 0.1% Oint) 1 appl TOP BID PRN PRN Reason: facial redness Last Admin: 05/12/18 09:39 Dose: 1 applic - Labs Labs: 05/09/18 05:30 05/07/18 05:15 - Constitutional Appears: Non-toxic, Chronically Ill - Head Exam Head Exam: NORMOCEPHALIC - Eye Exam Eye Exam: absent: Scleral icterus - ENT Exam ENT Exam: Mucous Membranes Dry - Neck Exam Neck Exam: absent: Lymphadenopathy - Respiratory Exam Respiratory Exam: Decreased Breath Sounds - Cardiovascular Exam Cardiovascular Exam: REGULAR RHYTHM - GI/Abdominal Exam GI & Abdominal Exam: Distended - Rectal Exam Rectal Exam: Deferred - Exam Exam: NORMAL INSPECTION - Extremities Exam Extremities Exam: Pedal Edema. absent: Calf Tenderness - Back Exam Back Exam: absent: CVA tenderness (L), CVA tenderness (R) - Neurological Exam Neurological Exam: Alert, Awake, Oriented x3 - Psychiatric Exam Psychiatric exam: Normal Mood - Skin Skin Exam: Erythema Assessment and Plan (1) Depressive disorder Status: Acute (2) Alcohol abuse Status: Acute (3) Bilateral lower leg cellulitis Status: Acute (4) Bipolar 1 disorder, depressed Status: Acute (5) CHF (congestive heart failure) Status: Acute (6) COPD (chronic obstructive pulmonary disease) Status: Acute - Assessment and Plan (Free Text) Assessment: d/c on PO rx follow up as out pt with PMD
[2018-05-13] MEDS: Albuterol-Ipratrop 3 mg / 0.5 (3 ml) UD INH SCH ×6 (00:18→19:13)
--- NOTE | 2018-05-13 08:57 | PCM.PYCHPN ---
Psychiatric Progress Note - Psychiatric Progress Note Patient seen today, length of contact: Pt evaluated, case discussed with team, chart reviewed Patient Chief Complaint: "I'm getting better." Problems Identified/Issues Discussed: Patient reports that his mood is improving. He denies acute AH/VH/TH/paranoia/delusions/SI/HI. No adverse effects to medications reported. Medication Change: No Medical Record Reviewed: Yes Consults ordered or reviewed: Medicine consult, Podiatry consult Mental Status Examination - Cognitive Function Orientation: Person, Place, Situation, Time Memory: Intact Attention: WNL Concentration: WNL Association: WNL Fund of Knowledge: [facility] Decription of patient's judgement and insights: Fair I/J - Mood Mood: Anxious - Affect Affect: Constricted - Speech Speech: Appropriate - Formal Thought Process Formal Thought Process: No Impairment Psychotic Thoughts and Behaviors: Denies acute AH/VH/TH/paranoia/delusions - Suicidal Ideation Suicidal Ideation: No - Homicidal Ideation Homicidal Ideation: No Goal/Treatment Plan - Goal/Treatment Plan Need for Continued Stay: Severe depression anxiety Progress Toward Problem(s) and Goals/Treatment Plan: Schizoaffective Disorder -Individual and group therapy -Psychoeducation -Continue Risperdal -Continue Lexapro -Medicine consult -Disposition planning- likely discharge to home tomorrow as patient is improving clinically Estimated Date of D/C: 05/14/18
--- NOTE | 2018-05-13 10:28 | PCM.BM ---
Treatment Plan Problems - Problems identified on initial assessmt Problem 3 Date Initiated: 05/04/18 Time Initiated: 16:47 Assessment reference: NA Status: Active Problem 1 Date Initiated: 05/04/18 Time Initiated: 16:51 Assessment reference: NA Status: Active Anxiety Date Initiated: 05/04/18 Time Initiated: 16:44 Assessment reference: NA Status: Active Suicidal Ideation Date Initiated: 05/04/18 Assessment reference: NA Status: Active Self Care Deficit Date Initiated: 05/04/18 Time Initiated: 16:48 Assessment reference: NA Status: Active Hopelessness/Helplessness Date Initiated: 05/04/18 Time Initiated: 16:50 Assessment reference: NA Status: Active Treatment assets and liabiliti Patient Assests: adapts well, cooperative, insightful, resourceful, self- reliant, ADL independent, negotiates basic needs, cognitively intact, good interpersonal skills Patient Liabilities: medical problems - Milieu Protocol Maintain good personal hygiene: daily Encourage regular showers, daily Remind patient to perform daily oral care, daily Assist patient to perform ADL's Maintain personal safety: every shift Educate patient to report safety concerns to staff, every shift Monitor environment for contraband/sharps Medication safety: Monitor for expected outcome, potential side effects: every shift, Assess barriers to learning: every shift, Assess readiness for medication education: every shift Milieu Narrative: Schizoaffective Disorder -Individual and group therapy -Psychoeducation -Continue Risperdal -Continue Lexapro -Medicine consult -Disposition planning- likely discharge to home tomorrow as patient is improving clinically Family Contact Family involvement: Family/SO is involved Family contact: Patient declines to allow family contact at present - Outside Agency [facility] Care involvment: Not involved - Goals for Treatment Patient goals for treatment: Pt will improve overall mood. Pt will report feeling more positive about self and abilities. Pt will develop strategies for t hought distraction when ruminating on the past. Pt will develop coping skills to better cope with stress and feelings of overwhelming. Pt will report to interdisicplinary team when expeirenicng hallucinations. Pt will contract for safety on the unit. Pt will get 7-8 hours of restful sleep each night. Discharge/Continuing Care - Education Needs Education Needs: Patient Medication, Patient Diagnosis/Disease Process, Patient Coping Skills, Patient Community resources, Patient Activities of Daily Living, Patient Uses of Medical Equipment, Patient Health Practices/Safety, Patient Personal Hygiene/Grooming, Patient Aftercare Safety Plan - Discharge Discharge Criteria: Tolerates medication w/o severe side effects, Free of agitation, Normal sleep pattern, Ability to care for self, No longer exhibiting s/s of withdrawal, Other (Free of command auditory hallucinations) Discharge to:: Home - Additional Comments 05/05/18 12:40 Pt seen and discussed in team meeting. Reason for hospitalization reviewed and discussed. Pt reported he was referred to the ED due to command auditory hallucinations. Pt reported that the voices are telling him to hurt himself. Pt denied intent and plan. Pt reported worsening depression, anxiety and crying spells. Pt reported poor sleep pattern. Pt reported lacking initiation and motivation to complete ADL's and certain tasks. pt reported difficulty time concentrating and focusing. Pt reported medication non-compliance. Pt reported tx non-compliance due to lack of transportation and distance. Pt reported when he was last discharged from [facility] he as referred to [facility]; however, due to transportation he was unable to make it to his appointments. Pt is requesting to be linked to a closer agency/clinic. Pt's social and medical issues reviewed. Pt reported having poor communication with relatives and limited social support. Pt reports residing with a roommate. Pt's medications reviewed at length with attending physician, Dr. Abigail MD. Please refer to attending physician progress note for further detail. Tx plan reviewed and discussed; pt verbalized agreement. SW to continue to follow case. - Treatment Team Participation Patient/Family/SO Statement: Schizoaffective Disorder -Individual and group therapy -Psychoeducation -Continue Risperdal -Continue Lexapro -Medicine consult -Disposition planning- likely discharge to home tomorrow as patient is improving clinically Discussed with Family/SO: No Was Patient/Family/SO present at Treatment Team Meeting: Yes Treatment Plan Review Patient participation: Yes Family/SO/Caregiver participation: No Additional Comments: Pt seen and discussed in team meeting. Pt's progress and bx on the unit reviewed and discussed. Pt reported feeling better. Pt denied SI and HI. Pt denied VH. Pt reported AH; however they are lesser. Pt reported improved sleep. Appetite is fair. Pt scheduled for discharge tomorrow, May 14 and returning home. Pt in agreement with following up with outpatient services. Pt verbalized agreement to attend [facility]. Pt's medications reviewed by attending physician. SW to follow up with outpatient appointment. - Problem Problem 3 Time Initiated: 16:47 Problem 1 Time Initiated: 16:51 Anxiety Date Initiated: 05/04/18 Time Initiated: 16:44 Progress toward outcomes: improved Suicidal Ideation Date Initiated: 05/04/18 Progress toward outcomes: resolved Self Care Deficit Date Initiated: 05/04/18 Time Initiated: 16:48 Progress toward outcomes: improved Hopelessness/Helplessness Date Initiated: 05/04/18 Time Initiated: 16:50 Progress toward outcomes: improved - Discharge / Continuing Care Discharge to:: Home Behavioral Health Services: Outpatient therapy Health Needs: Follow up care/test, Doctor appointments, Nutritional, Medications/Rx, Recreational/Social
[2018-05-13 15:41] VITALS: RESP 18
[2018-05-14] MEDS: Albuterol-Ipratrop 3 mg / 0.5 (3 ml) UD INH SCH ×2 (03:19)
[2018-05-14 06:47] VITALS: BP 134/78; PULSE 79; TEMP 97.2
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
== END 2018-05-14 10:05 | disposition home or self-care (01) | DRG 430 ==
LOC: H.ER 11:19 → SUPCPDRO 11:19 → H.ERHOLD 14:24 → H.STEP 16:03
PROVIDERS: ADMIT Psychiatry & Neurology Psychiatry; ATTEND Psychiatry & Neurology Psychiatry
PROC: GZHZZZZ Group Psychotherapy (ICD-10-PCS; principal; 2018-05-04)
PROC: GZ58ZZZ Individual Psychotherapy, Cognitive-Behavioral (ICD-10-PCS; 2018-05-04)
DX: F31.30 Bipolar disorder, current episode depressed, mild or moderate severity, unspecified (principal); I13.0 Hypertensive heart and chronic kidney disease with heart failure and stage 1 through stage 4 chronic kidney disease, or unspecified chronic kidney disease; L03.115 Cellulitis of right lower limb; L03.116 Cellulitis of left lower limb; J43.9 Emphysema, unspecified; I50.9 Heart failure, unspecified; N18.9 Chronic kidney disease, unspecified; E11.22 Type 2 diabetes mellitus with diabetic chronic kidney disease; F14.11 Cocaine abuse, in remission; F25.9 Schizoaffective disorder, unspecified; F60.9 Personality disorder, unspecified; R45.851 Suicidal ideations; E66.01 Morbid (severe) obesity due to excess calories; Z68.41 Body mass index [BMI] 40.0-44.9, adult; I87.2 Venous insufficiency (chronic) (peripheral); I25.10 Atherosclerotic heart disease of native coronary artery without angina pectoris; F41.9 Anxiety disorder, unspecified; Z91.14 Patient's other noncompliance with medication regimen; Z91.19 Patient's noncompliance with other medical treatment and regimen; G47.30 Sleep apnea, unspecified; F10.10 Alcohol abuse, uncomplicated; G25.81 Restless legs syndrome; E78.00 Pure hypercholesterolemia, unspecified; F17.210 Nicotine dependence, cigarettes, uncomplicated

== ENCOUNTER 2018-08-19 10:55 | Inpatient (IN) | payer MEDICAID ==
[2018-08-19 11:02] VITALS: BMI 28.6
--- NOTE | 2018-08-19 12:37 | ED PDOC ---
HPI: Psych/Substance Abuse Time Seen by Provider: 08/19/18 11:23 Chief Complaint (Nursing): Psychiatric Evaluation History Per: Patient Additional Complaint(s): Pt. states he was at his psychiatrist's office [employer] and he informed him that for the past week he's developed SI along with auditory and visual hallucinations. States that he hears voices telling him to hurt himself. Pt. states he does want to hurt himself but has not developed a plan. Also states that he sees shadows which are not suppose to be present. Offers no medical complaints. Denies chest pain, SOB, fever, chills. Past Medical History Reviewed: Historical Data, Nursing Documentation, Vital Signs Vital Signs: Last Vital Signs Temp 98 F 08/19/18 11:02 Pulse 94 H 08/19/18 11:02 Resp 16 08/19/18 11:02 BP 156/81 H 08/19/18 11:02 Pulse Ox 96 08/19/18 11:02 Primary Care Provider: FAMILY PROVIDER,NO - Medical History PMH: Anxiety, Asthma, Bipolar Disorder, CHF, COPD, Depression, Diabetes, Emphysema, HTN, Personality Disorder, Schizophrenia, Sleep Apnea Denies: Hepatitis, HIV, Hypercholesterolemia (PT DENIES), Chronic Kidney Disease, Seizures, Sexually Transmitted Disease - Family History Family History: States: No Known Family Hx - Immunization History Hx Tetanus Toxoid Vaccination: Yes Hx Influenza Vaccination: Yes Hx Pneumococcal Vaccination: No - Home Medications Home Medications: Ambulatory Orders Medication Instructions Recorded Albuterol HFA [Ventolin HFA 90 2 puff IH Q6 PRN 03/09/17 mcg/actuation (8 g)] Aspirin [Ecotrin] 81 mg PO DAILY 02/22/18 Carvedilol [Coreg] 25 mg PO Q12 02/22/18 Pramipexole Di-HCl [Mirapex] 1.5 mg PO Q12 #60 tablet 05/13/18 traZODone [Desyrel] 100 mg PO HS #30 tab 05/13/18 ARIPiprazole [Abilify] 10 mg PO HS 08/19/18 Albuterol/Ipratropium [Combivent 1 puff IH Q6 PRN 08/19/18 Respimat] Amitriptyline [Elavil] 25 mg PO HS 08/19/18 Chlorthalidone [Hygroton] 25 mg PO DAILY 08/19/18 DULoxetine [Cymbalta] 60 mg PO DAILY 08/19/18 Fluticasone Propion/Salmeterol 1 puff IH Q12 08/19/18 [Wixela 250-50 Inhub] Irbesartan 150 mg PO DAILY 08/19/18 Loratadine [Claritin] 10 mg PO DAILY 08/19/18 MetFORMIN ER [Glucophage XR] 500 mg PO DAILY 08/19/18 Tramadol HCl [Tramadol HCl ER] 200 mg PO DAILY 08/19/18 - Allergies Allergies/Adverse Reactions: Allergies Allergy/AdvReac Type Severity Reaction Status Date / Time No Known Allergies Allergy Verified 03/10/18 10:17 Review of Systems ROS Statement: Except As Marked, All Systems Reviewed And Found Negative Psych: Positive for: Suicidal ideation Physical Exam - Physical Exam Appears: Positive for: Well, Non-toxic, No Acute Distress Head Exam: Positive for: ATRAUMATIC, NORMAL INSPECTION, NORMOCEPHALIC Skin: Positive for: Normal Color, Warm. Negative for: Rash Eye Exam: Positive for: EOMI, Normal appearance, PERRL ENT: Positive for: Normal ENT Inspection Cardiovascular/Chest: Positive for: Regular Rate, Rhythm Respiratory: Positive for: CNT, Normal Breath Sounds Gastrointestinal/Abdominal: Positive for: Soft. Negative for: Tenderness Neurological/Psych: Positive for: Awake, Alert, Oriented (x3) - Laboratory Results Result Diagrams: 08/20/18 06:00 08/20/18 06:00 - ECG ECG: Positive for: Interpreted By Me ECG Rhythm: Positive for: Sinus Rhythm. Negative for: ST/T Changes Rate: 77 O2 Sat by Pulse Oximetry: 96 - Radiology X-Ray: Interpreted by Me (CXR) X-Ray Interpretation: No Acute Disease - Progress ED Course And Treament: Labs, EKG, CXR ordered. Pt. placed on 1:1. 1410 Pt. evaluated by Suzi BROWN who spoke with Dr. Hayes and requests for patient to be admitted. Disposition - Clinical Impression Clinical Impression: Schizoaffective disorder - Patient ED Disposition Is Patient to be Admitted: Yes - Disposition Disposition Time: 14:18 Condition: STABLE
[2018-08-19 13:01] LABS: BASO # 0.1 K/uL (0.0-0.2); BASO % 0.5 % (0.0-2.0); EOS # 0.2 K/uL (0.0-0.7); EOS % 1.5 % (0.0-4.0); HEMOGLOBIN 14.6 g/dL (12.0-18.0); LYMPH # 1.8 K/uL (1.0-4.3); LYMPH % 13.8 % (20.0-40.0); MEAN CELL VOLUME 79.9 fl (80.0-94.0); MEAN CORPUSCULAR HEMOGLOBIN 26.3 pg (27.0-31.0); MEAN CORPUSCULAR HGB CONC 32.9 g/dL (33.0-37.0); MEAN PLATELET VOLUME 7.4 fl (7.2-11.7); MONO # 0.9 K/uL (0.0-0.8); MONO % 7.1 % (0.0-10.0); NEUT # 10.2 K/uL (1.8-7.0); NEUT % 77.1 % (50.0-75.0); NRBC % 0.1 % (0.0-0.0); RBC 5.57 Mil/uL (4.40-5.90); RED CELL DISTRIBUTION WIDTH 16.6 % (11.5-14.5); SQUAMOUS EPITHIAL < 1 /hpf (0-5); URINE BILIRUBIN NEGATIVE (NEGATIVE); URINE BLOOD NEGATIVE (NEGATIVE); URINE CLARITY CLEAR (Clear); URINE COLOR YELLOW (YELLOW); URINE GLUCOSE (UA) NEG (NEGATIVE); URINE LEUKOCYTE ESTERASE NEG Leu/uL (Negative); URINE PROTEIN NEGATIVE (NEGATIVE); URINE UROBILINOGEN 0.2-1.0 mg/dL (0.2-1.0); WHITE BLOOD COUNT 13.3 K/uL (4.8-10.8)
[2018-08-19 13:06] LABS: ALB/GLOB RATIO 1.3 (1.0-2.1)
[2018-08-19 13:12] LABS: ALBUMIN 4.3 g/dL (3.5-5.0); ALT/SGPT 26 U/L (21-72); AST/SGOT 19 U/L (17-59); BARBITURATES, UR NEGATIVE (NEGATIVE); BENZODIAZEPINES, UR NEGATIVE (NEGATIVE); BLOOD UREA NITROGEN 10 mg/dl (9-20); CALCIUM 9.2 mg/dL (8.4-10.2); GFR NON-AFRICAN AMERICAN > 60; OPIATES, UR NEGATIVE (NEGATIVE); PHENCYCLIDINE, UR NEGATIVE (NEGATIVE)
--- NOTE | 2018-08-19 13:19 | RAD ---
Date of service: 08/19/2018 HISTORY: clearance COMPARISON: 05/09/2018. FINDINGS: LUNGS: No active pulmonary disease. PLEURA: No significant pleural effusion identified, no pneumothorax apparent. CARDIOVASCULAR: No radiographic findings to suggest acute or significant cardiovascular disease. Atherosclerotic calcifications identified primarily aortic arch. OSSEOUS STRUCTURES: No significant abnormalities. VISUALIZED UPPER ABDOMEN: Normal. OTHER FINDINGS: None. IMPRESSION: No active disease. No significant interval change compared to the prior examination(s).
--- NOTE | 2018-08-19 16:48 | PCM.BM ---
<Cathy Ndiayej carlos Yang - Last Filed: 08/19/18 16:46> Treatment Plan Problems - Problems identified on initial assessmt Suicidal Ideation Date Initiated: 08/19/18 Time Initiated: 16:46 Assessment reference: HP, NA Status: Active Priority: 1 Depression Date Initiated: 08/19/18 Time Initiated: 16:47 Assessment reference: HP, NA Status: Active Treatment assets and liabiliti Patient Assests: adapts well, cooperative, insightful, resourceful, self- reliant, ADL independent, negotiates basic needs, cognitively intact, good interpersonal skills Patient Liabilities: live alone, poor support system, substance abuse, medical problems - Milieu Protocol Maintain good personal hygiene: daily Encourage regular showers, daily Remind patient to perform daily oral care, daily Assist patient to perform ADL's Conduct patient checks and document Observation sheet: Q15 minutes Maintain personal safety: every shift Educate patient to report safety concerns to staff, every shift Monitor environment for contraband/sharps Medication safety: Monitor for expected outcome, potential side effects: every shift, Assess barriers to learning: every shift, Assess readiness for medication education: every shift <Lamar Hayes - Last Filed: 08/20/18 08:42> - Diagnosis (1) Schizoaffective disorder Status: Chronic Interventions: Medication management, Individual and group therapy, Psychoeducation 08/20/18 08:42 <Bry Shoemaker J - Last Filed: 08/20/18 16:39> Family Contact Family involvement: Family/SO is involved Family contact: Patient agrees to contact, Family has been contacted by patient - Goals for Treatment Patient goals for treatment: Pt reported he would like to be restabilized on medication to improve his depression and eliminate his hallucinations. Discharge/Continuing Care - Education Needs Education Needs: Patient Medication, Patient Diagnosis/Disease Process, Patient Coping Skills, Patient Community resources, Patient Aftercare Safety Plan - Discharge Discharge Criteria: Tolerates medication w/o severe side effects, Free of Suicidal thoughts, Free of paranoid thoughts, Free of agitation, Normal sleep pattern, Ability to care for self, Reduction of target symptoms Discharge to:: Home - Treatment Team Participation Patient/Family/SO Statement: 08/20/18 16:37 Pt was seen in treatment team on 08/20/18. Pt reported that he is feeling very anxious at this time and was seen to be shaking. Pt agreed to PRN Ativan after team meeting. Pt reported that he last heard voices prior to team on 08/20. Medications reviewed and will be restarted. Pt reported that he has been seeing Myrtle and Dr. Corbett at [facility], but the psychiatrist is on vacation and he ran out of medications. Pt denied current SI/HI and AVT hallucinations. Pt is oriented X4. Discussed with Family/SO: No Was Patient/Family/SO present at Treatment Team Meeting: Yes
[2018-08-19] MEDS ORDERED: Bismuth Subsalicylate 262 mg/15 ml Sus (240 ml) PO PRN (18:14)
[2018-08-19] MEDS ORDERED: Magnesium Hydroxide Susp 30 ml UD PO PRN (18:14)
[2018-08-19] MEDS ORDERED: Alum-Mag Hydrox-Simethicone Susp (30 mL) PO PRN (18:14)
[2018-08-19] MEDS: Albuterol-Ipratrop 3 mg / 0.5 (3 ml) UD INH PRN (18:44)
[2018-08-19 19:01] LABS: SPERM URINE OCC /hpf; URINE BILIRUBIN NEGATIVE (NEGATIVE); URINE BLOOD NEGATIVE (NEGATIVE); URINE CLARITY SLIGHTY-CLOUDY (Clear); URINE COLOR YELLOW (YELLOW); URINE GLUCOSE (UA) NEG (NEGATIVE); URINE LEUKOCYTE ESTERASE NEG Leu/uL (Negative); URINE PROTEIN NEGATIVE (NEGATIVE); URINE UROBILINOGEN 0.2-1.0 mg/dL (0.2-1.0)
[2018-08-19] MEDS: FLUTICASONE PROPION/SALMETEROL 232-14 INHALER IH SCH (21:17)
[2018-08-20 06:49] LABS: HEMOGLOBIN 14.8 g/dL (12.0-18.0); MEAN CORPUSCULAR HEMOGLOBIN 26.6 pg (27.0-31.0); MEAN CORPUSCULAR HGB CONC 33.3 g/dL (33.0-37.0); RBC 5.55 Mil/uL (4.40-5.90); RED CELL DISTRIBUTION WIDTH 16.6 % (11.5-14.5); WHITE BLOOD COUNT 10.8 K/uL (4.8-10.8)
[2018-08-20 06:53] LABS: ALB/GLOB RATIO 1.3 (1.0-2.1); ALBUMIN 4.2 g/dL (3.5-5.0); ALT/SGPT 23 U/L (21-72); AST/SGOT 23 U/L (17-59); BLOOD UREA NITROGEN 12 mg/dl (9-20); CALCIUM 9.1 mg/dL (8.4-10.2); GFR NON-AFRICAN AMERICAN > 60; HDL CHOLESTEROL 35 MG/DL (30-70)
[2018-08-20 07:03] LABS: LDL CHOLESTEROL 85 mg/dL (0-129)
[2018-08-20 07:27] LABS: FERRITIN 80.6 ng/Ml (17.9-464)
--- NOTE | 2018-08-20 08:35 | CP.PCM.CON ---
History of Present Illness - History of Present Illness History of Present Illness: Patient admitted for depression/SI was originally scheduled for injection as an outpatient. He states this morning that he would rather delay the procedure for now, but is open to having it before discharge. Pain is unchanged. Past Patient History - Infectious Disease Hx of Infectious Diseases: None - Past Medical History & Family History Past Medical History?: Yes - Past Social History Smoking Status: Current Some Days Smoker - CARDIAC Hx Congestive Heart Failure: Yes Hx Hypercholesterolemia: No (PT DENIES) Hx Hypertension: Yes - PULMONARY Hx Asthma: Yes Hx Chronic Obstructive Pulmonary Disease (COPD): Yes Hx Emphysema: Yes Hx Sleep Apnea: Yes - NEUROLOGICAL Hx Seizures: No - HEENT Hx HEENT Problems: No - RENAL Hx Chronic Kidney Disease: No - ENDOCRINE/METABOLIC Hx Diabetes Mellitus Type 2: Yes - HEMATOLOGICAL/ONCOLOGICAL Hx Human Immunodeficiency Virus (HIV): No - INTEGUMENTARY Hx Dermatological Problems: No - MUSCULOSKELETAL/RHEUMATOLOGICAL Hx Musculoskeletal Disorders: Yes Hx Back Pain: Yes Hx Falls: No - GASTROINTESTINAL Hx Gastrointestinal Disorders: No - GENITOURINARY/GYNECOLOGICAL Hx Sexually Transmitted Disorders: No - PSYCHIATRIC Hx Depression: Yes Hx Substance Use: No - SURGICAL HISTORY Hx Cardiac Catheterization: Yes (2 YEARS AGO) - ANESTHESIA Hx Anesthesia: Yes Hx Anesthesia Reactions: No Hx Malignant Hyperthermia: No Meds Allergies/Adverse Reactions: Allergies Allergy/AdvReac Type Severity Reaction Status Date / Time No Known Allergies Allergy Verified 03/10/18 10:17 - Medications Medications: Current Medications Acetaminophen (Tylenol 325mg Tab) 650 mg PO Q4 PRN PRN Reason: Pain, moderate (4-7) Al Hydrox/Mg Hydrox/Simethicone (Maalox Plus 30 Ml) 30 ml PO Q4 PRN PRN Reason: Dyspepsia Albuterol/Ipratropium (Duoneb 3 Mg/0.5 Mg (3 Ml) Ud) 3 ml INH RQ4 PRN PRN Reason: Shortness of Breath Last Admin: 08/19/18 18:44 Dose: 3 ml Aripiprazole (Abilify) 10 mg PO HS ANNE Last Admin: 08/19/18 21:15 Dose: 10 mg Aspirin (Ecotrin) 81 mg PO DAILY [facility] Bismuth Subsalicylate (Pepto-Bismol) 524 mg PO Q4 PRN PRN Reason: Diarrhea Carvedilol (Coreg) 25 mg PO Q12 [facility] Last Admin: 08/19/18 21:14 Dose: 25 mg Chlorthalidone (Hygroton) 25 mg PO DAILY [facility] Loratadine (Claritin) 10 mg PO DAILY [facility] Lorazepam (Ativan) 0.5 mg PO Q6 PRN PRN Reason: Anixety/Agitation Stop: 09/02/18 18:15 Lorazepam (Ativan) 0.5 mg PO HS PRN PRN Reason: Insomnia Losartan Potassium (Cozaar) 50 mg PO DAILY [facility] Magnesium Hydroxide (Milk Of Magnesia) 30 ml PO HS PRN PRN Reason: Constipation Metformin HCl (Glucophage) 500 mg PO BID [facility] Pramipexole Dihydrochloride (Mirapex) 1.5 mg PO Q12 [facility] Last Admin: 08/19/18 21:15 Dose: 1.5 mg Tramadol HCl (Ultram) 100 mg PO BID PRN PRN Reason: prn pain level 8-10 Trazodone HCl (Desyrel) 100 mg PO HS [facility] Physical Exam - Back Exam Back exam: paraspinal tenderness, vertebral tenderness Results - Vital Signs Recent Vital Signs: Last Vital Signs Temp 97.2 F L 08/20/18 06:00 Pulse 92 H 08/20/18 06:00 Resp 18 08/20/18 06:00 BP 118/87 08/20/18 06:00 Pulse Ox 97 08/19/18 16:00 - Labs Result Diagrams: 08/20/18 06:00 08/20/18 06:00 Labs: Laboratory Results - last 24 hr 08/19/18 08/19/18 08/19/18 12:45 12:45 12:45 WBC 13.3 H RBC 5.57 Hgb 14.6 Hct 44.5 MCV 79.9 L MCH 26.3 L MCHC 32.9 L RDW 16.6 H Plt Count 341 MPV 7.4 Neut % (Auto) 77.1 H Lymph % (Auto) 13.8 L [place] % (Auto) 7.1 Eos % (Auto) 1.5 Baso % (Auto) 0.5 Neut # (Auto) 10.2 H Lymph # (Auto) 1.8 [place] # (Auto) 0.9 H Eos # (Auto) 0.2 Baso # (Auto) 0.1 Sodium 132 Potassium 3.9 Chloride 87 L Carbon Dioxide 35 H Anion Gap 14 BUN 10 Creatinine 0.8 Est GFR ( Amer) > 60 Est GFR (Non-Af Amer) > 60 POC Glucose (mg/dL) Random Glucose 106 Calcium 9.2 Ferritin Total Bilirubin 0.5 AST 19 ALT 26 Alkaline Phosphatase 110 Total Protein 7.7 Albumin 4.3 Globulin 3.3 Albumin/Globulin Ratio 1.3 Triglycerides Cholesterol LDL Cholesterol Direct HDL Cholesterol Free T4 Urine Color Urine Clarity Urine pH Ur Specific [place] Urine Protein Urine Glucose (UA) Urine Ketones Urine Blood Urine Nitrate Urine Bilirubin Urine Urobilinogen Ur Leukocyte Esterase Urine RBC (Auto) Urine Microscopic WBC Ur Squamous Epith Cells Urine Sperm (Auto) Urine Opiates Screen Negative Urine Methadone Screen Negative Ur Barbiturates Screen Negative Ur Phencyclidine Scrn Negative Ur Amphetamines Screen Negative U Benzodiazepines Scrn Negative U Oth Cocaine Metabols Negative U Cannabinoids Screen Negative Alcohol, Quantitative < 10 08/19/18 08/19/18 08/20/18 12:45 18:49 06:00 WBC RBC Hgb Hct MCV MCH MCHC RDW Plt Count MPV Neut % (Auto) Lymph % (Auto) [place] % (Auto) Eos % (Auto) Baso % (Auto) Neut # (Auto) Lymph # (Auto) [place] # (Auto) Eos # (Auto) Baso # (Auto) Sodium 133 Potassium 3.8 Chloride 90 L Carbon Dioxide 34 H Anion Gap 13 BUN 12 Creatinine 0.8 Est GFR ( Amer) > 60 Est GFR (Non-Af Amer) > 60 POC Glucose (mg/dL) Random Glucose 107 Calcium 9.1 Ferritin 80.6 Total Bilirubin 0.5 AST 23 ALT 23 Alkaline Phosphatase 118 Total Protein 7.5 Albumin 4.2 Globulin 3.3 Albumin/Globulin Ratio 1.3 Triglycerides 97 Cholesterol 139 LDL Cholesterol Direct 85 HDL Cholesterol 35 Free T4 Urine Color Yellow Yellow Urine Clarity Clear Slighty-cloudy Urine pH 7.0 7.0 Ur Specific [place] 1.011 1.008 Urine Protein Negative Negative Urine Glucose (UA) Neg Neg Urine Ketones Negative Negative Urine Blood Negative Negative Urine Nitrate Negative Negative Urine Bilirubin Negative Negative Urine Urobilinogen 0.2-1.0 0.2-1.0 Ur Leukocyte Esterase Neg Neg Urine RBC (Auto) 1 2 Urine Microscopic WBC 1 1 Ur Squamous Epith Cells < 1 Urine Sperm (Auto) Occ Urine Opiates Screen Urine Methadone Screen Ur Barbiturates Screen Ur Phencyclidine Scrn Ur Amphetamines Screen U Benzodiazepines Scrn U Oth Cocaine Metabols U Cannabinoids Screen Alcohol, Quantitative 08/20/18 08/20/18 08/20/18 06:00 06:12 06:30 WBC 10.8 RBC 5.55 Hgb 14.8 Hct 44.4 MCV 80.0 MCH 26.6 L MCHC 33.3 RDW 16.6 H Plt Count 343 MPV Neut % (Auto) Lymph % (Auto) [place] % (Auto) Eos % (Auto) Baso % (Auto) Neut # (Auto) Lymph # (Auto) [place] # (Auto) Eos # (Auto) Baso # (Auto) Sodium Potassium Chloride Carbon Dioxide Anion Gap BUN Creatinine Est GFR ( Amer) Est GFR (Non-Af Amer) POC Glucose (mg/dL) 104 Random Glucose Calcium Ferritin Total Bilirubin AST ALT Alkaline Phosphatase Total Protein Albumin Globulin Albumin/Globulin Ratio Triglycerides Cholesterol LDL Cholesterol Direct HDL Cholesterol Free T4 1.56 Urine Color Urine Clarity Urine pH Ur Specific [place] Urine Protein Urine Glucose (UA) Urine Ketones Urine Blood Urine Nitrate Urine Bilirubin Urine Urobilinogen Ur Leukocyte Esterase Urine RBC (Auto) Urine Microscopic WBC Ur Squamous Epith Cells Urine Sperm (Auto) Urine Opiates Screen Urine Methadone Screen Ur Barbiturates Screen Ur Phencyclidine Scrn Ur Amphetamines Screen U Benzodiazepines Scrn U Oth Cocaine Metabols U Cannabinoids Screen Alcohol, Quantitative Assessment & Plan - Assessment and Plan (Free Text) Assessment: 57 yo man w/ CLBP, admitted for depression. - care per psych/primary - will f/u next week, consider injection prior to discharge
[2018-08-20] MEDS: FLUTICASONE PROPION/SALMETEROL 232-14 INHALER IH SCH ×2 (08:36→21:55)
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
--- NOTE | 2018-08-20 10:56 | CARD ---
APPROVED REPORT Date of service: 08/19/2018 EKG Measurement Heart [id number] <Conclusion> Normal sinus rhythm Normal ECG
[2018-08-20 12:30] LABS: FOLATE 7.8 ng/mL
[2018-08-20] MEDS: Albuterol-Ipratrop 3 mg / 0.5 (3 ml) UD INH PRN ×2 (12:59→22:28)
[2018-08-21] MEDS: FLUTICASONE PROPION/SALMETEROL 232-14 INHALER IH SCH ×2 (08:51→21:09)
--- NOTE | 2018-08-21 12:09 | PCM.PYCHPN ---
Psychiatric Progress Note - Psychiatric Progress Note Patient seen today, length of contact: chart reviewed, case discussed with team, pt seen Patient Chief Complaint: was feeling depressed having suicidal thoughts without plan, had been hearing voices which have lessened somewhat-command but verbalizes knows not to listen to them. denies side effects current rx regimen. staff report pt rx adherent seen about unit at times. Problems Identified/Issues Discussed: alteration in mood alteration in cognition alteration in safety alteration in self care Medical Problems: per chart Diagnostic Results: per psychiatry, medicine, social work, recreational therapy DSM 5 Symptoms Update: ome improvement mood and scant improvement cognition voices remain some what less Medication Change: No Medical Record Reviewed: Yes Consults ordered or reviewed: pt being followed by medical team Mental Status Examination - Cognitive Function Orientation: Person, Place, Situation, Time Decription of patient's judgement and insights: impaired - Mood Mood: Depressed, Anxious Additional comments: somewhat lessened - Affect Affect: Constricted, Depressed - Formal Thought Process Formal Thought Process: Hallucinations Psychotic Thoughts and Behaviors: command reports working on not listening to them would seen help from staff if necessary - Homicidal Ideation Homicidal Ideation: No Goal/Treatment Plan - Goal/Treatment Plan Progress Toward Problem(s) and Goals/Treatment Plan: inpt milieu adjust meds per clinical status vital signs and clinical observation per protocol and per clinical status discharge planning in progress a Estimated Date of D/C: 08/27/18 - Smoking Cessation Smoking Cessation Initiated: No Reason for not providing: pt defers
[2018-08-21] MEDS: Albuterol-Ipratrop 3 mg / 0.5 (3 ml) UD INH PRN ×2 (15:05→21:19)
[2018-08-21] MEDS: Triamcinolone 0.1% Orabase TUBE MM PRN (21:09)
[2018-08-22] MEDS: Albuterol-Ipratrop 3 mg / 0.5 (3 ml) UD INH PRN ×2 (07:34→20:47)
[2018-08-22] MEDS: FLUTICASONE PROPION/SALMETEROL 232-14 INHALER IH SCH ×2 (08:40→21:12)
[2018-08-22 16:39] VITALS: O2SAT 97
--- NOTE | 2018-08-22 16:59 | PCM.PYCHPN ---
Psychiatric Progress Note - Psychiatric Progress Note Patient seen today, length of contact: chart reviewed, case discussed with team, pt seen Patient Chief Complaint: was feeling less depressed, chronic pain being treated with ultram, denies complains headache, chest pain, sob or palpitation (pt receiving tramadol and abilify ?serotonin). staff report pt rx adherent. seen about unit. Problems Identified/Issues Discussed: alteration in mood alteration in cognition alteration in safety alteration in self care pain less than 5 with prn ultram Medical Problems: per chart Diagnostic Results: per psychiatry, medicine, social work, recreational therapy DSM 5 Symptoms Update: some improvement mood Medication Change: No Medical Record Reviewed: Yes Consults ordered or reviewed: pt being followed by medical team Mental Status Examination - Cognitive Function Orientation: Person, Place, Situation, Time Decription of patient's judgement and insights: impaired - Mood Mood: Depressed, Anxious Additional comments: less as compaired to yesterday - Affect Affect: Constricted, Depressed - Formal Thought Process Formal Thought Process: No Impairment Psychotic Thoughts and Behaviors: command reports working on not listening to them would seen help from staff if necessary - Suicidal Ideation Suicidal Ideation: No - Homicidal Ideation Homicidal Ideation: No Goal/Treatment Plan - Goal/Treatment Plan Progress Toward Problem(s) and Goals/Treatment Plan: inpt milieu adjust meds per clinical status vital signs and clinical observation per protocol and per clinical status discharge planning in progress a Estimated Date of D/C: 08/27/18 - Smoking Cessation Smoking Cessation Initiated: No Reason for not providing: pt defered
[2018-08-23] MEDS: FLUTICASONE PROPION/SALMETEROL 232-14 INHALER IH SCH ×2 (08:28→21:08)
--- NOTE | 2018-08-23 08:59 | PCM.PYCHPN ---
Psychiatric Progress Note - Psychiatric Progress Note Patient seen today, length of contact: Pt evaluated, chart reviewed, case discussed w/ team Patient Chief Complaint: CAH Problems Identified/Issues Discussed: Patient continues to report feeling depressed and anxious. He reports that he is afraid to be alone in his room due to CAH telling him to kill himself and to leave the hospital. He is able to contract for safety and states that he does not want to kill himself, but he is greatly disturbed by the voices. Medication Change: Yes (Increase Abilify to 20 mg tomorrow AM) Medical Record Reviewed: Yes Consults ordered or reviewed: Medicine consult, Pain management Mental Status Examination - Cognitive Function Orientation: Person, Place, Situation, Time Memory: Intact Attention: WNL Concentration: WNL Association: WNL Fund of Knowledge: [facility] Decription of patient's judgement and insights: Fair I/J - Mood Mood: Depressed, Anxious - Affect Affect: Constricted, Depressed - Formal Thought Process Formal Thought Process: Hallucinations Psychotic Thoughts and Behaviors: CAH - Suicidal Ideation Suicidal Ideation: Yes Plan: +CAH to kill himself, but he denies that he wants to harm himself - Homicidal Ideation Homicidal Ideation: No Goal/Treatment Plan - Goal/Treatment Plan Need for Continued Stay: Remain at risks for inpatient hospitalization, Severe depression anxiety Progress Toward Problem(s) and Goals/Treatment Plan: Schizoaffective Disorder -Increase Abilify to 20 mg tomorrow AM -Individual and group therapy -Medicine consult -Continue Trazodone -Continue Cymbalta and Elavil (prescribed for pain) -Disposition planning Estimated Date of D/C: 08/27/18
[2018-08-23] MEDS: Albuterol-Ipratrop 3 mg / 0.5 (3 ml) UD INH PRN ×2 (09:41→20:50)
[2018-08-24] MEDS: Albuterol-Ipratrop 3 mg / 0.5 (3 ml) UD INH PRN ×2 (08:06→13:27)
[2018-08-24] MEDS: FLUTICASONE PROPION/SALMETEROL 232-14 INHALER IH SCH ×2 (08:31→21:04)
--- NOTE | 2018-08-24 11:45 | PCM.PYCHPN ---
Psychiatric Progress Note - Psychiatric Progress Note Patient seen today, length of contact: Pt evaluated, chart reviewed, case discussed w/ team Patient Chief Complaint: CAH Problems Identified/Issues Discussed: Patient continues to report feeling depressed and anxious, fearful of being alone, w/ CAH telling him to kill himself and leave the hospital. We discussed that the Abilify will be increased today. Medication Change: Yes (Increase Abilify) Medical Record Reviewed: Yes Consults ordered or reviewed: Medicine consult, Pain management Mental Status Examination - Cognitive Function Orientation: Person, Place, Situation, Time Memory: Intact Attention: WNL Concentration: WNL Association: [facility] Fund of Knowledge: [facility] Decription of patient's judgement and insights: Fair I/J - Mood Mood: Depressed, Anxious - Affect Affect: Constricted, Depressed - Formal Thought Process Formal Thought Process: Hallucinations Psychotic Thoughts and Behaviors: CAH - Suicidal Ideation Suicidal Ideation: Yes Plan: CAH to kill himself, he denies current plan or intent - Homicidal Ideation Homicidal Ideation: No Goal/Treatment Plan - Goal/Treatment Plan Need for Continued Stay: Remain at risks for inpatient hospitalization, Severe depression anxiety Progress Toward Problem(s) and Goals/Treatment Plan: Schizoaffective Disorder -Increase Abilify to 20 mg -Individual and group therapy -Medicine consult -Continue Trazodone -Continue Cymbalta and Elavil (prescribed for pain) -Disposition planning Estimated Date of D/C: 08/27/18
[2018-08-24] MEDS: Triamcinolone 0.1% Orabase TUBE MM PRN (17:43)
[2018-08-25] MEDS: Albuterol-Ipratrop 3 mg / 0.5 (3 ml) UD INH PRN ×2 (00:58→14:03)
--- NOTE | 2018-08-25 08:32 | PCM.PYCHPN ---
Psychiatric Progress Note - Psychiatric Progress Note Patient seen today, length of contact: Pt evaluated, chart reviewed, case discussed w/ team Patient Chief Complaint: CAH Problems Identified/Issues Discussed: Patient continues to be depressed, anxious and distressed, due to continue AH, telling him to kill himself. He is able to contract for safety, but states that the voices are distracting and cause him to feel hopeless. No adverse effects to medications reported. Medication Change: No Medical Record Reviewed: Yes Consults ordered or reviewed: Medicine consult, Pain management Mental Status Examination - Cognitive Function Orientation: Person, Place, Situation, Time Memory: Intact Attention: WNL Concentration: WNL Association: WNL Fund of Knowledge: [facility] Decription of patient's judgement and insights: Fair I/J - Mood Mood: Depressed, Anxious - Affect Affect: Constricted, Depressed - Formal Thought Process Formal Thought Process: Hallucinations Psychotic Thoughts and Behaviors: CAH - Suicidal Ideation Suicidal Ideation: Yes Plan: CAH to kill himself - Homicidal Ideation Homicidal Ideation: No Goal/Treatment Plan - Goal/Treatment Plan Need for Continued Stay: Remain at risks for inpatient hospitalization, Severe depression anxiety Progress Toward Problem(s) and Goals/Treatment Plan: Schizoaffective Disorder -Continue Abilify -Individual and group therapy -Medicine consult -Continue Trazodone -Continue Cymbalta and Elavil (prescribed for pain) -Disposition planning Estimated Date of D/C: 08/31/18
[2018-08-25] MEDS: FLUTICASONE PROPION/SALMETEROL 232-14 INHALER IH SCH ×2 (09:19→21:12)
[2018-08-25] MEDS: Triamcinolone 0.1% Orabase TUBE MM PRN (17:29)
[2018-08-26] MEDS: Albuterol-Ipratrop 3 mg / 0.5 (3 ml) UD INH PRN ×3 (02:16→20:23)
[2018-08-26] MEDS: Triamcinolone 0.1% Orabase TUBE MM PRN (08:24)
[2018-08-26] MEDS: FLUTICASONE PROPION/SALMETEROL 232-14 INHALER IH SCH ×2 (08:31→21:09)
--- NOTE | 2018-08-26 09:22 | PCM.PYCHPN ---
Psychiatric Progress Note - Psychiatric Progress Note Patient seen today, length of contact: Pt evaluated, chart reviewed, case discussed w/ team Patient Chief Complaint: CAH Problems Identified/Issues Discussed: Patient continues to report CAH to kill himself, but states that the voices are less frequent. He continues to be distressed by the voices and reports feeling depressed and anxious. He is able to contract for safety at this time. No adverse effects to medications reported. Medication Change: Yes (Increase Abilify tomorrow AM) Medical Record Reviewed: Yes Consults ordered or reviewed: Medicine consult, Pain management Mental Status Examination - Cognitive Function Orientation: Person, Place, Situation, Time Memory: Intact Attention: WNL Concentration: WNL Association: WNL Fund of Knowledge: [facility] Decription of patient's judgement and insights: Fair I/J - Mood Mood: Depressed, Anxious - Affect Affect: Constricted, Depressed - Formal Thought Process Formal Thought Process: Hallucinations Psychotic Thoughts and Behaviors: CAH - Suicidal Ideation Suicidal Ideation: Yes - Homicidal Ideation Homicidal Ideation: No Goal/Treatment Plan - Goal/Treatment Plan Need for Continued Stay: Remain at risks for inpatient hospitalization, Severe depression anxiety Progress Toward Problem(s) and Goals/Treatment Plan: Schizoaffective Disorder -Continue Abilify; will increase tomorrow AM -Individual and group therapy -Medicine consult -Continue Trazodone -Continue Cymbalta and Elavil (prescribed for pain) -Disposition planning Estimated Date of D/C: 08/31/18
--- NOTE | 2018-08-27 08:40 | PCM.PYCHPN ---
Psychiatric Progress Note - Psychiatric Progress Note Patient seen today, length of contact: Pt evaluated, chart reviewed, case discussed w/ team Patient Chief Complaint: Auditory hallucinations Problems Identified/Issues Discussed: Patient continues to report CAH tell him to harm himself, but states they are less frequent. We discussed continued titration of Abilify. No current adverse effects to medications reported. He feels less depressed and less anxious. He is able to contract for safety at this time. Medication Change: Yes (Increase Abilify) Medical Record Reviewed: Yes Consults ordered or reviewed: Medicine consult, Pain management Mental Status Examination - Cognitive Function Orientation: Person, Place, Situation, Time Memory: Intact Attention: WNL Concentration: WNL Association: WNL Fund of Knowledge: [facility] Decription of patient's judgement and insights: Fair I/J - Mood Mood: Anxious - Affect Affect: Constricted - Formal Thought Process Formal Thought Process: Hallucinations Psychotic Thoughts and Behaviors: +AH - Suicidal Ideation Suicidal Ideation: No - Homicidal Ideation Homicidal Ideation: No Goal/Treatment Plan - Goal/Treatment Plan Need for Continued Stay: Remain at risks for inpatient hospitalization, Severe depression anxiety Progress Toward Problem(s) and Goals/Treatment Plan: Schizoaffective Disorder -Increase Abilify -Individual and group therapy -Medicine consult -Continue Trazodone -Continue Cymbalta and Elavil (prescribed for pain) -Disposition planning Estimated Date of D/C: 08/31/18
[2018-08-27] MEDS: FLUTICASONE PROPION/SALMETEROL 232-14 INHALER IH SCH ×2 (08:50→21:13)
--- NOTE | 2018-08-27 13:02 | CON ---
DATE: 08/26/2018 HISTORY OF PRESENT ILLNESS: The patient goes to [facility] for management of his schizoaffective disorder. At the [facility] on the day of admission, the patient said that he was hearing voices that were telling him to hurt himself. He was directed to the [facility] for further evaluation. He also complains of dry skin and redness involving his entire face as well as redness of both lower extremities below the knees. He denies any calf pain or lower extremity swelling. He also denies any chest pain, shortness of breath, or palpitations. PAST MEDICAL HISTORY: Diabetes, COPD, hypertension, hypercholesterolemia, restless leg syndrome, schizoaffective disorder, morbid obesity, history of bilateral lower extremity cellulitis, atherosclerosis, bipolar disorder. ALLERGIES: NO KNOWN DRUG ALLERGIES. MEDICATIONS: Trazodone 100 mg at bedtime, tramadol 100 mg twice daily as needed, pramipexole HCL 1.5 mg every 12 hours, metformin ER 500 mg daily, Robitussin 150 mg daily, Advair one inhalation twice daily, Cymbalta 60 mg daily, chlorthalidone 25 mg daily, carvedilol 25 mg twice daily, aspirin 81 mg daily, Combivent one inhalation 4 times daily, Abilify 10 mg daily, amitriptyline 25 mg at bedtime, gabapentin 300 mg twice daily. SOCIAL HISTORY: The patient has a history of smoking one to two packs of cigarettes daily for 35 years. He continues to smoke approximately one pack of cigarettes daily. He has a history of alcohol abuse. FAMILY HISTORY: Father at the age of 65 due to lung cancer. He was a heavy smoker. Mother has a history of coronary artery disease, status post coronary artery bypass graft. She has no history of smoking. The patient has two sisters who are healthy. The patient has also six brothers who are also healthy. REVIEW OF SYSTEMS: Unremarkable except as mentioned above. PHYSICAL EXAMINATION: GENERAL: This is a 57-year-old white male complaining of left lumbosacral pain with shooting pain down the left lower extremity as well as occasional shortness of breath on exertion. VITAL SIGNS: Blood pressure 136/84 mmHg, pulse rate 72 beats per minute, respirations 16 respirations per minute, afebrile. SKIN: Dry skin all over the face with erythema and also dry flaky skin of the lower extremities below the knee with erythema. HEENT: Atraumatic, normocephalic. Anicteric sclerae. Pupils equal, round reactive to light and accommodation. NECK: Supple. No jugular venous distention. No lymphadenopathy. Full range of motion. LUNGS: Decreased breath sounds bilaterally with expiratory wheeze. HEART: Regular, S1, S2. 1/6 systolic ejection murmur. ABDOMEN: Distended. Positive bowel sounds. Soft, nontender. EXTREMITIES: No cyanosis, clubbing, or edema. Left lumbosacral pain on straight leg raise greater than right. ASSESSMENT: 1. Left lumbosacral pain with radiculopathy. 2. Diffuse epidural lipomatosis. 3. Diabetes. 4. Hypertension. 5. Chronic obstructive pulmonary disease. 6. Hypercholesterolemia. 7. Atherosclerosis. 8. Restless legs syndrome. 9. Insomnia. 10. Morbid obesity. 11. Bipolar disorder. 12. Schizoaffective disorder. PLAN: Dr. Solis will schedule the patient for epidural injection to manage diffuse epidural lipomatosis with left lumbosacral pain with radiculopathy. He will continue gabapentin 300 mg 3 times daily as well as tramadol 100 mg twice daily as needed. DuoNeb treatments 4 times daily has been ordered. The patient will also continue Advair 250/50 mcg one inhalation twice daily. CBC and chem metabolic panel as well as urinalysis for culture and sensitivity has been ordered for the a.m. Anabell Monreal MD
[2018-08-27] MEDS: Albuterol-Ipratrop 3 mg / 0.5 (3 ml) UD INH PRN ×2 (14:34→20:17)
[2018-08-28] MEDS: Albuterol-Ipratrop 3 mg / 0.5 (3 ml) UD INH PRN ×3 (06:21→20:46)
[2018-08-28] MEDS: FLUTICASONE PROPION/SALMETEROL 232-14 INHALER IH SCH ×2 (08:52→21:18)
--- NOTE | 2018-08-28 13:46 | PCM.PYCHPN ---
Psychiatric Progress Note - Psychiatric Progress Note Patient seen today, length of contact: Pt evaluated, chart reviewed, case discussed w/ team Patient Chief Complaint: i feel better with the increase in abilify Problems Identified/Issues Discussed: pt evaluated , reported better mood with the increase in abilify, no reported side effects, seen on the unit, brighter affect, denied any current suicidal or homicidal ideation, denied perceptual disturbances Medication Change: No Medical Record Reviewed: Yes Mental Status Examination - Cognitive Function Orientation: Person, Place, Situation, Time Memory: Intact Attention: WNL Concentration: WNL Association: WNL Fund of Knowledge: WNL - Mood Mood: Anxious - Affect Affect: Constricted - Speech Speech: Appropriate - Formal Thought Process Formal Thought Process: Circumstantial - Suicidal Ideation Suicidal Ideation: No - Homicidal Ideation Homicidal Ideation: No Goal/Treatment Plan - Goal/Treatment Plan Need for Continued Stay: Remain at risks for inpatient hospitalization, Severe depression anxiety Progress Toward Problem(s) and Goals/Treatment Plan: continue current management Estimated Date of D/C: 08/31/18
[2018-08-29] MEDS: Albuterol-Ipratrop 3 mg / 0.5 (3 ml) UD INH PRN ×2 (05:19→21:59)
[2018-08-29] MEDS: FLUTICASONE PROPION/SALMETEROL 232-14 INHALER IH SCH ×2 (08:15→21:17)
--- NOTE | 2018-08-29 11:32 | PCM.PYCHPN ---
Psychiatric Progress Note - Psychiatric Progress Note Patient seen today, length of contact: Pt evaluated, chart reviewed, case discussed w/ team Patient Chief Complaint: I am ready to start a program Problems Identified/Issues Discussed: pt evaluated ,presenting with brighter affect, reported better mood with the increase in abilify, no reported side effects, seen on the unit, , denied any current suicidal or homicidal ideation, denied perceptual disturbances Medication Change: No Medical Record Reviewed: Yes Mental Status Examination - Cognitive Function Orientation: Person, Place, Situation, Time Memory: Intact Attention: WNL Concentration: WNL Association: WNL Fund of Knowledge: WNL - Mood Mood: Anxious - Affect Affect: Constricted - Speech Speech: Appropriate - Formal Thought Process Formal Thought Process: Circumstantial - Suicidal Ideation Suicidal Ideation: No - Homicidal Ideation Homicidal Ideation: No Goal/Treatment Plan - Goal/Treatment Plan Need for Continued Stay: Remain at risks for inpatient hospitalization, Severe depression anxiety Progress Toward Problem(s) and Goals/Treatment Plan: continue current management Estimated Date of D/C: 08/31/18
[2018-08-30] MEDS: FLUTICASONE PROPION/SALMETEROL 232-14 INHALER IH SCH ×2 (08:15→21:03)
--- NOTE | 2018-08-30 09:42 | PCM.BM ---
Treatment Plan Problems - Problems identified on initial assessmt Suicidal Ideation Date Initiated: 08/19/18 Time Initiated: 16:46 Assessment reference: HP, NA Status: Active Priority: 1 Depression Date Initiated: 08/19/18 Time Initiated: 16:47 Assessment reference: HP, NA Status: Active Treatment assets and liabiliti Patient Assests: adapts well, cooperative, insightful, resourceful, self- reliant, ADL independent, negotiates basic needs, cognitively intact, good interpersonal skills Patient Liabilities: live alone, poor support system, substance abuse, medical problems - Milieu Protocol Maintain good personal hygiene: daily Encourage regular showers, daily Remind patient to perform daily oral care, daily Assist patient to perform ADL's Conduct patient checks and document Observation sheet: Q15 minutes Maintain personal safety: every shift Educate patient to report safety concerns to staff, every shift Monitor environment for contraband/sharps Medication safety: Monitor for expected outcome, potential side effects: every shift, Assess barriers to learning: every shift, Assess readiness for medication education: every shift Milieu Narrative: continue current management Family Contact Family involvement: Family/SO is involved Family contact: Patient agrees to contact, Family has been contacted by patient - Goals for Treatment Patient goals for treatment: Pt reported he would like to be restabilized on medication to improve his depression and eliminate his hallucinations. Discharge/Continuing Care - Education Needs Education Needs: Patient Medication, Patient Diagnosis/Disease Process, Patient Coping Skills, Patient Community resources, Patient Aftercare Safety Plan - Discharge Discharge Criteria: Tolerates medication w/o severe side effects, Free of Suicidal thoughts, Free of paranoid thoughts, Free of agitation, Normal sleep pattern, Ability to care for self, Reduction of target symptoms Discharge to:: Home - Treatment Team Participation Patient/Family/SO Statement: continue current management Discussed with Family/SO: No Was Patient/Family/SO present at Treatment Team Meeting: Yes Treatment Plan Review - Problem Suicidal Ideation Time Initiated: 16:46 Depression Time Initiated: 16:47 - Discharge / Continuing Care Discharge to:: Home Behavioral Health Services: Outpatient therapy Health Needs: Follow up care/test, Medications/Rx (Pt seen in treatment [facility] for review on 08/27/18 from 1019 until 1022. Pt admitted to trouble sleeping the previous night and having trouble getting up this morning. Pt admitted to continued command, auditory hallucinations telling pt to kill himself. Pt denied current suicidal ideations, however, and denied intent on acting on the voices. Pt reported that the voices have decreased in severity and freuquency. Dr. Hayes discussed increased Abilify to 30mg. Pt reported continued depression and his affect and mood appeared depressed. pt's speech was at a normal rate and tone, yet lacked intonation. Pt observed as shaking and tremulous. Pt's thought process and content were logical and goal directed. Rescheduling of outpatient appointments at [facility] discussed. )
--- NOTE | 2018-08-30 12:10 | PCM.PYCHPN ---
Psychiatric Progress Note - Psychiatric Progress Note Patient seen today, length of contact: Pt evaluated, chart reviewed, case discussed w/ team Patient Chief Complaint: I am better Problems Identified/Issues Discussed: pt evaluated ,seen in day room, socializing with other patients ,presenting with brighter affect, reported better mood with the increase in abilify, no reported side effects, seen on the unit, , denied any current suicidal or homicidal ideation, denied perceptual disturbances Medication Change: No Medical Record Reviewed: Yes Mental Status Examination - Cognitive Function Orientation: Person, Place, Situation, Time Memory: Intact Attention: WNL Concentration: WNL Association: WNL Fund of Knowledge: WNL - Mood Mood: Anxious - Affect Affect: Constricted - Speech Speech: Appropriate - Formal Thought Process Formal Thought Process: Circumstantial - Suicidal Ideation Suicidal Ideation: No - Homicidal Ideation Homicidal Ideation: No Goal/Treatment Plan - Goal/Treatment Plan Need for Continued Stay: Remain at risks for inpatient hospitalization, Severe depression anxiety Progress Toward Problem(s) and Goals/Treatment Plan: continue current management Estimated Date of D/C: 08/31/18
[2018-08-30] MEDS: Albuterol-Ipratrop 3 mg / 0.5 (3 ml) UD INH PRN ×2 (14:18→19:46)
[2018-08-31 06:35] VITALS: BP 124/77; PULSE 72; RESP 18; TEMP 97.8
[2018-08-31] MEDS: FLUTICASONE PROPION/SALMETEROL 232-14 INHALER IH SCH (08:25)
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
== END 2018-08-31 10:16 | disposition home or self-care (01) | DRG 430 ==
LOC: H.ER 10:55 → H.ERHOLD 14:44 → H.STEP 16:20
PROVIDERS: ADMIT Psychiatry & Neurology Psychiatry; ATTEND Psychiatry & Neurology Psychiatry
PROC: GZHZZZZ Group Psychotherapy (ICD-10-PCS; principal; 2018-08-19)
DX: F25.9 Schizoaffective disorder, unspecified (principal); J43.9 Emphysema, unspecified; I11.0 Hypertensive heart disease with heart failure; I50.9 Heart failure, unspecified; E66.01 Morbid (severe) obesity due to excess calories; E78.00 Pure hypercholesterolemia, unspecified; E88.2 Lipomatosis, not elsewhere classified; F17.210 Nicotine dependence, cigarettes, uncomplicated; G25.81 Restless legs syndrome; G47.00 Insomnia, unspecified; I25.10 Atherosclerotic heart disease of native coronary artery without angina pectoris; R45.851 Suicidal ideations; Z79.82 Long term (current) use of aspirin; Z98.61 Coronary angioplasty status; E11.9 Type 2 diabetes mellitus without complications; M54.17 Radiculopathy, lumbosacral region; G47.30 Sleep apnea, unspecified; G89.29 Other chronic pain